=== PATIENT | male | born 1970 | race Caucasian/White ===

== ENCOUNTER → 2020-05-13 07:52 | Outpatient (BNVA) | payer MEDICARE, MEDICAID, SELFPAY | PROVIDERS: PCP Internal Medicine; Visit Provider Orthopaedic Surgery | DX: E66.01 Morbid (severe) obesity due to excess calories (principal); M16.12 Unilateral primary osteoarthritis, left hip | CPT/HCPCS: 99212 ==

== ENCOUNTER → 2020-06-17 13:25 | Outpatient (BNVA) | payer MEDICARE, MEDICAID, SELFPAY | PROVIDERS: PCP Internal Medicine; Visit Provider Nurse Practitioner Family | DX: E66.01 Morbid (severe) obesity due to excess calories (principal); M16.12 Unilateral primary osteoarthritis, left hip | CPT/HCPCS: 99202 ==

== ENCOUNTER → 2020-07-01 10:47 | Outpatient (BNVA) | payer MEDICARE, SELFPAY | PROVIDERS: PCP Internal Medicine; Visit Provider Nurse Practitioner Family | DX: E66.01 Morbid (severe) obesity due to excess calories (principal); M16.12 Unilateral primary osteoarthritis, left hip | CPT/HCPCS: 99212 ==

== ENCOUNTER 2020-08-06 06:55 | Outpatient (REF) | payer OTHER, SELFPAY ==
--- NOTE | ~2020-08-06 | FL_ITS ---
EXAMINATION: XR FLUOROSCOPY WITH IMAGES CLINICAL INFORMATION: Bilateral primary osteoarthritis. COMPARISON: None. TECHNIQUE: Fluoroscopy performed by Curt Lew. Fluoroscopy time: 0.3 minutes DAP: 7.61 Gycm2 Images: 1 FINDINGS: Single right hip image obtained under fluoroscopy reveals contrast positioned lateral to the right femoral neck and head junction. There is severe loss of right hip joint space. The soft tissues are unremarkable. FL/FL guidance in treatment room IMPRESSION: Fluoroscopy was provided to Louann Elias for right hip injection.
== END 2020-08-06 06:56 | disposition home or self-care (01) ==
LOC: HO.RADIR 06:55
PROVIDERS: Visit Provider Anesthesiology
DX: M16.0 Bilateral primary osteoarthritis of hip (principal); E66.01 Morbid (severe) obesity due to excess calories
CPT/HCPCS: 20610; J3300; Q9967

== ENCOUNTER → 2020-08-12 12:50 | Outpatient (BNVA) | payer MEDICARE, MEDICAID, SELFPAY | PROVIDERS: PCP Internal Medicine; Visit Provider Nurse Practitioner Family | DX: E66.01 Morbid (severe) obesity due to excess calories (principal); M16.12 Unilateral primary osteoarthritis, left hip | CPT/HCPCS: Q3014 ==

== ENCOUNTER 2020-10-14 11:54 | Outpatient (REF) | payer MEDICARE, SELFPAY ==
--- NOTE | ~2020-10-14 | XR_ITS ---
EXAMINATION: XR PELVIS CLINICAL INFORMATION: Difficulty turning left leg inward. COMPARISON: AP pelvis 01/27/2018. TECHNIQUE: AP view of the pelvis. FINDINGS: There is severe loss of bilateral hip joint space with periarticular spurring. There is large inferior acetabular spur along the left hip joint. No fracture seen. There are subchondral cystic changes along the femoral head and the acetabulum bilaterally. The SI joints are symmetrical with mild degenerative arthritic changes along the inferior left SI joint. The soft tissues are normal. XR/XR pelvis 1-2V IMPRESSION: Severe arthritic changes left hip joint. There is interval significant progression with severe right hip joint arthritis since 2018.
== END 2020-10-14 11:55 | disposition home or self-care (01) ==
LOC: HO.HOSX 11:54
PROVIDERS: Visit Provider Orthopaedic Surgery
DX: M16.12 Unilateral primary osteoarthritis, left hip (principal); M25.551 Pain in right hip; Z98.84 Bariatric surgery status
CPT/HCPCS: 72170; 99212

== ENCOUNTER → 2020-11-07 10:22 | Outpatient (BNVA) | payer MEDICARE, MEDICAID, SELFPAY | PROVIDERS: Visit Provider Orthopaedic Surgery ==

== ENCOUNTER → 2020-11-21 09:09 | Outpatient (BNVA) | payer MEDICARE, SELFPAY | PROVIDERS: Referring Provider Internal Medicine; Visit Provider Internal Medicine | DX: Z01.810 Encounter for preprocedural cardiovascular examination (principal); I10 Essential (primary) hypertension; E66.01 Morbid (severe) obesity due to excess calories | CPT/HCPCS: 93005; 99202 ==

== ENCOUNTER → 2020-12-05 13:35 | Outpatient (BNVA) | payer MEDICARE, SELFPAY | PROVIDERS: Visit Provider Physician Assistant | DX: M16.12 Unilateral primary osteoarthritis, left hip (principal) | CPT/HCPCS: 99212 ==

== ENCOUNTER 2020-12-11 06:53 | Inpatient (IN) | payer MEDICARE, SELFPAY ==
[2020-11-19 13:58] LABS: MANUAL DIFF FLAG NO
[2020-11-19 14:03] LABS: Basophils Absolute Auto 0.1 X10*3/uL (0.0-0.2); Basophils Percent Auto 0.6 % (0-2); Eosinophils Absolute Auto 0.1 X10*3/uL (0.0-0.4); Eosinophils Percent Auto 0.6 % (0-4); Hematocrit 42.7 % (42-52); Hemoglobin 14.4 g/dl (14.0-18.0); Imm Gran Abs Auto 0.04 X10*3/uL (0.00-0.03); Imm Gran Pct Auto 0.3 % (0.0-0.4); Lymphocytes Absolute Auto 2.3 X10*3/uL (1.2-4.9); Lymphocytes Percent Auto 19.1 % (20-40); Mean Corpuscular HGB Conc 33.7 g/dl (31.0-36.0); Mean Corpuscular Hemoglobin 29.7 pg (27.0-33.0); Mean Platelet Volume 9.6 fL (9.4-12.4); Monocytes Absolute Auto 0.8 X10*3/uL (0.1-1.2); Monocytes Percent Auto 6.6 % (2-11); Neutrophils Absolute Auto 8.8 X10*3/uL (2.0-8.3); Neutrophils Percent Auto 72.8 % (45-73); Platelet Count 386 X10*3/uL (160-400); Red Blood Count 4.85 X10*6/uL (4.60-5.80); Red Cell Distribution Width 13.5 % (11.0-16.0); White Blood Count 12.1 X10*3/uL (4.8-10.8)
[2020-11-19 14:21] LABS: Alanine Aminotransferase 31 U/L (0-40); Albumin Level 4.3 g/dL (3.5-5.0); Alkaline Phosphatase 57 U/L (39-117); Anion Gap 13 (12-20); Aspartate Amino Transferase 28 U/L (5-37); Bilirubin Total 0.7 mg/dL (0.0-1.0); Blood Urea Nitrogen 16 mg/dL (9-16); Calcium 9.9 mg/dL (8.4-10.2); Carbon Dioxide 31 mmol/L (22-29); Chloride 102 mmol/L (96-108); Estimated Glomerular Filt Rate > 60; Glucose Random 80 mg/dL (60-115); Potassium 3.5 mmol/L (3.3-5.1); Sodium 142 mmol/L (135-145); Total Protein 7.1 g/dL (6.5-8.0)
[2020-11-19 14:38] LABS: TSH reflex Free T4 1.27 uIU/mL (0.32-4.0)
--- NOTE | 2020-11-27 10:52 | P.CONAN_ITS ---
Documented by User: Lina Benítez NP 12/10/20 08:57 HPI - Anesthesia Eval Consult details Narrative: 50yo M for Left Hip Total Replacement Cardiac cleared at low risk PCP cleared s/p gastric sleeve 03/2020 with 130lb weight loss PMFSH Active Problems Active Problems: All Active Problems (Updated 11/26/20 @ 09:54 by Yuli Smith, GUMARO) Requires daily assistance for activities of daily living (ADL) and comfort needs (Acute) Obesity (Acute) Arthritis of left hip (Acute) Immunization due (Acute) Lipid disorder (Acute) Chronic GERD (Acute) History of bariatric surgery (Acute) Pre-op evaluation (Acute) Preoperative cardiovascular examination (Acute) Depression, major, recurrent (Acute) Hypertension, essential (Acute) Morbid obesity (Acute) Osteoarthritis, hip, bilateral (Acute) Past Medical History Medical History Arthritis COVID-19 vaccine series completed Depression, major, recurrent Hypertension, essential Morbid obesity Osteoarthritis, hip, bilateral Sleep apnea Family History Family History Father HTN (hypertension) Mother HTN (hypertension) Sister Cancer of thyroid Maternal Grandfather No problems noted. Maternal Grandmother No problems noted. Paternal Grandfather No problems noted. Paternal Grandmother No problems noted. Brother No problems noted. Sister No problems noted. Sister No problems noted. Family history of problems with anesthesia: No Surgical History Surgical History H/O colonoscopy History of ankle surgery History of sleeve gastrectomy History of surgery History of Problems with Anesthesia: No Social History Social History Housing: House Are you a primary respiratory care assistant to a significant other at home: No Do you presently have visiting nurse or other home services: No Alcohol intake: never Patient Tobacco Use Status: Never used Tobacco Narrative Narrative: No recent illness No CP/SOB with very limited activity d/t pain Meds Allergies Allergy/AdvReac Type Severity Reaction Status Date / Time lisinopril [LISINOPRIL] AdvReac Severe COUGH Verified 12/05/20 14:17 Home Medications Medication Instructions Recorded Confirmed Last Taken Type irbesartan 300 mg tablet 300 mg PO QPM 05/22/20 11/27/20 Unknown History amlodipine 10 mg tablet 10 mg PO QPM 11/27/20 11/27/20 Unknown History atorvastatin 20 mg tablet 20 mg PO QPM 11/27/20 11/27/20 Unknown History gabzxik-rex-wun [id number]-[id number] 250 1 tab PO BID 11/27/20 11/27/20 Unknown History mg-40 mg-5 mg-125 unit tablet multivitamin 1 tab PO DAILY 11/27/20 11/27/20 Unknown History omeprazole 20 mg capsule,delayed 20 mg PO QAM 11/27/20 11/27/20 Unknown History release spironolactone 25 1 tab PO QPM 11/27/20 11/27/20 Unknown History mg-hydrochlorothiazide 25 mg tablet Exam Exam Date and Time: November 27, 2020 1052 Height,Weight and Vital Signs: Vital Signs Pulse Rate 72 11/27/20 11:33 Respiratory Rate 20 11/27/20 11:33 Blood Pressure 110/60 11/27/20 11:33 Pulse Oximetry 97 11/27/20 11:33 Pulse Rate 72 11/27/20 11:33 Respiratory Rate 20 11/27/20 11:33 Blood Pressure 110/60 11/27/20 11:33 Pulse Oximetry 97 11/27/20 11:33 Pertinent Lab Results Pertinent Lab Results: Lab Results 11/19/20 11/19/20 11/19/20 Range/Units 12:25 12:25 12:25 WBC Cancelled 12.1 H RBC Cancelled 4.85 Hgb Cancelled 14.4 Hct Cancelled 42.7 MCV Cancelled 88.0 MCH Cancelled 29.7 MCHC Cancelled 33.7 RDW Cancelled 13.5 Plt Count Cancelled 386 MPV Cancelled 9.6 Immature Gran % (Auto) Cancelled 0.3 Neut % (Auto) Cancelled 72.8 Lymph % (Auto) Cancelled 19.1 L [place] % (Auto) Cancelled 6.6 Eos % (Auto) Cancelled 0.6 Baso % (Auto) Cancelled 0.6 Lymph # (Auto) Cancelled 2.3 [place] # (Auto) Cancelled 0.8 Eos # (Auto) Cancelled 0.1 Baso # (Auto) Cancelled 0.1 Abs Immat Gran (auto) Cancelled 0.04 H Absolute Neuts (auto) Cancelled 8.8 H Absolute Nucleated RBC Cancelled 0.000 Nucleated RBC % (auto) Cancelled 0.0 Sodium Cancelled Potassium Cancelled Chloride Cancelled Carbon Dioxide Cancelled Anion Gap Cancelled BUN Cancelled Creatinine Cancelled Estim Creat Clear Calc Cancelled Estimated GFR Cancelled Random Glucose Cancelled Calcium Cancelled Total Bilirubin (0.0-1.0) mg/dL AST (5-37) U/L ALT (0-40) U/L Alkaline Phosphatase (39-117) U/L Total Protein (6.5-8.0) g/dL Albumin (3.5-5.0) g/dL TSH (0.32-4.0) uIU/mL Nasal Screen MRSA (PCR) (Negative) Nasal S. aureus Screen (Negative) Nasal MRSA/S.aureus Interp Blood Type Antibody Screen 11/19/20 11/27/20 11/27/20 Range/Units 12:25 11:50 12:35 WBC RBC Hgb Hct MCV MCH MCHC RDW Plt Count MPV Immature Gran % (Auto) Neut % (Auto) Lymph % (Auto) [place] % (Auto) Eos % (Auto) Baso % (Auto) Lymph # (Auto) [place] # (Auto) Eos # (Auto) Baso # (Auto) Abs Immat Gran (auto) Absolute Neuts (auto) Absolute Nucleated RBC Nucleated RBC % (auto) Sodium 142 Potassium 3.5 Chloride 102 Carbon Dioxide 31 H Anion Gap 13 BUN 16 Creatinine 0.80 Estim Creat Clear Calc TNP Estimated GFR > 60 Random Glucose 80 Calcium 9.9 Total Bilirubin 0.7 (0.0-1.0) mg/dL AST 28 (5-37) U/L ALT 31 (0-40) U/L Alkaline Phosphatase 57 (39-117) U/L Total Protein 7.1 (6.5-8.0) g/dL Albumin 4.3 (3.5-5.0) g/dL TSH 1.27 (0.32-4.0) uIU/mL Nasal Screen MRSA (PCR) NEGATIVE (Negative) Nasal S. aureus Screen NEGATIVE (Negative) Nasal MRSA/S.aureus Interp SEE NOTE Blood Type O Positive Antibody Screen NEGATIVE Narrative Narrative: EKG 11/2020 Sinus rhythm at 67/Min; no significant ST-T changes and otherwise unremarkable. Airway Mallampati Class: II TM Dist: >3cm Neck ROM: Full Heart: RRR Lungs: CTAB Assessment and Plan Assessment Anesthesia Assessment: Anesthesia Plan Discussed and PAT Visit Final Anesthetic Review Family History of Problems with Anesthesia: No History of Problems with Anesthesia: No Documented by User: Santiago Salcido MD 12/11/20 07:01 [facility] Past Medical History Medical History Arthritis COVID-19 vaccine series completed Depression, major, recurrent Hypertension, essential Morbid obesity Osteoarthritis, hip, bilateral Sleep apnea Family History Family History Father HTN (hypertension) Mother HTN (hypertension) Sister Cancer of thyroid Maternal Grandfather No problems noted. Maternal Grandmother No problems noted. Paternal Grandfather No problems noted. Paternal Grandmother No problems noted. Brother No problems noted. Sister No problems noted. Sister No problems noted. Surgical History Surgical History H/O colonoscopy History of ankle surgery History of sleeve gastrectomy History of surgery Social History Social History Housing: House Are you a primary respiratory care assistant to a significant other at home: No Do you presently have visiting nurse or other home services: No Alcohol intake: never Patient Tobacco Use Status: Never used Tobacco Meds Allergies Allergy/AdvReac Type Severity Reaction Status Date / Time lisinopril [LISINOPRIL] AdvReac Severe COUGH Verified 12/05/20 14:17 Home Medications Medication Instructions Recorded Confirmed Last Taken Type irbesartan 300 mg tablet 300 mg PO QPM 05/22/20 11/27/20 Unknown History amlodipine 10 mg tablet 10 mg PO QPM 11/27/20 11/27/20 Unknown History atorvastatin 20 mg tablet 20 mg PO QPM 11/27/20 11/27/20 Unknown History uhvjspc-ctq-[id number] C5-[id number]-[id number] 250 1 tab PO BID 11/27/20 11/27/20 Unknown History mg-40 mg-5 mg-125 unit tablet multivitamin 1 tab PO DAILY 11/27/20 11/27/20 Unknown History omeprazole 20 mg capsule,delayed 20 mg PO QAM 11/27/20 11/27/20 Unknown History release spironolactone 25 1 tab PO QPM 11/27/20 11/27/20 Unknown History mg-hydrochlorothiazide 25 mg tablet Exam Airway Mallampati Class: III Loose/Missing/Broken Teeth: Yes Assessment and Plan Final Anesthetic Review NPO: Yes ASA Class: III Final Preanesthetic Review: No Changes in Pt Med Stat, Meds/Allgs Chart Reviewed and Consent Obtained/Reviewed Patient Risk: Intermediate Procedure Risk: Intermediate Assessment/Block/Sedation in SS: Assess/Block/Sedation-SS Anesthetic Plan Anesthetic Plan: GA and Agree w/ Assess. and Plan Disposition: Standard PACU
[2020-11-27 11:33] VITALS: BP 110/60; PULSE 72; RESP 20; O2SAT 97; BMI 37.0
[2020-11-27 14:22] LABS: MRSA Nasal PCR NEGATIVE (Negative); SA Nasal PCR NEGATIVE (Negative)
[2020-12-11] VITALS (17 sets, daily range): BP systolic 115–147; BP diastolic 66–92; PULSE 71–94; RESP 16–20; TEMP 36.1–37.1; O2SAT 93–98
--- NOTE | ~2020-12-11 | XR_ITS ---
EXAMINATION: XR PELVIS CLINICAL INFORMATION: Post left hip arthroplasty COMPARISON: Previous pelvis x-ray September 2020 TECHNIQUE: AP view of the pelvis. FINDINGS: There is a new left hip replacement and proximal femoral cerclage wire. No fracture or dislocation is seen. There is severe arthritis at the right hip joint. Soft tissues are unremarkable. XR/XR pelvis 1-2V IMPRESSION: Satisfactory appearance of left hip replacement.
--- NOTE | 2020-12-11 07:20 | MHC.SHP ---
Pre-Procedural Eval Section A Date of Service: 12/11/20 The patient is an INPATIENT: No Changes since office visit: Yes Patient answered all questions; No Cold of Flu in the past 2 weeks, No New Medical Problems and No Changes in Medication The History & Physical has been completed within 30 days and I have reviewed it.: Yes Section B Chief Complaint: LT GLENIS Allergies: Allergies Allergy/AdvReac Type Severity Reaction Status Date / Time lisinopril [LISINOPRIL] AdvReac Severe COUGH Verified 12/05/20 14:17 Plan I have reviewed the history and physical and performed a pertinent physical examination on my patient. No changes have occurred unless specified.
[2020-12-11 07:28] LABS: COVID-19 Test Negative (Negative)
[2020-12-11] MEDS: oxyCODONE HCl ER 10 MG TAB.ER.12H PO ×2 (07:32→20:06)
[2020-12-11] MEDS: Lactated Ringers 1,000 ML 100 ML IVCONT (08:06)
--- NOTE | 2020-12-11 11:09 | PM.OP ---
Brief Operative Note Date of Service: 12/11/20 Pre-op diagnosis: left hip OA Post-op diagnosis: same Procedure: Left GLENIS Implants: [place] 58/20deg/#6/+7.5 36 ceramic dalles-miles cerclage cable x1 Surgeon: Bk Nettles MD Anesthesia: GETA and local Was an Product Representative used for this Procedure?: Yes Product Representative: Marie Lombardi Estimated blood loss (mL): 200 IV fluids (mL): 1,200 Pathology: other Condition: stable Disposition: PACU
--- NOTE | 2020-12-11 11:14 | W.PM.OPN ---
Operative Note Operative Note Date of Service: 12/11/20 Narrative: Pre-op diagnosis: left hip OA Post-op diagnosis: same Procedure: Left GLENIS Implants: [place] 58/20deg/#6/+7.5 36 ceramic dalles-miles cerclage cable x1 Surgeon: Bk Nettles MD Anesthesia: GETA and local Was an Transportation Specialist used for this Procedure?: Yes Transportation Specialist: Marie Lombardi Estimated blood loss (mL): 200 IV fluids (mL): 1,200 Pathology: other Condition: stable Disposition: PACU Procedure in detail: Patient was brought into the operating room and placed in the lateral decubitus position. All bony prominences were well padded and the limb was prepped and draped in standard sterile fashion. Time-out was called to identify proper site procedure proper surgeon IV antibiotics and 1 g of transaxemic acid were administered. I began by making a curvilinear incision over the posterolateral aspect of the greater trochanter. Dissection was taken down to the tensor fascia which was incised in line with the incision and a Charnley retractor was placed. Cautery was used to maintain hemostasis in addition to the Werewolf.. The hip was internally rotated and the external rotators were identified. The vessels were cauterized and a full-thickness capsular/external rotator layer was developed starting just proximal to the piriformis. THis layer was tagged and a dull Hohmann retractor was placed underneath the neck in the hip was dislocated. ___The head was deformed and eburnated A neck cut was made 1 cm proximal to the lesser trochanter and the head and neck were removed and measured on the back table. I then placed my anterior-posterior acetabular retractors and performed a labrectomy. The inferior osteophytes were removed.The cup was superior and sclerotic. There was a thin posterosuperior wall and I medialized a small amount but elected to use his false acetabulum as I was worried about his bone quality posteriorly. I then sequentially reamed up to a size 58 and impacted a 58 revision cup at approximately 45 degrees of inclination and 25 degrees of version. I then placed a ___20 post lipped ____ liner and turned my attention to the femur. I identified the piriformis insertion and used this as a starting point for my emmanuel cutter. The medius tendon was protected with a Hibs retractor. I then used a Charnley awl to identify the canal and a curved curette to remove the lateral bone. I then sequentially broached in the patient's natural version to a size __6__ and placed my trial implants. Using a ____+5 I took the hip through range of motion with a I was satisfied with the stability and length. Therefore removed all instrumentation copiously irrigated placed my final femoral implant. After final implantation I noticed a small crack at the calcar that did not appear to propogate distally. I tried to further advance the stem and I was unable to do so. As a precaution I placed a cerclage cable just below the lesser using standard AO technique. I then assessed the stem and it was stable. There was no subsidence even after further impaction. I again took the hip through range of motion and elected to place a + 7.5 as I was satisfied with stability and length and so my final femoral head was impacted in place. I then irrigated for 3 minutes with iodine and placed 1 g of local TXA. I then performed a capsular closure with FiberWire, Judi's fascia with 0 Vicryl, subcuticular with 2-0 vicryl and skin with arpita. Patient was placed into a sterile dressing. Radiographs were obtained at the completion of the case and I was satisfied with the component position. Patient was extubated brought to the recovery room in stable condition.
[2020-12-11] MEDS: fentaNYL citrate/PF 100 MCG/2 ML VIAL 50 MCG IVPUSH ×3 (11:32→11:47)
[2020-12-11] MEDS: oxyCODONE HCl Immed Release 5 MG TABLET 10 MG PO ×2 (12:15→20:05)
[2020-12-11] MEDS: Dextrose 5 % and 0.45 % NaCl 1,000 ML 80 ML IVCONT (13:16)
[2020-12-11] MEDS: Omeprazole 20 MG CAPSULE.DR PO (13:16)
[2020-12-11] MEDS: ceFAZolin Sodium/Dextrose,Iso 2 GM/50 ML PIGGYBACK IV (14:26)
--- NOTE | 2020-12-11 14:32 | P.CONIM_ITS ---
History of Present Illness Data of Consult Service Date: 12/11/20 Primary Care Provider: Renard Benton MD [facility] Reason for consult: Hypertension, obesity 50 years old male admitted to the hospital for scheduled left hip arthroplasty. He feels comfortable overall and his medical problems other under good control including hypertension and GERD. At time of interview physical therapist walked in the room trying tells the patient moved. His pain is under fair control. Hospitalist team asked to evaluate the patient for medical problems. Review of Systems Review of Systems: No fever, chills or weakness No chest pain, palpitation No shortness of breath or coughing No abdominal pain, nausea or vomiting No urinary symptoms Hip pain PMFSH Medical History Arthritis COVID-19 vaccine series completed Depression, major, recurrent Hypertension, essential Morbid obesity Osteoarthritis, hip, bilateral Sleep apnea Family History Father HTN (hypertension) Mother HTN (hypertension) Sister Cancer of thyroid Maternal Grandfather No problems noted. Maternal Grandmother No problems noted. Paternal Grandfather No problems noted. Paternal Grandmother No problems noted. Brother No problems noted. Sister No problems noted. Sister No problems noted. 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 If so, by whom?: No Are you DNR?: No Advance Directives Information Provided: Yes (friend Kacy Herbert [phone]) Advance Directives on File: No Do you have thoughts of harming others: None Do you have a plan to hurt others: No Plan Recently lost weight without trying: No Eating poorly because of decreased appetite: No Nutrition Risks: No Nutritional Risk Poor oral hygiene: No Meds Allergies Allergy/AdvReac Type Severity Reaction Status Date / Time lisinopril [LISINOPRIL] AdvReac Severe COUGH Verified 12/11/20 07:43 Active Medications: Current Medications Acetaminophen (Acetaminophen 325 Mg Tablet) 650 mg PO Q6H PRN PRN Reason: Pain, Mild (Pain Scale 1-3) Atorvastatin Calcium (Atorvastatin Calcium 20 Mg Tablet) 20 mg PO BEDTIME [facility] Bupropion HCl (Bupropion Hcl Xl 300 Mg Tab.Er.24h) 300 mg PO DAILY [facility] Celecoxib (Celecoxib 200 Mg Capsule) 200 mg PO BID [facility] Docusate Sodium (Docusate Sodium 100 Mg Capsule) 100 mg PO BID [facility] Hydrochlorothiazide (Hydrochlorothiazide 25 Mg Tablet) 25 mg PO DAILY@2100 [facility] Hydromorphone HCl (Hydromorphone Hcl 0.5 Mg/0.5 Ml Syringe) 0.25 mg IVPUSH Q4H PRN; Protocol PRN Reason: Pain, Severe (Pain Scale 7-10) Dextrose/Sodium Chloride (D51/2ns) 1,000 mls @ 80 mls/hr IVCONT .[id number] [facility] Last Admin: 12/11/20 13:16 Dose: 80 mls/hr Documented by: Cefazolin Sodium/Dextrose (Ancef) 2 gm in 50 mls @ 100 mls/hr IV POSTOP ONE Stop: 12/11/20 15:29 Last Admin: 12/11/20 14:26 Dose: 100 mls/hr Documented by: Multivitamins/Vitamin C (Multivitamin Tablet) 1 tab PO DAILY [facility] Omeprazole (Omeprazole 20 Mg Capsule.Dr) 20 mg PO DAILY [facility] Last Admin: 12/11/20 13:16 Dose: 20 mg Documented by: Ondansetron HCl (Ondansetron Hcl 4 Mg/2 Ml Vial) 4 mg IVPUSH Q8H PRN PRN Reason: Nausea and Vomiting Oxycodone HCl (Oxycodone Hcl Immed Release 5 Mg Tablet) 10 mg PO Q4H PRN PRN Reason: Pain, Moderate (Pain Scale 4-6 Last Admin: 12/11/20 12:15 Dose: 10 mg Documented by: Oxycodone HCl (Oxycodone Hcl Er 10 Mg Tab.Er.12h) 10 mg PO BID [facility] Sodium Chloride (0.9 % Sodium Chloride Flush 3 Ml Syringe) 3 ml IVFLUSH QSHIFT [facility] Spironolactone (Spironolactone 25 Mg Tablet) 25 mg PO DAILY@2100 [facility] Valsartan (Valsartan 160 Mg Tablet) 160 mg PO DAILY@2100 [facility] Home Medications Medication Instructions Recorded Confirmed Last Taken Type irbesartan 300 mg tablet 300 mg PO QPM 05/22/20 11/27/20 Unknown History amlodipine 10 mg tablet 10 mg PO QPM 11/27/20 11/27/20 Unknown History atorvastatin 20 mg tablet 20 mg PO QPM 11/27/20 11/27/20 Unknown History cbveile-ubr-uyr L1-U3-ejkovjch 250 1 tab PO BID 11/27/20 11/27/20 Unknown Histo ry mg-40 mg-5 mg-125 unit tablet multivitamin 1 tab PO DAILY 11/27/20 11/27/20 Unknown History omeprazole 20 mg capsule,delayed 20 mg PO QAM 11/27/20 11/27/20 12/11/20 06:00 History release spironolactone 25 1 tab PO QPM 11/27/20 11/27/20 Unknown History mg-hydrochlorothiazide 25 mg tablet Physical Exam Vital Signs and Narrative: Vital Signs: Last Vital Signs Temp 97.0 F 12/11/20 11:12 Pulse 79 12/11/20 12:42 Resp 16 12/11/20 12:42 BP 145/87 H 12/11/20 12:42 Pulse Ox 98 12/11/20 12:42 Body Mass Index 37.0 Const: Other: Constitutional : Alert, oriented, not in distress, obese Neck : Normal inspection, Supple Cardiovascular : RRR, S1 S2, no lower extremity edema Respiratory : Good bilateral air entry, no crackles, wheezes or rhonchi Gastrointestinal: soft, lax, Normal bowel sounds, Non tender Skin : Warm, Dry Neurological : Alert & oriented x3, No focal deficit Results Labs CBC and Chem 7: 11/19/20 12:25 11/19/20 12:25 Labs: Laboratory Results - last 24 hr 12/11/20 07:01 COVID-19 ([facility]) Negative COVID-19 Clin Com See Note Imaging Radiologist's Impressions: Impressions Pelvis X-Ray 12/11/20 10:25 IMPRESSION: Satisfactory appearance of left hip replacement. Assessment and Plan (1) Hypertension, essential: Status: Acute 50 years old male admitted to the hospital for scheduled left hip arthroplasty. Hypertension Continue home medications Monitor blood pressure readings Hip arthroplasty Start physical therapy Orthopedic team following GERD Continue omeprazole The computers the [employer] today MRI 3
--- NOTE | 2020-12-11 16:14 | P.CONHOSP_ITS ---
History of Present Illness Data of Consult Service Date: 12/11/20 Requesting physician: Clarke Clark Primary Care Provider: MD PATRICK Nassar Reason for consult: Med management PMFSH Medical History Arthritis COVID-19 vaccine series completed Depression, major, recurrent Hypertension, essential Morbid obesity Osteoarthritis, hip, bilateral Sleep apnea Family History Father HTN (hypertension) Mother HTN (hypertension) Sister Cancer of thyroid Maternal Grandfather No problems noted. Maternal Grandmother No problems noted. Paternal Grandfather No problems noted. Paternal Grandmother No problems noted. Brother No problems noted. Sister No problems noted. Sister No problems noted. 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 If so, by whom?: No Are you DNR?: No Advance Directives Information Provided: Yes (friend Kacy Herbert ) Advance Directives on File: No Do you have thoughts of harming others: None Do you have a plan to hurt others: No Plan Recently lost weight without trying: No Eating poorly because of decreased appetite: No Nutrition Risks: No Nutritional Risk Poor oral hygiene: No Meds Allergies Allergy/AdvReac Type Severity Reaction Status Date / Time lisinopril [LISINOPRIL] AdvReac Severe COUGH Verified 12/11/20 07:43 Active Medications: Current Medications Acetaminophen (Acetaminophen 325 Mg Tablet) 650 mg PO Q6H PRN PRN Reason: Pain, Mild (Pain Scale 1-3) Atorvastatin Calcium (Atorvastatin Calcium 20 Mg Tablet) 20 mg PO BEDTIME [facility] Bupropion HCl (Bupropion Hcl Xl 300 Mg Tab.Er.24h) 300 mg PO DAILY [facility] Celecoxib (Celecoxib 200 Mg Capsule) 200 mg PO BID [facility] Docusate Sodium (Docusate Sodium 100 Mg Capsule) 100 mg PO BID [facility] Hydrochlorothiazide (Hydrochlorothiazide 25 Mg Tablet) 25 mg PO DAILY@2100 [facility] Hydromorphone HCl (Hydromorphone Hcl 0.5 Mg/0.5 Ml Syringe) 0.25 mg IVPUSH Q4H PRN; Protocol PRN Reason: Pain, Severe (Pain Scale 7-10) Dextrose/Sodium Chloride (D51/2ns) 1,000 mls @ 80 mls/hr IVCONT .[id number] [facility] Last Admin: 12/11/20 13:16 Dose: 80 mls/hr Documented by: Multivitamins/Vitamin C (Multivitamin Tablet) 1 tab PO DAILY [facility] Omeprazole (Omeprazole 20 Mg Capsule.Dr) 20 mg PO DAILY [facility] Last Admin: 12/11/20 13:16 Dose: 20 mg Documented by: Ondansetron HCl (Ondansetron Hcl 4 Mg/2 Ml Vial) 4 mg IVPUSH Q8H PRN PRN Reason: Nausea and Vomiting Oxycodone HCl (Oxycodone Hcl Immed Release 5 Mg Tablet) 10 mg PO Q4H PRN PRN Reason: Pain, Moderate (Pain Scale 4-6 Last Admin: 12/11/20 12:15 Dose: 10 mg Documented by: Oxycodone HCl (Oxycodone Hcl Er 10 Mg Tab.Er.12h) 10 mg PO BID [facility] Sodium Chloride (0.9 % Sodium Chloride Flush 3 Ml Syringe) 3 ml IVFLUSH QSHIFT [facility] Last Admin: 12/11/20 14:52 Dose: Not Given Documented by: Spironolactone (Spironolactone 25 Mg Tablet) 25 mg PO DAILY@2100 [facility] Valsartan (Valsartan 160 Mg Tablet) 160 mg PO DAILY@2100 [facility] Home Medications Medication Instructions Recorded Confirmed Last Taken Type irbesartan 300 mg tablet 300 mg PO QPM 05/22/20 11/27/20 Unknown History amlodipine 10 mg tablet 10 mg PO QPM 11/27/20 11/27/20 Unknown History atorvastatin 20 mg tablet 20 mg PO QPM 11/27/20 11/27/20 Unknown History [id number] 250 1 tab PO BID 11/27/20 11/27/20 Unknown History mg-40 mg-5 mg-125 unit tablet multivitamin 1 tab PO DAILY 11/27/20 11/27/20 Unknown History omeprazole 20 mg capsule,delayed 20 mg PO QAM 11/27/20 11/27/20 12/11/20 06:00 History release spironolactone 25 1 tab PO QPM 11/27/20 11/27/20 Unknown History mg-hydrochlorothiazide 25 mg tablet Physical Exam Vital Signs and Narrative: Vital Signs: Last Vital Signs Temp 97.2 F 12/11/20 15:54 Pulse 94 12/11/20 15:54 Resp 19 12/11/20 15:54 BP 140/82 H 12/11/20 15:54 Pulse Ox 94 12/11/20 15:54 Body Mass Index 37.0 Results Labs CBC and Chem 7: 11/19/20 12:25 11/19/20 12:25 Labs: Laboratory Results - last 24 hr 12/11/20 07:01 COVID-19 ([facility]) Negative COVID-19 Clin Com See Note Imaging Radiologist's Impressions: Impressions Pelvis X-Ray 12/11/20 10:25 IMPRESSION: Satisfactory appearance of left hip replacement.
[2020-12-11] MEDS: Spironolactone 25 MG TABLET PO (20:06)
[2020-12-11] MEDS: Atorvastatin Calcium 20 MG TABLET PO (20:06)
[2020-12-11] MEDS: hydroCHLOROthiazide 25 MG TABLET PO (20:06)
[2020-12-11] MEDS: Celecoxib 200 MG CAPSULE PO (20:06)
[2020-12-11] MEDS: Valsartan 160 MG TABLET PO (20:06)
[2020-12-11] MEDS: Docusate Sodium 100 MG CAPSULE PO (20:06)
[2020-12-12] VITALS (11 sets, daily range): BP systolic 118–137; BP diastolic 60–78; PULSE 75–108; RESP 15–19; TEMP 36.1–36.6; O2SAT 95–97
[2020-12-12] MEDS: Dextrose 5 % and 0.45 % NaCl 1,000 ML 80 ML IVCONT ×2 (04:30→22:20)
[2020-12-12 06:08] LABS: Basophils Percent Auto 0.1 % (0-2); Hematocrit 38.8 % (42-52); Hemoglobin 12.8 g/dl (14.0-18.0); Imm Gran Abs Auto 0.08 X10*3/uL (0.00-0.03); Imm Gran Pct Auto 0.5 % (0.0-0.4); Lymphocytes Absolute Auto 1.9 X10*3/uL (1.2-4.9); Lymphocytes Percent Auto 11.6 % (20-40); MANUAL DIFF FLAG NO; Mean Corpuscular Hemoglobin 29.4 pg (27.0-33.0); Mean Platelet Volume 8.9 fL (9.4-12.4); Monocytes Absolute Auto 1.5 X10*3/uL (0.1-1.2); Monocytes Percent Auto 8.8 % (2-11); Neutrophils Absolute Auto 13.2 X10*3/uL (2.0-8.3); Platelet Count 343 X10*3/uL (160-400); Red Blood Count 4.36 X10*6/uL (4.60-5.80); Red Cell Distribution Width 13.4 % (11.0-16.0); White Blood Count 16.7 X10*3/uL (4.8-10.8)
[2020-12-12 07:00] LABS: Anion Gap 12 (12-20); Blood Urea Nitrogen 9 mg/dL (9-16); Calcium 9.2 mg/dL (8.4-10.2); Carbon Dioxide 31 mmol/L (22-29); Chloride 100 mmol/L (96-108); Creatinine Clr Calc Pharmacy 152.6; Estimated Glomerular Filt Rate > 60; Glucose Fasting 128 mg/dL (60-99); Potassium 3.7 mmol/L (3.3-5.1); Sodium 139 mmol/L (135-145)
--- NOTE | 2020-12-12 08:19 | PM.PNORT ---
Subjective Subjective Date of Service: 12/12/20 Interval history: POD1 s/p LTHA. Patient is resting comfortably in bed. No overnight events. Pain is well managed. No additional complaints. Physical Exam Vital Signs: Vital Signs: Last Vital Signs Temp 97.0 F 12/12/20 07:36 Pulse 82 12/12/20 07:36 Resp 15 12/12/20 07:36 BP 137/75 12/12/20 07:36 Pulse Ox 97 12/12/20 07:36 Body Mass Index 37.0 Const: General: cooperative, healthy appearing and no acute distress Resp: Effort & Inspection: normal respiratory effort and able to speak in complete sentences Cardio: Rate: regular rate Peripheral pulses: Peripheral pulses 2+ throughout GI: Palpation (GI): Soft to palpation Skin: Lesions: no lesions Rashes: no rashes Extrem: Other: Left hip no erythema, ecchymosis, or drainage. Aquacel is clean, dry, and intact. NVI Procedures Date of Service Date of Service: 12/12/20 Progress Note: A&P Assessment and plan (1) Status post total replacement of left hip: Status: Acute Assessment and Plan: Continue pain mgmnt Begin ASA for dvt ppx begin PT for LTHA Dispo planning-Pending PT eval, pain mgmnt Fall Risk Details Current Medications: Current Medications Acetaminophen (Acetaminophen 325 Mg Tablet) 650 mg PO Q6H PRN PRN Reason: Pain, Mild (Pain Scale 1-3) Aspirin (Aspirin 325 Mg Tablet) 325 mg PO BID [facility] Aspirin (Aspirin 325 Mg Tablet) 325 mg PO ONCE@1100 [facility] Stop: 12/12/20 11:01 Atorvastatin Calcium (Atorvastatin Calcium 20 Mg Tablet) 20 mg PO BEDTIME [facility] Last Admin: 12/11/20 20:06 Dose: 20 mg Documented by: Bupropion HCl (Bupropion Hcl Xl 300 Mg Tab.Er.24h) 300 mg PO DAILY [facility] Celecoxib (Celecoxib 200 Mg Capsule) 200 mg PO BID [facility] Last Admin: 12/11/20 20:06 Dose: 200 mg Documented by: Docusate Sodium (Docusate Sodium 100 Mg Capsule) 100 mg PO BID [facility] Last Admin: 12/11/20 20:06 Dose: 100 mg Documented by: Hydrochlorothiazide (Hydrochlorothiazide 25 Mg Tablet) 25 mg PO DAILY@2100 [facility] Last Admin: 12/11/20 20:06 Dose: 25 mg Documented by: Hydromorphone HCl (Hydromorphone Hcl 0.5 Mg/0.5 Ml Syringe) 0.25 mg IVPUSH Q4H PRN; Protocol PRN Reason: Pain, Severe (Pain Scale 7-10) Dextrose/Sodium Chloride (D51/2ns) 1,000 mls @ 80 mls/hr IVCONT .[id number] [facility] Last Admin: 12/12/20 04:30 Dose: 80 mls/hr Documented by: Multivitamins/Vitamin C (Multivitamin Tablet) 1 tab PO DAILY [facility] Omeprazole (Omeprazole 20 Mg Capsule.Dr) 20 mg PO DAILY [facility] Last Admin: 12/11/20 13:16 Dose: 20 mg Documented by: Ondansetron HCl (Ondansetron Hcl 4 Mg/2 Ml Vial) 4 mg IVPUSH Q8H PRN PRN Reason: Nausea and Vomiting Oxycodone HCl (Oxycodone Hcl Immed Release 5 Mg Tablet) 10 mg PO Q4H PRN PRN Reason: Pain, Moderate (Pain Scale 4-6 Last Admin: 12/11/20 20:05 Dose: 10 mg Documented by: Oxycodone HCl (Oxycodone Hcl Er 10 Mg Tab.Er.12h) 10 mg PO BID [facility] Last Admin: 12/11/20 20:06 Dose: 10 mg Documented by: Sodium Chloride (0.9 % Sodium Chloride Flush 3 Ml Syringe) 3 ml IVFLUSH QSHIFT [facility] Last Admin: 12/12/20 06:37 Dose: Not Given Documented by: Spironolactone (Spironolactone 25 Mg Tablet) 25 mg PO DAILY@2099 [facility] Last Admin: 12/11/20 20:06 Dose: 25 mg Documented by: Valsartan (Valsartan 160 Mg Tablet) 160 mg PO DAILY@2099 [facility] Last Admin: 12/11/20 20:06 Dose: 160 mg Documented by: Time Spent With Patient Time: Total time spent is greater than 50% in coordination of care (as documented) at patient's floor/unit and/or counseling patient: Time with patient: less than 15 minutes Quality Stroke Does the patient have a stroke diagnosis?: No VTE Prior VTE?: No VTE Risk Level:: Surgical - very high VTE Device Contraindication: N/A - Device Ordered VTE Drug Contraindication: N/A - Med Ordered
[2020-12-12] MEDS: Omeprazole 20 MG CAPSULE.DR PO (08:23)
[2020-12-12] MEDS: buPROPion HCl XL 300 MG TAB.ER.24H PO (08:23)
[2020-12-12] MEDS: Docusate Sodium 100 MG CAPSULE PO ×2 (08:23→20:50)
[2020-12-12] MEDS: Celecoxib 200 MG CAPSULE PO ×2 (08:23→20:44)
[2020-12-12] MEDS: oxyCODONE HCl ER 10 MG TAB.ER.12H PO ×2 (08:23→20:44)
[2020-12-12] MEDS: Multivitamin TABLET 1 TAB PO (08:23)
[2020-12-12] MEDS: Aspirin 325 MG TABLET PO ×2 (11:32→20:44)
--- NOTE | 2020-12-12 13:33 | MHC.CM.PN ---
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 D/C PLAN: HOME W/NEW VNA AND RESUMP OF SIDE DOOR MAN HRS. PCP: BASHIR MYERS HCP: LINDA FOLEY [phone]
--- NOTE | 2020-12-12 15:10 | HO.POSTANES ---
Post Anesthesia Evaluation Post Anesthesia Evaluation Vital Signs: Vital Signs Temp Pulse Resp BP Pulse Ox 12/12/20 14:57 120/78 97 12/12/20 12:00 17 120/78 97 12/12/20 10:25 82 137/75 97 12/12/20 07:36 97.0 F 82 15 137/75 97 12/12/20 04:00 97.7 F 82 19 122/77 96 Anesthesia: General Mental Status: Awake Pain Control: Satisfactory Nausea/Vomiting: None Hydration: Adequate Anesthesia-Related Issues: No Anes. Related Issues
[2020-12-12] MEDS: Valsartan 160 MG TABLET PO (20:43)
[2020-12-12] MEDS: Spironolactone 25 MG TABLET PO (20:44)
[2020-12-12] MEDS: hydroCHLOROthiazide 25 MG TABLET PO (20:44)
[2020-12-12] MEDS: Atorvastatin Calcium 20 MG TABLET PO (20:44)
[2020-12-12] MEDS: oxyCODONE HCl Immed Release 5 MG TABLET 10 MG PO (22:26)
[2020-12-13 03:25] VITALS: BP 118/65; PULSE 82; RESP 16; TEMP 36.2; O2SAT 95
[2020-12-13 06:06] LABS: MANUAL DIFF FLAG NO
[2020-12-13 06:26] LABS: Basophils Percent Auto 0.3 % (0-2); Eosinophils Percent Auto 0.1 % (0-4); Hematocrit 36.1 % (42-52); Hemoglobin 11.9 g/dl (14.0-18.0); Imm Gran Abs Auto 0.05 X10*3/uL (0.00-0.03); Imm Gran Pct Auto 0.3 % (0.0-0.4); Lymphocytes Absolute Auto 2.8 X10*3/uL (1.2-4.9); Lymphocytes Percent Auto 17.9 % (20-40); Mean Corpuscular Hemoglobin 30.1 pg (27.0-33.0); Mean Corpuscular Volume 91.2 fL (80-98); Mean Platelet Volume 9.1 fL (9.4-12.4); Monocytes Absolute Auto 1.5 X10*3/uL (0.1-1.2); Monocytes Percent Auto 9.7 % (2-11); Neutrophils Percent Auto 71.7 % (45-73); Platelet Count 302 X10*3/uL (160-400); Red Blood Count 3.96 X10*6/uL (4.60-5.80); Red Cell Distribution Width 13.8 % (11.0-16.0); White Blood Count 15.3 X10*3/uL (4.8-10.8)
[2020-12-13 06:38] LABS: Anion Gap 11 (12-20); Blood Urea Nitrogen 10 mg/dL (9-16); Calcium 8.9 mg/dL (8.4-10.2); Carbon Dioxide 33 mmol/L (22-29); Chloride 102 mmol/L (96-108); Creatinine Clr Calc Pharmacy 152.6; Estimated Glomerular Filt Rate > 60; Glucose Fasting 106 mg/dL (60-99); Potassium 3.8 mmol/L (3.3-5.1); Sodium 142 mmol/L (135-145)
[2020-12-13] MEDS: 0.9 % Sodium Chloride Flush 3 ML SYRINGE IVFLUSH (07:36)
[2020-12-13] MEDS: Omeprazole 20 MG CAPSULE.DR PO (07:39)
[2020-12-13] MEDS: Docusate Sodium 100 MG CAPSULE PO (07:39)
[2020-12-13] MEDS: buPROPion HCl XL 300 MG TAB.ER.24H PO (07:39)
[2020-12-13] MEDS: oxyCODONE HCl ER 10 MG TAB.ER.12H PO (07:39)
[2020-12-13] MEDS: Aspirin 325 MG TABLET PO (07:39)
[2020-12-13] MEDS: Celecoxib 200 MG CAPSULE PO (07:39)
[2020-12-13] MEDS: Multivitamin TABLET 1 TAB PO (07:39)
[2020-12-13] MEDS: oxyCODONE HCl Immed Release 5 MG TABLET 10 MG PO (07:39)
[2020-12-13 08:00] VITALS: BP 107/55; PULSE 79; RESP 18; TEMP 36.9; O2SAT 94
--- NOTE | 2020-12-13 08:11 | P.DS_ITS ---
DS: Providers Provider Date of Service: 12/13/20 Date of admission: 12/11/20 06:53 Primary care physician: Renard Benton MD Consults: 12/11/20 12:14 Consult to Hospitalist Routine Consulting Provider: Hospitalist Reason For Exam: routine medical management DS: Diagnosis Discharge Diagnosis (1) Status post total replacement of left hip: Status: Acute DS: Summary Hospital Course Hospital Course: The patient underwent a successful left total hip arthroplasty, they were transferred to PACU and then to the floor to recover. During their stay, their vitals were stable, afebrile at 97.1. Labs were unremarkable, H/H 11.9/36.1. POD 1 they were started on Aspirin 325mg po bid for DVT ppx, they also received Physical Therapy services twice a day. Prior to discharge, their dressing was changed, incision clean dry and intact, new Aquacel dressing applied and the plan was to be discharged home with VNA services. Time Spent with Patient Time attestation: Total time spent providing and/or coordinating discharge services: Discharge coordination time: Less than 30 minutes Quality: Stroke Does the patient have a stroke diagnosis?: No Physical Exam Vital Signs: Vital Signs: Last Vital Signs Temp 97.1 F 12/13/20 03:25 Pulse 82 12/13/20 03:25 Resp 16 12/13/20 03:25 BP 118/65 12/13/20 03:25 Pulse Ox 95 12/13/20 03:25 Body Mass Index 37.0 Extrem: Other: Left hip no erythema, ecchymosis, or drainage. Aquacel is clean, dry, and intact. NVI DS: Data Data Completed and Pending Pending studies at discharge: Pending at discharge 12/11/20 10:35 Surgical [PTH] Routine Labs on day of discharge: Laboratory Results - last 24 hr 12/13/20 12/13/20 05:21 05:21 WBC 15.3 H RBC 3.96 L Hgb 11.9 L Hct 36.1 L MCV 91.2 MCH 30.1 MCHC 33.0 RDW 13.8 Plt Count 302 MPV 9.1 L Immature Gran % (Auto) 0.3 Neut % (Auto) 71.7 Lymph % (Auto) 17.9 L [place] % (Auto) 9.7 Eos % (Auto) 0.1 Baso % (Auto) 0.3 Lymph # (Auto) 2.8 [place] # (Auto) 1.5 H Eos # (Auto) 0.0 Baso # (Auto) 0.0 Abs Immat Gran (auto) 0.05 H Absolute Neuts (auto) 11.0 H Absolute Nucleated RBC 0.000 Nucleated RBC % (auto) 0.0 Sodium 142 Potassium 3.8 Chloride 102 Carbon Dioxide 33 H Anion Gap 11 L BUN 10 Creatinine 0.77 Estim Creat Clear Calc 152.6 Estimated GFR > 60 Fasting Glucose 106 H Calcium 8.9 Discharge Plan Discharge Patient Disposition: Home Health Service Discharge Diagnosis: LT GLENIS Referrals: Erin Zhu PA-C [Physician [facility]] - 2 Weeks (12/26/20 09:45 [facility] Surgeons Erin Zhu PA-C) Discharge Medications: New docusate sodium 100 mg Capsule 100 mg PO BID 14 Days Qty: 28 RF: 0 oxycodone 10 mg tablet 10 mg PO Q4H PRN (Reason: Pain, Moderate (Pain Scale 4-6) 7 Days Qty: 42 RF: 0 aspirin 325 mg Tablet 325 mg PO BID 42 Days Qty: 84 RF: 0 acetaminophen 325 mg Tablet 650 mg PO Q6H PRN (Reason: Pain, Mild (Pain Scale 1-3)) 30 Days Qty: 240 RF: 0 Continued (DME) Wheelchair See Rx Instructions .Route .MEDSUPPLY Qty: 1 RF: 0 bupropion HCl [Wellbutrin SR] 150 mg tablet sustained-release 12 hr 150 mg PO BID 30 Days Qty: 60 RF: 0 gabapentin 300 mg capsule 300 mg PO QPM 90 Days Qty: 90 RF: 0 multivitamin Tablet 1 tab PO DAILY RF: 0 atorvastatin 20 mg tablet 20 mg PO QPM RF: 0 spironolacton-hydrochlorothiaz 25-25 mg tablet 1 tab PO QPM RF: 0 amlodipine 10 mg tablet 10 mg PO QPM RF: 0 omeprazole 20 mg capsule,delayed release(DR/EC) 20 mg PO QAM RF: 0 [id number]-[id number] [id number] cy-uj-uh-unit Tablet 1 tab PO BID RF: 0 irbesartan 300 mg tablet 300 mg PO QPM RF: 0 Discharge Orders: Discharge Order (Routine); Ordered 12/13/20 Ordered By: Marie Lombardi Diet: regular diet Activity on Discharge: Use cane or walker Stand Alone Forms: Patient Portal Discharge page Care Plan Goals: Restore function of joint Health Concerns: none Plan of Treatment: Physical Therapy Pain management DVT prophylaxis Assessment: * Physical Therapy for Total hip arthroplasty: posterior precautions, gait training, ROM, strength * Limit stair climbing * No showering, no tub bath-keep dressing clean, dry and intact * No driving x6 weeks * Continue ASA tabs once a day x 4 weeks * Follow up with [facility] Orthopedics in 2 weeks
[2020-12-13 09:15] VITALS: BP 107/55; PULSE 79; O2SAT 94
--- NOTE | 2020-12-13 09:19 | W.MHC.F2F ---
Service Date Service Date: 12/13/20 Reasons for Services Reason for physical therapy: home safety and mobility, therapeutic exercises, restore joint function, gait/transfer training, assess need for DME and ADL training Reason for occupational therapy: home safety and mobility, therapeutic exercises, restore joint function, gait/transfer training, assess need for DME and ADL training Homebound: Leaving the home is medically contraindicated at this time without the asist of a device and/or another person due th the listed conditions above and below. Reason homebound: unsteady gait / fall risk, leg weakness, pain with ambulation, pain with transfers and unable to drive Homebound supporting statement: Pt. is considered homebound due to recent surgery. Unable to drive, poor balance, poor gait mechanics. Certification: Based on the above findings, I certify that this patient is confined to the home and needs intermittent correction care, physical therapy and/or speech therapy, or continues to need occupational therapy. The patient is under my care, and I have initiated the establishment of the plan of care. The patient will be followed by a physician who will periodically review the plan of care.
--- NOTE | 2020-12-13 10:17 | MHC.CM.PN ---
PT DISCHARGING HOME TODAY W/[facility] FOR HOME PT, PT WILL BE ON ASPIRIN FOR AN ANTICOAGULANT, FAMILY FOR TRANSPORT
--- NOTE | 2020-12-13 10:19 | HO.PM.IMPN ---
Subjective Subjective Date of Service: 12/13/20 Interval History: seen in f/u for med consult on ortho consult Review of Systems knee pain no fever Physical Exam Vital Signs: Vital Signs: Last Vital Signs Temp 98.5 F 12/13/20 08:00 Pulse 79 12/13/20 09:15 Resp 18 12/13/20 08:00 BP 107/55 L 12/13/20 09:15 Pulse Ox 94 12/13/20 09:15 Body Mass Index 37.0 General: AO X 3, no acute distress Resp: CTA bilateral CVS: S1,S2,RRR GI: +BS, NT, no distention Skin: No rash, surgical wound d/c/i Neuro: motor grossly intact Psych: appropriate affect Objective Data Active Medications Acetaminophen (Acetaminophen 325 Mg Tablet) 650 mg PO Q6H PRN PRN Reason: Pain, Mild (Pain Scale 1-3) Aspirin (Aspirin 325 Mg Tablet) 325 mg PO BID [facility] Last Admin: 12/13/20 07:39 Dose: 325 mg Documented by: HOANG Atorvastatin Calcium (Atorvastatin Calcium 20 Mg Tablet) 20 mg PO BEDTIME [facility] Last Admin: 12/12/20 20:44 Dose: 20 mg Documented by: AMANDA Bupropion HCl (Bupropion Hcl Xl 300 Mg Tab.Er.24h) 300 mg PO DAILY [facility] Last Admin: 12/13/20 07:39 Dose: 300 mg Documented by: HOANG Celecoxib (Celecoxib 200 Mg Capsule) 200 mg PO BID [facility] Last Admin: 12/13/20 07:39 Dose: 200 mg Documented by: HOANG Docusate Sodium (Docusate Sodium 100 Mg Capsule) 100 mg PO BID [facility] Last Admin: 12/13/20 07:39 Dose: 100 mg Documented by: HOANG Hydrochlorothiazide (Hydrochlorothiazide 25 Mg Tablet) 25 mg PO DAILY@2100 [facility] Last Admin: 12/12/20 20:44 Dose: 25 mg Documented by: AMANDA Hydromorphone HCl (Hydromorphone Hcl 0.5 Mg/0.5 Ml Syringe) 0.25 mg IVPUSH Q4H PRN; Protocol PRN Reason: Pain, Severe (Pain Scale 7-10) Dextrose/Sodium Chloride (D51/2ns) 1,000 mls @ 80 mls/hr IVCONT .[id number] [facility] Last Admin: 12/12/20 22:20 Dose: 80 mls/hr Documented by: AMANDA Multivitamins/Vitamin C (Multivitamin Tablet) 1 tab PO DAILY [facility] Last Admin: 12/13/20 07:39 Dose: 1 tab Documented by: HOANG Omeprazole (Omeprazole 20 Mg Capsule.Dr) 20 mg PO DAILY [facility] Last Admin: 12/13/20 07:39 Dose: 20 mg Documented by: HOANG Ondansetron HCl (Ondansetron Hcl 4 Mg/2 Ml Vial) 4 mg IVPUSH Q8H PRN PRN Reason: Nausea and Vomiting Oxycodone HCl (Oxycodone Hcl Immed Release 5 Mg Tablet) 10 mg PO Q4H PRN PRN Reason: Pain, Moderate (Pain Scale 4-6 Last Admin: 12/13/20 07:39 Dose: 10 mg Documented by: HOANG Oxycodone HCl (Oxycodone Hcl Er 10 Mg Tab.Er.12h) 10 mg PO BID [facility] Last Admin: 12/13/20 07:39 Dose: 10 mg Documented by: HOANG Sodium Chloride (0.9 % Sodium Chloride Flush 3 Ml Syringe) 3 ml IVFLUSH QSHIFT [facility] Last Admin: 12/13/20 07:36 Dose: 3 ml Documented by: HOANG Spironolactone (Spironolactone 25 Mg Tablet) 25 mg PO DAILY@2099 [facility] Last Admin: 12/12/20 20:44 Dose: 25 mg Documented by: AMANDA Valsartan (Valsartan 160 Mg Tablet) 160 mg PO DAILY@2099 [facility] Last Admin: 12/12/20 20:43 Dose: 160 mg Documented by: AMANDA Labs CBC & Chem 7: 12/13/20 05:21 12/13/20 05:21 Labs: Laboratory Results - last 24 hr 12/13/20 12/13/20 05:21 05:21 MCV 91.2 MCH 30.1 MCHC 33.0 RDW 13.8 Plt Count 302 MPV 9.1 L Immature Gran % (Auto) 0.3 Neut % (Auto) 71.7 Lymph % (Auto) 17.9 L [place] % (Auto) 9.7 Eos % (Auto) 0.1 Baso % (Auto) 0.3 Lymph # (Auto) 2.8 [place] # (Auto) 1.5 H Eos # (Auto) 0.0 Baso # (Auto) 0.0 Abs Immat Gran (auto) 0.05 H Absolute Neuts (auto) 11.0 H Absolute Nucleated RBC 0.000 Nucleated RBC % (auto) 0.0 Anion Gap 11 L Estim Creat Clear Calc 152.6 Estimated GFR > 60 Fasting Glucose 106 H Calcium 8.9 Assessment and Plan (1) Hypertension, essential: Status: Acute Assessment and Plan: ?50 years old male admitted to the hospital for scheduled left hip arthroplasty. Hypertension--stable, continue home meds Hip arthroplasty Start physical therapy manament by ortho GERD Continue omeprazole medically ready for discharge and signing off Quality Stroke Does the patient have a stroke diagnosis?: No VTE Prior VTE?: No VTE Risk Level:: Surgical - very high VTE Device Contraindication: N/A - Device Ordered VTE Drug Contraindication: N/A - Med Ordered
[2020-12-13 12:00] VITALS: TEMP 36.1
== END 2020-12-13 14:00 | disposition home health service (06) | DRG 470 ==
LOC: HO.SSSA 07:05 → HO.S3 12:11
PROVIDERS: Physician Assistant; Admitting Provider Orthopaedic Surgery; PCP Internal Medicine; Visit Provider Orthopaedic Surgery
PROC: 0SRB03A Replacement of Left Hip Joint with Ceramic Synthetic Substitute, Uncemented, Open Approach (ICD-10-PCS; CPT 27130; principal; 2020-12-11 08:20)
DX: M16.12 Unilateral primary osteoarthritis, left hip (principal); I10 Essential (primary) hypertension; K21.9 Gastro-esophageal reflux disease without esophagitis; E66.9 Obesity, unspecified; Z68.37 Body mass index [BMI] 37.0-37.9, adult; Z20.822 Contact with and (suspected) exposure to COVID-19; Z98.84 Bariatric surgery status; Z79.82 Long term (current) use of aspirin; Z79.899 Other long term (current) drug therapy
CPT/HCPCS: 36415; 72170; 80048; 80053; 84443; 85025; 86850; 86900; 86901; 87635; 87640; 87641; 88304; 88311; 97110; 97116; 97162; 97166; 97535; C1713; C1776; J0131; J0690; J1100; J2250; J2405; J3010

== ENCOUNTER → 2020-12-20 08:44 | Outpatient (BNVA) | payer MEDICARE, SELFPAY | PROVIDERS: PCP Internal Medicine; Visit Provider Physician Assistant | DX: Z47.1 Aftercare following joint replacement surgery (principal); Z96.642 Presence of left artificial hip joint | CPT/HCPCS: 99212 ==

== ENCOUNTER → 2020-12-26 09:33 | Outpatient (BNVA) | payer MEDICARE, SELFPAY | PROVIDERS: PCP Internal Medicine; Visit Provider Physician Assistant | DX: Z47.1 Aftercare following joint replacement surgery (principal); Z96.642 Presence of left artificial hip joint | CPT/HCPCS: 99212 ==

== ENCOUNTER 2021-01-23 09:25 | Outpatient (REF) | payer MEDICARE, SELFPAY ==
--- NOTE | ~2021-01-23 | XR_ITS ---
EXAMINATION: XR PELVIS CLINICAL INFORMATION: Pain COMPARISON: Previous x-ray November 2020 TECHNIQUE: AP view of the pelvis. FINDINGS: There is a left hip replacement and proximal cerclage wire in satisfactory position. No fracture or dislocation is seen. Orthopedic hardware is intact. There is severe arthritis at the right hip joint. Bones of the pelvis are normal. Soft tissues are normal. XR/XR pelvis 1-2V IMPRESSION: Satisfactory appearance of left hip replacement.
== END 2021-01-23 09:26 | disposition home or self-care (01) ==
LOC: HO.HOSX 09:25
PROVIDERS: Visit Provider Orthopaedic Surgery
DX: Z47.1 Aftercare following joint replacement surgery (principal); Z96.642 Presence of left artificial hip joint; M16.11 Unilateral primary osteoarthritis, right hip
CPT/HCPCS: 72170; 99212

== ENCOUNTER 2021-02-05 08:36 | Outpatient (REF) | payer MEDICARE, SELFPAY ==
[2021-02-05 11:23] LABS: Appearance Urine HAZY; Color Urine YELLOW; Glucose Urine UA NEG (NEG); Leukocyte Esterase Urine 1+ (NEG); Nitrite Urine POS (NEG); Specific Gravity - Urine 1.025 (1.005-1.025); UACC Culture Trigger YES; Urine Blood NEG (NEG); Urine Ketones NEG (NEG); Urine Protein NEG (NEG-TRACE)
[2021-02-05 11:35] LABS: Bacteria Urine 3+ /LPF; Mucus Urine TRACE /LPF; RBC Urine 0 /HPF (0); Squamous Epithelial Cell Urine TRACE /LPF
== END 2021-02-05 08:37 | disposition home or self-care (01) ==
LOC: HO.HMGCLDS 08:36
PROVIDERS: PCP Internal Medicine; Visit Provider Internal Medicine
DX: R30.0 Dysuria (principal)
CPT/HCPCS: 81001; 87086; 87088; 87186

== ENCOUNTER 2021-02-17 13:17 | Outpatient (REF) | payer OTHER, SELFPAY | END 2021-02-17 13:18 | disposition home or self-care (01) | LOC: HO.HMGCLDS 13:17 | PROVIDERS: PCP Internal Medicine; Visit Provider Internal Medicine | DX: Z13.89 Encounter for screening for other disorder (principal) ==

== ENCOUNTER 2021-02-18 14:15 | Outpatient (REF) | payer OTHER, SELFPAY ==
[2021-02-18 14:26] LABS: Appearance Urine CLEAR; Color Urine YELLOW; Glucose Urine UA NEG (NEG); Leukocyte Esterase Urine NEG (NEG); Nitrite Urine NEG (NEG); Specific Gravity - Urine <= 1.005 (1.005-1.025); Urine Blood NEG (NEG); Urine Ketones NEG (NEG); Urine Protein NEG (NEG-TRACE)
== END 2021-02-18 14:16 | disposition home or self-care (01) ==
LOC: HO.LNP 14:15
PROVIDERS: Visit Provider Internal Medicine
DX: N39.0 Urinary tract infection, site not specified (principal)
CPT/HCPCS: 81003

== ENCOUNTER 2021-02-20 14:00 | Outpatient (RCR) | payer MEDICARE, SELFPAY ==
--- NOTE | 2021-01-09 14:52 | MHC.PT.EP ---
[facility] [place] Office [place] Office [place] Office [address] Alka Ulloa [address] [phone] F: [phone] F: [phone] F: [phone] F: [phone] Physical Therapy Plan of Care Date of Evaluation: Date of Surgery: 12/11/20 Diagnosis: left GLENIS on 12/11/20 Assessment: pt presents to skilled physical therapy status post L posterior approach GLENIS on 12/11/20. pt presents to physical therapy with pain, decreased range of motion, decreased strength, impaired functional mobility, impaired postural awareness, and gait deviations. pt is a good candidate for skilled PT due to age, potential remediation of impairments, typical disease/condition progression and prognosis, comorbidities, and motivation. pt would benefit from tailored strengthening and stretching exercise program, functional training, gait training, postural re-training, neuromuscular re-education, modalities as needed for pain, equipment safety demonstration. Frequency and Duration: The patient will be seen 2x/wk for 6 wks Short Term Goals: pt will be I w/ HEP to promote self-management of condition. pt will improve L hip abduction by 1 MMT grade B to improve gait pattern on even ground. Contact Center Team Lead Goals: pt will report a statistically significant improvement in self-reported outcome measure, LEFI, to promote return to PLOF. pt will perform 5x STS transfer w/ no UE assist to promote ease in transferring. Treatment Plan: Modalities to reduce pain, spasms and effusion. Manual therapy to restore motion and function. Therapeutic exercise to improve strength and flexibility. Neuromuscular re-education for posture and balance. Therapeutic activities to return to functional activities of daily living. Electronically signed by: Teodora Benson PT, DPT Please sign and return to therapist. Thank you for your referral.
--- NOTE | 2021-02-20 16:07 | MHC.PT.DC ---
[facility] [place] [facility] [place] [facility] [place] [facility] [address] Alka Ulloa [address] [phone] F: [phone] F: [phone] F: [phone] F: [phone] Physical Therapy Discharge Report Diagnosis: left GLENIS on 12/11/20 Date of Surgery: 12/11/20 Date of Evaluation: 01/09/21 Date of Discharge: 02/20/21 Treatments to Date: 10 Cancellations to Date: 2 No Shows to Date: 0 Discharge Status: Improved Function Independent with HEP Discharge Summary: The patient has plateaued and has not been able to make anymore meaningful progress in physical therapy at this time secondary to moderate-severe right hip pain. His left hip pain has improved significantly and is not limiting his mobility; however, due to hip pain his right side he ambulates only very short distances in his house using a walker with significant upper extremity assistance. He is wheelchair level for community mobility. He performs stand pivot transfers with reliance on his upper extremities. He is independent with his home exercise program including hip and knee strengthening. The patient is discharged from this physical therapy plan of care. His plan is to have a right total hip arthroplasty in March 2021. Electronically signed by: Teodora Benson PT, DPT Please sign and return to therapist. Thank you for your referral.
== END 2021-02-20 16:07 | disposition home or self-care (01) ==
LOC: HO.PT 14:00
PROVIDERS: PCP Internal Medicine; Visit Provider Physician Assistant
DX: Z96.642 Presence of left artificial hip joint (principal)
CPT/HCPCS: 97110; 97112; 97116; 97150; 97162

== ENCOUNTER 2021-03-13 11:13 | Outpatient (REF) | payer OTHER, SELFPAY | END 2021-03-13 11:14 | disposition home or self-care (01) | LOC: HO.LAB 11:13 | PROVIDERS: Visit Provider Internal Medicine | DX: Z20.822 Contact with and (suspected) exposure to COVID-19 (principal) | CPT/HCPCS: C9803; U0003; U0005 ==

== ENCOUNTER 2021-03-19 13:43 | Outpatient (REF) | payer OTHER, SELFPAY ==
[2021-03-19 14:43] LABS: MANUAL DIFF FLAG NO
[2021-03-19 14:46] LABS: Basophils Absolute Auto 0.1 X10*3/uL (0.0-0.2); Basophils Percent Auto 0.7 % (0-2); Eosinophils Absolute Auto 0.1 X10*3/uL (0.0-0.4); Eosinophils Percent Auto 1.1 % (0-4); Hematocrit 47.2 % (42.0-52.0); Hemoglobin 15.2 g/dl (14.0-18.0); Imm Gran Abs Auto 0.03 X10*3/uL (0.00-0.03); Imm Gran Pct Auto 0.3 % (0.0-0.4); Lymphocytes Absolute Auto 2.1 X10*3/uL (1.2-4.9); Lymphocytes Percent Auto 18.6 % (20-40); Mean Corpuscular HGB Conc 32.2 g/dl (31.0-36.0); Mean Corpuscular Hemoglobin 28.7 pg (27.0-33.0); Mean Corpuscular Volume 89.2 fL (80.0-98.0); Mean Platelet Volume 9.1 fL (9.4-12.4); Monocytes Absolute Auto 0.8 X10*3/uL (0.1-1.2); Monocytes Percent Auto 7.1 % (2-11); Neutrophils Absolute Auto 8.2 x10*3/uL (2.0-8.3); Neutrophils Percent Auto 72.2 % (45-73); Platelet Count 389 X10*3/uL (160-400); Red Blood Count 5.29 X10*6/uL (4.60-5.80); Red Cell Distribution Width 13.7 % (11.0-16.0); White Blood Count 11.4 X10*3/uL (4.8-10.8)
[2021-03-19 15:06] LABS: Estimated Average Glucose 100 mg/dL; Hemoglobin A1c % 5.1 %
[2021-03-19 15:21] LABS: Alanine Aminotransferase 16 U/L (0-40); Albumin Level 4.3 g/dL (3.5-5.0); Alkaline Phosphatase 64 U/L (39-117); Anion Gap 12 (12-20); Aspartate Amino Transferase 19 U/L (5-37); Bilirubin Total 0.6 mg/dL (0.0-1.0); Blood Urea Nitrogen 9 mg/dL (9-16); Calcium 10.2 mg/dL (8.4-10.2); Carbon Dioxide 33 mmol/L (22-29); Chloride 101 mmol/L (96-108); Estimated Glomerular Filt Rate > 60; Glucose Random 91 mg/dL (60-115); Potassium 3.7 mmol/L (3.3-5.1); Sodium 142 mmol/L (135-145)
== END 2021-03-19 13:44 | disposition home or self-care (01) ==
LOC: HO.HMGCLDS 13:43
PROVIDERS: PCP Internal Medicine; Visit Provider Internal Medicine
DX: Z01.818 Encounter for other preprocedural examination (principal); E78.9 Disorder of lipoprotein metabolism, unspecified; I10 Essential (primary) hypertension; M16.11 Unilateral primary osteoarthritis, right hip; E66.01 Morbid (severe) obesity due to excess calories; R73.01 Impaired fasting glucose
CPT/HCPCS: 36415; 80053; 83036; 85025

== ENCOUNTER → 2021-04-03 09:21 | Outpatient (BNVA) | payer OTHER, SELFPAY | PROVIDERS: Visit Provider Physician Assistant | DX: M16.12 Unilateral primary osteoarthritis, left hip (principal) | CPT/HCPCS: 99212 ==

== ENCOUNTER 2021-04-10 06:17 | Inpatient (IN) | payer OTHER, SELFPAY ==
[2021-04-04 12:02] VITALS: BP 137/84; PULSE 85; RESP 20; O2SAT 96; BMI 37.7
[2021-04-04 12:44] LABS: MANUAL DIFF FLAG NO
[2021-04-04 12:53] LABS: Basophils Absolute Auto 0.1 X10*3/uL (0.0-0.2); Basophils Percent Auto 0.8 % (0-2); Eosinophils Absolute Auto 0.1 X10*3/uL (0.0-0.4); Eosinophils Percent Auto 0.7 % (0-4); Hematocrit 47.8 % (42.0-52.0); Hemoglobin 15.7 g/dl (14.0-18.0); Imm Gran Abs Auto 0.03 X10*3/uL (0.00-0.03); Imm Gran Pct Auto 0.3 % (0.0-0.4); Lymphocytes Absolute Auto 2.4 X10*3/uL (1.2-4.9); Lymphocytes Percent Auto 22.6 % (20-40); Mean Corpuscular HGB Conc 32.8 g/dl (31.0-36.0); Mean Corpuscular Hemoglobin 28.7 pg (27.0-33.0); Mean Corpuscular Volume 87.4 fL (80.0-98.0); Mean Platelet Volume 8.7 fL (9.4-12.4); Monocytes Absolute Auto 0.8 X10*3/uL (0.1-1.2); Monocytes Percent Auto 7.3 % (2-11); Neutrophils Absolute Auto 7.1 x10*3/uL (2.0-8.3); Neutrophils Percent Auto 68.3 % (45-73); Platelet Count 390 X10*3/uL (160-400); Red Blood Count 5.47 X10*6/uL (4.60-5.80); Red Cell Distribution Width 13.2 % (11.0-16.0); White Blood Count 10.4 X10*3/uL (4.8-10.8)
[2021-04-04 13:22] LABS: COVID-19 Test Negative (Negative); IDNOW Serial# 55D5AD1C
[2021-04-04 13:59] LABS: Anion Gap 13 (12-20); Blood Urea Nitrogen 8 mg/dL (9-16); Calcium 10.2 mg/dL (8.4-10.2); Carbon Dioxide 33 mmol/L (22-29); Chloride 100 mmol/L (96-108); Creatinine Clr Calc Pharmacy 142.8; Estimated Glomerular Filt Rate > 60; Glucose Random 81 mg/dL (60-115); Sodium 142 mmol/L (135-145)
[2021-04-04 14:24] LABS: MRSA Nasal PCR NEGATIVE (Negative); SA Nasal PCR NEGATIVE (Negative)
--- NOTE | 2021-04-09 09:38 | P.CONAN_ITS ---
Documented by User: Lina Benítez NP 04/21/21 13:12 HPI - Anesthesia Eval Consult details Narrative: 50yo M for Right Hip Total Replacement PCP cleared Cardiac cleared at low risk 11/2020 s/p Left Hip Replacement 11/2020 with GA-ETT 7.5 s/p gastric sleeve 03/2020 with 130lb weight loss PMFSH Active Problems Active Problems: All Active Problems (Updated 03/19/21 @ 13:21 by Renard Benton MD) Requires daily assistance for activities of daily living (ADL) and comfort needs (Acute) Obesity (Acute) Arthritis of left hip (Acute) Immunization due (Acute) Lipid disorder (Acute) Chronic GERD (Acute) History of bariatric surgery (Acute) Pre-op evaluation (Acute) Preoperative cardiovascular examination (Acute) Status post total replacement of left hip (Acute) UTI (urinary tract infection) (Acute) Osteoarthritis of right hip (Acute) Impaired fasting blood sugar (Acute) Hypertension, essential (Acute) Depression, major, recurrent (Acute) Morbid obesity (Acute) Osteoarthritis, hip, bilateral (Acute) Past Medical History Medical History Arthritis COVID-19 vaccine series completed Depression, major, recurrent Hypertension, essential Morbid obesity Osteoarthritis, hip, bilateral Sleep apnea Family History Family History Father HTN (hypertension) Mother HTN (hypertension) Sister Cancer of thyroid Maternal Grandfather No problems noted. Maternal Grandmother No problems noted. Paternal Grandfather No problems noted. Paternal Grandmother No problems noted. Brother No problems noted. Sister No problems noted. Sister No problems noted. 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) Alcohol intake: current Alcohol intake frequency: holidays/special occasions only Patient Tobacco Use Status: Never used Tobacco e-Cigarette/Vaping Use: Never Used service: No Current occupational status: disabled Meds Allergies Allergy/AdvReac Type Severity Reaction Status Date / Time lisinopril [LISINOPRIL] AdvReac Severe COUGH Verified 05/22/21 14:53 Home Medications Medication Instructions Recorded Confirmed Last Taken Type irbesartan 300 mg tablet 300 mg PO BEDTIME 05/22/20 06/25/21 Unknown History amlodipine 10 mg tablet 10 mg PO BEDTIME 11/27/20 06/25/21 Unknown History atorvastatin 20 mg tablet 20 mg PO BEDTIME 11/27/20 06/25/21 Unknown History multivitamin 1 tab PO DAILY 11/27/20 06/25/21 06/24/21 History gabapentin 300 mg capsule 1 cap PO BEDTIME 06/25/21 06/25/21 Unknown History omeprazole 20 mg capsule,delayed 1 cap PO DAILY 06/25/21 06/25/21 06/24/21 History release spironolactone 25 1 tab PO BEDTIME 06/25/21 06/25/21 Unknown History mg-hydrochlorothiazide 25 mg tablet Exam Exam Date and Time: April 09, 2021 0938 Height,Weight and Vital Signs: Height 6 ft Weight 126.099 kg Last Vital Signs Pulse 85 04/04/21 12:02 Resp 20 04/04/21 12:02 BP 137/84 04/04/21 12:02 Pulse Ox 96 04/04/21 12:02 Pertinent Lab Results Pertinent Lab Results: Laboratory Tests 04/04/21 04/04/21 04/04/21 12:37 12:40 12:40 WBC 10.4 RBC 5.47 Hgb 15.7 Hct 47.8 MCV 87.4 MCH 28.7 MCHC 32.8 RDW 13.2 Plt Count 390 MPV 8.7 L Immature Gran % (Auto) 0.3 Neut % (Auto) 68.3 Lymph % (Auto) 22.6 [place] % (Auto) 7.3 Eos % (Auto) 0.7 Baso % (Auto) 0.8 Lymph # (Auto) 2.4 [place] # (Auto) 0.8 Eos # (Auto) 0.1 Baso # (Auto) 0.1 Abs Immat Gran (auto) 0.03 Absolute Neuts (auto) 7.1 Absolute Nucleated RBC 0.000 Nucleated RBC % (auto) 0.0 Sodium 142 Potassium 4.0 Chloride 100 Carbon Dioxide 33 H Anion Gap 13 BUN 8 L Creatinine 0.83 Estim Creat Clear Calc 142.8 Estimated GFR > 60 Random Glucose 81 Calcium 10.2 Nasal Screen MRSA (PCR) Nasal S. aureus Screen Nasal MRSA/S.aureus Interp SARS-CoV-2 (PCR) COVID-19 ([facility]) COVID-19 Clin Com Blood Type O Positive Antibody Screen NEGATIVE 04/04/21 04/04/21 04/04/21 12:45 12:45 Unknown WBC RBC Hgb Hct MCV MCH MCHC RDW Plt Count MPV Immature Gran % (Auto) Neut % (Auto) Lymph % (Auto) [place] % (Auto) Eos % (Auto) Baso % (Auto) Lymph # (Auto) [place] # (Auto) Eos # (Auto) Baso # (Auto) Abs Immat Gran (auto) Absolute Neuts (auto) Absolute Nucleated RBC Nucleated RBC % (auto) Sodium Potassium Chloride Carbon Dioxide Anion Gap BUN Creatinine Estim Creat Clear Calc Estimated GFR Random Glucose Calcium Nasal Screen MRSA (PCR) NEGATIVE Nasal S. aureus Screen NEGATIVE Nasal MRSA/S.aureus Interp SEE NOTE SARS-CoV-2 (PCR) Cancelled COVID-19 ([facility]) Negative COVID-19 Clin Com See Note Blood Type Antibody Screen Narrative Narrative: EKG 11/2020 Sinus rhythm at 67/Min; no significant ST-T changes and otherwise unremarkable. Assessment and Plan Assessment Anesthesia Assessment: Chart Reviewed Final Anesthetic Review Family History of Problems with Anesthesia: No History of Problems with Anesthesia: No Documented by User: Chris Monteiro MD 07/02/21 16:28 HPI - Anesthesia Eval Consult details Narrative: 50yo M for Right Hip Total Replacement hung , Bi pap PCP cleared Cardiac cleared at low risk 11/2020 s/p Left Hip Replacement 11/2020 with GA-ETT 7.5 s/p gastric sleeve 03/2020 with 130lb weight loss PMFSH Past Medical History Medical History Arthritis COVID-19 vaccine series completed Depression, major, recurrent Hypertension, essential Morbid obesity Osteoarthritis, hip, bilateral Sleep apnea Family History Family History Father HTN (hypertension) Mother HTN (hypertension) Sister Cancer of thyroid Maternal Grandfather No problems noted. Maternal Grandmother No problems noted. Paternal Grandfather No problems noted. Paternal Grandmother No problems noted. Brother No problems noted. Sister No problems noted. Sister No problems noted. 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) Alcohol intake: current Alcohol intake frequency: holidays/special occasions only Patient Tobacco Use Status: Never used Tobacco e-Cigarette/Vaping Use: Never Used service: No Current occupational status: disabled Meds Allergies Allergy/AdvReac Type Severity Reaction Status Date / Time lisinopril [LISINOPRIL] AdvReac Severe COUGH Verified 05/22/21 14:53 Home Medications Medication Instructions Recorded Confirmed Last Taken Type irbesartan 300 mg tablet 300 mg PO BEDTIME 05/22/20 06/25/21 Unknown History amlodipine 10 mg tablet 10 mg PO BEDTIME 11/27/20 06/25/21 Unknown History atorvastatin 20 mg tablet 20 mg PO BEDTIME 11/27/20 06/25/21 Unknown History multivitamin 1 tab PO DAILY 11/27/20 06/25/21 06/24/21 History gabapentin 300 mg capsule 1 cap PO BEDTIME 06/25/21 06/25/21 Unknown History omeprazole 20 mg capsule,delayed 1 cap PO DAILY 06/25/21 06/25/21 06/24/21 History release spironolactone 25 1 tab PO BEDTIME 06/25/21 06/25/21 Unknown History mg-hydrochlorothiazide 25 mg tablet Exam Airway Mallampati Class: II TM Dist: >3cm Neck ROM: Full Loose/Missing/Broken Teeth: Yes (Chipped ) Heart: S1,S2 Lungs: b/l breath sounds Assessment and Plan Assessment Anesthesia Assessment: Anesthesia Plan Discussed Final Anesthetic Review NPO: Yes ASA Class: III Final Preanesthetic Review: No Changes in Pt Med Stat, Meds/Allgs Chart Reviewed, Consent Obtained/Reviewed and Anes Risks/Benef Reviewed Patient Risk: Intermediate Procedure Risk: Intermediate Anesthetic Plan Anesthetic Plan: GA Disposition: Standard PACU
[2021-04-10] VITALS (15 sets, daily range): BP systolic 120–144; BP diastolic 72–96; PULSE 60–91; RESP 10–20; TEMP 36.2–37.1; O2SAT 93–100; BMI 39.6
--- NOTE | ~2021-04-10 | XR_ITS ---
EXAMINATION: XR PELVIS CLINICAL INFORMATION: Status post right total hip arthroplasty. COMPARISON: 01/23/2021 and studies dating back to 10/14/2020. TECHNIQUE: AP view of the pelvis. FINDINGS: AP film of the pelvis was performed which does not include the iliac crests. No acute fracture or diastases of the pelvis is identified. The sacroiliac joints do not appear to demonstrate widening or fusion. The previously placed left total hip arthroplasty appears unremarkable without acute fracture or dislocation. Patient is now status post right total hip arthroplasty with femoral and acetabular components appearing in position. No acute fractures identified. There is some gas seen within the soft tissues from recent surgery. Staple line is seen. XR/XR pelvis 1-2V IMPRESSION: Status post bilateral total hip arthroplasties with stable appearance of the left and satisfactory appearance of the new right.
[2021-04-10 06:55] LABS: COVID-19 Test Negative (Negative); IDNOW Serial# 9DD0AD1C
[2021-04-10] MEDS: oxyCODONE HCl ER 10 MG TAB.ER.12H PO ×2 (06:59→21:59)
[2021-04-10] MEDS: Lactated Ringers 1,000 ML 100 ML IVCONT (07:06)
--- NOTE | 2021-04-10 07:42 | MHC.SHP ---
Pre-Procedural Eval Section A Date of Service: 04/10/21 The patient is an INPATIENT: No Changes since office visit: Yes Patient answered all questions; No Cold of Flu in the past 2 weeks, No New Medical Problems and No Changes in Medication The History & Physical has been completed within 30 days and I have reviewed it.: Yes Section B Chief Complaint: RTHA Allergies: Allergies Allergy/AdvReac Type Severity Reaction Status Date / Time lisinopril [LISINOPRIL] AdvReac Severe COUGH Verified 04/03/21 09:56 Plan I have reviewed the history and physical and performed a pertinent physical examination on my patient. No changes have occurred unless specified.
--- NOTE | 2021-04-10 10:09 | P.BOP_ITS ---
Brief Operative Note Date of Service: 04/10/21 Pre-op diagnosis: Right hip OA Post-op diagnosis: same Procedure: Right GLENIS Implants: Stewart accolade2 #6 132 deg with +2.5 ceramic 36. Trident2 #56 with 20 deg post lip liner Surgeon: kB Nettles MD Anesthesia: GETA and local Was an Fiberglass Insulation Installer used for this Procedure?: Yes Fiberglass Insulation Installer: Marie Lombardi Estimated blood loss (mL): 200 IV fluids (mL): 1,000 Pathology: other Condition: stable Disposition: PACU
[2021-04-10] MEDS: oxyCODONE HCl Immed Release 5 MG TABLET PO (10:58)
[2021-04-10] MEDS: HYDROmorphone HCl 0.5 MG/0.5 ML SYRINGE 0.25 MG IVPUSH (10:59)
[2021-04-10] MEDS: Acetaminophen 325 MG TABLET 650 MG PO (17:12)
[2021-04-10] MEDS: Valsartan 160 MG TABLET PO (18:50)
[2021-04-10] MEDS: hydroCHLOROthiazide 25 MG TABLET PO (18:50)
[2021-04-10] MEDS: amLODIPine Besylate 10 MG TABLET PO (18:50)
[2021-04-10] MEDS: Spironolactone 25 MG TABLET PO (18:50)
[2021-04-10] MEDS: Gabapentin 300 MG CAPSULE PO (18:51)
[2021-04-10] MEDS: Atorvastatin Calcium 20 MG TABLET PO (18:51)
[2021-04-10] MEDS: Dextrose 5 % and 0.45 % NaCl 1,000 ML 80 ML IVCONT (18:59)
[2021-04-10] MEDS: Celecoxib 200 MG CAPSULE PO (21:59)
[2021-04-10] MEDS: Docusate Sodium 100 MG CAPSULE PO (21:59)
[2021-04-11] VITALS: BP 111/71; PULSE 79; RESP 15; TEMP 37.2; O2SAT 98
[2021-04-11 03:26] VITALS: BP 117/60; PULSE 82; RESP 18; TEMP 37; O2SAT 96
[2021-04-11] MEDS: Dextrose 5 % and 0.45 % NaCl 1,000 ML 80 ML IVCONT (05:14)
[2021-04-11 05:42] LABS: MANUAL DIFF FLAG NO
[2021-04-11 05:48] LABS: Basophils Percent Auto 0.1 % (0-2); Eosinophils Percent Auto 0.1 % (0-4); Hematocrit 39.3 % (42.0-52.0); Hemoglobin 12.9 g/dl (14.0-18.0); Imm Gran Abs Auto 0.08 X10*3/uL (0.00-0.03); Imm Gran Pct Auto 0.6 % (0.0-0.4); Lymphocytes Absolute Auto 2.4 X10*3/uL (1.2-4.9); Lymphocytes Percent Auto 17.2 % (20-40); Mean Corpuscular HGB Conc 32.8 g/dl (31.0-36.0); Mean Corpuscular Hemoglobin 28.6 pg (27.0-33.0); Mean Corpuscular Volume 87.1 fL (80.0-98.0); Mean Platelet Volume 9.1 fL (9.4-12.4); Monocytes Absolute Auto 1.3 X10*3/uL (0.1-1.2); Monocytes Percent Auto 9.5 % (2-11); Neutrophils Absolute Auto 9.9 x10*3/uL (2.0-8.3); Neutrophils Percent Auto 72.5 % (45-73); Platelet Count 303 X10*3/uL (160-400); Red Blood Count 4.51 X10*6/uL (4.60-5.80); Red Cell Distribution Width 13.4 % (11.0-16.0); White Blood Count 13.7 X10*3/uL (4.8-10.8)
[2021-04-11 06:19] LABS: Anion Gap 14 (12-20); Blood Urea Nitrogen 7 mg/dL (9-16); Calcium 9.1 mg/dL (8.4-10.2); Carbon Dioxide 32 mmol/L (22-29); Chloride 97 mmol/L (96-108); Estimated Glomerular Filt Rate > 60; Glucose Fasting 107 mg/dL (60-99); Potassium 3.7 mmol/L (3.3-5.1); Sodium 139 mmol/L (135-145)
[2021-04-11 07:37] VITALS: BP 117/69; PULSE 83; O2SAT 95
--- NOTE | 2021-04-11 07:58 | P.PNOP_ITS ---
Subjective Subjective Date of Service: 04/11/21 Interval history: POD1 status post right total hip arthroplasty. Patient is resting comfortably in bed. No overnight events. Patient states that pain is well managed. No additional complaints. Physical Exam Vital Signs: Vital Signs: Last Vital Signs Temp 98.6 F 04/11/21 03:26 Pulse 82 04/11/21 03:26 Resp 18 04/11/21 03:26 BP 117/60 04/11/21 03:26 Pulse Ox 96 04/11/21 03:26 BMI result Body Mass Index 39.6 Const: General: cooperative, healthy appearing and no acute distress Resp: Effort & Inspection: normal respiratory effort and able to speak in complete sentences Cardio: Rate: regular rate Peripheral pulses: Peripheral pulses 2+ throughout GI: Palpation (GI): Soft to palpation Skin: Lesions: no lesions Rashes: no rashes Extrem: Other: Right hip Aquacel is clean, dry, and intact. Patient is able to dorsiflexc and plantarflex. Sensation intact. Pedal pulse intact. Procedures Date of Service Date of Service: 04/11/21 Progress Note: A&P Assessment and plan (1) S/P total right hip arthroplasty: Status: Acute Assessment and Plan: Continue pain mgmnt Begin ASA for dvt ppx begin PT for RTHA Dispo planning-Pending PT eval, pain mgmnt Fall Risk Details Current Medications: Current Medications Acetaminophen (Acetaminophen 325 Mg Tablet) 650 mg PO Q6H PRN PRN Reason: Pain, Mild (Pain Scale 1-3) Last Admin: 04/10/21 17:12 Dose: 650 mg Documented by: Amlodipine Besylate (Amlodipine Besylate 10 Mg Tablet) 10 mg PO DAILY@1700 TERRA; Protocol Last Admin: 04/10/21 18:50 Dose: 10 mg Documented by: Aspirin (Aspirin 325 Mg Tablet) 325 mg PO BID [facility] Atorvastatin Calcium (Atorvastatin Calcium 20 Mg Tablet) 20 mg PO DAILY@1700 TERRA Last Admin: 04/10/21 18:51 Dose: 20 mg Documented by: Celecoxib (Celecoxib 200 Mg Capsule) 200 mg PO BID [facility] Last Admin: 04/10/21 21:59 Dose: 200 mg Documented by: Docusate Sodium (Docusate Sodium 100 Mg Capsule) 100 mg PO BID [facility] Last Admin: 04/10/21 21:59 Dose: 100 mg Documented by: Gabapentin (Gabapentin 300 Mg Capsule) 300 mg PO DAILY@170 [facility] Last Admin: 04/10/21 18:51 Dose: 300 mg Documented by: Hydrochlorothiazide (Hydrochlorothiazide 25 Mg Tablet) 25 mg PO DAILY@170 [facility] Last Admin: 04/10/21 18:50 Dose: 25 mg Documented by: Hydromorphone HCl (Hydromorphone Hcl 1 Mg/Ml Syringe) 0.25 mg IVPUSH Q4H PRN; Protocol PRN Reason: Pain, Severe (Pain Scale 7-10) Dextrose/Sodium Chloride (D51/2ns) 1,000 mls @ 80 mls/hr IVCONT .[id number] [facility] Last Admin: 04/11/21 05:14 Dose: 80 mls/hr Documented by: Cefazolin Sodium/Dextrose (Ancef) 2 gm in 50 mls @ 100 mls/hr IV POSTOP [facility] Multivitamins/Vitamin C (Multivitamin Tablet) 1 tab PO DAILY [facility] Omeprazole (Omeprazole 20 Mg Capsule.Dr) 20 mg PO DAILY [facility] Ondansetron HCl (Ondansetron Hcl 4 Mg/2 Ml Vial) 4 mg IVPUSH Q8H PRN PRN Reason: Nausea and Vomiting Oxycodone HCl (Oxycodone Hcl Immed Release 5 Mg Tablet) 5 mg PO Q4H PRN PRN Reason: Pain, Moderate (Pain Scale 4-6 Oxycodone HCl (Oxycodone Hcl Er 10 Mg Tab.Er.12h) 10 mg PO BID [facility] Last Admin: 04/10/21 21:59 Dose: 10 mg Documented by: Sodium Chloride (0.9 % Sodium Chloride Flush 3 Ml Syringe) 3 ml IVFLUSH QSHIFT [facility] Last Admin: 04/11/21 07:22 Dose: Not Given Documented by: Spironolactone (Spironolactone 25 Mg Tablet) 25 mg PO DAILY@1699 [facility] Last Admin: 04/10/21 18:50 Dose: 25 mg Documented by: Valsartan (Valsartan 160 Mg Tablet) 160 mg PO DAILY@1700 [facility] Last Admin: 04/10/21 18:50 Dose: 160 mg Documented by: Time Spent With Patient Time: Total time spent is greater than 50% in coordination of care (as documented) at patient's floor/unit and/or counseling patient: Time with patient: less than 15 minutes Quality Stroke Does the patient have a stroke diagnosis?: No VTE Prior VTE?: No VTE Risk Level:: Surgical - very high VTE Device Contraindication: N/A - Device Ordered VTE Drug Contraindication: N/A - Med Ordered
[2021-04-11 08:00] VITALS: BP 117/69; PULSE 83; RESP 18; TEMP 36.8; O2SAT 95
[2021-04-11] MEDS: oxyCODONE HCl Immed Release 5 MG TABLET PO ×2 (08:01→12:26)
[2021-04-11] MEDS: Omeprazole 20 MG CAPSULE.DR PO (08:01)
[2021-04-11] MEDS: Multivitamin TABLET 1 TAB PO (08:01)
[2021-04-11] MEDS: oxyCODONE HCl ER 10 MG TAB.ER.12H PO (08:01)
[2021-04-11] MEDS: Celecoxib 200 MG CAPSULE PO (08:01)
[2021-04-11] MEDS: Acetaminophen 325 MG TABLET 650 MG PO (08:01)
[2021-04-11] MEDS: Docusate Sodium 100 MG CAPSULE PO (08:01)
[2021-04-11] MEDS: Aspirin 325 MG TABLET PO (10:10)
[2021-04-11 12:00] VITALS: BP 106/60; PULSE 85; RESP 18; TEMP 36.4; O2SAT 86
[2021-04-11 13:21] VITALS: BP 106/60; PULSE 85
--- NOTE | 2021-04-11 13:39 | P.DS_ITS ---
DS: Providers Provider Date of Service: 04/11/21 Date of admission: 04/10/21 06:17 Primary care physician: Renard Benton MD Consults: 04/10/21 18:33 Consult to Hospitalist Routine Consulting Provider: Hospitalist Reason For Exam: routine medical management DS: Diagnosis Discharge Diagnosis (1) S/P total right hip arthroplasty: Status: Acute DS: Summary Hospital Course Hospital Course: The patient underwent a successful Right total hip arthroplasty, was transferred to PACU and then to the floor to recover. During their stay, their vitals were stable, afebrile at 97.6. Labs were unremarkable, H/H 12.9/39.3. POD 1 he was started on ASA for DVT ppx, they also received services twice a day. Prior to discharge, their dressing was change, incision clean dry and intact, new Aquacel dressing applied and the plan was to be discharged home with VNA svs Time Spent with Patient Time attestation: Total time spent providing and/or coordinating discharge services: Discharge coordination time: Less than 30 minutes Quality: Stroke Does the patient have a stroke diagnosis?: No Physical Exam Vital Signs: Vital Signs: Last Vital Signs Temp 97.6 F 04/11/21 12:00 Pulse 85 04/11/21 13:21 Resp 18 04/11/21 12:00 BP 106/60 04/11/21 13:21 Pulse Ox 86 L 04/11/21 12:00 BMI result Body Mass Index 39.6 Const: General: cooperative, healthy appearing and no acute distress Resp: Effort & Inspection: normal respiratory effort and able to speak in complete sentences Cardio: Rate: regular rate Peripheral pulses: Peripheral pulses 2+ throughout GI: Palpation (GI): Soft to palpation Skin: General skin exam: no rashes or lesions noted Extrem: Other: incision clean dry and intact. [place] intact. No erythema or effusion. Calf supple nontender. Neurovascularly intact. DS: Data Data Completed and Pending Completed studies during hospitalization [Text1]: Procedures Replacement of Left Hip Joint with Ceramic Synthetic Substitute, Uncemented, Open Approach (12/11/20) Pending studies at discharge: Pending at discharge 04/10/21 09:28 Surgical [PTH] Routine Labs on day of discharge: Laboratory Results - last 24 hr 04/11/21 04/11/21 05:11 05:11 WBC 13.7 H RBC 4.51 L Hgb 12.9 L Hct 39.3 L MCV 87.1 MCH 28.6 MCHC 32.8 RDW 13.4 Plt Count 303 MPV 9.1 L Immature Gran % (Auto) 0.6 H Neut % (Auto) 72.5 Lymph % (Auto) 17.2 L [place] % (Auto) 9.5 Eos % (Auto) 0.1 Baso % (Auto) 0.1 Lymph # (Auto) 2.4 [place] # (Auto) 1.3 H Eos # (Auto) 0.0 Baso # (Auto) 0.0 Abs Immat Gran (auto) 0.08 H Absolute Neuts (auto) 9.9 H Absolute Nucleated RBC 0.000 Nucleated RBC % (auto) 0.0 Sodium 139 Potassium 3.7 Chloride 97 Carbon Dioxide 32 H Anion Gap 14 BUN 7 L Creatinine 0.80 Estim Creat Clear Calc 152.0 Estimated GFR > 60 Fasting Glucose 107 H Calcium 9.1 D Discharge Plan Discharge Patient Disposition: Home Health Service Discharge Diagnosis: rt jessica Referrals: Rosalio CLEMENTS [Outside] - 1 Week Marie Lombardi PA-C [Physician Director Furniture] - 2 Weeks (04/24/21 12:45 [facility] Marie Lombardi PA-C) Renard Benton MD [Primary Care Provider] - 1 Week Discharge Medications: New celecoxib 200 mg Capsule 200 mg PO BID 30 Days Qty: 60 RF: 0 acetaminophen 325 mg Tablet 650 mg PO Q6H PRN (Reason: Pain, Mild (Pain Scale 1-3)) 30 Days Qty: 240 RF: 0 aspirin 325 mg Tablet 325 mg PO BID 42 Days Qty: 84 RF: 0 oxycodone 5 mg Tablet 5 mg PO Q4H PRN (Reason: Pain, Moderate (Pain Scale 4-6) 7 Days Qty: 42 RF: 0 Continued (DME) Wheelchair See Rx Instructions .Route .MEDSUPPLY Qty: 1 RF: 0 gabapentin 300 mg capsule 300 mg PO QPM 90 Days Qty: 90 RF: 0 spironolacton-hydrochlorothiaz 25-25 mg tablet 1 tab PO QPM 90 Days Qty: 90 RF: 0 bupropion HCl [Wellbutrin SR] 150 mg tablet sustained-release 12 hr 150 mg PO BID 30 Days Qty: 60 RF: 0 multivitamin Tablet 1 tab PO DAILY RF: 0 atorvastatin 20 mg tablet 20 mg PO QPM RF: 0 amlodipine 10 mg tablet 10 mg PO QPM RF: 0 [id number]-unit Tablet 1 tab PO BID RF: 0 docusate sodium 100 mg Capsule 100 mg PO BID 14 Days Qty: 28 RF: 0 irbesartan 300 mg tablet 300 mg PO QPM RF: 0 omeprazole 20 mg capsule,delayed release(DR/EC) 20 mg PO QAM 90 Days Qty: 90 RF: 1 Discontinued acetaminophen 325 mg Tablet 650 mg PO Q6H PRN (Reason: Pain, Mild (Pain Scale 1-3)) 30 Days Qty: 240 RF: 0 Discharge Orders: Discharge Order (Routine); Ordered 04/11/21 Ordered By: Erin Zhu Diet: regular diet Activity on Discharge: Use cane or walker Stand Alone Forms: Patient Portal Discharge page Care Plan Goals: Restore function of joint Health Concerns: none Plan of Treatment: Physical Therapy Pain management DVT prophylaxis Assessment: * Physical Therapy for Total hip arthroplasty: posterior precautions, gait training, ROM, strength * Limit stair climbing * No showering, no tub bath-keep dressing clean, dry and intact * No driving x6 weeks * Continue ASA x 6 weeks * Follow up with [facility] [place] 2 weeks Discharge Date/Time: 04/11/21 14:39
--- NOTE | 2021-04-11 13:50 | MHC.CM.PN ---
pt dcd home today with [facility] pt has own transport home
--- NOTE | 2021-04-11 13:56 | MHC.CM.PN ---
met with pt who lives with family pt reports having a early childhood worker referral to [facility] pt has own transport home
--- NOTE | 2021-04-16 07:38 | W.PM.OPN ---
Operative Note Operative Note Date of Service: 04/10/21 Narrative: Date of Service: 04/10/21 Pre-op diagnosis: Right hip OA Post-op diagnosis: same Procedure: Right GLENIS Implants: [place] accolade2 #6 132 deg with +2.5 ceramic 36. Trident2 #56 with 20 deg post lip liner Surgeon: Bk Nettles MD Anesthesia: GETA and local Was an Airplane Navigator used for this Procedure?: Yes Airplane Navigator: Marie Lombardi Estimated blood loss (mL): 200 IV fluids (mL): 1,000 Pathology: other Condition: stable Disposition: PACU Procedure in detail: Patient was brought into the operating room and placed in the left lateral decubitus position. All bony prominences were well padded and the limb was prepped and draped in standard sterile fashion. Time-out was called to identify proper site procedure proper surgeon IV antibiotics and 1 g of transaxemic acid were administered. I began by making a curvilinear incision over the posterolateral aspect of the greater trochanter. Dissection was taken down to the tensor fascia which was incised in line with the incision and a Charnley retractor was placed. Cautery was used to maintain hemostasis. A werewolf device was also used to maintain hemostasis. The hip was internally rotated and the external rotators were identified. The vessels were cauterized and a full-thickness capsular/external rotator layer was developed starting just proximal to the piriformis. This layer was tagged and a dull Hohmann retractor was placed underneath the neck in the hip was dislocated. The head was eburnated. A neck cut was made 1 cm proximal to the lesser trochanter and the head and neck were removed and measured on the back table. A currette was used to debride the fovea and identify the inner table. I started with a 46mm reamer to medialize and sequentially reamed up to a size 56 and impacted a 56mm at approximately 45 degrees of inclination and 25 degrees of version. I then placed a 20 deg posterior lipped liner and turned my attention to the femur. I identified the piriformis insertion and used this as a starting point for my emmanuel cutter. The medius tendon was protected with a Hibs retractor. I then used a Charnley awl to identify the canal and a curved curette to remove the lateral bone. I irrigated copiously. I then sequentially broached in the patient's natural version to a size #6 and placed my trial implants. Using a trail head I took the hip through range of motion. I was very satisfied with the stability and length using a +2.5 36 head. Therefore I removed all instrumentation and copiously irrigated. I placed my final femoral implant and again took the hip through range of motion and was satisfied with the stability and length. My +2.5 36 ceramic femoral head was impacted in place and the hip reduced. I then irrigated for 3 minutes with iodine and placed 1 g of local tranaxemic acid. I then performed a capsular closure with 2.0 fiberwire, Judi's fascia with 0 Vicryl, subcuticular with 2-0 Vicryl and the skin with arpita. Patient was placed into a sterile dressing. Radiographs were obtained at the completion of the case and I was satisfied with the component position. Patient was extubated brought to the recovery room in stable condition.
== END 2021-04-11 14:39 | disposition home health service (06) | DRG 470 ==
LOC: HO.SSSA 06:18 → HO.S3 16:58
PROVIDERS: Nurse Practitioner; Physician Assistant; Admitting Provider Orthopaedic Surgery; PCP Internal Medicine; Visit Provider Orthopaedic Surgery
PROC: 0SR903A Replacement of Right Hip Joint with Ceramic Synthetic Substitute, Uncemented, Open Approach (ICD-10-PCS; CPT 27130; principal; 2021-04-10 07:30)
DX: M16.11 Unilateral primary osteoarthritis, right hip (principal); Z98.84 Bariatric surgery status; Z20.822 Contact with and (suspected) exposure to COVID-19; Z79.899 Other long term (current) drug therapy
CPT/HCPCS: 27130; 36415; 72170; 80048; 85025; 86850; 86900; 86901; 87635; 87640; 87641; 88304; 88311; 97110; 97116; 97162; 97165; C1776; J0131; J0690; J1170; J2250; J2370; J2405; J3010

== ENCOUNTER → 2021-04-24 12:55 | Outpatient (BNVA) | payer OTHER, MEDICAID, MEDICARE, SELFPAY | PROVIDERS: PCP Internal Medicine; Visit Provider Physician Assistant | DX: Z47.1 Aftercare following joint replacement surgery (principal); Z96.641 Presence of right artificial hip joint | CPT/HCPCS: 99212 ==

== ENCOUNTER → 2021-05-22 14:46 | Outpatient (BNVA) | payer OTHER, MEDICAID, MEDICARE, SELFPAY | PROVIDERS: PCP Internal Medicine; Visit Provider Physician Assistant | DX: M25.561 Pain in right knee (principal); E66.01 Morbid (severe) obesity due to excess calories; I10 Essential (primary) hypertension; G47.30 Sleep apnea, unspecified; Z96.641 Presence of right artificial hip joint; Z90.3 Acquired absence of stomach [part of]; Z88.8 Allergy status to other drugs, medicaments and biological substances | CPT/HCPCS: 99212 ==

== ENCOUNTER 2021-06-10 15:00 | Outpatient (RCR) | payer OTHER, SELFPAY ==
--- NOTE | 2021-04-24 14:50 | MHC.PT.EP ---
[facility] [place] Office [place] Office [place] Office [address] Alka Ulloa [address] [phone] F: [phone] F: [phone] F: [phone] F: [phone] Physical Therapy Plan of Care Date of Evaluation: Date of Surgery: 04/10/21 Diagnosis: S/P RIGHT THR 04/10/21 Assessment: 50 YO MALE REF TO PT S/P Rt THR ON 04/10/21, OF IMPORTANCE, ;Pt HAD A LEFT THR IN 11/2020- Pt CURRENTLY AMB W A W/WALKER- HE HAS BEGUN TO USE A CANE FOR SHORT DISTANCES. Pt HAS LOST 130 LBS THRU [facility] Wt MGMT- HE NOTED AT EVAL TODAY HE HAS EXACERB OF Rt LATERAL KNEE SORENESS, PROBABLE PFPS W MILD CREPITUS AND LATERAL RETINACULAR TISSUE RESTRICTION DUE TO OVERALL DECR IN ACTIVITY LEVEL PRECEDING Rt THR. OBJECTIVELY: DECR POSTURE AWARENESS, TIGHT PSOAS AND CALF MM, WEAK DEEPER CORE STABILIZERS/ HIP GIRDLE, COMPENSATORY STATIC STAND AND GAIT MECH, AND PAIN- TODAY MORE NOTICEABLE IN Rt LAT KNEE VS Rt HIP. FUNCTIONAL LIMITATIONS CURRENTLY INCLUDE DECR ALEXANDER TO STAND, WALK, AND INCR STAIR MGMT. Pt WOULD BENEFIT FROM PT TO ADDRESS THE ABOVE FINDINGS, DEV A HEP TO ADDRESS TISSUE RESTRICTION AND LUMBOPELVIC STAB; SELF-SX MGMT STRATEGIES, AND GUIDE Pt ALONG HIS THR POST-OP COURSE. Frequency and Duration: The patient will be seen 2 x WK x 5 WKS Short Term Goals: Pt DEMON PROPER QUAD SET IN 1 WK Pt'S RIGHT HIP PAIN REMAIN 1-2/10 AND Rt LATERAL KNEE PAIN DECREASED TO 2-3/10 ADDRESS RT PFPS IN 2 WKS Pt DEMON WFL AROM HIP EXT AND ANKLE DF/PF IN 3 WKS Pt DEMO IMPROVED GAIT MECH W PROGRESSIVE / LEAST RESTRICTIVE AD ON LEVEL GROUND AND STAIRS IN 3 WKS Casualty Claim Adjuster Goals: Pt INDEP W HEP PROGRESSION AND SELF-SX MGMT STRATEGIES IN 5 WKS Pt RESUME REG ADLs EVIDENT W IMPROVED LEFI SCORE BY 8-10 POINTS (AT EVAL 24/ ) IN 5 WKS Pt INCR CORE STAB AND Rt LE STRENGTH BY 1 GRADE IN 5 WKS Treatment Plan: Modalities to reduce pain, spasms and effusion. Manual therapy to restore motion and function. Therapeutic exercise to improve strength and flexibility. Neuromuscular re-education for posture and balance. Therapeutic activities to return to functional activities of daily living. Electronically signed by: Neelam Ortiz,PT Please sign and return to therapist. Thank you for your referral.
--- NOTE | 2021-06-10 15:45 | MHC.PT.DC ---
[facility] [place] Office [place] Office [place] Office [address] Alka Ulloa [address] [phone] F: [phone] F: [phone] F: [phone] F: [phone] Physical Therapy Discharge Report Diagnosis: S/P RIGHT THR 04/10/21 Date of Surgery: 04/10/21 Date of Evaluation: 04/24/21 Date of Discharge: 06/10/21 Treatments to Date: 13 Cancellations to Date: 0 No Shows to Date: 0 Discharge Status: Achieved Goals Improved Function Discharge Summary: Dillon has completed 13 PT visits. He has improved significantly and is independent with all HEPs. He has achieved all goals set for him. He is therefore being d/c from therapy. Dillon is in agreement with the plan. Electronically signed by: Angeline Ontiveros, PT DPT Please sign and return to therapist. Thank you for your referral.
== END 2021-06-10 15:45 | disposition home or self-care (01) ==
LOC: HO.PT 15:00
PROVIDERS: Visit Provider Physician Assistant
DX: Z96.641 Presence of right artificial hip joint (principal)
CPT/HCPCS: 97110; 97112; 97116; 97140; 97162; 97530

== ENCOUNTER 2021-06-24 22:21 | Inpatient (IN) | payer OTHER, SELFPAY ==
--- NOTE | ~2021-06-24 | CT_ITS ---
EXAMINATION: CT ABDOMEN AND PELVIS WITH CONTRAST CLINICAL INFORMATION: Umbilical pain, rule out angulated hernia COMPARISON: 12/27/2018, 07/10/2018 TECHNIQUE: Multidetector volumetric images were obtained from the superior aspect of the liver through the pubic symphysis following administration 85 mL of Omnipaque 350 intravenous contrast. Sagittal and coronal reformatted images were obtained on the technologist's workstation. Oral contrast: No This CT examination was performed using dose optimization techniques as appropriate, variously including the following: *Automated exposure control *Adjustment of mA and/or kV according to patient size (this includes techniques or standardized protocols for targeted exams where dose is matched to indication/reason for exam; i.e. extremities or head) *Use of iterative reconstruction technique DLP: 1115 mGy-cm FINDINGS: LUNG BASES: The visualized lung bases are unremarkable. LIVER, GALLBLADDER, AND BILIARY TREE: The liver is normal in size, shape, and attenuation. No focal hepatic lesion or biliary ductal dilatation is present. Gallbladder appears partially contracted with cholelithiasis. PANCREAS: Unremarkable. SPLEEN: Unremarkable. ADRENAL GLANDS: Small left adrenal myelolipoma. Right adrenal gland is unremarkable. KIDNEYS AND URETERS: Bilateral nephrograms are symmetric. No hydronephrosis or obstructing calculus identified. Left upper pole renal cyst noted; no follow-up recommended. Subtle hypodensity redemonstrated in the upper right kidney measuring approximately 2 cm, similar to possibly minimally increased from 07/10/2018. BLADDER: Unremarkable. GASTROINTESTINAL TRACT: Suture line is present along the stomach. There is a supraumbilical hernia containing a short segment of fluid-filled small bowel. Small bowel loops leading to this hernia are mildly dilated and fluid-filled, with an appearance consistent with small bowel obstruction. Distalmost small bowel loops are collapsed. The appendix is unremarkable. No free fluid or free air is seen. ABDOMINAL WALL: Supraumbilical hernia containing small bowel as noted above. Small fat-containing umbilical hernia. LYMPH NODES: Normal. VASCULAR: Mild scattered atherosclerotic calcifications are noted. PELVIC VISCERA: Unremarkable. OSSEOUS STRUCTURES: Bilateral total hip arthroplasty noted. There is degenerative disc disease at L4-L5. Mild scattered endplate osteophytes are present in the spine. CT/CT abdomen pelvis w con IMPRESSION: 1. Small bowel obstruction with transition site at a supraumbilical hernia containing a short segment of small bowel. 2. Subtle hypodensity in the upper right kidney measures approximately 2 cm, similar to possibly minimally increased from 07/10/2018. This may be more definitively assessed with renal protocol MRI, as a mass cannot be excluded. Fleischner guidelines were followed.
[2021-06-24 23:23] VITALS: BP 145/91; PULSE 60; RESP 14; TEMP 36.7; O2SAT 97; BMI 37.7
[2021-06-24 23:48] LABS: Hemoglobin 14.4 g/dl (14.0-18.0); Mean Corpuscular HGB Conc 32.7 g/dl (31.0-36.0); Mean Corpuscular Hemoglobin 29.1 pg (27.0-33.0); Mean Corpuscular Volume 88.9 fL (80.0-98.0); Mean Platelet Volume 8.7 fL (9.4-12.4); Platelet Count 373 X10*3/uL (160-400); Red Blood Count 4.95 X10*6/uL (4.60-5.80); Red Cell Distribution Width 13.8 % (11.0-16.0); White Blood Count 11.3 X10*3/uL (4.8-10.8)
[2021-06-25] VITALS (18 sets, daily range): BP systolic 135–177; BP diastolic 68–105; PULSE 59–96; RESP 12–20; TEMP 36.3–37.3; O2SAT 92–127
[2021-06-25 00:14] LABS: Alanine Aminotransferase 18 U/L (0-40); Albumin Level 4.1 g/dL (3.5-5.0); Alkaline Phosphatase 70 U/L (39-117); Anion Gap 11 (12-20); Aspartate Amino Transferase 25 U/L (5-37); Bilirubin Total 0.5 mg/dL (0.0-1.0); Blood Urea Nitrogen 11 mg/dL (9-16); Calcium 9.7 mg/dL (8.4-10.2); Carbon Dioxide 33 mmol/L (22-29); Chloride 103 mmol/L (96-108); Creatinine Clr Calc Pharmacy 131.7; Estimated Glomerular Filt Rate > 60; Glucose Random 98 mg/dL (60-115); Potassium 4.1 mmol/L (3.3-5.1); Sodium 143 mmol/L (135-145); Total Protein 6.9 g/dL (6.5-8.0)
[2021-06-25 00:33] LABS: Lipase 50 U/L (8-78)
--- NOTE | 2021-06-25 01:20 | ED_ITS ---
HPI - Abdominal Pain General Chief Complaint: Abdominal Pain Stated Complaint: stomach pain Time Seen by Provider: 06/25/21 00:16 Source: patient Mode of arrival: ambulatory History of Present Illness HPI narrative: 50-year-old male history of bariatric surgery, diabetes, right hip arthroplasty who presents with a near fall earlier today and then states thereafter that he noticed mid/periumbilical pain and on self palpation states that there is a ball and that is painful to touch. Patient has had associated nausea but denies any fever or chills and is unclear whether not he has obstipation. Patient states he continues to have pain. Related Data Home Medications Medication Instructions Recorded Confirmed irbesartan 300 mg tablet 300 mg PO QPM 05/22/20 04/03/21 amlodipine 10 mg tablet 10 mg PO QPM 11/27/20 04/03/21 atorvastatin 20 mg tablet 20 mg PO QPM 11/27/20 04/03/21 [id number] 250 1 tab PO BID 11/27/20 04/03/21 mg-40 mg-5 mg-125 unit tablet multivitamin 1 tab PO DAILY 11/27/20 04/03/21 Previous Rx's Medication Instructions Recorded Wheelchair #1 ea 10/29/20 gabapentin 300 mg capsule 300 mg PO QPM 90 Days #90 cap 12/06/20 docusate sodium 100 mg capsule 100 mg PO BID 14 Days #28 cap 12/13/20 spironolactone 25 1 tab PO QPM 90 Days #90 tab 12/18/20 mg-hydrochlorothiazide 25 mg tablet omeprazole 20 mg capsule,delayed 20 mg PO QAM 90 Days #90 cap 03/19/21 release acetaminophen 325 mg tablet 650 mg PO Q6H PRN 30 Days #240 tab 04/11/21 aspirin 325 mg tablet 325 mg PO BID 42 Days #84 tab 04/11/21 celecoxib 200 mg capsule 200 mg PO BID 30 Days #60 cap 04/11/21 bupropion HCl 150 mg tablet,12 hr 150 mg PO BID 30 Days #60 tab 05/09/21 sustained-release (Wellbutrin SR) Allergies Allergy/AdvReac Type Severity Reaction Status Date / Time lisinopril [LISINOPRIL] AdvReac Severe COUGH Verified 05/22/21 14:53 Review of Systems Review of Systems Pertinent positives and negatives as stated in HPI 10 point review of systems is otherwise negative. [facility] Past Medical History Source: nursing notes reviewed Medical History Arthritis COVID-19 vaccine series completed Depression, major, recurrent Hypertension, essential Morbid obesity Osteoarthritis, hip, bilateral Sleep apnea Surgical History H/O colonoscopy History of ankle surgery History of sleeve gastrectomy History of surgery History of total left hip replacement Family History Family History Father HTN (hypertension) Mother HTN (hypertension) Sister Cancer of thyroid Maternal Grandfather No problems noted. Maternal Grandmother No problems noted. Paternal Grandfather No problems noted. Paternal Grandmother No problems noted. Brother No problems noted. Sister No problems noted. Sister No problems noted. 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 GENERAL: Elevated BMI, mild distress. HEAD: Normocephalic/atraumatic EYES: PERRLA, EOMI EARS: Ext canals without abnormality OROPHARYNX: no oral lesions noted, posterior pharynx clear LUNGS: Normal breath sounds. No adventitious sounds or accessory muscle use. SpO2<97> CARDIOVASCULAR: Regular rate and rhythm without noted murmurs ABDOMEN: Soft, there is a noted approximate 3 cm firm mass at the superior periumbilical region with gurgling sensations suggestive of hernia but unable to reduce MUSCULOSKELETAL: No tenderness, deformities, or effusions noted on gross inspection. EXTREMITIES: No cyanosis, clubbing or edema. SKIN: Inspection of the skin reveals no rashes NEUROLOGIC: Alert and oriented x 4. Strength and sensation to light touch were grossly intact x 4. Course Course Course Narrative: 50-year-old male with history and clinical presentation consistent with strangulated hernia. Review of all investigations demonstrates mild leukocytosis with CT scan findings of SBO and transition at hernia with small knuckle bowel. Reevaluation(s) Reevaluation #1: I discussed the case with Surgical Services who accepts admission. Time: 02:51 MDM - Abdominal Pain Lab Data Result diagrams: 06/24/21 23:40 06/24/21 23:40 Labs: Lab Results 06/24/21 06/24/21 06/25/21 Range/Units 23:40 23:40 01:28 WBC 11.3 H (4.8-10.8) X10*3/uL RBC 4.95 (4.60-5.80) X10*6/uL Hgb 14.4 (14.0-18.0) g/dl Hct 44.0 (42.0-52.0) % MCV 88.9 (80.0-98.0) fL MCH 29.1 (27.0-33.0) pg MCHC 32.7 (31.0-36.0) g/dl RDW 13.8 (11.0-16.0) % Plt Count 373 (160-400) X10*3/uL MPV 8.7 L (9.4-12.4) fL Absolute Nucleated RBC 0.000 (0.0-0.012) X10*3/uL Nucleated RBC % (auto) 0.0 (0.0-0.2) /100WBC Sodium 143 (135-145) mmol/L Potassium 4.1 (3.3-5.1) mmol/L Chloride 103 (96-108) mmol/L Carbon Dioxide 33 H (22-29) mmol/L Anion Gap 11 L (12-20) BUN 11 D (9-16) mg/dL Creatinine 0.90 (0.5-1.4) mg/dL Estim Creat Clear Calc 131.7 Estimated GFR > 60 Random Glucose 98 (60-115) mg/dL Lactic Acid 0.9 (0.5-2.0) mmol/L Calcium 9.7 D (8.4-10.2) mg/dL Total Bilirubin 0.5 (0.0-1.0) mg/dL AST 25 (5-37) U/L ALT 18 (0-40) U/L Alkaline Phosphatase 70 (39-117) U/L Total Protein 6.9 (6.5-8.0) g/dL Albumin 4.1 (3.5-5.0) g/dL Lipase 50 (8-78) U/L Discharge Plan Discharge Clinical Impression: SBO (small bowel obstruction), Incarcerated hernia Patient Disposition: Admitted As Inpatient Prescriptions: No Action (DME) Wheelchair See Rx Instructions .Route .MEDSUPPLY Qty: 1 0RF Rx Instructions: As directed gabapentin 300 mg capsule 300 mg PO QPM 90 Days Qty: 90 0RF spironolacton-hydrochlorothiaz 25-25 mg tablet 1 tab PO QPM 90 Days Qty: 90 0RF bupropion HCl [Wellbutrin SR] 150 mg tablet sustained-release 12 hr 150 mg PO BID 30 Days Qty: 60 0RF multivitamin Tablet 1 tab PO DAILY 0RF atorvastatin 20 mg tablet 20 mg PO QPM 0RF amlodipine 10 mg tablet 10 mg PO QPM 0RF [id number] Tablet 1 tab PO BID 0RF docusate sodium 100 mg Capsule 100 mg PO BID 14 Days Qty: 28 0RF celecoxib 200 mg Capsule 200 mg PO BID 30 Days Qty: 60 0RF acetaminophen 325 mg Tablet 650 mg PO Q6H PRN (Reason: Pain, Mild (Pain Scale 1-3)) 30 Days Qty: 240 0RF aspirin 325 mg Tablet 325 mg PO BID 42 Days Qty: 84 0RF irbesartan 300 mg tablet 300 mg PO QPM 0RF omeprazole 20 mg capsule,delayed release(DR/EC) 20 mg PO QAM 90 Days Qty: 90 1RF
[2021-06-25 01:48] LABS: Lactic Acid 0.9 mmol/L (0.5-2.0)
[2021-06-25] MEDS: iohexoL 350 MG/ML 100 ML INFUS..BTL 85 ML IV (01:50)
[2021-06-25 04:00] LABS: COVID-19 Test Negative (Negative)
--- NOTE | 2021-06-25 05:21 | PC.NURSE ---
I assumed care of Dillon upon his arrival to bed 2 from the waiting room. The pt presented to the ED for evaluation of severe abdominal pain, states I think I have a hernia. He has remained alert, oriented x 3, makes eye contact with staff and is calm and cooperative he ambulates independently and with steady gait and is able to adequately verbalize his needs. Respirations are spontaneous and non-labored, no cyanosis, he is speaking in full sentences, room air sat's are WNL. He denies nausea, denies vomiting. He denies any change in his bowel or bladder pattern. he has taken PO fluids int he ED without difficulty. The pt is aware that he is to be admitted and verbalizes an understanding of this. We will continue to monitor Dillon and prepare for admission.
[2021-06-25] MEDS: 0.9 % Sodium Chloride 1,000 ML 125 ML IVCONT ×2 (06:43→14:02)
[2021-06-25] MEDS: Morphine Sulfate 4 MG/ML CARTRIDGE IVPUSH (06:47)
[2021-06-25] MEDS: ondansetron HCL 4 MG/2 ML VIAL IVPUSH (06:48)
--- NOTE | 2021-06-25 07:35 | P.HPGS_ITS ---
History of Present Illness History of Present Illness Date of Service: 06/25/21 Chief complaint: Bowel obstruction Narrative: Dillon Cervantes is a 50 year old male who came to the emergency room last night because of pain at the area of the umbilicus. He says this started around 18:00 last night. He denies any association with oral intake. He says that this had persisted throughout the night. He describes having matted maybe once or twice although with minimal thin yellowish liquid he says. He has been passing flatus and had BMs yesterday He denies any similar episodes the past. He had sleeve gastrectomy last 2020. He has had hip replacement on both the left and right side. The 1 on the right was done on the 3 months ago. Review of Systems Constitutional: Constitutional: Denies chills and Denies fever(s) Cardiovascular: Cardiovascular: Denies chest pain, Denies dyspnea and Denies dyspnea on exertion Respiratory: Respiratory: Denies cough, Denies dyspnea and Denies dyspnea on exertion Gastrointestinal: Gastrointestinal: Denies hematochezia and Denies change in bowel habits Genitourinary: Genitourinary: Denies hematuria and Denies difficulty urinating Musculoskeletal: Musculoskeletal: Denies back pain and Denies limited range of motion Neurologic: Denies focal weakness and Denies convulsions Psychiatric: Psychiatric: Denies depression and Denies mood swings PMFSH Past Medical History Medical History Arthritis COVID-19 vaccine series completed Depression, major, recurrent Hypertension, essential Morbid obesity Osteoarthritis, hip, bilateral Sleep apnea Family History Family History Father HTN (hypertension) Mother HTN (hypertension) Sister Cancer of thyroid Maternal Grandfather No problems noted. Maternal Grandmother No problems noted. Paternal Grandfather No problems noted. Paternal Grandmother No problems noted. Brother No problems noted. Sister No problems noted. Sister No problems noted. 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) Alcohol intake: current Alcohol intake frequency: former alcohol drinker Patient Tobacco Use Status: Never used Tobacco e-Cigarette/Vaping Use: Never Used Use of substances other than those prescribed or required for medical reasons: Unknown Advance Directives: No Advance Directives Information Provided: Yes service: No Current occupational status: disabled Meds Allergies Allergy/AdvReac Type Severity Reaction Status Date / Time lisinopril [LISINOPRIL] AdvReac Severe COUGH Verified 05/22/21 14:53 Active Medications: Current Medications Sodium Chloride (Ns) 1,000 mls @ 125 mls/hr IVCONT .Q8H [facility] Last Admin: 06/25/21 06:43 Dose: 125 mls/hr Documented by: Sodium Chloride (Ns) 1,000 mls @ 125 mls/hr IVCONT .Q8H [facility] Last Admin: 06/25/21 06:43 Dose: Not Given Documented by: Morphine Sulfate (Morphine Sulfate 4 Mg/Ml Cartridge) 4 mg IVPUSH Q4H PRN; Protocol PRN Reason: Pain, Severe (Pain Scale 7-10) Last Admin: 06/25/21 06:47 Dose: 4 mg Documented by: Ondansetron HCl (Ondansetron Hcl 4 Mg/2 Ml Vial) 4 mg IVPUSH Q8H PRN PRN Reason: Nausea and Vomiting Last Admin: 06/25/21 06:48 Dose: 4 mg Documented by: Sodium Chloride (0.9 % Sodium Chloride Flush 3 Ml Syringe) 3 ml IVFLUSH [facility] Last Admin: 06/25/21 07:17 Dose: Not Given Documented by: Sodium Chloride (0.9 % Sodium Chloride Flush 3 Ml Syringe) 3 ml IVFLUSH [facility] Last Admin: 06/25/21 07:17 Dose: Not Given Documented by: Home Medications Medication Instructions Recorded Confirmed Last Taken Type irbesartan 300 mg tablet 300 mg PO QPM 05/22/20 04/03/21 Unknown History amlodipine 10 mg tablet 10 mg PO QPM 11/27/20 04/03/21 Unknown History atorvastatin 20 mg tablet 20 mg PO QPM 11/27/20 04/03/21 Unknown History [id number] 250 1 tab PO BID 11/27/20 04/03/21 Unknown History mg-40 mg-5 mg-125 unit tablet multivitamin 1 tab PO DAILY 11/27/20 04/03/21 Unknown History Physical Exam Vital Signs: Vital Signs: Last Vital Signs Temp 98.0 F 06/24/21 23:23 Pulse 59 06/25/21 07:22 Resp 18 06/25/21 07:22 BP 149/91 H 06/25/21 07:22 Pulse Ox 92 06/25/21 07:22 BMI result Body Mass Index 37.7 Const: Other: Appears obese General: comfortable and no acute distress Orientation/consciousness: patient oriented x3 Neck: Neck: Yes no lymphadenopathy Resp: Auscultation: clear to auscultation bilaterally Cardio: Rhythm: regular rhythm GI: Other: Palpable mass just above the umbilicus and to the left, tender, more to the right of the midline, non reducible Palpation (GI): Soft to palpation, Tenderness to palpation present (GI) and no guarding Neuro: General: patient oriented x3 Results Results Labs: Short CBC 06/24/21 Range/Units 23:40 WBC 11.3 H (4.8-10.8) X10*3/uL Hgb 14.4 (14.0-18.0) g/dl Hct 44.0 (42.0-52.0) % Plt Count 373 (160-400) X10*3/uL BMP 06/24/21 23:40 Sodium 143 Potassium 4.1 Chloride 103 Carbon Dioxide 33 H BUN 11 D Creatinine 0.90 Calcium 9.7 D Liver Function 06/24/21 Range/Units 23:40 Total Bilirubin 0.5 (0.0-1.0) mg/dL AST 25 (5-37) U/L ALT 18 (0-40) U/L Alkaline Phosphatase 70 (39-117) U/L Albumin 4.1 (3.5-5.0) g/dL Abdomen CT scan report/results: report reviewed and image reviewed CT scan - pelvis: report reviewed Additional studies: Laboratory Results WBC 11.3 X10*3/uL (4.8-10.8) H 06/24/21 23:40 RBC 4.95 X10*6/uL (4.60-5.80) 06/24/21 23:40 Hgb 14.4 g/dl (14.0-18.0) 06/24/21 23:40 Hct 44.0 % (42.0-52.0) 06/24/21 23:40 MCV 88.9 fL (80.0-98.0) 06/24/21 23:40 MCH 29.1 pg (27.0-33.0) 06/24/21 23:40 MCHC 32.7 g/dl (31.0-36.0) 06/24/21 23:40 RDW 13.8 % (11.0-16.0) 06/24/21 23:40 Plt Count 373 X10*3/uL (160-400) 06/24/21 23:40 MPV 8.7 fL (9.4-12.4) L 06/24/21 23:40 Absolute Nucleated RBC 0.000 X10*3/uL (0.0-0.012) 06/24/21 23:40 Nucleated RBC % (auto) 0.0 /100WBC (0.0-0.2) 06/24/21 23:40 Sodium 143 mmol/L (135-145) 06/24/21 23:40 Potassium 4.1 mmol/L (3.3-5.1) 06/24/21 23:40 Chloride 103 mmol/L (96-108) 06/24/21 23:40 Carbon Dioxide 33 mmol/L (22-29) H 06/24/21 23:40 Anion Gap 11 (12-20) L 06/24/21 23:40 BUN 11 mg/dL (9-16) D 06/24/21 23:40 Creatinine 0.90 mg/dL (0.5-1.4) 06/24/21 23:40 Estim Creat Clear Calc 131.7 06/24/21 23:40 Estimated GFR > 60 06/24/21 23:40 Random Glucose 98 mg/dL (60-115) 06/24/21 23:40 Lactic Acid 0.9 mmol/L (0.5-2.0) 06/25/21 01:28 Calcium 9.7 mg/dL (8.4-10.2) D 06/24/21 23:40 Total Bilirubin 0.5 mg/dL (0.0-1.0) 06/24/21 23:40 AST 25 U/L (5-37) 06/24/21 23:40 ALT 18 U/L (0-40) 06/24/21 23:40 Alkaline Phosphatase 70 U/L (39-117) 06/24/21 23:40 Total Protein 6.9 g/dL (6.5-8.0) 06/24/21 23:40 Albumin 4.1 g/dL (3.5-5.0) 06/24/21 23:40 Lipase 50 U/L (8-78) 06/24/21 23:40 COVID-19 ([facility]) Negative (Negative) 06/25/21 03:35 COVID-19 Clin Com See Note 06/25/21 03:35 Impressions Abdomen/Pelvis CT 06/25/21 01:55 IMPRESSION: 1. Small bowel obstruction with transition site at a supraumbilical hernia containing a short segment of small bowel. 2. Subtle hypodensity in the upper right kidney measures approximately 2 cm, similar to possibly minimally increased from 07/10/2018. This may be more definitively assessed with renal protocol MRI, as a mass cannot be excluded. Fleischner guidelines were followed. Assessment and Plan (1) Incarcerated hernia: Status: Acute He has that incarcerated umbilical hernia with involved small bowel. This seems to be obstructed at this level. I explained to him that we need to proceed with repair of this hernia. I explained to the technique of repair with possible mesh placement. I was within the risks including but not limited to bleeding, infections, bowel injury, possible need for resection, anastomotic leak, inherent risks of anesthesia including MT and was, as well as the benefits and alternatives. He understands and wants to proceed. He has been NPO. Quality Stroke Does the patient have a stroke diagnosis?: No VTE Prior VTE?: No VTE Risk Level:: Surgical - low VTE Device Contraindication: N/A - Device Ordered VTE Drug Contraindication: Treatment Not Indicated Procedures Date of Service Date of Service: 06/25/21
--- NOTE | 2021-06-25 08:04 | P.HPGS_ITS ---
History of Present Illness History of Present Illness Date of Service: 06/25/21 Chief complaint: Bowel obstruction Narrative: Dillon Cervantes is a 50 year old male with history of HTN, GERD, depression, obesity, SCHU[place]ER on CPAP who presented to the ED with c/o abdominal pain. The patient reports he was in his normal state of health until he was at the grocery store yesterday and had a misstep. Following this he developed pain at his umbilicus. He has never had a pain like this before. Shortly after he developed nausea and dry heaving. He has been passing flatus and did have a bowel movement yesterday in an attempt to relieve the pain. The pain progressed and persisted prompting him to seek evaluation in the ED yesterday. Work up included a CT scan abd/pevis which showed a supraumbilical hernia containing a short segment of fluid-filled small bowel with proximal small bowel loops dilated and fluid- filled. No free fluid or free air is seen. He has a mild leukocytosis of 11.3. Lactic acid is normal. Review of Systems Constitutional: Constitutional: Denies chills and Denies fever(s) Eyes: Eyes: Denies blurry vision ENT: Denies dizziness Cardiovascular: Cardiovascular: Denies chest pain, Denies palpitations and Denies dyspnea Respiratory: Respiratory: Denies cough and Denies dyspnea Gastrointestinal: Gastrointestinal: Reports as per HPI, Denies hematochezia, Denies change in bowel habits, Denies diarrhea and Denies hematemesis Genitourinary: Genitourinary: Denies hematuria and Denies dysuria Integumentary/Breasts: Skin/Breast: Denies rash Neurologic: Denies dizziness Endocrine: Endocrine: Denies palpitations [facility] Past Medical History Medical History (Updated 06/25/21 @ 03:42 by Belem Maynard MD) Arthritis COVID-19 vaccine series completed Depression, major, recurrent Hypertension, essential Morbid obesity Osteoarthritis, hip, bilateral Sleep apnea Family History Family History Father HTN (hypertension) Mother HTN (hypertension) Sister Cancer of thyroid Maternal Grandfather No problems noted. Maternal Grandmother No problems noted. Paternal Grandfather No problems noted. Paternal Grandmother No problems noted. Brother No problems noted. Sister No problems noted. Sister No problems noted. 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) Alcohol intake: current Alcohol intake frequency: former alcohol drinker Patient Tobacco Use Status: Never used Tobacco e-Cigarette/Vaping Use: Never Used Use of substances other than those prescribed or required for medical reasons: Unknown Advance Directives: No Advance Directives Information Provided: Yes service: No Current occupational status: disabled Meds Allergies Allergy/AdvReac Type Severity Reaction Status Date / Time lisinopril [LISINOPRIL] AdvReac Severe COUGH Verified 05/22/21 14:53 Active Medications: Current Medications Sodium Chloride (Ns) 1,000 mls @ 125 mls/hr IVCONT .Q8H [facility] Last Admin: 06/25/21 06:43 Dose: 125 mls/hr Documented by: Sodium Chloride (Ns) 1,000 mls @ 125 mls/hr IVCONT .Q8H [facility] Last Admin: 06/25/21 06:43 Dose: Not Given Documented by: Cefazolin Sodium/Dextrose (Ancef) 2 gm in 50 mls @ 100 mls/hr IV PREOP ONE Stop: 06/25/21 08:29 Morphine Sulfate (Morphine Sulfate 4 Mg/Ml Cartridge) 4 mg IVPUSH Q4H PRN; Protocol PRN Reason: Pain, Severe (Pain Scale 7-10) Last Admin: 06/25/21 06:47 Dose: 4 mg Documented by: Ondansetron HCl (Ondansetron Hcl 4 Mg/2 Ml Vial) 4 mg IVPUSH Q8H PRN PRN Reason: Nausea and Vomiting Last Admin: 06/25/21 06:48 Dose: 4 mg Documented by: Sodium Chloride (0.9 % Sodium Chloride Flush 3 Ml Syringe) 3 ml IVFLUSH QSHIFT [facility] Last Admin: 06/25/21 07:17 Dose: Not Given Documented by: Sodium Chloride (0.9 % Sodium Chloride Flush 3 Ml Syringe) 3 ml IVFLUSH QSHIFT [facility] Last Admin: 06/25/21 07:17 Dose: Not Given Documented by: Home Medications Medication Instructions Recorded Confirmed Last Taken Type irbesartan 300 mg tablet 300 mg PO BEDTIME 05/22/20 06/25/21 Unknown History amlodipine 10 mg tablet 10 mg PO BEDTIME 11/27/20 06/25/21 Unknown History atorvastatin 20 mg tablet 20 mg PO BEDTIME 11/27/20 06/25/21 Unknown History multivitamin 1 tab PO DAILY 11/27/20 06/25/21 06/24/21 History gabapentin 300 mg capsule 1 cap PO BEDTIME 06/25/21 06/25/21 Unknown History omeprazole 20 mg capsule,delayed 1 cap PO DAILY 06/25/21 06/25/21 06/24/21 History release spironolactone 25 1 tab PO BEDTIME 06/25/21 06/25/21 Unknown History mg-hydrochlorothiazide 25 mg tablet Physical Exam Vital Signs: Vital Signs: Last Vital Signs Temp 98.0 F 06/24/21 23:23 Pulse 59 06/25/21 07:22 Resp 18 06/25/21 07:22 BP 149/91 H 06/25/21 07:22 Pulse Ox 92 06/25/21 07:22 BMI result Body Mass Index 37.7 Const: General: comfortable, no acute distress and alert Orientation/consciousness: patient oriented x3 Eyes: Sclerae: sclerae normal Resp: Effort & Inspection: normal respiratory effort Cardio: Rate: regular rate GI: Inspection: No distended, Yes obesity and Yes scar (several small 1cm scars in upper abdomen) Palpation (GI): Soft to palpation, Tenderness to palpation present (GI) periumbilically (hernia palpated, tender, no overlying skin changes), no guarding and not rigid Percussion: Yes normal to percussion Skin: General skin exam: no rashes or lesions noted Neuro: General: patient oriented x3 Extrem: General: Yes no clubbing, cyanosis or edema Results Results Labs: Short CBC 06/24/21 Range/Units 23:40 WBC 11.3 H (4.8-10.8) X10*3/uL Hgb 14.4 (14.0-18.0) g/dl Hct 44.0 (42.0-52.0) % Plt Count 373 (160-400) X10*3/uL BMP 06/24/21 23:40 Sodium 143 Potassium 4.1 Chloride 103 Carbon Dioxide 33 H BUN 11 D Creatinine 0.90 Calcium 9.7 D Liver Function 06/24/21 Range/Units 23:40 Total Bilirubin 0.5 (0.0-1.0) mg/dL AST 25 (5-37) U/L ALT 18 (0-40) U/L Alkaline Phosphatase 70 (39-117) U/L Albumin 4.1 (3.5-5.0) g/dL Assessment and Plan (1) Incarcerated hernia: Status: Acute (2) SBO (small bowel obstruction): Status: Acute Plan 50 year old male with multiple medical comorbidities who presented to the ED with abdominal pain found to have supraumbilical hernia on CT scan containing small bowel. This is irreducible by senior grant writer and ED staff. Discussed with him given that it is containing small bowel and he may be partially obstructing it is best to proceed with repair of the supraumbilical hernia with mesh in the OR today. Technique of the procedure, risks and benefits including infection, bleeding, TN, blood clots, injury to bowel, were discussed with the patient. He agrees to proceed. He will be added onto the OR shedule for today. Quality Stroke Does the patient have a stroke diagnosis?: No VTE Prior VTE?: No VTE Risk Level:: Surgical - low VTE Device Contraindication: N/A - Device Ordered VTE Drug Contraindication: Treatment Not Indicated Procedures Date of Service Date of Service: 06/25/21
--- NOTE | 2021-06-25 08:09 | PHA.MEDREC ---
Pharmacy Consult ? Medication Reconciliation Pharmacy has completed the medication reconciliation. Pt was poor historian, knew most of his medications listed but may be non-adherent. Also noted that he takes calcium but was unsure of what strength. Ana Rosa Martin, AshishD
--- NOTE | 2021-06-25 09:21 | PC.NURSE ---
PICKED UP BY OR TECH @ [id number]
--- NOTE | 2021-06-25 09:59 | MHC.CM.PN ---
CM ATTEMPTED TO SEE PT WHO WAS IN DAY STAY. CM WILL RETURN
--- NOTE | 2021-06-25 10:18 | HO.ANESPROP2 ---
[facility] Active Problems Active Problems: All Active Problems (Updated 06/25/21 @ 03:42 by Belem Maynard MD) SBO (small bowel obstruction) (Acute) Incarcerated hernia (Acute) S/P total right hip arthroplasty (Acute) Requires daily assistance for activities of daily living (ADL) and comfort needs (Acute) Obesity (Acute) Arthritis of left hip (Acute) Immunization due (Acute) Lipid disorder (Acute) Chronic GERD (Acute) History of bariatric surgery (Acute) Pre-op evaluation (Acute) Preoperative cardiovascular examination (Acute) Status post total replacement of left hip (Acute) UTI (urinary tract infection) (Acute) Osteoarthritis of right hip (Acute) Impaired fasting blood sugar (Acute) Hypertension, essential (Acute) Depression, major, recurrent (Acute) Morbid obesity (Acute) Osteoarthritis, hip, bilateral (Acute) Past Medical History Medical History Arthritis COVID-19 vaccine series completed Depression, major, recurrent Hypertension, essential Morbid obesity Osteoarthritis, hip, bilateral Sleep apnea Family History Family History Father HTN (hypertension) Mother HTN (hypertension) Sister Cancer of thyroid Maternal Grandfather No problems noted. Maternal Grandmother No problems noted. Paternal Grandfather No problems noted. Paternal Grandmother No problems noted. Brother No problems noted. Sister No problems noted. Sister No problems noted. 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) Alcohol intake: current Alcohol intake frequency: holidays/special occasions only Patient Tobacco Use Status: Never used Tobacco e-Cigarette/Vaping Use: Never Used service: No Current occupational status: disabled Meds Allergies Allergy/AdvReac Type Severity Reaction Status Date / Time lisinopril [LISINOPRIL] AdvReac Severe COUGH Verified 05/22/21 14:53 Active Medications: Current Medications Amlodipine Besylate (Amlodipine Besylate 10 Mg Tablet) 10 mg PO BEDTIME [facility]; Protocol Atorvastatin Calcium (Atorvastatin Calcium 20 Mg Tablet) 20 mg PO BEDTIME [facility] Bupropion HCl (Bupropion Hcl Xl 300 Mg Tab.Er.24h) 300 mg PO DAILY [facility] Gabapentin (Gabapentin 300 Mg Capsule) 300 mg PO BEDTIME [facility] Hydrochlorothiazide (Hydrochlorothiazide 25 Mg Tablet) 25 mg PO BEDTIME [facility] Sodium Chloride (Ns) 1,000 mls @ 125 mls/hr IVCONT .Q8H [facility] Last Admin: 06/25/21 06:43 Dose: 125 mls/hr Documented by: Sodium Chloride (Ns) 1,000 mls @ 125 mls/hr IVCONT .Q8H [facility] Last Admin: 06/25/21 06:43 Dose: Not Given Documented by: Morphine Sulfate (Morphine Sulfate 4 Mg/Ml Cartridge) 4 mg IVPUSH Q4H PRN; Protocol PRN Reason: Pain, Severe (Pain Scale 7-10) Last Admin: 06/25/21 06:47 Dose: 4 mg Documented by: Omeprazole (Omeprazole 20 Mg Capsule.Dr) 20 mg PO DAILY [facility] Ondansetron HCl (Ondansetron Hcl 4 Mg/2 Ml Vial) 4 mg IVPUSH Q8H PRN PRN Reason: Nausea and Vomiting Last Admin: 06/25/21 06:48 Dose: 4 mg Documented by: Pharmacy Consult (Consult Rx Perform Med Rec) 1 each MISCELLANE ONCE PRN PRN Reason: Consult order Sodium Chloride (0.9 % Sodium Chloride Flush 3 Ml Syringe) 3 ml IVFLUSH QSHIFT [facility] Last Admin: 06/25/21 07:17 Dose: Not Given Documented by: Sodium Chloride (0.9 % Sodium Chloride Flush 3 Ml Syringe) 3 ml IVFLUSH QSHIFT [facility] Last Admin: 06/25/21 07:17 Dose: Not Given Documented by: Spironolactone (Spironolactone 25 Mg Tablet) 1 mg PO BEDTIME [facility] Valsartan (Valsartan 160 Mg Tablet) 160 mg PO BEDTIME [facility] Home Medications Medication Instructions Recorded Confirmed Last Taken Type irbesartan 300 mg tablet 300 mg PO BEDTIME 05/22/20 06/25/21 Unknown History amlodipine 10 mg tablet 10 mg PO BEDTIME 11/27/20 06/25/21 Unknown History atorvastatin 20 mg tablet 20 mg PO BEDTIME 11/27/20 06/25/21 Unknown History multivitamin 1 tab PO DAILY 11/27/20 06/25/21 06/24/21 History gabapentin 300 mg capsule 1 cap PO BEDTIME 06/25/21 06/25/21 Unknown History omeprazole 20 mg capsule,delayed 1 cap PO DAILY 06/25/21 06/25/21 06/24/21 History release spironolactone 25 1 tab PO BEDTIME 06/25/21 06/25/21 Unknown History mg-hydrochlorothiazide 25 mg tablet Exam Exam Date and Time: June 25, 2021 1018 Height,Weight and Vital Signs: Height 6 ft Weight 126.099 kg Last Vital Signs Temp 97.5 F 06/25/21 09:35 Pulse 64 06/25/21 09:35 Resp 18 06/25/21 09:35 BP 177/94 H 06/25/21 09:35 Pulse Ox 94 06/25/21 09:35 Pertinent Lab Results Pertinent Lab Results: Laboratory Tests 06/24/21 06/24/21 06/25/21 23:40 23:40 01:28 WBC 11.3 H RBC 4.95 Hgb 14.4 Hct 44.0 MCV 88.9 MCH 29.1 MCHC 32.7 RDW 13.8 Plt Count 373 MPV 8.7 L Absolute Nucleated RBC 0.000 Nucleated RBC % (auto) 0.0 Sodium 143 Potassium 4.1 Chloride 103 Carbon Dioxide 33 H Anion Gap 11 L BUN 11 D Creatinine 0.90 Estim Creat Clear Calc 131.7 Estimated GFR > 60 Random Glucose 98 Lactic Acid 0.9 Calcium 9.7 D Total Bilirubin 0.5 AST 25 ALT 18 Alkaline Phosphatase 70 Total Protein 6.9 Albumin 4.1 Lipase 50 COVID-19 ([facility]) COVID-19 Clin Com 06/25/21 03:35 WBC RBC Hgb Hct MCV MCH MCHC RDW Plt Count MPV Absolute Nucleated RBC Nucleated RBC % (auto) Sodium Potassium Chloride Carbon Dioxide Anion Gap BUN Creatinine Estim Creat Clear Calc Estimated GFR Random Glucose Lactic Acid Calcium Total Bilirubin AST ALT Alkaline Phosphatase Total Protein Albumin Lipase COVID-19 ([facility]) Negative COVID-19 Clin Com See Note Airway Mallampati Class: III TM Dist: >3cm Neck ROM: Full Loose/Missing/Broken Teeth: No Heart: RRR Lungs: CTA Assessment and Plan Assessment Anesthesia Assessment: Anesthesia Plan Discussed and Chart Reviewed Final Anesthetic Review Family History of Problems with Anesthesia: No History of Problems with Anesthesia: No NPO: Yes ASA Class: III Final Preanesthetic Review: Meds/Allgs Chart Reviewed, Consent Obtained/Reviewed and Anes Risks/Benef Reviewed Patient Risk: Intermediate Procedure Risk: Low Anesthetic Plan Anesthetic Plan: GA Disposition: Standard PACU
--- NOTE | 2021-06-25 11:21 | W.PM.OPN ---
Operative Note Operative Note Date of Service: 06/25/21 Narrative: Preop diagnosis: incarcerated umbilical hernia with small bowel Postop diagnosis: the same, with ischemic very short segment of small bowel Procedure: repair of incarcerated umbilical hernia with small bowel resection Surgeon: Kofi Meza MD assistant child care teacher : JENNIFER Francisco The patient is a 50M who came to the ED because of abdominal pain. He was noted to have an incarcerated umbilical hernia with small bowel loop. This was nonreducible so I explained to him that it is best to proceed with repair. He understood the technique of repair with possible mesh and possible resection. He was aware of the risks, benefits and alternatives. He was brought to the OR and palced supine under general anesthesia via ET tube. A surgical timeout was done. The abdomen was prepped and draped in the usual sterile fashion. I infiltrated the planned line of incision at the level of the umbilicus using a blade 15. This was carried down through the fullthickness of the skin and thick subcutaneous fat. It is noted that the patient was morbidly obese and had a pannus. I visualized the hernia and this was sharply dissected from the rest ot the subcutaneous layer down to the fascia. The defect was very narrow so I had to lengthin this by dividing the fasia superiorly and iinferiorly. This allowed me to define the hernia sac. THis was opened and the I excised the sac. The small bowel loop in the hernia appeared ischemic. I therefore decided to resect this short segment. I created a mesenteric defect proximal and distal to this ischemic segment. I divided the bowel on each side with ASTON 60 mm staplers. I transected the attached mesentery by serial clamping ligation, division between clamps with Metzenbaum scissors and ligation with dexon 3-0 ties. This short segment was sent as a specimen. I opened up the apex of each staple line to enter the lumen on both limbs. I positioned each arm of the ASTON 60 mm stapler at the antimesenteric margin. I locked the stapler and made sure there was no bowel loop or mesenery caught between the staplers. The stapler was fired to create our side to side anastomosis. I completed the anastomosis by closing the enterotomy with a TA 60 mm stapler. I applied a seromuscular dexon 3-0 stitch at the crotch of the staple line. I closed the mesenteric defect with a running dexon 3-0 stitch. I irrigated the anastomosis. I examined the staple lines which all appeared intact. I Immersed this in irrigation fluid and there was no bubbling. I replaced this back into the peritoneum once hemostasis was ensured. I closed the fascia with a runningMaxon 1-0 stitch. Skin closure was achieved with arpita. The incision was infltrated with Marcaine .5% for postop analgesia. Dressings were placed and the procedure was completed. The patient tolerated the procedure well. Initial and final counts of sponges and instruments were correct. Estimated blood loss was minimal. The patient was extubated without difficulty and transferred to the with stable vital signs.
--- NOTE | 2021-06-25 11:26 | P.BOP_ITS ---
Brief Operative Note Date of Service: 06/25/21 Pre-op diagnosis: incarcerated supraumbilical hernia, SBO Post-op diagnosis: same (strangulated) Procedure: small bowel resection, repair of strangulated supraumbilical hernia Surgeon: ANTONIETTA SANCHEZ MD Anesthesia: GETA Was an [employer] Hrms Developer used for this Procedure?: Yes [employer] Hr[employer] Developer: Mayela Pruitt Estimated blood loss (mL): 20 Pathology: other (SMALL BOWEL) Condition: stable Disposition: PACU
[2021-06-25] MEDS: oxyCODONE HCl Immed Release 5 MG TABLET 10 MG PO (12:04)
--- NOTE | 2021-06-25 15:42 | PM.EVENT ---
Event Note Date of Service: 06/25/21 Event Note: Underwent repair of an incarcerated umbilical hernia with small-bowel resection earlier today Says he is comfortable Seems to have adequate pain control Looks well stable vital signs Dressings dry Okay to have clear liquids Pain management Await full return of GI function
[2021-06-25] MEDS: Valsartan 160 MG TABLET PO (20:32)
[2021-06-25] MEDS: Atorvastatin Calcium 20 MG TABLET PO (20:32)
[2021-06-25] MEDS: Gabapentin 300 MG CAPSULE PO (20:33)
[2021-06-25] MEDS: hydroCHLOROthiazide 25 MG TABLET PO (20:33)
[2021-06-25] MEDS: amLODIPine Besylate 10 MG TABLET PO (20:33)
[2021-06-25] MEDS: Spironolactone 25 MG TABLET PO (20:41)
[2021-06-26] MEDS: 0.9 % Sodium Chloride 1,000 ML 125 ML IVCONT ×3 (03:05→20:19)
[2021-06-26 03:18] VITALS: BP 136/91; PULSE 93; RESP 18; TEMP 36.7; O2SAT 92
[2021-06-26] MEDS: ondansetron HCL 4 MG/2 ML VIAL IVPUSH (05:11)
[2021-06-26 06:20] LABS: MANUAL DIFF FLAG NO
[2021-06-26 06:32] LABS: Basophils Percent Auto 0.2 % (0-2); Hematocrit 37.2 % (42.0-52.0); Imm Gran Abs Auto 0.09 X10*3/uL (0.00-0.03); Imm Gran Pct Auto 0.5 % (0.0-0.4); Lymphocytes Absolute Auto 1.1 X10*3/uL (1.2-4.9); Lymphocytes Percent Auto 5.7 % (20-40); Mean Corpuscular HGB Conc 32.3 g/dl (31.0-36.0); Mean Corpuscular Hemoglobin 28.8 pg (27.0-33.0); Mean Corpuscular Volume 89.4 fL (80.0-98.0); Mean Platelet Volume 9.1 fL (9.4-12.4); Monocytes Absolute Auto 1.1 X10*3/uL (0.1-1.2); Neutrophils Absolute Auto 16.4 x10*3/uL (2.0-8.3); Neutrophils Percent Auto 87.6 % (45-73); Platelet Count 343 X10*3/uL (160-400); Red Blood Count 4.16 X10*6/uL (4.60-5.80); Red Cell Distribution Width 13.9 % (11.0-16.0); White Blood Count 18.7 X10*3/uL (4.8-10.8)
[2021-06-26 06:37] LABS: Anion Gap 13 (12-20); Blood Urea Nitrogen 13 mg/dL (9-16); Carbon Dioxide 29 mmol/L (22-29); Chloride 102 mmol/L (96-108); Creatinine Clr Calc Pharmacy 151.9; Estimated Glomerular Filt Rate > 60; Glucose Fasting 131 mg/dL (60-99); Sodium 140 mmol/L (135-145)
[2021-06-26 07:49] VITALS: BP 156/88; PULSE 84; RESP 18; TEMP 36.6; O2SAT 93
[2021-06-26] MEDS: Omeprazole 20 MG CAPSULE.DR PO (07:58)
[2021-06-26] MEDS: buPROPion HCl XL 300 MG TAB.ER.24H PO (07:58)
--- NOTE | 2021-06-26 08:47 | P.PNGS_ITS ---
Subjective Subjective Date of Service: 06/26/21 <Mayela Pruitt PA-C - Last Filed: 06/26/21 08:52> 06/26/21 <Kofi Meza MD - Last Filed: 06/26/21 10:00> Interval history: Developed nausea last night and vomited. Feels better this morning. Passing flatus but no BM. Pain is well controlled with IV tylenol- has not taken any other analgesics. Ambulated in halls last night. <Mayela Pruitt PA-C - Last Filed: 06/26/21 08:52> Physical Exam Vital Signs: Vital Signs: Last Vital Signs Temp 97.9 F 06/26/21 07:49 Pulse 84 06/26/21 07:49 Resp 18 06/26/21 07:49 BP 156/88 H 06/26/21 07:49 Pulse Ox 93 06/26/21 07:49 BMI result Body Mass Index 37.7 <ELIE Francisco Last Filed: 06/26/21 08:52> Const: General: comfortable, no acute distress and alert <Mayela Pruitt PA-C - Last Filed: 06/26/21 08:52> Orientation/consciousness: patient oriented x3 <ELIE Francisco Last Filed: 06/26/21 08:52> Resp: Effort & Inspection: normal respiratory effort <ELIE Francisco Last Filed: 06/26/21 08:52> GI: Inspection: No distended and Yes incision (dressing c/d/i) <ELIE Francisco Last Filed: 06/26/21 08:52> Palpation (GI): Soft to palpation, Tenderness to palpation present (GI) (mild, incisional), no guarding and not rigid <ELIE Francisco Last Filed: 06/26/21 08:52> Percussion: Yes normal to percussion <ELIE Francisco Last Filed: 06/26/21 08:52> Skin: General skin exam: no rashes or lesions noted <ELIE Francisco Last Filed: 06/26/21 08:52> Neuro: General: patient oriented x3 <Mayela Pruitt PA-C - Last Filed: 06/26/21 08:52> Objective Data Active Medications Amlodipine Besylate (Amlodipine Besylate 10 Mg Tablet) 10 mg PO BEDTIME TERRA; Protocol Last Admin: 06/25/21 20:33 Dose: 10 mg Documented by: TANNER Atorvastatin Calcium (Atorvastatin Calcium 20 Mg Tablet) 20 mg PO BEDTIME TERRA Last Admin: 06/25/21 20:32 Dose: 20 mg Documented by: TANNER Bupropion HCl (Bupropion Hcl Xl 300 Mg Tab.Er.24h) 300 mg PO DAILY TERRA Last Admin: 06/26/21 07:58 Dose: 300 mg Documented by: OSWALDO Gabapentin (Gabapentin 300 Mg Capsule) 300 mg PO BEDTIME TERRA Last Admin: 06/25/21 20:33 Dose: 300 mg Documented by: TANNER Hydrochlorothiazide (Hydrochlorothiazide 25 Mg Tablet) 25 mg PO BEDTIME TERRA Last Admin: 06/25/21 20:33 Dose: 25 mg Documented by: TANNER Sodium Chloride (Ns) 1,000 mls @ 125 mls/hr IVCONT .Q8H TERRA Last Admin: 06/26/21 07:56 Dose: 125 mls/hr Documented by: OSWALDO Acetaminophen (Ofirmev) 1,000 mg in 100 mls @ 400 mls/hr IV Q6H TERRA Last Infusion: 06/26/21 08:19 Dose: 0 mls/hr Documented by: OSWALDO Morphine Sulfate (Morphine Sulfate 4 Mg/Ml Cartridge) 4 mg IVPUSH Q4H PRN; Protocol PRN Reason: Pain, Severe (Pain Scale 7-10) Last Admin: 06/25/21 06:47 Dose: 4 mg Documented by: JOSAFAT Omeprazole (Omeprazole 20 Mg Capsule.Dr) 20 mg PO DAILY TERRA Last Admin: 06/26/21 07:58 Dose: 20 mg Documented by: OSWALDO Ondansetron HCl (Ondansetron Hcl 4 Mg/2 Ml Vial) 4 mg IVPUSH Q8H PRN PRN Reason: Nausea and Vomiting Last Admin: 06/26/21 05:11 Dose: 4 mg Documented by: TANNER Oxycodone HCl (Oxycodone Hcl Immed Release 5 Mg Tablet) 5 mg PO Q4H PRN PRN Reason: Pain, Moderate (Pain Scale 4-6 Oxycodone HCl (Oxycodone Hcl Immed Release 5 Mg Tablet) 10 mg PO Q4H PRN PRN Reason: Pain, Severe (Pain Scale 7-10) Pharmacy Consult (Consult Rx Perform Med Rec) 1 each MISCELLANE ONCE PRN PRN Reason: Consult order Sodium Chloride (0.9 % Sodium Chloride Flush 3 Ml Syringe) 3 ml IVFLUSH QSHIFT ON LICENSE OF [facility] Last Admin: 06/26/21 07:57 Dose: Not Given Documented by: OSWALDO Non-Admin Reason: IV Running Spironolactone (Spironolactone 25 Mg Tablet) 25 mg PO BEDTIME ON LICENSE OF [facility] Last Admin: 06/25/21 20:41 Dose: 25 mg Documented by: TANNER Valsartan (Valsartan 160 Mg Tablet) 160 mg PO BEDTIME ON LICENSE OF [facility] Last Admin: 06/25/21 20:32 Dose: 160 mg Documented by: TANNER <Mayela Pruitt PA-C - Last Filed: 06/26/21 08:52> Labs CBC & Chem 7: : 06/26/21 05:52 06/26/21 05:52 <Mayela Pruitt PA-C - Last Filed: 06/26/21 08:52> Labs: Laboratory Results - last 24 hr 06/26/21 06/26/21 05:52 05:52 MCV 89.4 MCH 28.8 MCHC 32.3 RDW 13.9 Plt Count 343 MPV 9.1 L Immature Gran % (Auto) 0.5 H Neut % (Auto) 87.6 H Lymph % (Auto) 5.7 L [place] % (Auto) 6.0 Eos % (Auto) 0.0 Baso % (Auto) 0.2 Lymph # (Auto) 1.1 L [place] # (Auto) 1.1 Eos # (Auto) 0.0 Baso # (Auto) 0.0 Abs Immat Gran (auto) 0.09 H Absolute Neuts (auto) 16.4 H Absolute Nucleated RBC 0.000 Nucleated RBC % (auto) 0.0 Anion Gap 13 Estim Creat Clear Calc 151.9 Estimated GFR > 60 Fasting Glucose 131 H Calcium 9.0 D <Mayela Pruitt PA-C - Last Filed: 06/26/21 08:52> Microbiology Microbiology Results: Microbiology 06/25/21 01:28 Blood Culture - Preliminary Blood - Venous No growth after 24 hours. 06/25/21 01:28 Blood Culture - Preliminary Blood - Venous No growth after 24 hours. <Mayela Pruitt PA-C - Last Filed: 06/26/21 08:52> Procedures Date of Service Date of Service: 06/26/21 <Mayela Pruitt PA-C - Last Filed: 06/26/21 08:52> Progress Note: A&P Assessment and plan (1) SBO (small bowel obstruction): Status: Acute <Mayela Pruitt PA-C - Last Filed: 06/26/21 08:52> Assessment and Plan: Says he is doing well with good pain control Does state that he had a small episode of vomiting last night Has started to pass flatus after that Will re-evaluate later today and see if we can advance his diet Looks well otherwise Seen and examined independently - agree with JENNIFER Pruitt <Kofi Meza MD - Last Filed: 06/26/21 10:00> (2) Incarcerated hernia: Status: Acute <Mayela Pruitt PA-C - Last Filed: 06/26/21 08:52> Plan 50 year old male admitted with incarcerated hernia, SBO now POD #1 s/p repair of incarcerated hernia, small bowel resection. Had an episode of vomiting overnight, improved this morning. Pain well controlled and some evidence of GI function. VSS. Abd exam benign with appropriate post op tenderness, dressing intact. Continue clear liquids this morning. If tolerates breakfast without further nausea/vomiting, will advance diet later today. Continue to encourage OOB/ambulation. <Mayela Pruitt PA-C - Last Filed: 06/26/21 08:52> Fall Risk Details Current Medications: Current Medications Amlodipine Besylate (Amlodipine Besylate 10 Mg Tablet) 10 mg PO BEDTIME TERRA; Protocol Last Admin: 06/25/21 20:33 Dose: 10 mg Documented by: Atorvastatin Calcium (Atorvastatin Calcium 20 Mg Tablet) 20 mg PO BEDTIME TERRA Last Admin: 06/25/21 20:32 Dose: 20 mg Documented by: Bupropion HCl (Bupropion Hcl Xl 300 Mg Tab.Er.24h) 300 mg PO DAILY ON LICENSE OF [facility] Last Admin: 06/26/21 07:58 Dose: 300 mg Documented by: Gabapentin (Gabapentin 300 Mg Capsule) 300 mg PO BEDTIME ON LICENSE OF [facility] Last Admin: 06/25/21 20:33 Dose: 300 mg Documented by: Hydrochlorothiazide (Hydrochlorothiazide 25 Mg Tablet) 25 mg PO BEDTIME ON LICENSE OF [facility] Last Admin: 06/25/21 20:33 Dose: 25 mg Documented by: Sodium Chloride (Ns) 1,000 mls @ 125 mls/hr IVCONT .Q8H ON LICENSE OF [facility] Last Admin: 06/26/21 07:56 Dose: 125 mls/hr Documented by: Acetaminophen (Ofirmev) 1,000 mg in 100 mls @ 400 mls/hr IV Q6H ON LICENSE OF [facility] Last Infusion: 06/26/21 08:19 Dose: Infused Documented by: Morphine Sulfate (Morphine Sulfate 4 Mg/Ml Cartridge) 4 mg IVPUSH Q4H PRN; Protocol PRN Reason: Pain, Severe (Pain Scale 7-10) Last Admin: 06/25/21 06:47 Dose: 4 mg Documented by: Omeprazole (Omeprazole 20 Mg Capsule.Dr) 20 mg PO DAILY ON LICENSE OF [facility] Last Admin: 06/26/21 07:58 Dose: 20 mg Documented by: Ondansetron HCl (Ondansetron Hcl 4 Mg/2 Ml Vial) 4 mg IVPUSH Q8H PRN PRN Reason: Nausea and Vomiting Last Admin: 06/26/21 05:11 Dose: 4 mg Documented by: Oxycodone HCl (Oxycodone Hcl Immed Release 5 Mg Tablet) 5 mg PO Q4H PRN PRN Reason: Pain, Moderate (Pain Scale 4-6 Oxycodone HCl (Oxycodone Hcl Immed Release 5 Mg Tablet) 10 mg PO Q4H PRN PRN Reason: Pain, Severe (Pain Scale 7-10) Pharmacy Consult (Consult Rx Perform Med Rec) 1 each MISCELLANE ONCE PRN PRN Reason: Consult order Sodium Chloride (0.9 % Sodium Chloride Flush 3 Ml Syringe) 3 ml IVFLUSH QSHIFT ON LICENSE OF [facility] Last Admin: 06/26/21 07:57 Dose: Not Given Documented by: Spironolactone (Spironolactone 25 Mg Tablet) 25 mg PO BEDTIME ON LICENSE OF [facility] Last Admin: 06/25/21 20:41 Dose: 25 mg Documented by: Valsartan (Valsartan 160 Mg Tablet) 160 mg PO BEDTIME ON LICENSE OF [facility] Last Admin: 06/25/21 20:32 Dose: 160 mg Documented by: <Mayela Pruitt PA-C - Last Filed: 06/26/21 08:52> Time Spent With Patient Time: Total time spent is greater than 50% in coordination of care (as documented) at patient's floor/unit and/or counseling patient: <Mayela Pruitt PA-C - Last Filed: 06/26/21 08:52> Quality Stroke Does the patient have a stroke diagnosis?: No <Mayela Pruitt PA-C - Last Filed: 06/26/21 08:52> VTE Prior VTE?: No <Mayela Pruitt PA-C - Last Filed: 06/26/21 08:52> VTE Risk Level:: Surgical - low <Mayela Pruitt PA-C - Last Filed: 06/26/21 08:52> VTE Device Contraindication: N/A - Device Ordered <Mayela Pruitt PA-C - Last Filed: 06/26/21 08:52> VTE Drug Contraindication: Treatment Not Indicated <Mayela Pruitt PA-C - Last Filed: 06/26/21 08:52>
[2021-06-26 11:43] VITALS: BP 155/87; PULSE 82; RESP 16; TEMP 36.6; O2SAT 94
--- NOTE | 2021-06-26 13:15 | MHC.CM.PN ---
Addendum entered by Ban Duque 06/26/21 13:23: medicare imm explained and left at patient bedside Original Note: nurse disease case manager rn note electronic medical record reviewed along with case discussed with staff nurse , met with patient with [facility] kristina byrne reports he rents a home in a hous with other p[eople. 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 he also has cpap at home . he has no other services in the home admitted with diagnoisis of small bowel obstruction and being treated conservative, he is on clear liquids now.he also reported history of anxiety and depression and is followed by a psychiatrist discharge plan home with no anticipated new services patient to self resu pcp dr robert jovel transportation friends or self to arrangeme his miter sawyer sevices through [employer] via his [employer] insurance.
--- NOTE | 2021-06-26 14:46 | HO.POSTANES ---
Post Anesthesia Evaluation Post Anesthesia Evaluation Vital Signs: Vital Signs Temp Pulse Resp BP Pulse Ox 06/26/21 11:43 97.8 F 82 16 155/87 H 94 06/26/21 07:49 97.9 F 84 18 156/88 H 93 06/26/21 03:18 98.1 F 93 18 136/91 H 92 Anesthesia: General Mental Status: Awake Pain Control: Satisfactory Nausea/Vomiting: None Hydration: Adequate Anesthesia-Related Issues: No Anes. Related Issues
[2021-06-26 15:27] VITALS: BP 124/70; PULSE 84; RESP 18; TEMP 36.7; O2SAT 92
[2021-06-26 19:11] VITALS: BP 155/86; PULSE 85; RESP 17; TEMP 36.7; O2SAT 94
[2021-06-26] MEDS: Gabapentin 300 MG CAPSULE PO (20:18)
[2021-06-26] MEDS: hydroCHLOROthiazide 25 MG TABLET PO (20:19)
[2021-06-26] MEDS: Valsartan 160 MG TABLET PO (20:19)
[2021-06-26] MEDS: Spironolactone 25 MG TABLET PO (20:19)
[2021-06-26] MEDS: Atorvastatin Calcium 20 MG TABLET PO (20:19)
[2021-06-26] MEDS: amLODIPine Besylate 10 MG TABLET PO (20:19)
[2021-06-26 23:42] VITALS: BP 145/87; PULSE 86; RESP 17; TEMP 37.2; O2SAT 94
[2021-06-27 03:28] VITALS: BP 143/72; PULSE 79; RESP 17; TEMP 37.4; O2SAT 93
[2021-06-27] MEDS: 0.9 % Sodium Chloride 1,000 ML 125 ML IVCONT (04:33)
[2021-06-27 07:33] VITALS: BP 137/67; PULSE 78; RESP 18; TEMP 37.1; O2SAT 92
[2021-06-27 07:46] LABS: Glucose, Whole Blood 87 mg/dL (60-115)
--- NOTE | 2021-06-27 07:48 | P.PNGS_ITS ---
Subjective Subjective Date of Service: 06/27/21 <Mayela Pruitt PA-C - Last Filed: 06/27/21 07:51> 06/27/21 <Kofi Meza MD - Last Filed: 06/27/21 11:37> Interval history: Feels much better this morning. No further nausea/vomiting. Passing flatus and had BM. Pain still well controlled with IV tylenol and improved. OOB and ambulating. Wants to go home. <Mayela Pruitt PA-C - Last Filed: 06/27/21 07:51> Physical Exam Vital Signs: Vital Signs: Last Vital Signs Temp 98.7 F 06/27/21 07:33 Pulse 78 06/27/21 07:33 Resp 18 06/27/21 07:33 BP 137/67 06/27/21 07:33 Pulse Ox 92 06/27/21 07:33 BMI result Body Mass Index 37.7 <ELIE Francisco Last Filed: 06/27/21 07:51> Const: General: comfortable, no acute distress and alert <Mayela Pruitt PA-C - Last Filed: 06/27/21 07:51> Orientation/consciousness: patient oriented x3 <ELIE Francisco Last Filed: 06/27/21 07:51> Resp: Effort & Inspection: normal respiratory effort <Mayela Pruitt PA-C - Last Filed: 06/27/21 07:51> GI: Inspection: No distended and Yes incision (clean) <Mayela Pruitt PA-C - Last Filed: 06/27/21 07:51> Palpation (GI): Soft to palpation, Tenderness to palpation present (GI) (very mild, incisional), no guarding and not rigid <ELIE Francisco Last Filed: 06/27/21 07:51> Percussion: Yes normal to percussion <ELIE Francisco Last Filed: 06/27/21 07:51> Skin: General skin exam: no rashes or lesions noted <ELEI Francisco Last Filed: 06/27/21 07:51> Neuro: General: patient oriented x3 <Mayela Pruitt PA-C - Last Filed: 06/27/21 07:51> Extrem: General: Yes no clubbing, cyanosis or edema <Mayela Pruitt PA-C - Last Filed: 06/27/21 07:51> Objective Data Active Medications Amlodipine Besylate (Amlodipine Besylate 10 Mg Tablet) 10 mg PO BEDTIME TERRA; Protocol Last Admin: 06/26/21 20:19 Dose: 10 mg Documented by: RADHA Atorvastatin Calcium (Atorvastatin Calcium 20 Mg Tablet) 20 mg PO BEDTIME TERRA Last Admin: 06/26/21 20:19 Dose: 20 mg Documented by: RADHA Bupropion HCl (Bupropion Hcl Xl 300 Mg Tab.Er.24h) 300 mg PO DAILY TERRA Last Admin: 06/26/21 07:58 Dose: 300 mg Documented by: OSWALDO Gabapentin (Gabapentin 300 Mg Capsule) 300 mg PO BEDTIME TERRA Last Admin: 06/26/21 20:18 Dose: 300 mg Documented by: RADHA Hydrochlorothiazide (Hydrochlorothiazide 25 Mg Tablet) 25 mg PO BEDTIME TERRA Last Admin: 06/26/21 20:19 Dose: 25 mg Documented by: RADHA Sodium Chloride (Ns) 1,000 mls @ 125 mls/hr IVCONT .Q8H TERRA Last Admin: 06/27/21 04:33 Dose: 125 mls/hr Documented by: RADHA Acetaminophen (Ofirmev) 1,000 mg in 100 mls @ 400 mls/hr IV Q6H TERRA Last Infusion: 06/27/21 03:07 Dose: 0 mls/hr Documented by: RADHA Promethazine HCl 12.5 mg/ (Sodium Chloride) 50.5 mls @ 202 mls/hr IV Q6H PRN PRN Reason: Nausea and Vomiting Last Infusion: 06/26/21 13:11 Dose: 0 mls/hr Documented by: OSWALDO Morphine Sulfate (Morphine Sulfate 4 Mg/Ml Cartridge) 4 mg IVPUSH Q4H PRN; Protocol PRN Reason: Pain, Severe (Pain Scale 7-10) Last Admin: 06/25/21 06:47 Dose: 4 mg Documented by: JOSAFAT Omeprazole (Omeprazole 20 Mg Capsule.Dr) 20 mg PO DAILY [facility] Last Admin: 06/26/21 07:58 Dose: 20 mg Documented by: OSWALDO Ondansetron HCl (Ondansetron Hcl 4 Mg/2 Ml Vial) 4 mg IVPUSH Q8H PRN PRN Reason: Nausea and Vomiting Last Admin: 06/26/21 05:11 Dose: 4 mg Documented by: TANNER Oxycodone HCl (Oxycodone Hcl Immed Release 5 Mg Tablet) 5 mg PO Q4H PRN PRN Reason: Pain, Moderate (Pain Scale 4-6 Oxycodone HCl (Oxycodone Hcl Immed Release 5 Mg Tablet) 10 mg PO Q4H PRN PRN Reason: Pain, Severe (Pain Scale 7-10) Pharmacy Consult (Consult Rx Perform Med Rec) 1 each MISCELLANE ONCE PRN PRN Reason: Consult order Sodium Chloride (0.9 % Sodium Chloride Flush 3 Ml Syringe) 3 ml IVFLUSH QSHIFT [facility] Last Admin: 06/27/21 07:13 Dose: Not Given Documented by: SUNIL Non-Admin Reason: IV Running Spironolactone (Spironolactone 25 Mg Tablet) 25 mg PO BEDTIME [facility] Last Admin: 06/26/21 20:19 Dose: 25 mg Documented by: RADHA Valsartan (Valsartan 160 Mg Tablet) 160 mg PO BEDTIME [facility] Last Admin: 06/26/21 20:19 Dose: 160 mg Documented by: RADHA <Mayela Pruitt PA-C - Last Filed: 06/27/21 07:51> Labs CBC & Chem 7: : 06/26/21 05:52 06/26/21 05:52 <Mayela Pruitt PA-C - Last Filed: 06/27/21 07:51> Labs: Laboratory Results - last 24 hr 06/27/21 07:30 POC Glucose 87 <Mayela Pruitt PA-C - Last Filed: 06/27/21 07:51> Microbiology Microbiology Results: Microbiology 06/25/21 01:28 Blood Culture - Preliminary Blood - Venous No growth after 48 hours. 06/25/21 01:28 Blood Culture - Preliminary Blood - Venous No growth after 48 hours. <Mayela Pruitt PA-C - Last Filed: 06/27/21 07:51> Procedures Date of Service Date of Service: 06/27/21 <Mayela Pruitt PA-C - Last Filed: 06/27/21 07:51> Progress Note: A&P Assessment and plan (1) SBO (small bowel obstruction): Status: Acute <Mayela Pruitt PA-C - Last Filed: 06/27/21 07:51> Assessment and Plan: looks well passing flatus tolerating diet abd soft clinically looks great ok to dc home today dc instructions given seen and examined independently - agree with JENNIFER Pruitt <Kofi Meza MD - Last Filed: 06/27/21 11:37> (2) Incarcerated hernia: Status: Acute <Mayela Pruitt PA-C - Last Filed: 06/27/21 07:51> Plan 50 year old male admitted with incarcerated hernia, SBO now POD #2 s/p repair of incarcerated hernia, small bowel resection. Doing well this morning. VSS. Abd exam benign with clean incision. Will advance to solid diet. D/c IV analgesics. Will reassess later today, if tolerating solid diet and comfortable on PO analgesics, stable for dc to home today. Patient comfortable with plan. <Mayela Pruitt PA-C - Last Filed: 06/27/21 07:51> Fall Risk Details Current Medications: Current Medications Amlodipine Besylate (Amlodipine Besylate 10 Mg Tablet) 10 mg PO BEDTIME TERRA; Protocol Last Admin: 06/26/21 20:19 Dose: 10 mg Documented by: Atorvastatin Calcium (Atorvastatin Calcium 20 Mg Tablet) 20 mg PO BEDTIME TERRA Last Admin: 06/26/21 20:19 Dose: 20 mg Documented by: Bupropion HCl (Bupropion Hcl Xl 300 Mg Tab.Er.24h) 300 mg PO DAILY TERRA Last Admin: 06/26/21 07:58 Dose: 300 mg Documented by: Gabapentin (Gabapentin 300 Mg Capsule) 300 mg PO BEDTIME TERRA Last Admin: 06/26/21 20:18 Dose: 300 mg Documented by: Hydrochlorothiazide (Hydrochlorothiazide 25 Mg Tablet) 25 mg PO BEDTIME TERRA Last Admin: 06/26/21 20:19 Dose: 25 mg Documented by: Sodium Chloride (Ns) 1,000 mls @ 125 mls/hr IVCONT .Q8H [facility] Last Admin: 06/27/21 04:33 Dose: 125 mls/hr Documented by: Acetaminophen (Ofirmev) 1,000 mg in 100 mls @ 400 mls/hr IV Q6H [facility] Last Infusion: 06/27/21 03:07 Dose: Infused Documented by: Promethazine HCl 12.5 mg/ (Sodium Chloride) 50.5 mls @ 202 mls/hr IV Q6H PRN PRN Reason: Nausea and Vomiting Last Infusion: 06/26/21 13:11 Dose: Infused Documented by: Morphine Sulfate (Morphine Sulfate 4 Mg/Ml Cartridge) 4 mg IVPUSH Q4H PRN; Protocol PRN Reason: Pain, Severe (Pain Scale 7-10) Last Admin: 06/25/21 06:47 Dose: 4 mg Documented by: Omeprazole (Omeprazole 20 Mg Capsule.Dr) 20 mg PO DAILY [facility] Last Admin: 06/26/21 07:58 Dose: 20 mg Documented by: Ondansetron HCl (Ondansetron Hcl 4 Mg/2 Ml Vial) 4 mg IVPUSH Q8H PRN PRN Reason: Nausea and Vomiting Last Admin: 06/26/21 05:11 Dose: 4 mg Documented by: Oxycodone HCl (Oxycodone Hcl Immed Release 5 Mg Tablet) 5 mg PO Q4H PRN PRN Reason: Pain, Moderate (Pain Scale 4-6 Oxycodone HCl (Oxycodone Hcl Immed Release 5 Mg Tablet) 10 mg PO Q4H PRN PRN Reason: Pain, Severe (Pain Scale 7-10) Pharmacy Consult (Consult Rx Perform Med Rec) 1 each MISCELLANE ONCE PRN PRN Reason: Consult order Sodium Chloride (0.9 % Sodium Chloride Flush 3 Ml Syringe) 3 ml IVFLUSH QSHIFT [facility] Last Admin: 06/27/21 07:13 Dose: Not Given Documented by: Spironolactone (Spironolactone 25 Mg Tablet) 25 mg PO BEDTIME [facility] Last Admin: 06/26/21 20:19 Dose: 25 mg Documented by: Valsartan (Valsartan 160 Mg Tablet) 160 mg PO BEDTIME [facility] Last Admin: 06/26/21 20:19 Dose: 160 mg Documented by: <Mayela Pruitt PA-C - Last Filed: 06/27/21 07:51> Time Spent With Patient Time: Total time spent is greater than 50% in coordination of care (as documented) at patient's floor/unit and/or counseling patient: 30 <Mayela Pruitt PA-C - Last Filed: 06/27/21 07:51> Quality Stroke Does the patient have a stroke diagnosis?: No <Mayela Pruitt PA-C - Last Filed: 06/27/21 07:51> VTE Prior VTE?: No <Mayela Pruitt PA-C - Last Filed: 06/27/21 07:51> VTE Risk Level:: Surgical - low <Mayela Pruitt PA-C - Last Filed: 06/27/21 07:51> VTE Device Contraindication: N/A - Device Ordered <Mayela Pruitt PA-C - Last Filed: 06/27/21 07:51> VTE Drug Contraindication: Treatment Not Indicated <Mayela Pruitt PA-C - Last Filed: 06/27/21 07:51>
[2021-06-27] MEDS: Omeprazole 20 MG CAPSULE.DR PO (08:23)
[2021-06-27] MEDS: buPROPion HCl XL 300 MG TAB.ER.24H PO (08:23)
--- NOTE | 2021-06-27 11:03 | PM.DS ---
DS: Providers Provider Date of Service: 06/27/21 Date of admission: 06/25/21 05:44 Primary care physician: Renard Benton MD Attending physician on admission: Devika Clemens Attending physician on discharge: Kofi Meza DS: Diagnosis Discharge Diagnosis (1) SBO (small bowel obstruction): Status: Acute (2) Incarcerated hernia: Status: Acute DS: Summary Hospital Course Hospital Course: BRIEF HPI: Dillon Cervantes is a 50 year old male with history of HTN, GERD, depression, obesity, [place] on CPAP who presented to the ED with c/o abdominal pain. The patient reports he was in his normal state of health until he was at the grocery store yesterday and had a misstep. Following this he developed pain at his umbilicus. He has never had a pain like this before. Shortly after he developed nausea and dry heaving. He has been passing flatus and did have a bowel movement yesterday in an attempt to relieve the pain. The pain progressed and persisted prompting him to seek evaluation in the ED yesterday. Work up included a CT scan abd/pevis which showed a supraumbilical hernia containing a short segment of fluid-filled small bowel with proximal small bowel loops dilated and fluid-filled. No free fluid or free air is seen. He has a mild leukocytosis of 11.3. Lactic acid is normal. HOSPITAL COURSE: The patient was admitted to the surgical service for further treatment of the hernia and SBO early in the morning by Dr. Clemens. Care was transferred to Dr. Meza at 7am. In view of the incarcerated supraumbilical hernia with involved small bowel and secondary obstruction, the need to proceed with repair of this hernia was discussed with possible bowel resection. He agreed and was added onto the OR schedule for that morning. He was kept NPO, on IVF and PRN analgesics for pain. On 06/24/21, a repair of incarcerated umbilical hernia with small bowel resection was performed by Dr. Meza without complication. A very short segment of ischemic bowel was found and was resected. The patient tolerated the procedure well, completed routine recovery in PACU and was admitted to the medical/surgical floor for observation. He had an uncomplicated recovery course. He did have some nausea and vomiting post operatively but this resolved. He was kept on clear liquids for POD #1. He was ambulated. He was comfortable with IV tylenol for pain control. The following day his nausea had resolved and he felt hungry. He was passing flatus and moving his bowels. His abdomen was benign with a clean incision. He was advanced to a solid diet. His IV analgesics were discontinued in preparation for discharge. He was reassessed later in the day and was tolerating a solid diet without nausea or vomiting and was comfortable from a pain standpoint. he felt ready for discharge. He was discharged to home on 06/27/21 in stable condition. He is to follow up with Dr. Meza in 2 weeks in office. Status at Discharge Functional status at discharge: independent ambulation Overall status at discharge: patient is progressing back to baseline Time Spent with Patient Time attestation: Total time spent providing and/or coordinating discharge services: Discharge coordination time: Greater than 30 minutes Quality: Safe Use of Opioids Does Pt have an Active Cancer Diagnosis on the Problem List?: No Quality: Stroke Does the patient have a stroke diagnosis?: No Physical Exam Vital Signs: Vital Signs: Last Vital Signs Temp 98.7 F 06/27/21 07:33 Pulse 78 06/27/21 07:33 Resp 18 06/27/21 07:33 BP 137/67 06/27/21 07:33 Pulse Ox 92 06/27/21 07:33 BMI result Body Mass Index 37.7 Const: General: comfortable and no acute distress Orientation/consciousness: patient oriented x3 GI: Inspection: No distended and Yes incision (clean) Palpation (GI): Soft to palpation, nontender, no guarding and not rigid Percussion: Yes normal to percussion Skin: General skin exam: no rashes or lesions noted Neuro: General: patient oriented x3 DS: Data Data Completed and Pending Completed studies during hospitalization [Text1]: 06/25/21 10:56 Surgical [PTH] Routine A. Umbilical hernia, herniorrhaphy: - Congested fibrovascular and adipose tissue consistent with hernia sac. - Small detached fragment of small intestinal epithelium within normal limits. B. Small bowel, resection: Ischemic enteritis; viable margins. Procedures Replacement of Left Hip Joint with Ceramic Synthetic Substitute, Uncemented, Open Approach (12/11/20) Replacement of Right Hip Joint with Ceramic Synthetic Substitute, Uncemented, Open Approach (04/10/21) Labs on day of discharge: Laboratory Results - last 24 hr 06/27/21 07:30 POC Glucose 87 Preliminary micro results at discharge 06/25/21 01:28 Blood Culture - Preliminary Blood - Venous No growth after 48 hours. 06/25/21 01:28 Blood Culture - Preliminary Blood - Venous No growth after 48 hours. Discharge Plan Discharge Patient Disposition: Home, Self-Care Discharge Diagnosis: s/p repair of incarcerated hernia, small bowel resection Referrals: Renard Benton MD [Primary Care Provider] - 1 Week Kofi Meza MD [Physician] - 2 Weeks Discharge Medications: New oxycodone-acetaminophen [Percocet] 5-325 mg tablet 1 tab PO Q4-6H PRN (Reason: pain, severe) Qty: 30 0RF docusate sodium [Colace] 100 mg capsule 100 mg PO BID PRN (Reason: constipation) Qty: 30 0RF Continued (DME) Wheelchair See Rx Instructions .Route .MEDSUPPLY Qty: 1 0RF Rx Instructions: As directed bupropion HCl [Wellbutrin SR] 150 mg tablet sustained-release 12 hr 150 mg PO BID 30 Days Qty: 60 0RF multivitamin Tablet 1 tab PO DAILY 0RF atorvastatin 20 mg tablet 20 mg PO BEDTIME 0RF amlodipine 10 mg tablet 10 mg PO BEDTIME 0RF acetaminophen 325 mg Tablet 650 mg PO Q6H PRN (Reason: Pain, Mild (Pain Scale 1-3)) 30 Days Qty: 240 0RF spironolacton-hydrochlorothiaz 25-25 mg tablet 1 tab PO BEDTIME 0RF gabapentin 300 mg capsule 1 cap PO BEDTIME 0RF omeprazole 20 mg capsule,delayed release(DR/EC) 1 cap PO DAILY 0RF irbesartan 300 mg tablet 300 mg PO BEDTIME 0RF Discharge Orders: Discharge Order (Routine); Ordered 06/27/21 Ordered By: Mayela Pruitt Diet: advance to usual diet Activity on Discharge: No heavy lifting Stand Alone Forms: Patient Portal Discharge page Activity Restrictions/Additional Instructions: If the incision area is tender, you may apply an ice pack for short intervals (No more than 20 minutes on, followed by at least 20 minutes off). Do not apply heat. Do not use creams, lotions, or topical antibiotics unless instructed to do so by your surgeon. These can cause infection or allergic reaction. Ok to shower. You have arpita closing your incision and these will be removed approximately 10-14 days after surgery. NO HEAVY LIFTING (>10lbs) or strenuous activity. Follow up in office. ([phone]) Call Your Doctor If: -Your temperature exceeds 101.5? F -You experience excessive pain or swelling -You have an unexpected reaction to medication -You have excessive bleeding -You experience continued vomiting/nausea -Your incision begins to separate -Your incision shows signs of infection such as increased redness, swelling, excessive pain, drainage (light blood or clear fluid is normal) or heat Care Plan Goals: Return to baseline health and gradual return to activity following recovery period. Health Concerns: Hypertension, GERD incarcerated supraumbilical hernia SBO Plan of Treatment: s/p repair of incarcerated supraumbilical hernia, small bowel resection Assessment: Doing well post op Discharge Date/Time: 06/27/21 15:41
[2021-06-27 11:05] VITALS: BP 163/82; PULSE 97; RESP 18; TEMP 37.2; O2SAT 95
[2021-06-27] MEDS: Acetaminophen 325 MG TABLET 650 MG PO (13:30)
--- NOTE | 2021-06-27 13:40 | MHC.CM.PN ---
NURSE CASE MANAGEMENT NOTE DISCHARGED HOME TODAY WITH NO NEW SERVICES SELF RESUMPTION OF HIS LAB [employer]IM[employer]CHN[employer]IST SERVICES THROUGH [facility] SELF RESUMPTION OF HIS MENTAL HEALTH SERVICES TRANSPORTATION FAMILY SELF RESUMPTION OF HIS DME FOR HIS CPAP PCP DR BASHIR AMBROSIO [facility] 06/27/21
== END 2021-06-27 15:41 | disposition home or self-care (01) | DRG 330 ==
LOC: HO.ED 06-25 03:42 → HO.EDOVER 06-25 05:51 → HO.S3 06-25 11:50
PROVIDERS: Physician Assistant Surgical; Surgery; Admitting Provider Surgery; Emergency Provider Student in an Organized Health Care Education/Training Program; PCP Internal Medicine; Visit Provider Surgery
PROC: 0DB80ZZ Excision of Small Intestine, Open Approach (ICD-10-PCS; principal; 2021-06-25 10:00)
DX: K42.0 Umbilical hernia with obstruction, without gangrene (principal); F33.9 Major depressive disorder, recurrent, unspecified; G47.33 Obstructive sleep apnea (adult) (pediatric); E11.9 Type 2 diabetes mellitus without complications; Z96.643 Presence of artificial hip joint, bilateral; Z99.89 Dependence on other enabling machines and devices; Z20.822 Contact with and (suspected) exposure to COVID-19; Z98.84 Bariatric surgery status; Z79.899 Other long term (current) drug therapy
CPT/HCPCS: 36415; 74177; 80048; 80053; 82947; 83605; 83690; 85025; 85027; 87040; 87635; 88302; 88307; 99285; J0131; J0330; J1100; J2250; J2270; J2405; J2550; J3010; Q9967

== ENCOUNTER → 2021-07-03 08:44 | Outpatient (BNVA) | payer OTHER, SELFPAY | PROVIDERS: PCP Internal Medicine; Referring Provider Internal Medicine; Visit Provider Surgery | DX: Z48.815 Encounter for surgical aftercare following surgery on the digestive system (principal); K62.5 Hemorrhage of anus and rectum | CPT/HCPCS: 46600; 99212 ==

== ENCOUNTER 2021-07-04 14:33 | Outpatient (REF) | payer OTHER, SELFPAY ==
--- NOTE | ~2021-07-04 | XR_ITS ---
EXAMINATION: XR KNEE, RIGHT CLINICAL INFORMATION: Pain in the right knee COMPARISON: Bilateral standing views of knees 04/18/2007 TECHNIQUE: Four views of the right knee. FINDINGS: There is marked tricompartment degenerative joint disease of the knee. No severely affected is the lateral femoral tibial joint. There is [id number] contact and large marginal bone spurs as well as subchondral cystic changes of the bones at this joint space. There is significant narrowing of the medial femoral tibial joint with smaller bone spurs and subchondral cystic changes of bone. Joint narrowing and marginal bone spurs of the femur and Pellet the patellofemoral joint. Small suprapatellar joint effusion. There are 2 adjacent ovoid calcifications at the posterior knee. One represents the normal fabella. This was also present on the prior exam of 2007. The other may is likely an intra-articular loose body measuring 0.8 cm in size. This was not present on the prior exam of 2007. The degenerative changes of the knee has substantially worsened since the prior exam of 2007. Vascular calcifications in the distal thigh. XR/XR knee RT 4V IMPRESSION: Marked tricompartment degenerative joint disease. Small joint effusion. Small intra-articular calcified loose body.
== END 2021-07-04 14:34 | disposition home or self-care (01) ==
LOC: HO.HMGCX 14:33
PROVIDERS: PCP Internal Medicine; Visit Provider Internal Medicine
DX: M25.561 Pain in right knee (principal)
CPT/HCPCS: 73564

== ENCOUNTER 2021-07-17 14:03 | Outpatient (REF) | payer OTHER, SELFPAY ==
--- NOTE | ~2021-07-17 | XR_ITS ---
EXAMINATION: XR PELVIS CLINICAL INFORMATION: Pelvic pain. COMPARISON: Pelvis 04/10/2021 TECHNIQUE: AP view of the pelvis. FINDINGS: There are bilateral hip prosthesis with the prosthetic components in satisfactory alignment. No dislocation or periprosthetic loosening seen. The soft tissues are normal. SI joints are normal. No gross bony abnormality seen. XR/XR pelvis 1-2V IMPRESSION: Normal bilateral hip prosthesis without any periprosthetic loosening or fracture. No dislocation seen either.
== END 2021-07-17 14:04 | disposition home or self-care (01) ==
LOC: HO.HOSX 14:03
PROVIDERS: PCP Internal Medicine; Visit Provider Physician Assistant
DX: Z96.641 Presence of right artificial hip joint (principal)
CPT/HCPCS: 72170; 99212

== ENCOUNTER → 2021-08-14 11:53 | Outpatient (BNVA) | payer OTHER, SELFPAY | PROVIDERS: PCP Internal Medicine; Visit Provider Orthopaedic Surgery | DX: M17.11 Unilateral primary osteoarthritis, right knee (principal) | CPT/HCPCS: 20610; 99212; J1100 ==

== ENCOUNTER → 2021-10-20 12:44 | Outpatient (BNVA) | payer OTHER, SELFPAY | PROVIDERS: Visit Provider Orthopaedic Surgery | DX: M17.11 Unilateral primary osteoarthritis, right knee (principal); Z96.643 Presence of artificial hip joint, bilateral | CPT/HCPCS: 99212 ==

== ENCOUNTER 2021-11-19 14:14 | Outpatient (REF) | payer OTHER, SELFPAY ==
[2021-11-19 16:02] LABS: Hematocrit 41.3 % (42.0-52.0); Hemoglobin 13.2 g/dl (14.0-18.0)
[2021-11-19 16:19] LABS: Alanine Aminotransferase 16 U/L (0-40); Albumin Level 4.4 g/dL (3.5-5.0); Alkaline Phosphatase 64 U/L (39-117); Anion Gap 15 (12-20); Aspartate Amino Transferase 22 U/L (5-37); Bilirubin Total 0.4 mg/dL (0.0-1.0); Blood Urea Nitrogen 11 mg/dL (9-16); Calcium 9.6 mg/dL (8.4-10.2); Carbon Dioxide 29 mmol/L (22-29); Chloride 101 mmol/L (96-108); Estimated Glomerular Filt Rate > 60; Glucose Random 77 mg/dL (60-115); Potassium 4.4 mmol/L (3.3-5.1); Sodium 141 mmol/L (135-145); Total Protein 7.4 g/dL (6.5-8.0)
[2021-11-19 16:23] LABS: Estimated Average Glucose 103 mg/dL; Hemoglobin A1c % 5.2 %
== END 2021-11-19 14:15 | disposition home or self-care (01) ==
LOC: HO.HMGCLDS 14:14
PROVIDERS: PCP Internal Medicine; Visit Provider Internal Medicine
DX: E78.9 Disorder of lipoprotein metabolism, unspecified (principal); F33.9 Major depressive disorder, recurrent, unspecified; I10 Essential (primary) hypertension; K21.9 Gastro-esophageal reflux disease without esophagitis; M17.11 Unilateral primary osteoarthritis, right knee; R73.01 Impaired fasting glucose; E66.01 Morbid (severe) obesity due to excess calories
CPT/HCPCS: 36415; 80053; 83036; 85014; 85018

== ENCOUNTER 2022-06-29 11:47 | Outpatient (REF) | payer OTHER, SELFPAY ==
--- NOTE | ~2022-06-29 | XR_ITS ---
EXAMINATION: XR KNEE, RIGHT XR KNEE AP STANDING CLINICAL INFORMATION: Pain. COMPARISON: Radiographs dated 07/04/2021. TECHNIQUE: Lateral and axial views of the right knee were obtained. AP bilateral standing view of the knees was obtained. FINDINGS: There is mild bony demineralization. There is marked asymmetric narrowing of the lateral joint space compartment of the right knee, and mild narrowing is seen of the medial joint space compartment. There is mild narrowing of the patellofemoral compartment, most pronounced laterally. There is tricompartment peripheral osteophyte formation. No fracture, dislocation or significant joint effusion is seen. There are atherosclerotic calcifications. There is moderate asymmetric narrowing of the medial joint space compartment of the left knee, with peripheral osteophyte formation. The lateral joint space compartment is well-maintained. A slight valgus configuration is seen of the right knee, and there is a slight varus configuration of the left knee. XR/XR knee RT 2V IMPRESSION: 1. There is tricompartment osteoarthritic change of the right knee, most pronounced at the lateral joint space compartment, where it is marked. 2. There is a very mild valgus configuration of the right knee. 3. There is moderate osteoarthritic change of the medial joint space compartment of the left knee. 4. There is a mild varus configuration of the left knee.
--- NOTE | ~2022-06-29 | XR_ITS ---
EXAMINATION: XR KNEE, RIGHT XR KNEE AP STANDING CLINICAL INFORMATION: Pain. COMPARISON: Radiographs dated 07/04/2021. TECHNIQUE: Lateral and axial views of the right knee were obtained. AP bilateral standing view of the knees was obtained. FINDINGS: There is mild bony demineralization. There is marked asymmetric narrowing of the lateral joint space compartment of the right knee, and mild narrowing is seen of the medial joint space compartment. There is mild narrowing of the patellofemoral compartment, most pronounced laterally. There is tricompartment peripheral osteophyte formation. No fracture, dislocation or significant joint effusion is seen. There are atherosclerotic calcifications. There is moderate asymmetric narrowing of the medial joint space compartment of the left knee, with peripheral osteophyte formation. The lateral joint space compartment is well-maintained. A slight valgus configuration is seen of the right knee, and there is a slight varus configuration of the left knee. XR/XR knee standing BI IMPRESSION: 1. There is tricompartment osteoarthritic change of the right knee, most pronounced at the lateral joint space compartment, where it is marked. 2. There is a very mild valgus configuration of the right knee. 3. There is moderate osteoarthritic change of the medial joint space compartment of the left knee. 4. There is a mild varus configuration of the left knee.
--- NOTE | ~2022-06-29 | XR_ITS ---
EXAMINATION: XR PELVIS CLINICAL INFORMATION: Pain. COMPARISON: Radiographs dated 07/10/2019. TECHNIQUE: AP view of the pelvis. FINDINGS: Bony alignment and mineralization are normal. There are intact bilateral total hip arthroplasties, and an intact cerclage wire is applied to the proximal left femoral shaft. No periprosthetic fracture is noted. The included portions of the sacroiliac joints and the pubic symphysis are intact. Pelvic herniorrhaphy mesh is noted. No foreign body is seen. XR/XR pelvis 1-2V IMPRESSION: There are intact bilateral total hip arthroplasties.
== END 2022-06-29 11:48 | disposition home or self-care (01) ==
LOC: HO.HOSX 11:47
PROVIDERS: Visit Provider Orthopaedic Surgery
DX: M17.11 Unilateral primary osteoarthritis, right knee (principal); Z96.643 Presence of artificial hip joint, bilateral
CPT/HCPCS: 72170; 73560; 73565; 99212

== ENCOUNTER 2022-08-24 17:00 | Outpatient (RCR) | payer OTHER, SELFPAY ==
--- NOTE | 2022-07-22 15:43 | MHC.PT.EP ---
[facility] [place] Office [place] Office [place] Office [address] [phone] F: [phone] F: [phone] F: [phone] F: [phone] Physical Therapy Plan of Care Date of Evaluation: Date of Surgery: N/A Diagnosis: OA of R knee () Assessment: pt is a 51 y/o male presenting to physical therapy w/ referring diagnosis of M17.11 unilateral primary osteoarthritis, right knee. Impairments include pain, decreased range of motion, decreased strength, impaired functional mobility, impaired postural awareness, and altered ambulation mechanics. pt is a good candidate for skilled PT due to age, potential remediation of impairments, typical disease/condition progression and prognosis, comorbidities, and motivation. pt would benefit from skilled PT intervention to provide a tailored strengthening and stretching exercise program, functional training, gait training, postural re-training, neuromuscular re-education, modalities as needed for pain, equipment safety demonstration. Frequency and Duration: The patient will be seen 2x/wk for 4 wks Short Term Goals: pt will be I w/ HEP to promote self-management of condition. pt will improve L knee extension to 0 degrees to normalize gait on even ground. Dog Raiser Goals: pt will report a statistically significant improvement in self-reported outcome measure, LEFI, to promote return to PLOF. pt will improve B hip ABD strength to at least 4/5 to reduce lateral sway w/ ambulation and reduce fall risk. Treatment Plan: Modalities to reduce pain, spasms and effusion. Manual therapy to restore motion and function. Therapeutic exercise to improve strength and flexibility. Neuromuscular re-education for posture and balance. Therapeutic activities to return to functional activities of daily living. Electronically signed by: Teodora Benson PT, DPT Please sign and return to therapist. Thank you for your referral.
--- NOTE | 2022-09-11 08:59 | MHC.PT.DC ---
[facility] [place] [facility] [place] Office [place] Office [address] [place] [address] [facility] [phone] F: [phone] F: [phone] F: [phone] F: [phone] Physical Therapy Discharge Report Diagnosis: OA of R knee (RC) Date of Surgery: N/A Date of Evaluation: 07/22/22 Date of Discharge: 09/11/22 Treatments to Date: 7 Cancellations to Date: 2 No Shows to Date: 1 Discharge Status: Improved Function Independent with HEP Discharge Summary: The patient overall improved in his tolerance for weightbearing activities as he reported he can ambulate several hundred feet without increase in pain. He does still present with significant lateral trunk lean during his gait which I do not anticipate improving much until the other knee is done. At that time we can see if his knee range of motion is a factor in this gait pattern or not. He is independent with his home exercise program at this time and is discharged. Electronically signed by: Teodora Pennington PT, DPT Please sign and return to therapist. Thank you for your referral.
== END 2022-09-11 08:59 | disposition home or self-care (01) ==
LOC: HO.PT 17:00
PROVIDERS: PCP Internal Medicine; Visit Provider Orthopaedic Surgery
DX: M17.11 Unilateral primary osteoarthritis, right knee (principal); Z96.643 Presence of artificial hip joint, bilateral
CPT/HCPCS: 97110; 97162; 97530

== ENCOUNTER 2022-09-30 12:02 | Outpatient (AMB) | payer OTHER, SELFPAY ==
[2022-09-30 11:17] VITALS: BP 142/90; PULSE 82; O2SAT 96; BMI 40.2
--- NOTE | 2022-09-30 11:17 | A.OFFPC_ITS ---
Vital Signs 09/30/22 11:17 Height 6 ft Weight 296 lb 2 oz BMI 40.2 BP 142/90 H Blood Pressure Location Rt brachial Position Sitting Pulse 82 Pulse Source Pulse Oximeter Pulse Oximetry (%) 96 Oxygen Delivery Method Room Air Intake Visit Reasons: Pre-op visit (Dr. Nettles ) Allergies lisinopril [LISINOPRIL] Adverse Reaction (Severe, Verified 09/30/22 11:17) COUGH Medication List - Last Reconciled 09/30/22 by Renard Benton MD acetaminophen 650 mg (2 x 325 mg) PO Q6H PRN 30 days amlodipine 10 mg PO BEDTIME 90 days atorvastatin 20 mg PO BEDTIME 90 days bupropion HCl (Wellbutrin SR) 150 mg PO BID 30 days vhuecjk-X9-vxyb-copper-kelsi 325 mg-12.5 mcg -2.75 mg (Citracal-D3 Maximum Plus) 1 tab PO DAILY escitalopram oxalate (Lexapro) 10 mg PO DAILY 90 days multivitamin 1 tab PO DAILY omeprazole 20 mg PO DAILY spironolacton-hydrochlorothiaz 25-25 mg 1 tab PO BEDTIME Tobacco use date assessed: 09/30/22 Dental Screening Dental Screen Date: 09/30/22 Did you have a dental visit in the last 12 months?: No Did you have a dental problem in the last 6 months where you did not have access to dental care?: No Was dental information given to patient?: No HPI Pre-op visit (Dr. Nettles ) HPI Details Patient is a 51-year-old gentleman who was last seen in March of this year came in today for follow-up and clearance for Right knee replacement surgery on October 08. Patient is hypertensive and is taking amlodipine 10 mg however he has stop taking spironolactone hydrochlorothiazide. I have sent a refill for him he is to start taking that again, blood pressure is slightly elevated 142/90 Patient is on bupropion 150 mg b.i.d. and Lexapro 10 mg he is feeling much better taking both medications and would like to continue that Continue atorvastatin 20 mg for lipid control.? Impaired fasting sugar, diet controlled Slight anemia:? Need labs Obstructive sleep apnea:? Patient is using CPAP machine regularly at night. Patient has not seen any sleep specialist in over 5 years. I have placed a referral for him BMI is elevated, need to lose weight. ? Labs to be done today Patient is stable for knee replacement surgery Follow-up 3 months PFS Medical History Arthritis COVID-19 vaccine series completed Depression, major, recurrent Hypertension, essential Morbid obesity Osteoarthritis, hip, bilateral Sleep apnea Surgical History H/O colonoscopy History of ankle surgery History of sleeve gastrectomy History of surgery History of total left hip replacement History of umbilical hernia repair Status post total hip replacement, left Family History Father HTN (hypertension) Mother HTN (hypertension) Sister Cancer of thyroid Maternal Grandfather No problems noted. Maternal Grandmother No problems noted. Paternal Grandfather No problems noted. Paternal Grandmother No problems noted. Brother No problems noted. Sister No problems noted. Sister No problems noted. 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 How often do you have a drink containing alcohol?: Never 3. How often do you have six or more drinks on one occasion?: Never Total Score: 0 Score Reviewed/Action Taken: Yes YAMILETH-7 AMB Questionnaire YAMILETH-7 Date YAMILETH - 7 assessed: 03/31/22 Source: Developed by Drs. Uriel Farias, Vida Retana, Junior Whipple and colleagues, with an educational juan carlos from [employer]. Review of Systems Const Denies chills and Denies fever(s) ENT Denies epistaxis and Denies nasal discharge Card Denies chest pain Resp Denies chest congestion, Denies cough and Denies hemoptysis GI Denies diarrhea and Denies nausea Skin/Breast Denies rash Neuro Reports no additional complaints Psych Reports no additional complaints Endo Reports no additional complaints Physical exam (Primary Care) Vital Signs: Last Vital Signs Pulse 82 09/30/22 11:17 BP 142/90 H 09/30/22 11:17 Pulse Ox 96 09/30/22 11:17 Oxygen Delivery Method Room Air 09/30/22 11:17 BMI result Body Mass Index 40.2 Tobacco/Smoking Status: Tobacco use Status Tobacco use date assessed 09/30/22 09/30/22 11:18 Patient Tobacco Use Status Never used Tobacco 09/30/22 11:18 e-Cigarette/Vaping Use Never Used 09/30/22 11:18 Thrive Assessment: Date of Thrive Assessment Date Thrive assessed 03/31/22 09/30/22 11:18 Const General: cooperative, comfortable and no acute distress Orientation/consciousness: patient oriented x3 HENMT Head: Yes normocephalic Eyes General: appearance normal, both eyes and all related structures Neck Neck: Yes supple Resp Effort & Inspection: normal respiratory effort, no cough and no stridor Cardio Other: Rhythm: regular rhythm Heart sounds: S1 normal heart sound present and S2 normal heart sound present Skin General skin exam: turgor normal Neuro General: patient oriented x3, tone normal and moves all extremities Extrem Right lower extremity: no edema Left lower extremity: no edema Assessment and Plan Assessment & Plan (1) Pre-op evaluation: Code(s): Z01.818 - Encounter for other preprocedural examination (2) Morbid obesity: Code(s): E66.01 - Morbid (severe) obesity due to excess calories (3) Depression, major, recurrent: Code(s): F33.9 - Major depressive disorder, recurrent, unspecified (4) Hypertension, essential: Code(s): I10 - Essential (primary) hypertension (5) Impaired fasting blood sugar: Code(s): R73.01 - Impaired fasting glucose (6) History of bariatric surgery: Code(s): Z98.84 - Bariatric surgery status (7) Chronic GERD: Code(s): K21.9 - Gastro-esophageal reflux disease without esophagitis (8) Lipid disorder: Code(s): E78.9 - Disorder of lipoprotein metabolism, unspecified (9) Obstructive sleep apnea on CPAP: Code(s): G47.33 - Obstructive sleep apnea (adult) (pediatric) Plan Patient is a 51-year-old gentleman who was last seen in March of this year ca me in today for follow-up and clearance for Right knee replacement surgery on October 08. Patient is hypertensive and is taking amlodipine 10 mg however he has stop taking spironolactone hydrochlorothiazide. I have sent a refill for him he is to start taking that again, blood pressure is slightly elevated 142/90 Patient is on bupropion 150 mg b.i.d. and Lexapro 10 mg he is feeling much better taking both medications and would like to continue that Continue atorvastatin 20 mg for lipid control.? Impaired fasting sugar, diet controlled Slight anemia:? Need labs Obstructive sleep apnea:? Patient is using CPAP machine regularly at night. Patient has not seen any sleep specialist in over 5 years. I have placed a referral for him BMI is elevated, need to lose weight. ? Labs to be done today Patient is stable for knee replacement surgery Follow-up 3 months Patient is stable for knee replacement surgery. EKG done today shows normal sinus rhythm no acute findings 65 beats per minute Orders: Orders Comprehensive Met. Panel Today E66.01 - Morbid (severe) obesity due to excess calories, F33.9 - Major depressive disorder, recurrent, unspecified, I10 - Essential (primary) hypertension, R73.01 - Impaired fasting glucose, Z01.818 - Encounter for other preprocedural examination Hemoglobin A1c Today E66.01 - Morbid (severe) obesity due to excess calories, F33.9 - Major depressive disorder, recurrent, unspecified, I10 - Essential (p rimary) hypertension, R73.01 - Impaired fasting glucose, Z01.818 - Encounter for other preprocedural examination Complete Blood Count Auto Diff Today E66.01 - Morbid (severe) obesity due to excess calories, F33.9 - Major depressive disorder, recurrent, unspecified, I10 - Essential (primary) hypertension, R73.01 - Impaired fasting glucose, Z01.818 - Encounter for other preprocedural examination Referrals Sleep Medicine Referral G47.33 - Obstructive sleep apnea (adult) (pediatric) Medications: Changed From bupropion HCl (Wellbutrin SR) 150 mg PO BID 30 days 60 tabs 3RF F33.9 - Major depressive disorder, recurrent, unspecified To bupropion HCl (Wellbutrin SR) 150 mg PO BID 180 tabs 0RF 90 days F33.9 - Major depressive disorder, recurrent, unspecified Coding Level of Care Code Est Pt Level 4 (79859) Diagnoses Pre-op evaluation Z01.818 Morbid obesity E66.01 Depression, major, recurrent F33.9 Hypertension, essential I10 Impaired fasting blood sugar R73.01 History of bariatric surgery Z98.84 Chronic GERD K21.9 Lipid disorder E78.9 Obstructive sleep apnea on CPAP G47.33
== END 2022-09-30 12:24 | disposition home or self-care (01) ==
PROVIDERS: PCP Internal Medicine; Visit Provider Internal Medicine
DX: I10 Essential (primary) hypertension (principal); E66.01 Morbid (severe) obesity due to excess calories; Z68.41 Body mass index [BMI] 40.0-44.9, adult; F33.9 Major depressive disorder, recurrent, unspecified; Z98.84 Bariatric surgery status; R73.01 Impaired fasting glucose; Z01.818 Encounter for other preprocedural examination; K21.9 Gastro-esophageal reflux disease without esophagitis; E78.9 Disorder of lipoprotein metabolism, unspecified; G47.33 Obstructive sleep apnea (adult) (pediatric)
CPT/HCPCS: 99214

== ENCOUNTER 2022-09-30 12:25 | Outpatient (REF) | payer OTHER, SELFPAY ==
[2022-09-30 16:11] LABS: MANUAL DIFF FLAG NO
[2022-09-30 16:25] LABS: Basophils Absolute Auto 0.1 X10*3/uL (0.0-0.2); Basophils Percent Auto 1.1 % (0-2); Eosinophils Absolute Auto 0.1 X10*3/uL (0.0-0.4); Eosinophils Percent Auto 1.3 % (0-4); Imm Gran Abs Auto 0.01 X10*3/uL (0.00-0.03); Imm Gran Pct Auto 0.1 % (0.0-0.4); Lymphocytes Absolute Auto 2.2 X10*3/uL (1.2-4.9); Lymphocytes Percent Auto 27.3 % (20-40); Mean Corpuscular HGB Conc 31.1 g/dl (31.0-36.0); Mean Corpuscular Hemoglobin 26.3 pg (27.0-33.0); Mean Corpuscular Volume 84.6 fL (80.0-98.0); Mean Platelet Volume 9.4 fL (9.4-12.4); Monocytes Absolute Auto 0.8 X10*3/uL (0.1-1.2); Monocytes Percent Auto 10.1 % (2-11); Neutrophils Absolute Auto 4.8 x10*3/uL (2.0-8.3); Neutrophils Percent Auto 60.1 % (45-73); Platelet Count 377 X10*3/uL (160-400); Red Blood Count 5.32 X10*6/uL (4.60-5.80); Red Cell Distribution Width 14.6 % (11.0-16.0)
[2022-09-30 16:37] LABS: Estimated Average Glucose 108 mg/dL; Hemoglobin A1c % 5.4 %
[2022-09-30 17:05] LABS: Alanine Aminotransferase 16 U/L (0-40); Albumin Level 4.3 g/dL (3.5-5.0); Alkaline Phosphatase 63 U/L (39-117); Anion Gap 16 (12-20); Aspartate Amino Transferase 24 U/L (5-37); Bilirubin Total 0.9 mg/dL (0.0-1.0); Blood Urea Nitrogen 8 mg/dL (9-16); Calcium 10.1 mg/dL (8.4-10.2); Carbon Dioxide 28 mmol/L (22-29); Chloride 104 mmol/L (96-108); Estimated Glomerular Filt Rate > 60; Glucose Random 84 mg/dL (60-115); Potassium 3.9 mmol/L (3.3-5.1); Sodium 144 mmol/L (135-145); Total Protein 7.3 g/dL (6.5-8.0)
== END 2022-09-30 12:26 | disposition home or self-care (01) ==
LOC: HO.HMGCLDS 12:25
PROVIDERS: PCP Internal Medicine; Visit Provider Internal Medicine
DX: Z01.818 Encounter for other preprocedural examination (principal); E66.01 Morbid (severe) obesity due to excess calories; F33.9 Major depressive disorder, recurrent, unspecified; R73.01 Impaired fasting glucose; I10 Essential (primary) hypertension
CPT/HCPCS: 36415; 80053; 83036; 85025

== ENCOUNTER 2022-10-08 11:20 | Outpatient (AMB) | payer OTHER, SELFPAY ==
--- NOTE | 2022-10-08 11:25 | A.OFFVIS_ITS ---
Intake Vital Signs 10/08/22 11:27 Height 6 ft Weight 296 lb BMI 40.1 Intake Visit Reasons: Preop RT TKA 10/13/22 NE Intake Note: Dillon 52 yr old male presents today for his Pre op visit for his right TKA schedule for 10/13/22. Pain management agreement signed and reviewed. Allergies lisinopril [LISINOPRIL] Adverse Reaction (Severe, Verified 10/08/22 11:40) COUGH Medication List - Last Reconciled 10/08/22 by Erin Zhu PA-C acetaminophen 650 mg (2 x 325 mg) PO Q6H PRN 30 days amlodipine 10 mg PO BEDTIME 90 days atorvastatin 20 mg PO BEDTIME 90 days bupropion HCl (Wellbutrin SR) 150 mg PO BID 90 days ikokqff-N4-kytm-copper-kelsi 325 mg-12.5 mcg -2.75 mg (Citracal-D3 Maximum Plus) 1 tab PO DAILY escitalopram oxalate (Lexapro) 10 mg PO DAILY 90 days multivitamin 1 tab PO DAILY omeprazole 20 mg PO DAILY spironolacton-hydrochlorothiaz 25-25 mg 1 tab PO BEDTIME HPI HPI Comments History of Present Illness Details Mr Cervantes presents to the office today for preop visit. He is scheduled for right total knee arthroplasty with Dr. Nettles. He continues to have ongoing pain and difficulty with ambulation in the right knee, which is affecting his quality of life; therefore, he has elected to move forward with surgery. Previous appt with Dr Nettles on 06/29/22: Dillon is a 51 year old man who presents to discuss treatment for his right knee OA. He is S/P bilateral GLENIS, Left DOS: 12/11/20, right DOS: 04/09/21. He says his hips are doing well but he continues to get knee discomfort and swelling, though he says the custom brace has been helpful. He knee was last injected on 08/14/21. A TKA was discussed at his last appointment, but he wanted to take time and recover from his bilateral GLENIS's before discussing surgery. In regards to his knee, he has pain with daily activity. He says he took a fall ~2 weeks ago which caused increased knee pain.?? [facility] Medical History (Updated 10/08/22 @ 12:16 by Vinita Brooks RN) Arthritis COVID-19 vaccine series completed Depression, major, recurrent Elevated cholesterol Hypertension, essential Morbid obesity Osteoarthritis, hip, bilateral Sleep apnea Surgical History (Updated 10/08/22 @ 12:13 by Vinita Brooks RN) H/O colonoscopy History of ankle surgery History of sleeve gastrectomy History of surgery History of total left hip replacement History of total right hip replacement History of umbilical hernia repair Hx of umbilical hernia repair Status post total hip replacement, left Family History Father HTN (hypertension) Mother HTN (hypertension) Sister Cancer of thyroid Maternal Grandfather No problems noted. Maternal Grandmother No problems noted. Paternal Grandfather No problems noted. Paternal Grandmother No problems noted. Brother No problems noted. Sister No problems noted. Sister No problems noted. 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) Alcohol intake: current Alcohol intake frequency: holidays/special occasions only Patient Tobacco Use Status: Never used Tobacco e-Cigarette/Vaping Use: Never Used service: No Current occupational status: disabled Cognitive needs: No Hearing needs: No Vision needs: No Review of Systems Const All systems reviewed & are unremarkable except as noted in HPI and below Physical Exam Vital Signs: BMI result Body Mass Index 40.1 Const General: cooperative and no acute distress Orientation/consciousness: patient oriented x3 HEENT Head: Yes normal to inspection, Yes normocephalic and Yes atraumatic Eyes General: appearance normal, both eyes and all related structures Neck Neck: Yes normal visual inspection and Yes no lymphadenopathy Resp Effort & Inspection: normal respiratory effort and able to speak in complete sentences Cardio Rate: regular rate Peripheral pulses: Peripheral pulses 2+ throughout GI Inspection: Yes normal to inspection Palpation (GI): Soft to palpation Skin General skin exam: no rashes or lesions noted Neuro General: patient oriented x3 Extrem Other: Right knee: Skin intact. No open wound or laceration. ROM is 0-100 degrees. Calf supple, nontender. NVI. Psych Appearance: grossly normal Mental Status: mental status grossly normal Results Reviewed Results Reviewed: XR knee standing BI 06/29/22 IMPRESSION: ? 1. There is tricompartment osteoarthritic change of the right knee, most pronounced at the lateral joint space compartment, where it is marked. ? 2. There is a very mild valgus configuration of the right knee. ? 3. There is moderate osteoarthritic change of the medial joint space compartment of the left knee. ? 4. There is a mild varus configuration of the left knee. Assessment & Plan Assessment & Plan (1) Osteoarthritis of right knee: Code(s): M17.11 - Unilateral primary osteoarthritis, right knee Plan: I discussed in detail the procedure and what to expect pre and post operatively. We discussed the risks, benefits and alternatives to the surgery as well as the rehabilitation course. The risks; which include, but are not limited to infection, bleeding, nerve injury, ongoing pain, swelling, and stiffness, perioperative risk of injury to bones and soft tissues, and blood clots. I?ve answered all questions and with their understanding they have consented to move forward with Right total knee arthroplasty with Dr. Nettles PCP clearance on 09/30/22: Patient is stable for knee replacement surgery. EKG done today shows normal sinus rhythm no acute findings 65 beats per minute Patient Instructions: Scribed for Erin Zhu PA-C, by Vargas Mooney medical and health services manager, on 10/08/2022 at 11:30 AM Erin SMITH PA-C, have personally reviewed and agree with the information entered by the scribe. Coding Level of Care Code Est Pt Level 3 (13268) Diagnoses Osteoarthritis of right knee M17.11
[2022-10-08 11:27] VITALS: BMI 40.1
== END 2022-10-08 12:16 | disposition home or self-care (01) ==
PROVIDERS: Visit Provider Physician Assistant
DX: M17.11 Unilateral primary osteoarthritis, right knee (principal)
CPT/HCPCS: 99213

== ENCOUNTER → 2022-10-08 11:20 | Outpatient (BNVA) | payer OTHER, SELFPAY | PROVIDERS: Visit Provider Physician Assistant | DX: Z01.818 Encounter for other preprocedural examination (principal); M17.11 Unilateral primary osteoarthritis, right knee | CPT/HCPCS: 99212 ==

== ENCOUNTER 2022-10-13 06:00 | Inpatient (IN) | payer OTHER, SELFPAY ==
[2022-10-08 12:24] VITALS: BP 138/95; PULSE 75; RESP 20; O2SAT 93; BMI 39.9
--- NOTE | 2022-10-08 12:33 | HO.ANESPROP2 ---
Documented by User: Lina Benítez NP 10/08/22 12:40 HPI - Anesthesia Eval Consult details Narrative: 52yo M for Right Knee Replacement Total Medically optimized No recent illness No CP/SOB with > 4 mets PMFSH Active Problems Active Problems: All Active Problems (Updated 10/08/22 @ 12:16 by Vinita Brooks RN) Requires daily assistance for activities of daily living (ADL) and comfort needs (Acute) Obesity (Acute) Arthritis of left hip (Acute) Immunization due (Acute) Lipid disorder (Acute) Chronic GERD (Acute) History of bariatric surgery (Acute) Pre-op evaluation (Acute) Preoperative cardiovascular examination (Acute) Status post total replacement of left hip (Acute) UTI (urinary tract infection) (Acute) Osteoarthritis of right hip (Acute) Impaired fasting blood sugar (Acute) S/P total right hip arthroplasty (Acute) Knee pain, right (Acute) Osteoarthritis of right knee (Acute) Abdominal wall hernia (Acute) History of bilateral hip arthroplasty (Acute) Obstructive sleep apnea on CPAP (Acute) Hypertension, essential (Acute) Depression, major, recurrent (Acute) Morbid obesity (Acute) Osteoarthritis, hip, bilateral (Acute) Past Medical History Medical History (Updated 10/08/22 @ 12:16 by Vinita Brooks RN) Arthritis COVID-19 vaccine series completed Depression, major, recurrent Elevated cholesterol Hypertension, essential Morbid obesity Osteoarthritis, hip, bilateral Sleep apnea Family History Family History Father HTN (hypertension) Mother HTN (hypertension) Sister Cancer of thyroid Maternal Grandfather No problems noted. Maternal Grandmother No problems noted. Paternal Grandfather No problems noted. Paternal Grandmother No problems noted. Brother No problems noted. Sister No problems noted. Sister No problems noted. Family history of problems with anesthesia: No Surgical History Surgical History (Updated 10/08/22 @ 12:13 by Vinita Brooks RN) H/O colonoscopy History of ankle surgery History of sleeve gastrectomy History of surgery History of total left hip replacement History of total right hip replacement History of umbilical hernia repair Hx of umbilical hernia repair Status post total hip replacement, left History of Problems with Anesthesia: No Social History Social History Household Members: Family Housing: House Are you a primary care transition mgr to a significant other at home: No Do you presently have visiting nurse or other home services: No Alcohol intake: current Alcohol intake frequency: does not drink Patient Tobacco Use Status: Never used Tobacco e-Cigarette/Vaping Use: Never Used Use of substances other than those prescribed or required for medical reasons: Yes Substance Use Type Other:: edibles Substance Use Frequency: Occasionally Have you been hit, kicked, punched, or otherwise hurt by someone within the past year? If so, by whom?: No Are you DNR?: No Advance Directives: No Advance Directives Information Provided: No Advance Directives on File: No Recently lost weight without trying: No Eating poorly because of decreased appetite: No Nutrition Risks: No Nutritional Risk Poor oral hygiene: No service: No Current occupational status: disabled Cognitive needs: No Hearing needs: No Vision needs: No Meds Allergies Allergy/AdvReac Type Severity Reaction Status Date / Time lisinopril [LISINOPRIL] AdvReac Severe COUGH Verified 10/08/22 11:40 Home Medications Medication Instructions Recorded Confirmed Last Taken Type calcium 325 mg-vit D3 12.5 1 tab PO BID 11/19/21 10/08/22 Unknown History mcg-zinc 2.75 xp-qqtekr-xeuhtswgt tablet (Citracal-D3 Maximum Plus) Exam Exam Date and Time: October 08, 2022 1233 Height,Weight and Vital Signs: Height 6 ft Weight 133.356 kg Last Vital Signs Pulse 75 10/08/22 12:24 Resp 20 10/08/22 12:24 BP 138/95 H 10/08/22 12:24 Pulse Ox 93 10/08/22 12:24 O2 Del Method Room Air 10/08/22 12:24 Pertinent Lab Results Pertinent Lab Results: Laboratory Tests 09/30/22 09/30/22 12:33 12:33 WBC 8.0 Hgb 14.0 Hct 45.0 Plt Count 377 Sodium 144 Potassium 3.9 Chloride 104 Carbon Dioxide 28 BUN 8 L Creatinine 0.85 Narrative Narrative: EKG 09/2022 NSR @ 65 Airway Mallampati Class: I TM Dist: >3cm Neck ROM: Full Loose/Missing/Broken Teeth: Yes (Molars pulled) Heart: RRR Lungs: CTAB Assessment and Plan Assessment Anesthesia Assessment: Anesthesia Plan Discussed and PAT Visit Final Anesthetic Review Family History of Problems with Anesthesia: No History of Problems with Anesthesia: No Documented by User: Harley Arnold MD 10/13/22 07:42 PMFSH Past Medical History Medical History (Updated 10/08/22 @ 12:16 by Vinita Brooks RN) Arthritis COVID-19 vaccine series completed Depression, major, recurrent Elevated cholesterol Hypertension, essential Morbid obesity Osteoarthritis, hip, bilateral Sleep apnea Family History Family History Father HTN (hypertension) Mother HTN (hypertension) Sister Cancer of thyroid Maternal Grandfather No problems noted. Maternal Grandmother No problems noted. Paternal Grandfather No problems noted. Paternal Grandmother No problems noted. Brother No problems noted. Sister No problems noted. Sister No problems noted. Surgical History Surgical History (Updated 10/08/22 @ 12:13 by Vinita Brooks RN) H/O colonoscopy History of ankle surgery History of sleeve gastrectomy History of surgery History of total left hip replacement History of total right hip replacement History of umbilical hernia repair Hx of umbilical hernia repair Status post total hip replacement, left Social History Social History Household Members: Family Housing: House Are you a primary care transition mgr to a significant other at home: No Do you presently have visiting nurse or other home services: No Alcohol intake: current Alcohol intake frequency: does not drink Patient Tobacco Use Status: Never used Tobacco e-Cigarette/Vaping Use: Never Used Use of substances other than those prescribed or required for medical reasons: Yes Substance Use Type Other:: edibles Substance Use Frequency: Occasionally Have you been hit, kicked, punched, or otherwise hurt by someone within the past year? If so, by whom?: No Are you DNR?: No Advance Directives: No Advance Directives Information Provided: No Advance Directives on File: No Recently lost weight without trying: No Eating poorly because of decreased appetite: No Nutrition Risks: No Nutritional Risk Poor oral hygiene: No service: No Current occupational status: disabled Cognitive needs: No Hearing needs: No Vision needs: No Meds Allergies Allergy/AdvReac Type Severity Reaction Status Date / Time lisinopril [LISINOPRIL] AdvReac Severe COUGH Verified 10/08/22 11:40 Home Medications Medication Instructions Recorded Confirmed Last Taken Type calcium 325 mg-vit D3 12.5 1 tab PO BID 11/19/21 10/08/22 Unknown History mcg-zinc 2.75 qx-sevism-kqzqhrbpn tablet (Citracal-D3 Maximum Plus) Exam Airway Mallampati Class: III Assessment and Plan Final Anesthetic Review NPO: Yes ASA Class: IV Final Preanesthetic Review: No Changes in Pt Med Stat, Meds/Allgs Chart Reviewed, Consent Obtained/Reviewed and Anes Risks/Benef Reviewed Patient Risk: High Procedure Risk: Intermediate Anesthetic Plan Anesthetic Plan: Spinal and Neuraxial Block: Disposition: Standard PACU
[2022-10-08 15:29] LABS: MRSA Nasal PCR NEGATIVE (Negative); SA Nasal PCR POSITIVE (Negative)
[2022-10-13] VITALS (13 sets, daily range): BP systolic 107–143; BP diastolic 70–86; PULSE 51–69; RESP 12–20; TEMP 36.2–36.7; O2SAT 94–99; BMI 39.9
--- NOTE | ~2022-10-13 | XR_ITS ---
EXAMINATION: XR KNEE, RIGHT CLINICAL INFORMATION: Right total knee arthroplasty. COMPARISON: None available. TECHNIQUE: Four views of the right knee. FINDINGS: The patient is status post right total knee arthroplasty showing good anatomic alignment and no evidence for hardware malfunction. There is no acute fracture. Intra-articular and subcutaneous air is seen. Multiple surgical skin arpita are noted anteriorly. XR/XR knee RT 2V IMPRESSION: Postsurgical changes. No hardware abnormality. No acute fracture.
[2022-10-13 06:27] LABS: Hematocrit 43.6 % (42.0-52.0); Hemoglobin 13.9 g/dl (14.0-18.0)
[2022-10-13] MEDS: Lactated Ringers 1,000 ML 100 ML IVCONT ×3 (06:44→22:41)
--- NOTE | 2022-10-13 07:10 | PHA.MEDREC ---
Pharmacy Consult ? Medication Reconciliation Pharmacy has completed the medication reconciliation. Reviewed med rec done by nursing
--- NOTE | 2022-10-13 09:25 | P.BOP_ITS ---
Brief Operative Note Date of Service: 10/13/22 Pre-op diagnosis: Right knee OA Post-op diagnosis: same Procedure: Right TKA Implants: Stewart Triathlon posterior stabilized press fit Surgeon: Bk Nettles MD Anesthesia: regional and spinal Was an Exceptional Student Education Aide used for this Procedure?: Yes Exceptional Student Education Aide: Erin Zhu Estimated blood loss (mL): 25 Tourniquet time (min): 62 IV fluids (mL): 800 Pathology: other Condition: stable Disposition: PACU
--- NOTE | 2022-10-13 09:27 | MHC.SHP ---
Pre-Procedural Eval Section A Date of Service: 10/13/22 The patient is an INPATIENT: No Changes since office visit: No Cold of Flu in the past 2 weeks, No New Medical Problems, No Changes in Medication and No Patient answered all questions The History & Physical has been completed within 30 days and I have reviewed it.: Yes Section B Chief Complaint: RT TKA Allergies: Allergies Allergy/AdvReac Type Severity Reaction Status Date / Time lisinopril [LISINOPRIL] AdvReac Severe COUGH Verified 10/08/22 11:40 Plan I have reviewed the history and physical and performed a pertinent physical examination on my patient. No changes have occurred unless specified. Time Spent With Patient Time: Total time managing care of this patient today ____ minutes.
--- NOTE | 2022-10-13 09:42 | P.OP_ITS ---
Operative Note Operative Note Date of Service: 10/13/22 Narrative: Date of Service: 10/13/22 Pre-op diagnosis: Right knee OA Post-op diagnosis: same Procedure: Right TKA Implants: [place] [employer] posterior stabilized press fit Surgeon: Bk Nettles MD Anesthesia: regional and spinal Was an Reverberatory Furnace Supervisor used for this Procedure?: Yes Reverberatory Furnace Supervisor: Erin Zhu Estimated blood loss (mL): 25 Tourniquet time (min): 62 IV fluids (mL): 800 Pathology: other Condition: stable Disposition: PACU Procedure in detail: The patient was brought to the operating room and prepped and draped in standard sterile fashion. A time-out was called to identify proper site proper procedure proper surgeon and IV antibiotics were administered. 1 g of IV tranexamic acid was administered. He had ~20 deg flexion contreacture. I began by making a midline incision to the retinaculum and performed a medial parapatellar arthrotomy. The patella was translated laterally and the knee was flexed up. He had eburnation of the medial and lateral compartment. I performed a small medial peel and resected the infrapatellar fat pad. Bernie's line was then used to drill my intramedullary femoral guide and my distal femur cut of 14 mm was made in 5 degrees of valgus while protecting the soft tissues. I then measured a # 6 femur and placed my cutting guide and made my anterior posterior and chamfer cuts protecting the soft tissues at all times. I then made my box but removing the PCL. Once I was satisfied with my cuts I turned my attention to the tibia. I removed the meniscus medially and laterally and , using an external cutting guide, in line with the tibial crest and the third ray, I made my distal tibial cut in 0 deg slope of while protecting the posterior soft tissues at all times. An extension block was used to confirm appropriate amount of bony resection. I then sized a #6 tibia and once I was satisfied that there was complete tibial coverage I placed my trial and with the trial femur in place took the knee through range of motion. I was satisfied with the extension and flexion as well as the stability at 0, 30 and 90 degrees. I then turned my attention to the patella where I removed 1 cm from the undersurface of the patella and then trialed a 35a patellar button. Again the knee was taken through range of motion I was satisfied with the tracking and the balance. I then returned to the femur and drilled my femoral lug holes and prepared the tibia. A femoral bone plug was placed and the knee was irrigated copiously. I then press fit the patella, tibia and femur in standard fashion. I trialed different inserts until I selected a #9 insert. The final insert was placed and a 3 minutes iodine soak with local TXA was performed. The knee was then closed with a running Quill suture, a 3 0 Vicryl and arpita on the skin. Patient was then placed in sterile dressing and brought to recovery room in stable condition there were no known complications.
--- NOTE | 2022-10-13 13:01 | HO.PM.IMCN ---
History of Present Illness Data of Consult Service Date: 10/13/22 Requesting physician: Alexei Trevizo Primary Care Provider: Renard Benton MD [facility] Reason for consult: Medicine consult This is a 52 year male with a past medical history significant for policy patient seen on CPAP, hypertension, osteoarthritis, morbid obesity, depression, lipid disorder, gastroesophageal reflux disease amongst others as noted below who presented to the hospital today for a planned right TKA secondary to unilateral right primary osteoarthritis. Patient is pod 0. He has seen in his room postoperatively , patient reports that his pain is relatively controlled and he has already been out of bed and walk to the bathroom. Patient is currently denying chest or abdominal pain, shortness of breath, sick or potential COVID-19 exposure/contacts. Initial laboratory results: Hgb & Hct 13.9/43.6. Right knee x-ray status post right total knee arthroplasty reveals postsurgical changes. No hardware abnormality or acute fracture. Hospitalist consult was placed for comedical management. Review of Systems Review of Systems: A complete 12 point review of systems has been performed and is negative if not noted in HPI [facility] Medical History Arthritis COVID-19 vaccine series completed Depression, major, recurrent Elevated cholesterol Hypertension, essential Morbid obesity Osteoarthritis, hip, bilateral Sleep apnea Family History Father HTN (hypertension) Mother HTN (hypertension) Sister Cancer of thyroid Maternal Grandfather No problems noted. Maternal Grandmother No problems noted. Paternal Grandfather No problems noted. Paternal Grandmother No problems noted. Brother No problems noted. Sister No problems noted. Sister No problems noted. Surgical History H/O colonoscopy History of ankle surgery History of sleeve gastrectomy History of surgery History of total left hip replacement History of total right hip replacement History of umbilical hernia repair Hx of umbilical hernia repair Status post total hip replacement, left Social History Household Members: Friend(s) Housing: Homeless Are you a primary plant care worker to a significant other at home: No Do you presently have visiting nurse or other home services: Yes Alcohol intake: current Alcohol intake frequency: does not drink Patient Tobacco Use Status: Never used Tobacco e-Cigarette/Vaping Use: Never Used Use of substances other than those prescribed or required for medical reasons: Yes Substance Use Type: Marijuana Substance Use Type Other:: edibles Substance Use Frequency: Occasionally Have you been hit, kicked, punched, or otherwise hurt by someone within the past year? If so, by whom?: No Do you feel safe in your current relationship?: No Current Relationship Is there a partner from a previous relationship who is making you feel unsafe now?: No Are you DNR?: No Advance Directives: No Advance Directives Information Provided: No Advance Directives on File: No Do you have thoughts of harming others: None Do you have a plan to hurt others: No Plan Recently lost weight without trying: No Eating poorly because of decreased appetite: No Nutrition Risks: No Nutritional Risk Poor oral hygiene: No service: No Current occupational status: disabled Cognitive needs: No Hearing needs: No Vision needs: No Meds Allergies Allergy/AdvReac Type Severity Reaction Status Date / Time lisinopril [LISINOPRIL] AdvReac Severe COUGH Verified 10/08/22 11:40 Active Medications: Current Medications Acetaminophen (Acetaminophen 325 Mg Tablet) 650 mg PO Q6H PRN PRN Reason: Pain, Mild (Pain Scale 1-3) Aspirin (Aspirin 325 Mg Tablet) 325 mg PO BID [facility] Bupropion HCl (Bupropion Hcl Xl 150 Mg Tab.Er.24h) 150 mg PO DAILY [facility] Calcium Carbonate/Cholecalciferol (Calcium + Vitamin D 250 Mg Tablet) 250 mg PO BID [facility] Celecoxib (Celecoxib 200 Mg Capsule) 200 mg PO BID [facility] Docusate Sodium (Docusate Sodium 100 Mg Capsule) 100 mg PO BID [facility] Escitalopram Oxalate (Escitalopram Oxalate 10 Mg Tablet) 10 mg PO DAILY [facility] Fentanyl (Fentanyl Citrate/Pf 100 Mcg/2 Ml Vial) 50 mcg IVPUSH Q5M PRN; Protocol PRN Reason: Pain, Severe (Pain Scale 7-10) Hydromorphone HCl (Hydromorphone Hcl 0.5 Mg/0.5 Ml Syringe) 0.5 mg IVPUSH Q5M PRN; Protocol PRN Reason: Pain, Severe (Pain Scale 7-10) Hydromorphone HCl (Hydromorphone Hcl 0.5 Mg/0.5 Ml Syringe) 0.25 mg IVPUSH Q4H PRN; Protocol PRN Reason: Pain, Severe (Pain Scale 7-10) Lactated Ringer's (Lr) 1,000 mls @ 100 mls/hr IVCONT .Q10H [facility] Stop: 10/14/22 09:37 Last Admin: 10/13/22 12:53 Dose: 100 mls/hr Cefazolin Sodium/Dextrose (Ancef) 2 gm in 50 mls @ 100 mls/hr IV POSTOP ONE Stop: 10/13/22 13:59 Omeprazole (Omeprazole 20 Mg Capsule.Dr) 20 mg PO DAILY [facility] Ondansetron HCl (Ondansetron Hcl 4 Mg/2 Ml Vial) 4 mg IVPUSH Q8H PRN PRN Reason: Nausea and Vomiting Oxycodone HCl (Oxycodone Hcl Immed Release 5 Mg Tablet) 5 mg PO ONCE PRN PRN Reason: Pain, Severe (Pain Scale 7-10) Oxycodone HCl (Oxycodone Hcl Immed Release 5 Mg Tablet) 5 mg PO Q4H PRN PRN Reason: Pain, Moderate(Pain Scale 4-6) Oxycodone HCl (Oxycodone Hcl Er 10 Mg Tab.Er.12h) 10 mg PO BID [facility] Sodium Chloride (0.9 % Sodium Chloride Flush 3 Ml Syringe) 3 ml IVFLUSH QSHIFT [facility] Home Medications Medication Instructions Recorded Confirmed Last Taken Type calcium 325 mg-vit D3 12.5 1 tab PO BID 11/19/21 10/08/22 Unknown History mcg-zinc 2.75 [id number] tablet (Citracal-D3 Maximum Plus) Physical Exam Vital Signs and Narrative: Vital Signs: Last Vital Signs Temp 97.7 F 10/13/22 11:58 Pulse 59 10/13/22 12:37 Resp 20 10/13/22 11:58 BP 138/86 10/13/22 12:37 Pulse Ox 99 10/13/22 12:37 O2 Del Method Nasal Cannula 10/13/22 11:58 O2 Flow Rate 2 10/13/22 11:58 BMI result Body Mass Index 39.9 Const: Other: General: Appears stated age, in no acute distress, answers questions accurately and appropriately, pleasant. Skin: Warm and well perfused, no obvious bruises noted Respiratory: Lungs CTAB, no rales/rhonchi, no expiratory/inspiratorywheezing, Cardiac: Regular rhythm, no rubs, gallops, murmurs or clicks. No JVD/carotid bruits. Abdomen: Soft, obese abdomen, rounded,non-distended, bowel sounds noted throughout Extremities: no upper or lower extremity edema noted. No erythema or tenderness noted to left lower extremity. Right lower extremity is noted to be covered in Isra wrap with ice pack to right knee, there is no bleeding /oozing noted the bandage. positive dorsal/pedal pulses noted to bilateral lower extremities on assessment. Neuro: Alert and oriented x3 Psych: Mood appropriate, no agitation /restlessness noted. Results Labs 10/13/22 06:15 Imaging Radiologist's Impressions: Impressions Knee X-Ray 10/13/22 10:05 IMPRESSION: Postsurgical changes. No hardware abnormality. No acute fracture. Assessment and Plan (1) Osteoarthritis of right knee: Status: Acute (2) Lipid disorder: Status: Acute (3) Chronic GERD: Status: Acute (4) Obstructive sleep apnea on CPAP: Status: Acute (5) Hypertension, essential: Status: Acute (6) Depression, major, recurrent: Status: Acute Plan Osteoarthritis of right knee treated with total right knee arthroplasty -Patient is pod0 right total knee arthroplasty performed by Dr. Nettles. - patient reports that he has already been out of bed postoperatively, reports pain relatively well managed. - analgesics, antiemetics per primary/ ortho team - PT/OT / mobility per Ortho recommendations Hypertension - Blood pressure stable. Continue amlodipine, spironolactone/hydrochlorothiazide. - Monitor blood pressures. Lipid disorder - maintained on atorvastatin which has been continued. [place] on CPAP -CPAP at bedtime per protocol- -Patient reports that family will bring his in later today Depression -denies SI/HI. Continue chronic escitalopram and bupropion. Chronic gastroesophageal reflux disease -continue home omeprazole. OTHER: DVT prophylaxis - patient has been placed on aspirin 325 mg p.o. b.i.d. per primary/ortho team Patient is a full code, discussed with patient at time of consult Time Spent With Patient Time: Total time managing care of this patient today ____ minutes.
[2022-10-13] MEDS: ceFAZolin Sodium/Dextrose,Iso 2 GM/50 ML PIGGYBACK IV (13:21)
[2022-10-13] MEDS: HYDROmorphone HCl 0.5 MG/0.5 ML SYRINGE 0.25 MG IVPUSH ×2 (14:37→19:33)
[2022-10-13] MEDS: oxyCODONE HCl Immed Release 5 MG TABLET PO (17:57)
[2022-10-13] MEDS: oxyCODONE HCl ER 10 MG TAB.ER.12H PO (19:33)
[2022-10-13] MEDS: Celecoxib 200 MG CAPSULE PO (19:33)
[2022-10-13] MEDS: buPROPion HCl XL 150 MG TAB.ER.24H PO (19:33)
[2022-10-13] MEDS: Docusate Sodium 100 MG CAPSULE PO (19:33)
[2022-10-13] MEDS: Calcium + Vitamin D 250 MG TABLET PO (19:34)
[2022-10-14] VITALS (7 sets, daily range): BP systolic 135–158; BP diastolic 77–87; PULSE 70–76; RESP 16–20; TEMP 36–36.8; O2SAT 94–96
[2022-10-14] MEDS: HYDROmorphone HCl 0.5 MG/0.5 ML SYRINGE 0.25 MG IVPUSH ×2 (01:12→07:48)
[2022-10-14 06:53] LABS: Basophils Percent Auto 0.3 % (0-2); Eosinophils Percent Auto 0.1 % (0-4); Hematocrit 38.4 % (42.0-52.0); Hemoglobin 12.5 g/dl (14.0-18.0); Imm Gran Abs Auto 0.05 X10*3/uL (0.00-0.03); Imm Gran Pct Auto 0.4 % (0.0-0.4); Lymphocytes Absolute Auto 1.4 X10*3/uL (1.2-4.9); Lymphocytes Percent Auto 10.6 % (20-40); MANUAL DIFF FLAG NO; Mean Corpuscular HGB Conc 32.6 g/dl (31.0-36.0); Mean Corpuscular Hemoglobin 26.5 pg (27.0-33.0); Mean Corpuscular Volume 81.5 fL (80.0-98.0); Mean Platelet Volume 9.1 fL (9.4-12.4); Monocytes Absolute Auto 1.2 X10*3/uL (0.1-1.2); Monocytes Percent Auto 8.8 % (2-11); Neutrophils Absolute Auto 10.9 x10*3/uL (2.0-8.3); Neutrophils Percent Auto 79.8 % (45-73); Platelet Count 327 X10*3/uL (160-400); Red Blood Count 4.71 X10*6/uL (4.60-5.80); Red Cell Distribution Width 14.7 % (11.0-16.0); White Blood Count 13.6 X10*3/uL (4.8-10.8)
[2022-10-14 07:18] LABS: Anion Gap 11 (12-20); Blood Urea Nitrogen 8 mg/dL (9-16); Calcium 9.1 mg/dL (8.4-10.2); Carbon Dioxide 31 mmol/L (22-29); Chloride 98 mmol/L (96-108); Creatinine Clr Calc Pharmacy 163.4; Estimated Glomerular Filt Rate > 60; Glucose Fasting 116 mg/dL (60-99); Potassium 3.4 mmol/L (3.3-5.1); Sodium 137 mmol/L (135-145)
--- NOTE | 2022-10-14 07:25 | PM.PNORT ---
Subjective Subjective Date of Service: 10/14/22 Interval history: POD1 s/p RTKA. Pating in laying in bed. No overnight events. No additional complaints. Physical Exam Vital Signs: Vital Signs: Last Vital Signs Temp 96.8 F 10/14/22 03:57 Pulse 71 10/14/22 03:57 Resp 16 10/14/22 03:57 BP 139/77 10/14/22 03:57 Pulse Ox 95 10/14/22 03:57 O2 Del Method CPAP 10/14/22 03:57 O2 Flow Rate 2 10/13/22 11:58 BMI result Body Mass Index 39.9 Const: General: cooperative, healthy appearing and no acute distress Resp: Effort & Inspection: normal respiratory effort and able to speak in complete sentences Cardio: Rate: regular rate Peripheral pulses: Peripheral pulses 2+ throughout GI: Palpation (GI): Soft to palpation Skin: Lesions: no lesions Rashes: no rashes Extrem: Other: Right knee Aquacel is c/d/i. Able to dorsi/plantar flex. NVI. Procedures Date of Service Date of Service: 10/14/22 Progress Note: A&P Assessment and plan (1) Status post total knee replacement, right: Status: Acute Assessment and Plan: Continue pain mgmnt Begin ASA for dvt ppx begin PT for RTKA Dispo planning-Pending PT eval, pain mgmnt Time Spent With Patient Time: Total time managing care of this patient today ____ minutes. Quality Stroke Does the patient have a stroke diagnosis?: No VTE Prior VTE?: No VTE Risk Level:: Medical - moderate - high VTE Device Contraindication: N/A - Device Ordered VTE Drug Contraindication: N/A - Med Ordered
[2022-10-14] MEDS: buPROPion HCl XL 150 MG TAB.ER.24H PO (07:49)
[2022-10-14] MEDS: Escitalopram Oxalate 10 MG TABLET PO (07:49)
[2022-10-14] MEDS: Aspirin 325 MG TABLET PO ×2 (07:49→20:08)
[2022-10-14] MEDS: Celecoxib 200 MG CAPSULE PO ×2 (07:49→20:09)
[2022-10-14] MEDS: Calcium + Vitamin D 250 MG TABLET PO ×2 (07:49→20:08)
[2022-10-14] MEDS: Docusate Sodium 100 MG CAPSULE PO ×2 (07:50→20:07)
[2022-10-14] MEDS: Omeprazole 20 MG CAPSULE.DR PO (07:50)
[2022-10-14] MEDS: oxyCODONE HCl ER 10 MG TAB.ER.12H PO ×2 (07:50→20:08)
[2022-10-14] MEDS: 0.9 % Sodium Chloride Flush 3 ML SYRINGE IVFLUSH ×2 (07:54→20:26)
--- NOTE | 2022-10-14 08:03 | HO.POSTANES ---
Post Anesthesia Evaluation Post Anesthesia Evaluation Date of Service: 10/14/22 Vital Signs: Vital Signs Temp Pulse Resp BP Pulse Ox O2 Del Method 10/14/22 03:57 96.8 F 71 16 139/77 95 CPAP Anesthesia: Spinal Mental Status: Awake Pain Control: Satisfactory Nausea/Vomiting: None Hydration: Adequate Anesthesia-Related Issues: No Anes. Related Issues
[2022-10-14] MEDS: Lactated Ringers 1,000 ML 100 ML IVCONT (10:34)
--- NOTE | 2022-10-14 12:05 | MHC.CM.PN ---
pt lives with has a brick mason pt will arranger his own transportaion
[2022-10-14] MEDS: Acetaminophen 325 MG TABLET 650 MG PO (12:07)
[2022-10-14] MEDS: oxyCODONE HCl Immed Release 5 MG TABLET PO ×2 (12:07→20:02)
[2022-10-15 03:29] VITALS: BP 154/88; PULSE 74; RESP 18; TEMP 36; O2SAT 93
[2022-10-15 06:24] LABS: MANUAL DIFF FLAG NO
[2022-10-15 06:32] LABS: Basophils Percent Auto 0.2 % (0-2); Hemoglobin 11.5 g/dl (14.0-18.0); Imm Gran Abs Auto 0.06 X10*3/uL (0.00-0.03); Imm Gran Pct Auto 0.4 % (0.0-0.4); Lymphocytes Absolute Auto 1.3 X10*3/uL (1.2-4.9); Lymphocytes Percent Auto 9.4 % (20-40); Mean Corpuscular HGB Conc 31.9 g/dl (31.0-36.0); Mean Corpuscular Hemoglobin 26.3 pg (27.0-33.0); Mean Corpuscular Volume 82.4 fL (80.0-98.0); Mean Platelet Volume 9.1 fL (9.4-12.4); Monocytes Absolute Auto 1.4 X10*3/uL (0.1-1.2); Neutrophils Absolute Auto 11.3 x10*3/uL (2.0-8.3); Platelet Count 290 X10*3/uL (160-400); Red Blood Count 4.37 X10*6/uL (4.60-5.80); Red Cell Distribution Width 14.7 % (11.0-16.0); White Blood Count 14.1 X10*3/uL (4.8-10.8)
[2022-10-15 06:41] LABS: Anion Gap 15 (12-20); Blood Urea Nitrogen 7 mg/dL (9-16); Calcium 9.1 mg/dL (8.4-10.2); Carbon Dioxide 26 mmol/L (22-29); Chloride 100 mmol/L (96-108); Creatinine Clr Calc Pharmacy 172.9; Estimated Glomerular Filt Rate > 60; Glucose Fasting 98 mg/dL (60-99); Potassium 3.3 mmol/L (3.3-5.1); Sodium 138 mmol/L (135-145)
[2022-10-15] MEDS: oxyCODONE HCl Immed Release 5 MG TABLET PO (07:19)
[2022-10-15] MEDS: buPROPion HCl XL 150 MG TAB.ER.24H PO (07:20)
[2022-10-15] MEDS: Celecoxib 200 MG CAPSULE PO (07:20)
[2022-10-15] MEDS: Docusate Sodium 100 MG CAPSULE PO (07:20)
[2022-10-15] MEDS: Escitalopram Oxalate 10 MG TABLET PO (07:20)
[2022-10-15] MEDS: Calcium + Vitamin D 250 MG TABLET PO (07:20)
[2022-10-15] MEDS: Aspirin 325 MG TABLET PO (07:20)
[2022-10-15] MEDS: Omeprazole 20 MG CAPSULE.DR PO (07:20)
[2022-10-15] MEDS: oxyCODONE HCl ER 10 MG TAB.ER.12H PO (07:20)
[2022-10-15 07:48] VITALS: BP 141/77; PULSE 80; RESP 20; TEMP 37.2; O2SAT 93
--- NOTE | 2022-10-15 08:35 | PM.DS ---
DS: Providers Provider Date of Service: 10/15/22 Date of admission: 10/13/22 06:00 Primary care physician: Renard Benton MD Consults: 10/13/22 11:55 Consult to Hospitalist Routine Comment: Consulting Provider: Hospitalist Reason For Exam: HTN DS: Diagnosis Discharge Diagnosis (1) Status post total knee replacement, right: Status: Acute DS: Summary Hospital Course Hospital Course: The patient underwent a successful right total knee arthroplasty, they were transferred to PACU and then to the floor to recover. During their stay, their vitals were stable, afebrile at 98.9. Labs were unremarkable, H/H 11.5/36.0. POD 1 they were started on Aspirin 325mg po bid for DVT ppx, they also received Physical Therapy services twice a day. Prior to discharge, their dressing was changed, incision clean dry and intact, new Aquacel dressing applied and the plan was to be discharged home with VNA services. Time Spent with Patient Time attestation: Total time managing care of this patient today ____ minutes. Discharge coordination time: Less than 30 minutes Quality: Safe Use of Opioids Does Pt have an Active Cancer Diagnosis on the Problem List?: No Quality: Stroke Does the patient have a stroke diagnosis?: No Physical Exam Vital Signs: Vital Signs: Last Vital Signs Temp 98.9 F 10/15/22 07:48 Pulse 80 10/15/22 07:48 Resp 20 10/15/22 07:48 BP 141/77 H 10/15/22 07:48 Pulse Ox 93 10/15/22 07:48 O2 Del Method Room Air 10/15/22 07:48 O2 Flow Rate 2 10/13/22 11:58 BMI result Body Mass Index 39.9 Const: General: cooperative, healthy appearing and no acute distress Resp: Effort & Inspection: normal respiratory effort and able to speak in complete sentences Cardio: Rate: regular rate Peripheral pulses: Peripheral pulses 2+ throughout GI: Palpation (GI): Soft to palpation Skin: Lesions: no lesions Rashes: no rashes Extrem: Other: Right knee Aquacel is c/d/i. Able to dorsi/plantar flex. NVI. DS: Data Data Completed and Pending Completed studies during hospitalization [Text1]: Procedures Excision of Small Intestine, Open Approach (06/25/21) Repair Abdominal Wall, Open Approach (06/25/21) Replacement of Left Hip Joint with Ceramic Synthetic Substitute, Uncemented, Open Approach (12/11/20) Replacement of Right Hip Joint with Ceramic Synthetic Substitute, Uncemented, Open Approach (04/10/21) Pending studies at discharge: Pending at discharge 10/13/22 09:10 Surgical [PTH] Routine Labs on day of discharge: Laboratory Results - last 24 hr 10/15/22 10/15/22 05:59 05:59 WBC 14.1 H RBC 4.37 L Hgb 11.5 L Hct 36.0 L MCV 82.4 MCH 26.3 L MCHC 31.9 RDW 14.7 Plt Count 290 MPV 9.1 L Immature Gran % (Auto) 0.4 Neut % (Auto) 80.0 H Lymph % (Auto) 9.4 L [place] % (Auto) 10.0 Eos % (Auto) 0.0 Baso % (Auto) 0.2 Lymph # (Auto) 1.3 [place] # (Auto) 1.4 H Eos # (Auto) 0.0 Baso # (Auto) 0.0 Abs Immat Gran (auto) 0.06 H Absolute Neuts (auto) 11.3 H Absolute Nucleated RBC 0.000 Nucleated RBC % (auto) 0.0 Sodium 138 Potassium 3.3 Chloride 100 Carbon Dioxide 26 Anion Gap 15 BUN 7 L Creatinine 0.69 Estim Creat Clear Calc 172.9 Estimated GFR > 60 Fasting Glucose 98 Calcium 9.1 Discharge Plan Discharge Anticipated Discharge Date/Time: 10/15/22 12:33 Patient Disposition: Home Health Service Discharge Diagnosis: s/p s/p RTKA Referrals: [place] [facility] [place] - 2 Weeks (10/30/22 1:00 Physical Therapy Erin Zhu PA-C) Renard Benton MD [Primary Care Provider] - 1 Week Erin Zhu PA-C [Physician Kitchen Worker] - 2 Weeks (10/29/22 12:30 [facility] [place] [facility] Erin Zhu PA-C) Discharge Medications: New docusate sodium 100 mg Capsule 100 mg PO BID 14 Days Qty: 28 0RF celecoxib 200 mg Capsule 200 mg PO BID 30 Days Qty: 60 0RF aspirin 325 mg Tablet 325 mg PO BID 42 Days Qty: 84 0RF acetaminophen 325 mg Tablet 650 mg PO Q6H PRN (Reason: Pain, Mild (Pain Scale 1-3)) 30 Days Qty: 240 0RF Continued escitalopram oxalate [Lexapro] 10 mg tablet 10 mg PO DAILY 90 Days Qty: 90 1RF omeprazole 20 mg capsule,delayed release(DR/EC) 20 mg PO DAILY Qty: 90 0RF atorvastatin 20 mg tablet 20 mg PO BEDTIME 90 Days Qty: 90 0RF amlodipine 10 mg tablet 10 mg PO BEDTIME 90 Days Qty: 90 0RF spironolacton-hydrochlorothiaz 25-25 mg tablet 1 tab PO BEDTIME Qty: 90 0RF bupropion HCl [Wellbutrin SR] 150 mg tablet sustained-release 12 hr 150 mg PO BID 90 Days Qty: 180 0RF [id number] [Citracal-D3 Maximum Plus] 325 mg-12.5 mcg -2.75 mg tablet 1 tab PO BID Discharge Orders: Discharge Order (Routine); Ordered 10/15/22 Ordered By: Marie Lombardi Diet: Regular diet Activity on Discharge: Use cane or walker Stand Alone Forms: Patient Portal Discharge page Care Plan Goals: Restore function of joint Health Concerns: none Plan of Treatment: Physical Therapy Pain management DVT prophylaxis Assessment: Physical Therapy for Total knee arthroplasty: WBAT, gait training, ROM 0-12, quad strength Limit stair climbing No showering, no tub bath-keep dressing clean, dry and intact No driving x6 weeks Continue Aspirin twice a day x 6 weeks Follow up with [facility] [place] 2 weeks: --you will also have your first out patient PT gaurav on the day of your post op appt-so please plan on being in the office that day for an extended period of time.
--- NOTE | 2022-10-15 08:36 | P.F2F_ITS ---
Service Date Service Date: 10/15/22 Encounter Date of encounter: 10/15/22 Reasons for Services Signs and symptoms assessed: s/p RTKA. Pt. is considered homebound due to recent surgery. Unable to drive, poor balance, poor gait mechanics. Reason for physical therapy: home safety and mobility, therapeutic exercises, restore joint function, gait/transfer training, assess need for DME and ADL training Homebound: Leaving the home is medically contraindicated at this time without the asist of a device and/or another person due th the listed conditions above and below. Reason homebound: unsteady gait / fall risk, leg weakness, pain with ambulation, pain with transfers, poor balance / fall risk and unable to drive Certification: Based on the above findings, I certify that this patient is confined to the home and needs intermittent custodial care, physical therapy and/or speech therapy, or continues to need occupational therapy. The patient is under my care, and I have initiated the establishment of the plan of care. The patient will be followed by a physician who will periodically review the plan of care. Time Spent With Patient Time: Total time managing care of this patient today ____ minutes.
[2022-10-15 09:01] VITALS: BP 141/77; PULSE 80; O2SAT 93
--- NOTE | 2022-10-15 09:22 | MHC.CM.PN ---
DP: PT HAS BEEN MEDICALLY CLEARED FOR DC HOME WITH NEW [facility] FOR P.T. SERVICES. FAMILY WILL TRANSPORT HOME.
== END 2022-10-15 12:12 | disposition home health service (06) | DRG 470 ==
LOC: HO.SSSA 06:18 → HO.S3 11:19
PROVIDERS: Physician Assistant; Admitting Provider Orthopaedic Surgery; PCP Internal Medicine; Visit Provider Orthopaedic Surgery
PROC: 0SRC0JA Replacement of Right Knee Joint with Synthetic Substitute, Uncemented, Open Approach (ICD-10-PCS; CPT 27447; principal; 2022-10-13 07:30)
DX: M17.11 Unilateral primary osteoarthritis, right knee (principal); F33.9 Major depressive disorder, recurrent, unspecified; G89.18 Other acute postprocedural pain; I10 Essential (primary) hypertension; K21.9 Gastro-esophageal reflux disease without esophagitis; E78.00 Pure hypercholesterolemia, unspecified; G47.33 Obstructive sleep apnea (adult) (pediatric); Z79.899 Other long term (current) drug therapy
CPT/HCPCS: 36415; 73560; 80048; 85014; 85018; 85025; 86850; 86900; 86901; 87640; 87641; 88305; 88311; 97110; 97116; 97162; C1776; J0690; J1170; J2795

== ENCOUNTER → 2022-10-13 06:00 | Outpatient (BNV) | payer OTHER, SELFPAY | PROVIDERS: Admitting Provider Orthopaedic Surgery; PCP Internal Medicine; Visit Provider Registered Nurse | DX: M17.11 Unilateral primary osteoarthritis, right knee (principal); I10 Essential (primary) hypertension; F33.9 Major depressive disorder, recurrent, unspecified; K21.9 Gastro-esophageal reflux disease without esophagitis; E78.9 Disorder of lipoprotein metabolism, unspecified; G47.33 Obstructive sleep apnea (adult) (pediatric) | CPT/HCPCS: 99223 ==

== ENCOUNTER → 2022-10-13 06:00 | Outpatient (BNV) | payer OTHER, SELFPAY | PROVIDERS: Admitting Provider Orthopaedic Surgery; PCP Internal Medicine; Visit Provider Orthopaedic Surgery | DX: Z47.1 Aftercare following joint replacement surgery (principal); Z96.651 Presence of right artificial knee joint | CPT/HCPCS: 27447; 99231; 99238; G0180 ==

== ENCOUNTER 2022-10-29 12:07 | Outpatient (AMB) | payer OTHER, SELFPAY ==
--- NOTE | 2022-10-29 12:17 | MHC.OFFVIS ---
Intake Intake Visit Reasons: PO-RT TKA 10/13/22 NE Intake Note: Dillon 52 yr old male presents today for his p/o visit for his Right TKA from 10/13/[address] Nettles. Patient reports he has no pain just a little discomfort. States he is doing well over all. Allergies lisinopril [LISINOPRIL] Adverse Reaction (Severe, Verified 10/29/22 12:20) COUGH HPI PO-RT TKA 10/13/22 NE HPI Details 52-year-old male who returns to the office today for post-op right TKA, 10/13/[address] Nettles. He states he has mild discomfort in his knee but denies having any pain. He is completed with his pain medication. He is doing well otherwise and has no concerns today. [facility] Medical History Arthritis COVID-19 vaccine series completed Depression, major, recurrent Elevated cholesterol Hypertension, essential Morbid obesity Osteoarthritis, hip, bilateral Sleep apnea Surgical History H/O colonoscopy History of ankle surgery History of sleeve gastrectomy History of surgery History of total left hip replacement History of total right hip replacement History of umbilical hernia repair Hx of umbilical hernia repair Status post total hip replacement, left Family History Father HTN (hypertension) Mother HTN (hypertension) Sister Cancer of thyroid Maternal Grandfather No problems noted. Maternal Grandmother No problems noted. Paternal Grandfather No problems noted. Paternal Grandmother No problems noted. Brother No problems noted. Sister No problems noted. Sister No problems noted. Social History Household Members: Friend(s) Housing: Homeless Are you a primary floor care specialist to a significant other at home: No Do you presently have visiting nurse or other home services: Yes Alcohol intake: current Alcohol intake frequency: does not drink Patient Tobacco Use Status: Never used Tobacco e-Cigarette/Vaping Use: Never Used Substance Use Type: Marijuana service: No Current occupational status: disabled Cognitive needs: No Hearing needs: No Vision needs: No Review of Systems Const All systems reviewed & are unremarkable except as noted in HPI and below Physical Exam Extrem Other: Right knee: Incision clean, dry and intact. No vini of joint effusion. ROM is 0-95 degrees. Calf supple, nontender. NVI. Assessment & Plan Assessment & Plan (1) Status post total knee replacement, right: Code(s): Z96.651 - Presence of right artificial knee joint Plan [place] removed, steri strips applied. He will begin to transition to Outpatient PT to continue working on Gait training, ROM and quad strength. No driving for another 4 weeks. He will require ppx abx for dental procedures. He will f/u in 4 weeks, sooner if needed. Patient Instructions: Scribed for Erin Zhu PA-C, by Vargas Mooney medical scheduler, on 10/29/2022 at 12:30 PM EST. I, Erin Zhu PA-C, have personally reviewed and agree with the information entered by the scribe. Coding Level of Care Code Global (87341) Diagnoses Status post total knee replacement, right Z96.651
== END 2022-10-29 12:44 | disposition home or self-care (01) ==
PROVIDERS: Visit Provider Physician Assistant
DX: Z96.651 Presence of right artificial knee joint (principal)
CPT/HCPCS: 99024

== ENCOUNTER → 2022-10-29 12:07 | Outpatient (BNVA) | payer OTHER, SELFPAY | PROVIDERS: Visit Provider Physician Assistant ==

== ENCOUNTER 2022-11-24 14:00 | Outpatient (RCR) | payer OTHER, SELFPAY ==
--- NOTE | 2022-10-30 17:21 | MHC.PT.EP ---
[facility] [place] Office [place] Office [place] Office [address] Alka Ulloa [address] [phone] F: [phone] F: [phone] F: [phone] F: [phone] Physical Therapy Plan of Care Date of Evaluation: Date of Surgery: 10/13/22 Diagnosis: R TKA 10/13/22 Assessment: Frequency and Duration: The patient will be seen Short Term Goals: Snf Goals: Treatment Plan: Modalities to reduce pain, spasms and effusion. Manual therapy to restore motion and function. Therapeutic exercise to improve strength and flexibility. Neuromuscular re-education for posture and balance. Therapeutic activities to return to functional activities of daily living. Electronically signed by: Please sign and return to therapist. Thank you for your referral.
--- NOTE | 2023-04-20 09:19 | MHC.PT.DC ---
[facility] [place] Office [place] Office [place] Office [address] Alka Ulloa [address] [phone] F: [phone] F: [phone] F: [phone] F: [phone] Physical Therapy Discharge Report Diagnosis: R TKA 10/13/22 Date of Surgery: 10/13/22 Date of Evaluation: 10/30/22 Date of Discharge: 12/25/22 Treatments to Date: 7 Cancellations to Date: No Shows to Date: Discharge Status: Improved Function Patient Elected to Stop Discharge Summary: Pt is a 52yo male who underwent R TKA on 10/13/[address] Nettles. Pt participated in home PT, then [place] an [place] [facility] Pt's primary impairment was difficulty sleeping, but demonstrates good ROM and stability of R LE in regards to the knee. Pt was motivated to participate, completed 7 sessions, pain improved from 4/10 to 1/10, functional mobility improved with ability to complete step-over foam roll without difficulty. Pt met all STG's in POC, but did not f/u with additional appointments to fully achieve LTG's at this time. D/C on this date due to loss of contact. Electronically signed by: Jane Johnson PT, DPT Please sign and return to therapist. Thank you for your referral.
== END 2023-04-20 09:20 | disposition home or self-care (01) ==
LOC: HO.PT 14:00
PROVIDERS: PCP Internal Medicine; Visit Provider Physician Assistant
DX: Z96.651 Presence of right artificial knee joint (principal)
CPT/HCPCS: 97110; 97162; 97530

== ENCOUNTER 2022-11-26 14:44 | Outpatient (AMB) | payer OTHER, SELFPAY ==
--- NOTE | 2022-11-26 14:47 | A.OFFVIS_ITS ---
Intake Intake Visit Reasons: PO-Rt TKA 10/13/22 NE Intake Note: Krystina 52 year old male who presents today for a post operative RT TKA on 10/13/22 NE. Patient reports he is doing well, he denies pain. Patient continues to attend PT. Allergies lisinopril [LISINOPRIL] Adverse Reaction (Severe, Verified 11/26/22 14:49) COUGH HPI PO-Rt TKA 10/13/22 NE HPI Details 52-year-old male who returns to the [facility] today for post-op right TKA, 10/13/[address] Nettles. He denies any pain and is doing well overall. He also c/o a cracking sound while ambulating. He continues to attend physical therapy with benefits. He has no other concerns today. [facility] Medical History Elevated cholesterol Obstructive sleep apnea on CPAP Osteoarthritis of right knee Arthritis Sleep apnea COVID-19 vaccine series completed Chronic GERD Lipid disorder Depression, major, recurrent Hypertension, essential Morbid obesity Osteoarthritis, hip, bilateral Surgical History Hx of umbilical hernia repair History of total right hip replacement History of umbilical hernia repair Status post total hip replacement, left History of total left hip replacement History of surgery H/O colonoscopy History of sleeve gastrectomy History of ankle surgery Family History Father HTN (hypertension) Mother HTN (hypertension) Sister Cancer of thyroid Maternal Grandfather No problems noted. Maternal Grandmother No problems noted. Paternal Grandfather No problems noted. Paternal Grandmother No problems noted. Brother No problems noted. Sister No problems noted. Sister No problems noted. Social History Household Members: Friend(s) Housing: Homeless Are you a primary veterinarian laboratory animal care to a significant other at home: No Do you presently have visiting nurse or other home services: Yes Alcohol intake: current Alcohol intake frequency: does not drink Patient Tobacco Use Status: Never used Tobacco e-Cigarette/Vaping Use: Never Used Substance Use Type: Marijuana service: No Current occupational status: disabled Cognitive needs: No Hearing needs: No Vision needs: No Review of Systems Const All systems reviewed & are unremarkable except as noted in HPI and below Physical Exam Extrem Other: Right knee: Incision well healed. No erythema or joint effusion. ROM is 0-115 degrees. Calf supple, nontender. NVI. Assessment & Plan Assessment & Plan (1) Status post total knee replacement, right: Code(s): Z96.651 - Presence of right artificial knee joint Plan He will continue to work with physical therapy to maintain ROM and improve his quad strength. He will increase activity as tolerated and see us back in [address] Nettles and new x-rays, sooner if needed. Patient Instructions: Scribed for Erin Zhu PA-C, by Vargas Mooney medical anthropologist, on 11/26/2022 at 2:45 PM EST. I, Erin Zhu PA-C, have personally reviewed and agree with the information entered by the scribe. Coding Level of Care Code Global (14681) Diagnoses Status post total knee replacement, right Z96.651
== END 2022-11-26 15:05 | disposition home or self-care (01) ==
PROVIDERS: PCP Internal Medicine; Visit Provider Physician Assistant
DX: Z96.651 Presence of right artificial knee joint (principal)
CPT/HCPCS: 99024

== ENCOUNTER → 2022-11-26 14:44 | Outpatient (BNVA) | payer OTHER, SELFPAY | PROVIDERS: PCP Internal Medicine; Visit Provider Physician Assistant ==

== ENCOUNTER 2022-12-15 09:58 | Outpatient (AMB) | payer OTHER, SELFPAY ==
--- NOTE | 2022-12-15 09:58 | MHC.OFFVIS ---
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 Patient states I have sleep apnea and have a machine i lost alot of weight mauybe I need a new sleep study. . Allergies lisinopril [LISINOPRIL] Adverse Reaction (Severe, Verified 12/15/22 10:05) COUGH HPI HPI Comments History of Present Illness Details 52 y/o male patient presents for new in-person visit to manage sleep apnea. Pt reports that he was diagnosed with SCHUYLER more than 10 years ago and has been using CPAP. He has been received a new CPAP around 2019. His home care company is [employer]. His CPAP makes some weird sound, but he uses it nightly. He also gets supplies regularly. The CPAP compliance and therapy response (11/15/22-12/14/22) reviewed. He is on CPAP at [id number]. The usage days 100% and the average usage hours 9 hrs. The AHI was 0.9/hr. Pt reports he sleeps better and having less snoring with CPAP but still tosses and turns a lot, wakes up tired. He uses marijuana gummy for sleep. Sleep hygiene questionnaire: What is your usual sleep routine? Usual bedtime is at 10 pm ; Usual wake up time is at 7 am. Do you take naps? Try not to, but sometimes he takes a nap. Is your sleep environment cool, dark, and quiet? Yes. Do you exercise? No. Do you take caffeine or other stimulants? Yes. Do you use electronics in bed? Yes, watch TV. What is your work schedule? full time. [facility] Medical History (Updated 12/16/22 @ 09:32 by Iraida De León CNP) Elevated cholesterol Obstructive sleep apnea on CPAP Osteoarthritis of right knee Arthritis Sleep apnea COVID-19 vaccine series completed Chronic GERD Lipid disorder Depression, major, recurrent Hypertension, essential Morbid obesity Osteoarthritis, hip, bilateral Surgical History (Updated 12/15/22 @ 10:07 by YE Romero) H/O knee surgery Hx of umbilical hernia repair History of total right hip replacement History of umbilical hernia repair Status post total hip replacement, left History of total left hip replacement History of surgery H/O colonoscopy History of sleeve gastrectomy History of ankle surgery Family History Father HTN (hypertension) Mother HTN (hypertension) Sister Cancer of thyroid Maternal Grandfather No problems noted. Maternal Grandmother No problems noted. Paternal Grandfather No problems noted. Paternal Grandmother No problems noted. Brother No problems noted. Sister No problems noted. Sister No problems noted. Social History (Updated 12/15/22 @ 10:07 by YE Romero) Household Members: Friend(s) Housing: Homeless Are you a primary hearing healthcare practitioner to a significant other at home: No Do you presently have visiting nurse or other home services: Yes Alcohol intake: former Patient Tobacco Use Status: Never used Tobacco e-Cigarette/Vaping Use: Never Used Substance Use Type: Marijuana service: No Current occupational status: disabled Cognitive needs: No Hearing needs: No Vision needs: No Review of Systems Const All systems reviewed & are unremarkable except as noted in HPI and below ENT Reports Normal hearing present Neuro Reports Normal hearing present Physical Exam Vital Signs: Last Vital Signs Pulse 74 12/15/22 10:03 BP 116/72 12/15/22 10:03 Pulse Ox 97 12/15/22 10:03 Oxygen Delivery Method Room Air 12/15/22 10:03 BMI result Body Mass Index 39.7 Const General: cooperative Nutritional Appearance: obese Orientation/consciousness: patient oriented x3 Neck Neck: Yes full ROM and Yes supple Resp Effort & Inspection: normal respiratory effort and able to speak in complete sentences Neuro General: patient oriented x3 Cranial nerves: Yes Bilaterally intact EOM present, Yes Normal facial strength present, Yes Midline tongue present, Yes Symmetric palate elevation present, Yes Normal hearing present, Yes Ability to bilaterally rotate head present and Yes Ability to bilaterally elevate shoulders present Cognition (Neuro): normal cognition Gait exam (Neuro): Antalgic gait present Motor exam (neuro): 5/5 motor strength present throughout, Pronator motor function not present and no tremor noted Psych Appearance: grossly normal Affect: normal affect Attitude: cooperative Assessment & Plan Assessment & Plan (1) Obesity: Code(s): E66.9 - Obesity, unspecified (2) Sleep difficulties: Code(s): G47.9 - Sleep disorder, unspecified Plan Continue to use CPAP at [id number] as patient experiences good clinical effects, less snoring and better sleep quality. Advised patient to try magnesium glycinate 200mg-400mg qHS with vitamin D and calcium supplement. Encouraged patient to read Say Good Night to Insomnia and practice the 6 weeks sleep hygiene. Wt reduction advised, walking 30 min daily. Reduce the marijuana gummy use. Coding Level of Care Code New Pt Level 4 (29958) Diagnoses Obesity E66.9 Sleep difficulties G47.9
[2022-12-15 10:03] VITALS: BP 116/72; PULSE 74; O2SAT 97; BMI 39.7
== END 2022-12-15 10:41 | disposition home or self-care (01) ==
LOC: HO.HSMC 09:58
PROVIDERS: PCP Internal Medicine; Visit Provider Nurse Practitioner Family
DX: E66.9 Obesity, unspecified (principal); G47.9 Sleep disorder, unspecified
CPT/HCPCS: 99204

== ENCOUNTER → 2022-12-15 09:58 | Outpatient (BNVA) | payer OTHER, SELFPAY | PROVIDERS: PCP Internal Medicine; Visit Provider Nurse Practitioner Family ==

== ENCOUNTER 2022-12-24 09:31 | Outpatient (REF) | payer OTHER, SELFPAY | END 2022-12-24 09:32 | disposition home or self-care (01) | LOC: HO.HOSX 09:31 | PROVIDERS: Visit Provider Physical Medicine & Rehabilitation | DX: M54.50 Low back pain, unspecified (principal); M79.18 Myalgia, other site; M53.3 Sacrococcygeal disorders, not elsewhere classified; Z79.899 Other long term (current) drug therapy; Z96.643 Presence of artificial hip joint, bilateral; Z96.651 Presence of right artificial knee joint | CPT/HCPCS: 72100 ==

== ENCOUNTER 2022-12-24 10:58 | Outpatient (AMB) | payer OTHER, SELFPAY ==
[2022-12-24 11:15] VITALS: BMI 39.7
--- NOTE | 2022-12-24 11:15 | MHC.OFFVIS ---
Intake Vital Signs 12/24/22 11:15 Height 6 ft Weight 293 lb BMI 39.7 Intake Visit Reasons: new prob- lower back pain Intake Note: Dillon 52 yr old male presents today for a new problem visit for his lower back pain. States pain started about 2 weeks ago, he experience severe pain in lower back for 3 constant days. He was not able to walk or sit due to increase pain in his tailbone. He has purchased a new bed thinking it would help but it has made no difference. He has soreness and achenes. Denies radiating pain. No injury he can recall. States he has never had back issues. Hx of B/L hip replacement and righ knee replacement done with Dr Nettles. Allergies lisinopril [LISINOPRIL] Adverse Reaction (Severe, Verified 12/24/22 11:20) COUGH Medication List - Last Reconciled 12/24/22 by Triny Pagan MD acetaminophen 650 mg (2 x 325 mg) PO Q6H PRN 30 days amlodipine 10 mg PO BEDTIME 90 days aspirin 325 mg PO BID 42 days atorvastatin 20 mg PO BEDTIME 90 days bupropion HCl (Wellbutrin SR) 150 mg PO BID 90 days [id number]-gftd-copper-kelsi 325 mg-12.5 mcg -2.75 mg (Citracal-D3 Maximum Plus) 1 tab PO BID celecoxib 200 mg PO BID 30 days docusate sodium 100 mg PO BID 14 days escitalopram oxalate (Lexapro) 10 mg PO DAILY 90 days omeprazole 20 mg PO DAILY oxycodone 5 mg PO Q4H PRN 7 days spironolacton-hydrochlorothiaz 25-25 mg 1 tab PO BEDTIME HPI HPI Comments History of Present Illness Details New issue, acute onset, lower back pain, 2 weeks ago. Denies inciting injuries. No falls. Lower back, went to tail bone, non radicular. Could not get up or sit for prolonged time. Bought new bed which has helped. Better now, just sore. Non radicular. Sore when he wakes up in the morning. No numbness. Treatment done so far: cannabis [facility] Medical History (Updated 12/24/22 @ 11:39 by Triny Pagan MD) Myofascial pain Elevated cholesterol Obstructive sleep apnea on CPAP Osteoarthritis of right knee Arthritis Sleep apnea COVID-19 vaccine series completed Chronic GERD Lipid disorder Depression, major, recurrent Hypertension, essential Morbid obesity Osteoarthritis, hip, bilateral Surgical History (Updated 12/15/22 @ 10:07 by Phyllis Artis Sage) H/O knee surgery Hx of umbilical hernia repair History of total right hip replacement History of umbilical hernia repair Status post total hip replacement, left History of total left hip replacement History of surgery H/O colonoscopy History of sleeve gastrectomy History of ankle surgery Family History Father HTN (hypertension) Mother HTN (hypertension) Sister Cancer of thyroid Maternal Grandfather No problems noted. Maternal Grandmother No problems noted. Paternal Grandfather No problems noted. Paternal Grandmother No problems noted. Brother No problems noted. Sister No problems noted. Sister No problems noted. Social History Household Members: Friend(s) Housing: Homeless Are you a primary health care recruiter to a significant other at home: No Do you presently have visiting nurse or other home services: Yes Alcohol intake: former Patient Tobacco Use Status: Never used Tobacco e-Cigarette/Vaping Use: Never Used Substance Use Type: Marijuana service: No Current occupational status: disabled Cognitive needs: No Hearing needs: No Vision needs: No Review of Systems Const All systems reviewed & are unremarkable except as noted in HPI and below Physical Exam Vital Signs: BMI result Body Mass Index 39.7 Constitutional: Patient appears to be in no acute distress, well nourished and well developed. Patient was appropriately conversant and oriented. Good historian. MSK: Inspection reveals appropriate head and neck positioning. No specific abnormalities found on inspection of the spine and all extremities. Mild tenderness bilateral lumbar paraspinals. Mild tenderness left SI joint Lumbar ROM was full. Bilateral hip, knee and ankle ROM WNL. No ligamentous laxity or crepitance. No increased effusion. Straight-leg raising test negative. FABERE test negative. Strength is 5/5 in all muscle groups tested. No increased tone noted. Neurological: Mood appears normal, good affect, and appropriate for the circumstances. Neurologic examination of the upper and lower extremities was nonfocal with intact sensation, muscle stretch reflexes and without focal motor deficits. Eagle?s negative bilaterally. Babinski was down going bilaterally. Clonus was negative. Gait not symmetric but not antalgic. Possibly from past hip replacement. Results Reviewed Results Reviewed: I independently reviewed the results of the following: Lumbar x-rays done today showed endplate spurs, possible disc space narrowing L4-5. I reviewed records from the following: Orthopedic Assessment & Plan Assessment & Plan (1) Myofascial pain: Code(s): M79.18 - Myalgia, other site (2) Sacroiliac joint dysfunction of left side: Code(s): M53.3 - Sacrococcygeal disorders, not elsewhere classified Plan He probably had lumbar spasms/strain which is now much better. He can continue to exercise at the gym but advised to use a heating pad after. If paraspinal tenderness gets worse, we could trial trigger point injections. After SI joint pain gets worse, we can send him to pain management for injection. Assessment and plan discussed with patient, and patient was agreeable. All questions were answered thoroughly. Triny Pagan MD, DENNIS Board Certified, [place] [employer] and Rehabilitation (ABPMR) Board Certified, [place] [employer] Electrodiagnostic [employer] (ABEM) Orders: Orders XR lumbar spine 2-3V Today M54.9 - Dorsalgia, unspecified Medications: Discontinued docusate sodium Discontinued Reason: Patient Completed Course 100 mg PO BID 14 days 28 caps 0RF aspirin Discontinued Reason: Patient Completed Course 325 mg PO BID 42 days 84 tabs 0RF celecoxib Discontinued Reason: Patient Completed Course 200 mg PO BID 30 days 60 caps 0RF oxycodone Partial Fill upon patient request. Discontinued Reason: Patient Completed Course 5 mg PO Q4H 7 days PRN 42 tabs 0RF Pain, Moderate(Pain Scale 4-6) Coding Level of Care Code New Pt Level 4 (07869) Diagnoses Myofascial pain M79.18 Sacroiliac joint dysfunction of left side M53.3
== END 2022-12-24 11:43 | disposition home or self-care (01) ==
PROVIDERS: PCP Internal Medicine; Visit Provider Physical Medicine & Rehabilitation
DX: M79.18 Myalgia, other site (principal); M53.3 Sacrococcygeal disorders, not elsewhere classified
CPT/HCPCS: 99204

== ENCOUNTER 2022-12-29 10:45 | Outpatient (AMB) | payer OTHER, SELFPAY ==
[2022-12-29 10:50] VITALS: BP 118/66; PULSE 80; O2SAT 98; BMI 40.2
--- NOTE | 2022-12-29 10:50 | MHC.PC.OV ---
Vital Signs 12/29/22 10:50 Height 6 ft Weight 296 lb 2 oz BMI 40.2 BP 118/66 Blood Pressure Location Rt brachial Position Sitting Pulse 80 Pulse Source Pulse Oximeter Pulse Oximetry (%) 98 Oxygen Delivery Method Room Air Intake Visit Reasons: 3m follow up Allergies lisinopril [LISINOPRIL] Adverse Reaction (Severe, Verified 12/29/22 10:50) COUGH Medication List - Last Reconciled 12/29/22 by Renard Benton MD acetaminophen 650 mg (2 x 325 mg) PO Q6H PRN 30 days amlodipine 10 mg PO BEDTIME 90 days atorvastatin 20 mg PO BEDTIME 90 days bupropion HCl (Wellbutrin SR) 150 mg PO BID 90 days [id number]-copper-kelsi 325 mg-12.5 mcg -2.75 mg (Citracal-D3 Maximum Plus) 1 tab PO BID escitalopram oxalate (Lexapro) 10 mg PO DAILY 90 days omeprazole 20 mg PO DAILY spironolacton-hydrochlorothiaz 25-25 mg 1 tab PO BEDTIME Tobacco use date assessed: 12/29/22 Dental Screening Dental Screen Date: 12/29/22 Did you have a dental visit in the last 12 months?: No Did you have a dental problem in the last 6 months where you did not have access to dental care?: No Was dental information given to patient?: Patient has dentist HPI 3m follow up HPI Details Patient is a 52-year-old gentleman this is a follow-up appointment Patient had Right knee replacement surgery on October 08. And has orthopedic follow-up appointment coming up Patient is hypertensive and is taking amlodipine 10 mg however he has stop taking spironolactone hydrochlorothiazide. Patient is tolerating medications no side effects Patient is on bupropion 150 mg b.i.d. and Lexapro 10 mg he is feeling much better taking both medications and would like to continue that He is seeing therapist 2 times a week as well Patient is slightly anemic his last hemoglobin was 11.5 in September we will continue to monitor Continue atorvastatin 20 mg for lipid control.? Impaired fasting sugar, diet controlled Obstructive sleep apnea:? Patient is using CPAP machine regularly at night. I did place a referral for him to see sleep specialist last visit BMI is elevated, need to lose weight. ? Flu vaccine was given today [facility] Medical History Hypertension, essential Myofascial pain Elevated cholesterol Obstructive sleep apnea on CPAP Osteoarthritis of right knee Arthritis Sleep apnea COVID-19 vaccine series completed Chronic GERD Lipid disorder Depression, major, recurrent Morbid obesity Osteoarthritis, hip, bilateral Surgical History H/O knee surgery Hx of umbilical hernia repair History of total right hip replacement History of umbilical hernia repair Status post total hip replacement, left History of total left hip replacement History of surgery H/O colonoscopy History of sleeve gastrectomy History of ankle surgery Family History Father HTN (hypertension) Mother HTN (hypertension) Sister Cancer of thyroid Maternal Grandfather No problems noted. Maternal Grandmother No problems noted. Paternal Grandfather No problems noted. Paternal Grandmother No problems noted. Brother No problems noted. Sister No problems noted. Sister No problems noted. Social History Household Members: Friend(s) Housing: Homeless Are you a primary nurse behavioral health care to a significant other at home: No Do you presently have visiting nurse or other home services: Yes Alcohol intake: former Patient Tobacco Use Status: Never used Tobacco e-Cigarette/Vaping Use: Never Used Substance Use Type: Marijuana service: No Current occupational status: disabled Cognitive needs: No Hearing needs: No Vision needs: No Questionnaire PHQ-9 Over the last 2 weeks, how often have you been bothered by any of the following problems? 1. Little interest or pleasure in doing things: several days 2. Feeling down, depressed, or hopeless: more than half the days 3. Trouble falling or staying asleep, or sleeping too much: nearly every day 4. Feeling tired or having little energy: nearly every day 5. Poor appetite or overeating: more than half the days 6. Feeling bad about yourself - or that you are a failure or have let yourself or your family down: several days 7. Trouble concentrating on things, such as reading the newspaper or watching television: more than half the days 8. Moving or speaking so slowly that other people could have noticed. Or the opposite - being so fidgety or restless that you have been moving around a lot more than usual: not at all 9. Thoughts that you would be better off or of hurting yourself in some way: not at all Total score: 14 Depression Screening Interpretation: Positive Depression Screening Follow-up: Existing condition and In treatment Depression Screening Done: Yes 12163 - PHQ-9 Billing: Yes Source: Developed by Drs. Uriel Farias, Vida Retana, Junior Whipple and colleagues, with an educational juan carlos from [employer]. Thrive Questionnaire Date Thrive assessed: 10/14/22 AUDIT C Alcohol Use Questionnaire (AUDIT-C) 1. How often do you have a drink containing alcohol?: Never 3. How often do you have six or more drinks on one occasion?: Never Total Score: 0 Score Reviewed/Action Taken: Yes YAMILETH-7 AMB Questionnaire YAMILETH-7 Date YAMILETH - 7 assessed: 03/31/22 Source: Developed by Drs. Uriel Farias, Vida Retana, Junior Whipple and colleagues, with an educational juan carlos from [employer]. Review of Systems Const Denies chills and Denies fever(s) ENT Denies epistaxis and Denies nasal discharge Card Denies chest pain Resp Denies chest congestion, Denies cough and Denies hemoptysis GI Denies diarrhea and Denies nausea Skin/Breast Denies rash Neuro Reports no additional complaints Psych Reports no additional complaints Endo Reports no additional complaints Physical exam (Primary Care) Vital Signs: Last Vital Signs Pulse 80 12/29/22 10:50 BP 118/66 12/29/22 10:50 Pulse Ox 98 12/29/22 10:50 Oxygen Delivery Method Room Air 12/29/22 10:50 BMI result Body Mass Index 40.2 Tobacco/Smoking Status: Tobacco use Status Tobacco use date assessed 12/29/22 12/29/22 10:51 Patient Tobacco Use Status Never used Tobacco 12/29/22 10:51 e-Cigarette/Vaping Use Never Used 12/29/22 10:51 PHQ-9: PHQ-9 Score PHQ-9: Total score 14 12/29/22 11:22 Depression Screening Interpretation: Positive Depression Screening Follow-up: Existing condition and In treatment Thrive Assessment: Date of Thrive Assessment Date Thrive assessed 10/14/22 12/29/22 10:51 Const General: cooperative, comfortable and no acute distress Orientation/consciousness: patient oriented x3 HENMT Head: Yes normocephalic Eyes General: appearance normal, both eyes and all related structures Neck Neck: Yes supple Resp Effort & Inspection: normal respiratory effort, no cough and no stridor Cardio Rhythm: regular rhythm Heart sounds: S1 normal heart sound present and S2 normal heart sound present Skin General skin exam: turgor normal Neuro General: patient oriented x3, tone normal and moves all extremities Extrem Right lower extremity: no edema Left lower extremity: no edema Office Procedures Flu Questionnaire Does the patient have a severe egg allergy?: No Does the patient have severe life threatening allergies?: No Does the patient have a fever or illness today?: No Has the patient ever had Guillain-[place] Syndrome?: No Has the patient ever had any past reaction to a flu shot?: No Immunizations flu vacc [id number] 6mos up(PF) 60 mcg(15 mcgx4)/0.5 mL IM syringe Performing Provider: Renard Benton MD [facility] Administered by: Rita Flores RN on 12/29/22 11:23 Dose Route Admin Location Dispensed Lot Number Expiration Date NDC Accounting Generalist 0.5 mL IM Right Deltoid 0.5 mL [id number] 09/19/23 [id number] [place] VIS Given Date VIS Provided VIS Publication Date 12/29/22 Single Vaccine 20 Eligibility Eligibility Date Funding Source Not [facility] Eligible 12/29/22 Private Assessment and Plan Assessment & Plan (1) Hypertension, essential: Code(s): I10 - Essential (primary) hypertension (2) Impaired fasting blood sugar: Code(s): R73.01 - Impaired fasting glucose (3) Morbid obesity: Code(s): E66.01 - Morbid (severe) obesity due to excess calories (4) Sleep difficulties: Code(s): G47.9 - Sleep disorder, unspecified (5) Prediabetes: Code(s): R73.03 - Prediabetes (6) Depression, major, recurrent: Code(s): F33.9 - Major depressive disorder, recurrent, unspecified Qualifiers: Active/Remission status: in partial remission Qualified Code(s): F33.41 - Major depressive disorder, recurrent, in partial remission (7) History of bariatric surgery: Code(s): Z98.84 - Bariatric surgery status (8) Chronic GERD: Code(s): K21.9 - Gastro-esophageal reflux disease without esophagitis (9) Lipid disorder: Code(s): E78.9 - Disorder of lipoprotein metabolism, unspecified (10) Obstructive sleep apnea on CPAP: Code(s): G47.33 - Obstructive sleep apnea (adult) (pediatric) Plan Patient is a 52-year-old gentleman this is a follow-up appointment Patient had Right knee replacement surgery on October 08. And has orthopedic follow-up appointment coming up Patient is hypertensive and is taking amlodipine 10 mg however he has stop taking spironolactone hydrochlorothiazide. Patient is tolerating medications no side effects Patient is on bupropion 150 mg b.i.d. and Lexapro 10 mg he is feeling much better taking both medications and would like to continue that He is seeing therapist 2 times a week as well Patient is slightly anemic his last hemoglobin was 11.5 in September we will continue to monitor Continue atorvastatin 20 mg for lipid control.? Impaired fasting sugar, diet controlled Obstructive sleep apnea:? Patient is using CPAP machine regularly at night. I did place a referral for him to see sleep specialist last visit BMI is elevated, need to lose weight. ? Flu vaccine was given today Orders: Orders Comprehensive Met. Panel Today E66.01 - Morbid (severe) obesity due to excess calories, G47.9 - Sleep disorder, unspecified, I10 - Essential (primary) hypertension, R73.01 - Impaired fasting glucose Hemoglobin A1c Today R73.03 - Prediabetes Complete Blood Count Auto Diff Today D64.9 - Anemia, unspecified, E66.01 - Morbid (severe) obesity due to excess calories, G47.9 - Sleep disorder, unspecified, I10 - Essential (primary) hypertension, R73.01 - Impaired fasting glucose Influenza [id number] Immunization Today Z23 - Encounter for immunization Coding Level of Care Code Est Pt Level 4 (80701) Diagnoses Hypertension, essential I10 Impaired fasting blood sugar R73.01 Morbid obesity E66.01 Sleep difficulties G47.9 Prediabetes R73.03 Recurrent major depressive disorder, in partial remission F33.41 Active/Remission status: in partial remission History of bariatric surgery Z98.84 Chronic GERD K21.9 Lipid disorder E78.9 Obstructive sleep apnea on CPAP G47.33
== END 2022-12-29 14:59 | disposition home or self-care (01) ==
PROVIDERS: PCP Internal Medicine; Visit Provider Internal Medicine
DX: I10 Essential (primary) hypertension (principal); F33.41 Major depressive disorder, recurrent, in partial remission; E66.01 Morbid (severe) obesity due to excess calories; Z68.41 Body mass index [BMI] 40.0-44.9, adult; Z23 Encounter for immunization; R73.01 Impaired fasting glucose; G47.9 Sleep disorder, unspecified; R73.03 Prediabetes; Z98.84 Bariatric surgery status; K21.9 Gastro-esophageal reflux disease without esophagitis; E78.9 Disorder of lipoprotein metabolism, unspecified; G47.33 Obstructive sleep apnea (adult) (pediatric)
CPT/HCPCS: 90471; 90686; 99214

== ENCOUNTER 2022-12-29 11:23 | Outpatient (REF) | payer OTHER, SELFPAY | END 2022-12-29 11:24 | disposition home or self-care (01) | LOC: HO.HMGCLDS 11:23 | PROVIDERS: PCP Internal Medicine; Visit Provider Internal Medicine | DX: R73.03 Prediabetes (principal); E66.01 Morbid (severe) obesity due to excess calories; G47.9 Sleep disorder, unspecified; D64.9 Anemia, unspecified; F33.9 Major depressive disorder, recurrent, unspecified; K21.9 Gastro-esophageal reflux disease without esophagitis; E78.9 Disorder of lipoprotein metabolism, unspecified; I10 Essential (primary) hypertension; Z98.84 Bariatric surgery status | CPT/HCPCS: 36415; 80053; 83036; 85025 ==

== ENCOUNTER 2023-06-29 11:08 | Outpatient (AMB) | payer OTHER, SELFPAY ==
[2023-06-29 11:12] VITALS: BP 132/96; PULSE 71; O2SAT 95; BMI 42.0
--- NOTE | 2023-06-29 11:12 | MHC.PC.OV ---
Vital Signs 06/29/23 11:12 Height 6 ft Weight 310 lb BMI 42.0 BP 132/96 H Blood Pressure Location Lt brachial Position Sitting Pulse 71 Pulse Source Pulse Oximeter Pulse Oximetry (%) 95 Oxygen Delivery Method Room Air Intake Visit Reasons: 9m follow up Allergies lisinopril [LISINOPRIL] Adverse Reaction (Severe, Verified 06/29/23 11:15) COUGH Medication List - Last Reconciled 06/29/23 by Renard Benton MD acetaminophen 650 mg (2 x 325 mg) PO Q6H PRN 30 days amlodipine 10 mg PO BEDTIME 90 days atorvastatin 20 mg PO BEDTIME 90 days bupropion HCl SR (Wellbutrin SR) 150 mg PO BID 90 days sgywvuh-[id number]-copper-kelsi 325 mg-12.5 mcg -2.75 mg (Citracal-D3 Maximum Plus) 1 tab PO BID escitalopram oxalate (Lexapro) 10 mg PO DAILY 90 days omeprazole 20 mg PO DAILY spironolacton-hydrochlorothiaz 25-25 mg 1 tab PO BEDTIME Tobacco use date assessed: 06/29/23 Dental Screening Dental Screen Date: 06/29/23 Did you have a dental visit in the last 12 months?: No Did you have a dental problem in the last 6 months where you did not have access to dental care?: No Was dental information given to patient?: No HPI 9m follow up HPI Details Patient is a 52-year-old gentleman this is a follow-up appointment Patient missed his follow-up appointment in March as he went to [place] Due for labs last set of lab was December of last year Patient have history of bilateral hip replacement and right knee replacement Patient is hypertensive and is taking amlodipine 10 mg however he has stop taking spironolactone hydrochlorothiazide. Patient is tolerating medications no side effects, blood pressure is running in 130s systolic at home Patient is on bupropion 150 mg b.i.d. and Lexapro 10 mg he is feeling much better taking both medications and would like to continue that He is seeing therapist 2 times a week as well Patient is slightly anemic we will continue to monitor Continue atorvastatin 20 mg for lipid control.? Impaired fasting sugar, diet controlled Obstructive sleep apnea:? Patient is using CPAP machine regularly at night. Managed by specialist BMI is elevated, need to lose weight. ? Follow-up end of September [facility] Medical History Hypertension, essential Myofascial pain Elevated cholesterol Obstructive sleep apnea on CPAP Osteoarthritis of right knee Arthritis Sleep apnea COVID-19 vaccine series completed Chronic GERD Lipid disorder Depression, major, recurrent Morbid obesity Osteoarthritis, hip, bilateral Surgical History H/O knee surgery Hx of umbilical hernia repair History of total right hip replacement History of umbilical hernia repair Status post total hip replacement, left History of total left hip replacement History of surgery H/O colonoscopy History of sleeve gastrectomy History of ankle surgery Family History Father HTN (hypertension) Mother HTN (hypertension) Sister Cancer of thyroid Maternal Grandfather No problems noted. Maternal Grandmother No problems noted. Paternal Grandfather No problems noted. Paternal Grandmother No problems noted. Brother No problems noted. Sister No problems noted. Sister No problems noted. Social History Household Members: Friend(s) Housing: Homeless Are you a primary healthcare applications analyst to a significant other at home: No Do you presently have visiting nurse or other home services: Yes Alcohol intake: former Patient Tobacco Use Status: Never used Tobacco e-Cigarette/Vaping Use: Never Used Substance Use Type: Marijuana service: No Current occupational status: disabled Cognitive needs: No Hearing needs: No Vision needs: No Questionnaire PHQ-9 Over the last 2 weeks, how often have you been bothered by any of the following problems? 1. Little interest or pleasure in doing things: several days 2. Feeling down, depressed, or hopeless: several days 3. Trouble falling or staying asleep, or sleeping too much: not at all 4. Feeling tired or having little energy: several days 5. Poor appetite or overeating: several days 6. Feeling bad about yourself - or that you are a failure or have let yourself or your family down: several days 7. Trouble concentrating on things, such as reading the newspaper or watching television: several days 8. Moving or speaking so slowly that other people could have noticed. Or the opposite - being so fidgety or restless that you have been moving around a lot more than usual: not at all 9. Thoughts that you would be better off or of hurting yourself in some way: not at all Total score: 6 Depression Screening Interpretation: Negative Depression Screening Done: Yes 20302 - PHQ-9 Billing: Yes Source: Developed by Drs. Uriel Farias, Vida Retana, Junior Whipple and colleagues, with an educational juan carlos from [employer]. Thrive Questionnaire Date Thrive assessed: 06/29/23 I am a: Patient What is your living situation today?: I have a steady place to live Within the past 12 months, did the food you bought not last and you didn't have the money to get more?: Never true Within the past 12 months, did you worry whether your food would run out before you got money to buy more?: Never true Do you have trouble paying for medicines?: No Do you have trouble getting transportation to medical appointments?: No Do you have trouble paying your heating and electricity bill?: No Do you have trouble taking care of your child, family member or friend?: No Do you have trouble with day-to-day activities such as bathing, preparing meals, shopping, managing finances, etc.?: Yes Are you currently unemployed and looking for a job?: Yes Are you interested in more education?: No Please select the resources that you would like help with: Job search/training Currently or been in a relationship where the following occur: no concerns reported THRIVE Score: 0 AUDIT C Alcohol Use Questionnaire (AUDIT-C) 1. How often do you have a drink containing alcohol?: Never 3. How often do you have six or more drinks on one occasion?: Never Total Score: 0 Score Reviewed/Action Taken: Yes YAMILETH-7 AMB Questionnaire YAMILETH-7 Date YAMILETH - 7 assessed: 06/29/23 Feeling nervous, anxious, or on edge: 1 = Several days Not being able to stop or control worryin = Several days Worrying too much about different things: 1 = Several days Trouble relaxin = Several days Being so restless that it is hard to sit still: 0 = Not at all Becoming easily annoyed or irritable: 1 = Several days Feeling afraid as if something awful might happen: 1 = Several days Total YAMILETH-7 score (0-4 normal; 5-9 mild; 10-14 moderate; 15-21 severe): 6 Source: Developed by Drs. Uriel Farias, Vida Retana, Junior Whipple and colleagues, with an educational juan carlos from [employer]. YAMILETH-7 Assessment Billing YAMILETH-7 Assessment Tool: YAMILETH-7 Assessment 59524 Review of Systems Const Denies chills and Denies fever(s) ENT Denies epistaxis and Denies nasal discharge Card Denies chest pain Resp Denies chest congestion, Denies cough and Denies hemoptysis GI Denies diarrhea and Denies nausea Skin/Breast Denies rash Neuro Reports no additional complaints Psych Reports no additional complaints Endo Reports no additional complaints Physical exam (Primary Care) Vital Signs: Last Vital Signs Pulse 71 06/29/23 11:12 BP 132/96 H 06/29/23 11:12 Pulse Ox 95 06/29/23 11:12 Oxygen Delivery Method Room Air 06/29/23 11:12 BMI result Body Mass Index 42.0 Tobacco/Smoking Status: Tobacco use Status Tobacco use date assessed 06/29/23 06/29/23 11:15 Patient Tobacco Use Status Never used Tobacco 06/29/23 11:15 e-Cigarette/Vaping Use Never Used 06/29/23 11:15 PHQ-9: PHQ-9 Score PHQ-9: Total score 6 06/29/23 11:33 Depression Screening Interpretation: Negative Thrive Assessment: Date of Thrive Assessment Date Thrive assessed 06/29/23 06/29/23 11:33 Currently or been in a relationship where the following occur: no concerns reported Const General: cooperative, comfortable and no acute distress Orientation/consciousness: patient oriented x3 HENIA Head: Yes normocephalic Eyes General: appearance normal, both eyes and all related structures Neck Neck: Yes supple Resp Effort & Inspection: normal respiratory effort, no cough and no stridor Cardio Rhythm: regular rhythm Heart sounds: S1 normal heart sound present and S2 normal heart sound present Skin General skin exam: turgor normal Neuro General: patient oriented x3, tone normal and moves all extremities Extrem Right lower extremity: no edema Left lower extremity: no edema Assessment and Plan Assessment & Plan (1) Hypertension, essential: Code(s): I10 - Essential (primary) hypertension (2) Anemia: Code(s): D64.9 - Anemia, unspecified Qualifiers: Anemia type: other cause Other causes of anemia: chronic disease, other Qualified Code(s): D63.8 - Anemia in other chronic diseases classified elsewhere (3) Prediabetes: Code(s): R73.03 - Prediabetes (4) Morbid obesity: Code(s): E66.01 - Morbid (severe) obesity due to excess calories (5) Depression, major, recurrent: Code(s): F33.9 - Major depressive disorder, recurrent, unspecified Qualifiers: Active/Remission status: in partial remission Qualified Code(s): F33.41 - Major depressive disorder, recurrent, in partial remission (6) History of bariatric surgery: Code(s): Z98.84 - Bariatric surgery status (7) Chronic GERD: Code(s): K21.9 - Gastro-esophageal reflux disease without esophagitis (8) Lipid disorder: Code(s): E78.9 - Disorder of lipoprotein metabolism, unspecified (9) Obstructive sleep apnea on CPAP: Code(s): G47.33 - Obstructive sleep apnea (adult) (pediatric) Plan Patient is a 52-year-old gentleman this is a follow-up appointment Patient missed his follow-up appointment in March as he went to [place] Due for labs last set of lab was December of last year Patient have history of bilateral hip replacement and right knee replacement Patient is hypertensive and is taking amlodipine 10 mg however he has stop taking spironolactone hydrochlorothiazide. Patient is tolerating medications no side effects, blood pressure is running in 130s systolic at home Patient is on bupropion 150 mg b.i.d. and Lexapro 10 mg he is feeling much better taking both medications and would like to continue that He is seeing therapist 2 times a week as well Patient is slightly anemic we will continue to monitor Continue atorvastatin 20 mg for lipid control.? Impaired fasting sugar, diet controlled Obstructive sleep apnea:? Patient is using CPAP machine regularly at night. Managed by specialist BMI is elevated, need to lose weight. ? Follow-up end of September Orders: Orders LDL Cholesterol Direct Today D64.9 - Anemia, unspecified, E66.01 - Morbid (severe) obesity due to excess calories, I10 - Essential (primary) hypertension, R73.03 - Prediabetes Hemoglobin A1c Today D64.9 - Anemia, unspecified, E66.01 - Morbid (severe) obesity due to excess calories, I10 - Essential (primary) hypertension, R73.03 - Prediabetes Complete Blood Count Auto Diff Today D64.9 - Anemia, unspecified, E66.01 - Morbid (severe) obesity due to excess calories, I10 - Essential (primary) hypertension, R73.03 - Prediabetes Comprehensive Met. Panel Today D64.9 - Anemia, unspecified, E66.01 - Morbid (severe) obesity due to excess calories, I10 - Essential (primary) hypertension, R73.03 - Prediabetes Coding Level of Care Code Est Pt Level 4 (19139) Diagnoses Hypertension, essential I10 Anemia in other chronic diseases classified elsewhere D63.8 Anemia type: other cause Other causes of anemia: chronic disease, other Prediabetes R73.03 Morbid obesity E66.01 Recurrent major depressive disorder, in partial remission F33.41 Active/Remission status: in partial remission History of bariatric surgery Z98.84 Chronic GERD K21.9 Lipid disorder E78.9 Obstructive sleep apnea on CPAP G47.33 Additional Codes YAMILETH-7 Assessment Billing - YAMILETH-7 Assessment Tool: YAMILETH-7 Assessment [id number] ([id number])
== END 2023-06-29 11:30 | disposition home or self-care (01) ==
PROVIDERS: PCP Internal Medicine; Visit Provider Internal Medicine
DX: I10 Essential (primary) hypertension (principal); E66.01 Morbid (severe) obesity due to excess calories; F33.41 Major depressive disorder, recurrent, in partial remission; Z68.41 Body mass index [BMI] 40.0-44.9, adult; D63.8 Anemia in other chronic diseases classified elsewhere; R73.03 Prediabetes; Z98.84 Bariatric surgery status; K21.9 Gastro-esophageal reflux disease without esophagitis; E78.9 Disorder of lipoprotein metabolism, unspecified; G47.33 Obstructive sleep apnea (adult) (pediatric)
CPT/HCPCS: 99214

== ENCOUNTER 2023-06-29 11:31 | Outpatient (REF) | payer OTHER, SELFPAY ==
[2023-06-29 13:31] LABS: MANUAL DIFF FLAG NO
[2023-06-29 13:37] LABS: Basophils Absolute Auto 0.1 X10*3/uL (0.0-0.2); Basophils Percent Auto 0.8 % (0-2); Eosinophils Absolute Auto 0.1 X10*3/uL (0.0-0.4); Eosinophils Percent Auto 1.4 % (0-4); Hematocrit 46.5 % (42.0-52.0); Hemoglobin 15.3 g/dl (14.0-18.0); Imm Gran Abs Auto 0.03 X10*3/uL (0.00-0.03); Imm Gran Pct Auto 0.3 % (0.0-0.4); Lymphocytes Absolute Auto 3.1 X10*3/uL (1.2-4.9); Lymphocytes Percent Auto 30.4 % (20-40); Mean Corpuscular HGB Conc 32.9 g/dl (31.0-36.0); Mean Corpuscular Hemoglobin 28.4 pg (27.0-33.0); Mean Corpuscular Volume 86.4 fL (80.0-98.0); Mean Platelet Volume 8.8 fL (9.4-12.4); Monocytes Absolute Auto 0.8 X10*3/uL (0.1-1.2); Monocytes Percent Auto 7.9 % (2-11); Neutrophils Percent Auto 59.2 % (45-73); Platelet Count 360 X10*3/uL (160-400); Red Blood Count 5.38 X10*6/uL (4.60-5.80); White Blood Count 10.1 X10*3/uL (4.8-10.8)
[2023-06-29 13:51] LABS: Estimated Average Glucose 111 mg/dL; Hemoglobin A1c % 5.5 % (<6.0)
[2023-06-29 13:56] LABS: Alanine Aminotransferase 24 U/L (0-40); Albumin Level 4.3 g/dL (3.5-5.0); Alkaline Phosphatase 63 U/L (39-117); Anion Gap 12 (12-20); Aspartate Amino Transferase 27 U/L (5-37); Bilirubin Total 0.6 mg/dL (0.0-1.0); Blood Urea Nitrogen 10 mg/dL (9-16); Calcium 10.9 mg/dL (8.4-10.2); Carbon Dioxide 32 mmol/L (22-29); Chloride 102 mmol/L (96-108); Estimated Glomerular Filt Rate > 60; Glucose Random 87 mg/dL (60-115); Potassium 3.6 mmol/L (3.3-5.1); Sodium 142 mmol/L (135-145); Total Protein 7.7 g/dL (6.5-8.0)
[2023-06-30 06:28] LABS: LDL Cholesterol Direct 127 mg/dL (<100)
== END 2023-06-29 11:32 | disposition home or self-care (01) ==
LOC: HO.HMGCLDS 11:31
PROVIDERS: PCP Internal Medicine; Visit Provider Internal Medicine
DX: I10 Essential (primary) hypertension (principal); D64.9 Anemia, unspecified; R73.03 Prediabetes; E66.01 Morbid (severe) obesity due to excess calories
CPT/HCPCS: 36415; 80053; 83036; 83721; 85025

== ENCOUNTER 2023-09-07 13:48 | Outpatient (AMB) | payer OTHER, SELFPAY ==
--- NOTE | 2023-09-07 13:58 | A.OFFVIS_ITS ---
Vital Signs 09/07/23 13:59 Height 6 ft Weight 309 lb BMI 41.9 BP 138/100 H Blood Pressure Location Rt brachial Pulse 73 Pulse Source Pulse Oximeter Pulse Oximetry (%) 98 Oxygen Delivery Method Room Air Intake Visit Reasons: 6 mnts f/u for sleep - CONF Intake Note: Patient presents for 6 month follow up sleep. Patient has been taking iron and states he's sleeping better. Allergies lisinopril [LISINOPRIL] Adverse Reaction (Severe, Verified 09/07/23 14:01) COUGH Medication List - Last Reconciled 09/07/23 by YONNY Masters acetaminophen 650 mg (2 x 325 mg) PO Q6H PRN 30 days amlodipine 10 mg PO BEDTIME 90 days atorvastatin 20 mg PO BEDTIME 90 days bupropion HCl SR (Wellbutrin SR) 150 mg PO BID 90 days bzakump-A0-mraz-copper-kelsi 325 mg-12.5 mcg -2.75 mg (Citracal-D3 Maximum Plus) 1 tab PO BID escitalopram oxalate (Lexapro) 10 mg PO DAILY 90 days omeprazole 20 mg PO DAILY spironolacton-hydrochlorothiaz 25-25 mg 1 tab PO BEDTIME HPI Comments Details: 52-yr-old male presents for follow-up visit of sleep apnea. Pt was previously f/b [employer]. Pt denies any significant interval medical history changes. He sleeps around 9 hrs per night. Can be sleepy during the day- will doze off if inactive. Denies dozing while driving. Occasionally has a poor night of sleep. However, has started OTC Magnesium, which is helping him to sleep better. He takes his Bupropion in the am. He has ah/o anemia- states is taking iron supplement. He is complaint w/ his CPAP. Uses nightly. Compliance report shows CPAP 12 cmH2O, w/ 100% use, residual AHI < 1 /hr. [facility] Medical History Hypertension, essential Myofascial pain Elevated cholesterol Obstructive sleep apnea on CPAP Osteoarthritis of right knee Arthritis Sleep apnea COVID-19 vaccine series completed Chronic GERD Lipid disorder Depression, major, recurrent Morbid obesity Osteoarthritis, hip, bilateral Surgical History H/O knee surgery Hx of umbilical hernia repair History of total right hip replacement History of umbilical hernia repair Status post total hip replacement, left History of total left hip replacement History of surgery H/O colonoscopy History of sleeve gastrectomy History of ankle surgery Family History Father HTN (hypertension) Mother HTN (hypertension) Sister Cancer of thyroid Maternal Grandfather No problems noted. Maternal Grandmother No problems noted. Paternal Grandfather No problems noted. Paternal Grandmother No problems noted. Brother No problems noted. Sister No problems noted. Sister No problems noted. Social History Household Members: Friend(s) Housing: Homeless Are you a primary child care centre manager to a significant other at home: No Do you presently have visiting nurse or other home services: Yes Alcohol intake: former Patient Tobacco Use Status: Never used Tobacco e-Cigarette/Vaping Use: Never Used Substance Use Type: Marijuana service: No Current occupational status: disabled Cognitive needs: No Hearing needs: No Vision needs: No Review of Systems Const All systems reviewed & are unremarkable except as noted in HPI and below Physical Exam Vital Signs: Last Vital Signs Pulse 73 09/07/23 13:59 BP 138/100 H 09/07/23 13:59 Pulse Ox 98 09/07/23 13:59 Oxygen Delivery Method Room Air 09/07/23 13:59 BMI result Body Mass Index 41.9 Const General: no acute distress Orientation/consciousness: patient oriented x3 HEENT Other: Mallampati stage Resp Effort & Inspection: normal respiratory effort and able to speak in complete sentences Auscultation: clear to auscultation bilaterally Cardio Rate: regular rate Rhythm: regular rhythm Neuro General: patient oriented x3 Gait exam (Neuro): Antalgic gait present Psych Mental Status: mental status grossly normal Speech and movement: Clear speech present Attitude: cooperative Results Reviewed Results Reviewed: PAP compliance report- see HPI Assessment & Plan Assessment & Plan (1) Sleep apnea: Comment: uses CPAP [facility] Code(s): G47.30 - Sleep apnea, unspecified Category: Medical (2) Anemia: Code(s): D64.9 - Anemia, unspecified Category: Medical Qualifiers: Anemia type: other cause Other causes of anemia: chronic disease, other Qualified Code(s): D63.8 - Anemia in other chronic diseases classified elsewhere (3) Excessive daytime sleepiness: Code(s): G47.19 - Other hypersomnia Category: Medical Plan Continue CPAP 12 cmH2O nightly > 4 hours, as pt continues to have good clinical effect from use.. Clean CPAP machine and supplies routinely. Change CPAP supplies routinely. Pt to contact us or respiratory company with any questions or concerns. For daytime sleepiness despite optimal CPAP use: Check labs for common etiologies. Continue Magnesium 250-500mg qhs. Continue taking Bupropion in am. f/u in 6 months or sooner prn. Orders: Orders Complete Blood Count Auto Diff Today D63.8 - Anemia in other chronic diseases classified elsewhere, G47.19 - Other hypersomnia Methylmalonic Acid Today D63.8 - Anemia in other chronic diseases classified elsewhere, G47.19 - Other hypersomnia Vitamin D 25-OH (D2 and D3) Today D63.8 - Anemia in other chronic diseases classified elsewhere, G47.19 - Other hypersomnia Vitamin B12 and Folate Today D63.8 - Anemia in other chronic diseases classified elsewhere, G47.19 - Other hypersomnia TSH reflex Free T4 Today D63.8 - Anemia in other chronic diseases classified elsewhere, G47.19 - Other hypersomnia IRON PROFILE Today D63.8 - Anemia in other chronic diseases classified elsewhere, G47.19 - Other hypersomnia Ferritin Today D63.8 - Anemia in other chronic diseases classified elsewhere, G47.19 - Other hypersomnia Homocysteine Today D63.8 - Anemia in other chronic diseases classified elsewhere, G47.19 - Other hypersomnia Coding Level of Care Code Est Pt Level 4 (32982) Diagnoses Sleep apnea G47.30 Anemia in other chronic diseases classified elsewhere D63.8 Anemia type: other cause Other causes of anemia: chronic disease, other Excessive daytime sleepiness G47.19
[2023-09-07 13:59] VITALS: BP 138/100; PULSE 73; O2SAT 98; BMI 41.9
== END 2023-09-07 14:28 | disposition home or self-care (01) ==
PROVIDERS: Absent Provider Nurse Practitioner Family; PCP Internal Medicine; Visit Provider Nurse Practitioner Family
DX: G47.30 Sleep apnea, unspecified (principal); D63.8 Anemia in other chronic diseases classified elsewhere; G47.19 Other hypersomnia
CPT/HCPCS: 99214

== ENCOUNTER → 2023-09-07 13:48 | Outpatient (BNVA) | payer OTHER, SELFPAY | PROVIDERS: Absent Provider Nurse Practitioner Family; PCP Internal Medicine; Visit Provider Nurse Practitioner Family | DX: G47.30 Sleep apnea, unspecified (principal); G47.19 Other hypersomnia; D63.8 Anemia in other chronic diseases classified elsewhere; Z79.899 Other long term (current) drug therapy | CPT/HCPCS: 99212 ==

== ENCOUNTER 2023-10-12 13:03 | Outpatient (AMB) | payer OTHER, SELFPAY ==
[2023-10-12 13:05] VITALS: BP 126/88; PULSE 62; O2SAT 96; BMI 42.1
--- NOTE | 2023-10-12 13:05 | MHC.PC.OV ---
Vital Signs 10/12/23 13:05 Height 6 ft Weight 310 lb 2 oz BMI 42.1 BP 126/88 Blood Pressure Location Rt brachial Position Sitting Pulse 62 Pulse Source Pulse Oximeter Pulse Oximetry (%) 96 Oxygen Delivery Method Room Air Intake Visit Reasons: 3M F/U Allergies lisinopril [LISINOPRIL] Adverse Reaction (Severe, Verified 10/12/23 13:10) COUGH Medication List - Last Reconciled 10/12/23 by Renard Benton MD acetaminophen 650 mg (2 x 325 mg) PO Q6H PRN 30 days amlodipine 10 mg PO BEDTIME 90 days atorvastatin 20 mg PO BEDTIME 90 days bupropion HCl SR (Wellbutrin SR) 150 mg PO BID 90 days zzgdfws-L2-poeq-copper-kelsi 325 mg-12.5 mcg -2.75 mg (Citracal-D3 Maximum Plus) 1 tab PO BID omeprazole 20 mg PO DAILY spironolacton-hydrochlorothiaz 25-25 mg 1 tab PO BEDTIME Tobacco use date assessed: 10/12/23 Dental Screening Dental Screen Date: 10/12/23 Did you have a dental visit in the last 12 months?: No Did you have a dental problem in the last 6 months where you did not have access to dental care?: No Was dental information given to patient?: Patient has dentist HPI 3M F/U HPI Details Patient is a 53-year-old gentleman this is a follow-up appointment Patient have history of bilateral hip replacement and right knee replacement His gait is still wobbly as it was before the hip replacement, we talked about learning to walk straight again Hypertension: Patient is taking amlodipine 10 mg and spironolactone hydrochlorothiazide, blood pressure is well-controlled Patient is tolerating medications Patient is on bupropion 150 mg b.i.d. , and also getting therapy He has stopped taking Lexapro, does admit to feeling sad at times but does not want to take another medication other than Wellbutrin Patient is no longer anemic last set of lab was June New set of lab order placed to be done next month Continue atorvastatin 20 mg for lipid control.? Impaired fasting sugar, diet controlled Obstructive sleep apnea:? Patient is using CPAP machine regularly at night. Managed by specialist BMI is elevated, need to lose weight. ? Follow-up early January [facility] Medical History Hypertension, essential Myofascial pain Elevated cholesterol Obstructive sleep apnea on CPAP Osteoarthritis of right knee Arthritis Sleep apnea COVID-19 vaccine series completed Chronic GERD Lipid disorder Depression, major, recurrent Morbid obesity Osteoarthritis, hip, bilateral Surgical History H/O knee surgery Hx of umbilical hernia repair History of total right hip replacement History of umbilical hernia repair Status post total hip replacement, left History of total left hip replacement History of surgery H/O colonoscopy History of sleeve gastrectomy History of ankle surgery Family History Father HTN (hypertension) Mother HTN (hypertension) Sister Cancer of thyroid Maternal Grandfather No problems noted. Maternal Grandmother No problems noted. Paternal Grandfather No problems noted. Paternal Grandmother No problems noted. Brother No problems noted. Sister No problems noted. Sister No problems noted. Social History Household Members: Friend(s) Housing: Homeless Are you a primary specialist wound care to a significant other at home: No Do you presently have visiting nurse or other home services: Yes Alcohol intake: former Patient Tobacco Use Status: Never used Tobacco e-Cigarette/Vaping Use: Never Used Substance Use Type: Marijuana service: No Current occupational status: disabled Cognitive needs: No Hearing needs: No Vision needs: No Questionnaire PHQ-9 Over the last 2 weeks, how often have you been bothered by any of the following problems? 1. Little interest or pleasure in doing things: several days 2. Feeling down, depressed, or hopeless: more than half the days 3. Trouble falling or staying asleep, or sleeping too much: more than half the days 4. Feeling tired or having little energy: several days 5. Poor appetite or overeating: several days 6. Feeling bad about yourself - or that you are a failure or have let yourself or your family down: several days 7. Trouble concentrating on things, such as reading the newspaper or watching television: several days 8. Moving or speaking so slowly that other people could have noticed. Or the opposite - being so fidgety or restless that you have been moving around a lot more than usual: not at all 9. Thoughts that you would be better off or of hurting yourself in some way: not at all Total score: 9 Depression Screening Interpretation: Negative Depression Screening Done: Yes 37442 - PHQ-9 Billing: Yes Source: Developed by Drs. Uriel Farias, Vida Retana, Junior Whipple and colleagues, with an educational juan carlos from [employer]. Thrive Questionnaire Date Thrive assessed: 10/12/23 I am a: Patient What is your living situation today?: I have a steady place to live Within the past 12 months, did the food you bought not last and you didn't have the money to get more?: Never true Within the past 12 months, did you worry whether your food would run out before you got money to buy more?: Never true Do you have trouble paying for medicines?: No Do you have trouble getting transportation to medical appointments?: No Do you have trouble paying your heating and electricity bill?: No Do you have trouble taking care of your child, family member or friend?: No Do you have trouble with day-to-day activities such as bathing, preparing meals, shopping, managing finances, etc.?: Yes Are you currently unemployed and looking for a job?: Yes Are you interested in more education?: Yes Please select the resources that you would like help with: Housing/Half-Way Currently or been in a relationship where the following occur: No concerns reported THRIVE Score: 0 AUDIT C Alcohol Use Questionnaire (AUDIT-C) 1. How often do you have a drink containing alcohol?: Monthly or less 2. How many drinks containing alcohol do you have on a typical day when you are drinking?: 3 or 4 3. How often do you have six or more drinks on one occasion?: Never Total Score: 2 Score Reviewed/Action Taken: Yes YAMILETH-7 AMB Questionnaire YAMILETH-7 Date YAMILETH - 7 assessed: 10/12/23 Feeling nervous, anxious, or on edge: 2 = More than half the days Not being able to stop or control worryin = Several days Worrying too much about different things: 1 = Several days Trouble relaxin = Several days Being so restless that it is hard to sit still: 0 = Not at all Becoming easily annoyed or irritable: 2 = More than half the days Feeling afraid as if something awful might happen: 1 = Several days Total YAMILETH-7 score (0-4 normal; 5-9 mild; 10-14 moderate; 15-21 severe): 8 Source: Developed by Drs. Uriel Farias, Vida Retana, Junior Whipple and colleagues, with an educational juan carlos from [employer]. YAMILETH-7 Assessment Billing YAMILETH-7 Assessment Tool: YAMILETH-7 Assessment 19424 Review of Systems Const Denies chills and Denies fever(s) ENT Denies epistaxis and Denies nasal discharge Card Denies chest pain Resp Denies chest congestion, Denies cough and Denies hemoptysis GI Denies diarrhea and Denies nausea Skin/Breast Denies rash Neuro Reports no additional complaints Psych Reports no additional complaints Endo Reports no additional complaints Physical exam (Primary Care) Vital Signs: Last Vital Signs Pulse 62 10/12/23 13:05 BP 126/88 10/12/23 13:05 Pulse Ox 96 10/12/23 13:05 Oxygen Delivery Method Room Air 10/12/23 13:05 BMI result Body Mass Index 42.1 Tobacco/Smoking Status: Tobacco use Status Tobacco use date assessed 10/12/23 10/12/23 13:11 Patient Tobacco Use Status Never used Tobacco 10/12/23 13:06 e-Cigarette/Vaping Use Never Used 10/12/23 13:06 PHQ-9: PHQ-9 Score PHQ-9: Total score 9 10/12/23 13:11 Depression Screening Interpretation: Negative Thrive Assessment: Date of Thrive Assessment Date Thrive assessed 10/12/23 10/12/23 13:11 Currently or been in a relationship where the following occur: No concerns reported Const General: cooperative, comfortable and no acute distress Orientation/consciousness: patient oriented x3 HENMT Head: Yes normocephalic Eyes General: appearance normal, both eyes and all related structures Neck Neck: Yes supple Resp Effort & Inspection: normal respiratory effort, no cough and no stridor Cardio Rhythm: regular rhythm Heart sounds: S1 normal heart sound present and S2 normal heart sound present Skin General skin exam: turgor normal Neuro General: patient oriented x3, tone normal and moves all extremities Extrem Right lower extremity: no edema Left lower extremity: no edema Assessment and Plan Assessment & Plan (1) Hypertension, essential: Code(s): I10 - Essential (primary) hypertension (2) Prediabetes: Code(s): R73.03 - Prediabetes (3) Lipid disorder: Code(s): E78.9 - Disorder of lipoprotein metabolism, unspecified (4) Morbid obesity: Code(s): E66.01 - Morbid (severe) obesity due to excess calories (5) Depression, major, recurrent: Code(s): F33.9 - Major depressive disorder, recurrent, unspecified Qualifiers: Active/Remission status: in partial remission Qualified Code(s): F33.41 - Major depressive disorder, recurrent, in partial remission (6) Chronic GERD: Code(s): K21.9 - Gastro-esophageal reflux disease without esophagitis (7) Obstructive sleep apnea on CPAP: Code(s): G47.33 - Obstructive sleep apnea (adult) (pediatric) (8) History of bariatric surgery: Code(s): Z98.84 - Bariatric surgery status (9) Sleep apnea: Comment: uses CPAP [facility] Code(s): G47.30 - Sleep apnea, unspecified Plan Patient is a 53-year-old gentleman this is a follow-up appointment Patient have history of bilateral hip replacement and right knee replacement His gait is still wobbly as it was before the hip replacement, we talked about learning to walk straight again Hypertension: Patient is taking amlodipine 10 mg and spironolactone hydrochlorothiazide, blood pressure is well-controlled Patient is tolerating medications Patient is on bupropion 150 mg b.i.d. , and also getting therapy He has stopped taking Lexapro, does admit to feeling sad at times but does not want to take another medication other than Wellbutrin Patient is no longer anemic last set of lab was June New set of lab order placed to be done next month Continue atorvastatin 20 mg for lipid control.? Impaired fasting sugar, diet controlled Obstructive sleep apnea:? Patient is using CPAP machine regularly at night. Managed by specialist BMI is elevated, need to lose weight. ? Follow-up early January Orders: Orders Complete Blood Count Auto Diff Today E66.01 - Morbid (severe) obesity due to excess calories, E78.9 - Disorder of lipoprotein metabolism, unspecified, F33.41 - Major depressive disorder, recurrent, in partial remission, G47.30 - Sleep apnea, unspecified, I10 - Essential (primary) hypertension, R73.03 - Prediabetes, Z98.84 - Bariatric surgery status Hemoglobin A1c Today E66.01 - Morbid (severe) obesity due to excess calories, E78.9 - Disorder of lipoprotein metabolism, unspecified, F33.41 - Major depressive disorder, recurrent, in partial remission, G47.30 - Sleep apnea, unspecified, I10 - Essential (primary) hypertension, R73.03 - Prediabetes, Z98.84 - Bariatric surgery status Comprehensive Met. Panel Today E66.01 - Morbid (severe) obesity due to excess calories, E78.9 - Disorder of lipoprotein metabolism, unspecified, F33.41 - Major depressive disorder, recurrent, in partial remission, G47.30 - Sleep apnea, unspecified, I10 - Essential (primary) hypertension, R73.03 - Prediabetes, Z98.84 - Bariatric surgery status LDL Cholesterol Direct Today E66.01 - Morbid (severe) obesity due to excess calories, E78.9 - Disorder of lipoprotein metabolism, unspecified, F33.41 - Major depressive disorder, recurrent, in partial remission, G47.30 - Sleep apnea, unspecified, I10 - Essential (primary) hypertension, R73.03 - Prediabetes, Z98.84 - Bariatric surgery status Coding Level of Care Code Est Pt Level 4 (15274) Complex EM visit Add On G2211 Diagnoses Hypertension, essential I10 Prediabetes R73.03 Lipid disorder E78.9 Morbid obesity E66.01 Recurrent major depressive disorder, in partial remission F33.41 Active/Remission status: in partial remission Chronic GERD K21.9 Obstructive sleep apnea on CPAP G47.33 History of bariatric surgery Z98.84 Sleep apnea G47.30 Additional Codes YAMILETH-7 Assessment Billing - YAMILETH-7 Assessment Tool: YAMILETH-7 Assessment 46900 ([id number])
== END 2023-10-12 13:26 | disposition home or self-care (01) ==
PROVIDERS: PCP Internal Medicine; Visit Provider Internal Medicine
DX: I10 Essential (primary) hypertension (principal); E66.01 Morbid (severe) obesity due to excess calories; F33.41 Major depressive disorder, recurrent, in partial remission; Z68.41 Body mass index [BMI] 40.0-44.9, adult; R73.03 Prediabetes; E78.9 Disorder of lipoprotein metabolism, unspecified; K21.9 Gastro-esophageal reflux disease without esophagitis; G47.33 Obstructive sleep apnea (adult) (pediatric); Z98.84 Bariatric surgery status; G47.30 Sleep apnea, unspecified
CPT/HCPCS: 99214; G2211

== ENCOUNTER 2024-01-25 12:08 | Outpatient (AMB) | payer OTHER, SELFPAY ==
[2024-01-25 12:15] VITALS: BP 130/84; PULSE 70; O2SAT 94; BMI 44.3
--- NOTE | 2024-01-25 12:15 | A.OFFPC_ITS ---
Vital Signs 01/25/24 12:15 Height 6 ft Weight 327 lb BMI 44.3 BP 130/84 Blood Pressure Location Rt brachial Position Sitting Pulse 70 Pulse Source Pulse Oximeter Pulse Oximetry (%) 94 Oxygen Delivery Method Room Air Intake Visit Reasons: 3M F/U Allergies lisinopril [LISINOPRIL] Adverse Reaction (Severe, Verified 01/25/24 12:17) COUGH Medication List - Last Reconciled 01/25/24 by Renard Benton MD amlodipine 10 mg PO BEDTIME 90 days atorvastatin 20 mg PO BEDTIME 90 days bupropion HCl SR (Wellbutrin SR) 150 mg PO BID 90 days [id number]-bcps-copper-kelsi 325 mg-12.5 mcg -2.75 mg (Citracal-D3 Maximum Plus) 1 tab PO BID omeprazole 20 mg PO DAILY spironolacton-hydrochlorothiaz 25-25 mg 1 tab PO BEDTIME Tobacco use date assessed: 01/25/24 Dental Screening Dental Screen Date: 01/25/24 Did you have a dental visit in the last 12 months?: Yes Did you have a dental problem in the last 6 months where you did not have access to dental care?: No Was dental information given to patient?: Patient has dentist HPI 3M F/U HPI Details Patient is a 53-year-old gentleman this is a follow-up appointment Complaining of added depression, 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 Impaired fasting sugar, diet controlled Obstructive sleep apnea:? Patient is using CPAP machine regularly at night since 2019. Managed by specialist BMI is elevated, need to lose weight. ? Follow-up 4 months [facility] Medical History (Updated 01/25/24 @ 12:42 by Renard Benton MD) Obstructive sleep apnea on CPAP Chronic GERD Lipid disorder Depression, major, recurrent Hypertension, essential Myofascial pain Elevated cholesterol Osteoarthritis of right knee Arthritis Sleep apnea COVID-19 vaccine series completed Morbid obesity Osteoarthritis, hip, bilateral Surgical History H/O knee surgery Hx of umbilical hernia repair History of total right hip replacement History of umbilical hernia repair Status post total hip replacement, left History of total left hip replacement History of surgery H/O colonoscopy History of sleeve gastrectomy History of ankle surgery Family History Father HTN (hypertension) Mother HTN (hypertension) Sister Cancer of thyroid Maternal Grandfather No problems noted. Maternal Grandmother No problems noted. Paternal Grandfather No problems noted. Paternal Grandmother No problems noted. Brother No problems noted. Sister No problems noted. Sister No problems noted. Social History Household Members: Friend(s) Housing: Homeless Are you a primary resident care manager to a significant other at home: No Do you presently have visiting nurse or other home services: Yes Alcohol intake: former Patient Tobacco Use Status: Never used Tobacco e-Cigarette/Vaping Use: Never Used Substance Use Type: Marijuana service: No Current occupational status: disabled Cognitive needs: No Hearing needs: No Vision needs: No Questionnaire Thrive Questionnaire Date Thrive assessed: 01/25/24 I am a: Patient What is your living situation today?: I have a steady place to live Within the past 12 months, did the food you bought not last and you didn't have the money to get more?: Never true Within the past 12 months, did you worry whether your food would run out before you got money to buy more?: Never true Do you have trouble paying for medicines?: No Do you have trouble getting transportation to medical appointments?: No Do you have trouble paying your heating and electricity bill?: No Do you have trouble taking care of your child, family member or friend?: No Do you have trouble with day-to-day activities such as bathing, preparing meals, shopping, managing finances, etc.?: Yes Are you currently unemployed and looking for a job?: Yes Are you interested in more education?: Yes Please select the resources that you would like help with: None Currently or been in a relationship where the following occur: No concerns reported THRIVE Score: 0 AUDIT C Alcohol Use Questionnaire (AUDIT-C) 1. How often do you have a drink containing alcohol?: Monthly or less 2. How many drinks containing alcohol do you have on a typical day when you are drinking?: 3 or 4 3. How often do you have six or more drinks on one occasion?: Never Total Score: 2 Score Reviewed/Action Taken: Yes YAMILETH-7 AMB Questionnaire YAMILETH-7 Date YAMILETH - 7 assessed: 10/12/23 Source: Developed by Drs. Uriel Farias, Vida Retana, Junior Whipple and colleagues, with an educational juan carlos from [employer]. Review of Systems Const Denies chills and Denies fever(s) ENT Denies epistaxis and Denies nasal discharge Card Denies chest pain Resp Denies chest congestion, Denies cough and Denies hemoptysis GI Denies diarrhea and Denies nausea Skin/Breast Denies rash Neuro Reports no additional complaints Psych Reports no additional complaints Endo Reports no additional complaints Physical exam (Primary Care) Vital Signs: Last Vital Signs Pulse 70 01/25/24 12:15 BP 130/84 01/25/24 12:15 Pulse Ox 94 01/25/24 12:15 Oxygen Delivery Method Room Air 01/25/24 12:15 BMI result Body Mass Index 44.3 Tobacco/Smoking Status: Tobacco use Status Tobacco use date assessed 01/25/24 01/25/24 12:19 Patient Tobacco Use Status Never used Tobacco 01/25/24 12:16 e-Cigarette/Vaping Use Never Used 01/25/24 12:16 Thrive Assessment: Date of Thrive Assessment Date Thrive assessed 01/25/24 01/25/24 12:19 Currently or been in a relationship where the following occur: No concerns reported Const General: cooperative, comfortable and no acute distress Orientation/consciousness: patient oriented x3 HENMT Head: Yes normocephalic Eyes General: appearance normal, both eyes and all related structures Neck Neck: Yes supple Resp Effort & Inspection: normal respiratory effort, no cough and no stridor Cardio Rhythm: regular rhythm Heart sounds: S1 normal heart sound present and S2 normal heart sound present Skin General skin exam: turgor normal Neuro General: patient oriented x3, tone normal and moves all extremities Extrem Right lower extremity: no edema Left lower extremity: no edema Office Procedures Flu Questionnaire Does the patient have a severe egg allergy?: No Does the patient have severe life threatening allergies?: No Does the patient have a fever or illness today?: No Has the patient ever had Guillain-Ridgeway Syndrome?: No Has the patient ever had any past reaction to a flu shot?: No Immunizations Fluarix Triv [id number] (PF) 45 mcg (15 mcg x 3)/0.5 mL IM syringe Performing Provider: Renard Benton MD Performing Location: [facility] [place] [facility] Administered by: Debby Moses CMA on 01/25/24 12:49 Dose Route Admin Location Dispensed Lot Number Expiration Date [facility] Fur Repairer 0.5 mL IM Left Deltoid 0.5 mL [id number] 09/18/24 [id number] Extended Care Information Network VIS Given Date VIS Provided VIS Publication Date 01/25/24 Single Vaccine 20 Eligibility Eligibility Date Funding Source Not [facility] Eligible 01/25/24 Private Coding Level of Care Code Est Pt Level 4 (75660) Complex EM visit Add On G2211 Diagnoses Hypertension, essential I10 Prediabetes R73.03 Lipid disorder E78.9 Recurrent major depressive disorder, in partial remission F33.41 Active/Remission status: in partial remission Morbid obesity E66.01 Obstructive sleep apnea on CPAP G47.33 Chronic GERD K21.9 Assessment & Plan Assessment & Plan (1) Hypertension, essential: Code(s): I10 - Essential (primary) hypertension Category: Medical (2) Prediabetes: Code(s): R73.03 - Prediabetes Category: Medical (3) Lipid disorder: Code(s): E78.9 - Disorder of lipoprotein metabolism, unspecified Category: Medical (4) Depression, major, recurrent: Code(s): F33.9 - Major depressive disorder, recurrent, unspecified Category: Medical Qualifiers: Active/Remission status: in partial remission Qualified Code(s): F33.41 - Major depressive disorder, recurrent, in partial remission (5) Morbid obesity: Code(s): E66.01 - Morbid (severe) obesity due to excess calories Category: Medical (6) Obstructive sleep apnea on CPAP: Code(s): G47.33 - Obstructive sleep apnea (adult) (pediatric) Category: Medical (7) Chronic GERD: Code(s): K21.9 - Gastro-esophageal reflux disease without esophagitis Category: Medical Plan Patient is a 53-year-old gentleman this is a follow-up appointment Complaining of added depression, 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 Impaired fasting sugar, diet controlled GERD is stable with omeprazole Obstructive sleep apnea:? Patient is using CPAP machine regularly at night since 2019. Managed by specialist BMI is elevated, need to lose weight. ? Follow-up 4 months Orders: Orders Influenza [id number] Immunization Today Z23 - Encounter for immunization Medications: New sertraline 50 mg PO DAILY 90 tabs 0RF Refilled amlodipine 10 mg PO BEDTIME 90 tabs 1RF 90 days atorvastatin 20 mg PO BEDTIME 90 tabs 1RF 90 days omeprazole 20 mg PO DAILY 90 caps 1RF spironolacton-hydrochlorothiaz 25-25 mg 1 tab PO BEDTIME 90 tabs 1RF bupropion HCl SR (Wellbutrin SR) 150 mg PO BID 180 tabs 1RF 90 days F33.9 - Major depressive disorder, recurrent, unspecified
== END 2024-01-25 13:17 | disposition home or self-care (01) ==
LOC: HO.HMCC 12:09
PROVIDERS: PCP Internal Medicine; Visit Provider Internal Medicine
DX: I10 Essential (primary) hypertension (principal); F33.41 Major depressive disorder, recurrent, in partial remission; E66.01 Morbid (severe) obesity due to excess calories; Z68.41 Body mass index [BMI] 40.0-44.9, adult; Z23 Encounter for immunization; R73.03 Prediabetes; E78.9 Disorder of lipoprotein metabolism, unspecified; G47.33 Obstructive sleep apnea (adult) (pediatric); K21.9 Gastro-esophageal reflux disease without esophagitis

== ENCOUNTER 2024-01-25 12:08 | Outpatient (REF) | payer OTHER, SELFPAY ==
[2024-01-25 16:16] LABS: MANUAL DIFF FLAG NO
[2024-01-25 16:19] LABS: Basophils Absolute Auto 0.1 X10*3/uL (0.0-0.2); Basophils Percent Auto 0.9 % (0-2); Eosinophils Absolute Auto 0.1 X10*3/uL (0.0-0.4); Eosinophils Percent Auto 0.9 % (0-4); Hematocrit 44.2 % (42.0-52.0); Hemoglobin 14.6 g/dl (14.0-18.0); Imm Gran Abs Auto 0.03 X10*3/uL (0.00-0.03); Imm Gran Pct Auto 0.3 % (0.0-0.4); Lymphocytes Absolute Auto 2.9 X10*3/uL (1.2-4.9); Lymphocytes Percent Auto 28.5 % (20-40); Mean Corpuscular Hemoglobin 29.1 pg (27.0-33.0); Monocytes Absolute Auto 0.6 X10*3/uL (0.1-1.2); Monocytes Percent Auto 6.2 % (2-11); Neutrophils Absolute Auto 6.4 x10*3/uL (2.0-8.3); Neutrophils Percent Auto 63.2 % (45-73); Platelet Count 342 X10*3/uL (160-400); Red Blood Count 5.02 X10*6/uL (4.60-5.80); Red Cell Distribution Width 13.9 % (11.0-16.0)
[2024-01-25 16:31] LABS: Estimated Average Glucose 114 mg/dL; Hemoglobin A1C 148.6931 umol/L; Hemoglobin A1c % 5.6 % (<6.0); Total Hemoglobin (HGBA1C) 3891.3481 umol/L
[2024-01-25 16:38] LABS: Alanine Aminotransferase 28 U/L (0-40); Albumin Level 4.2 g/dL (3.5-5.0); Alkaline Phosphatase 60 U/L (39-117); Anion Gap 14 (12-20); Aspartate Amino Transferase 36 U/L (5-37); Bilirubin Total 0.5 mg/dL (0.0-1.0); Blood Urea Nitrogen 12 mg/dL (9-16); Calcium 9.5 mg/dL (8.4-10.2); Carbon Dioxide 28 mmol/L (22-29); Chloride 104 mmol/L (96-108); Estimated Glomerular Filt Rate > 60; Glucose Random 92 mg/dL (60-115); Potassium 3.7 mmol/L (3.3-5.1); Sodium 142 mmol/L (135-145); Total Protein 7.2 g/dL (6.5-8.0)
[2024-01-27 10:43] LABS: LDL Cholesterol Direct 78 mg/dL (<100)
== END 2024-01-25 12:09 | disposition home or self-care (01) ==
LOC: HO.HMGCLDS 12:08
PROVIDERS: PCP Internal Medicine; Visit Provider Internal Medicine
DX: I10 Essential (primary) hypertension (principal); R73.03 Prediabetes; E78.9 Disorder of lipoprotein metabolism, unspecified; Z23 Encounter for immunization; F33.41 Major depressive disorder, recurrent, in partial remission; E66.01 Morbid (severe) obesity due to excess calories; G47.33 Obstructive sleep apnea (adult) (pediatric); K21.9 Gastro-esophageal reflux disease without esophagitis; Z79.899 Other long term (current) drug therapy; Z98.84 Bariatric surgery status; Z99.89 Dependence on other enabling machines and devices
CPT/HCPCS: 36415; 80053; 83036; 83721; 85025; 90471; 90656; 99212

== ENCOUNTER 2024-02-24 08:50 | Outpatient (AMB) | payer OTHER, SELFPAY ==
--- NOTE | 2024-02-24 09:52 | A.OFFPC_ITS ---
Intake Visit Reasons: 3 week follow up Allergies lisinopril [LISINOPRIL] Adverse Reaction (Severe, Verified 02/24/24 09:54) COUGH sertraline Adverse Reaction (Verified 02/25/24 10:13) Dream like state Medication List - Last Reconciled 02/24/24 by Renard Benton MD amlodipine 10 mg PO BEDTIME 90 days atorvastatin 20 mg PO BEDTIME 90 days bupropion HCl XL 450 mg PO QAM [id number]-copper-kelsi 325 mg-12.5 mcg -2.75 mg (Citracal-D3 Maximum Plus) 1 tab PO BID omeprazole 20 mg PO DAILY sertraline 50 mg PO DAILY spironolacton-hydrochlorothiaz 25-25 mg 1 tab PO BEDTIME Tobacco use date assessed: 02/24/24 Dental Screening Dental Screen Date: 02/24/24 Did you have a dental visit in the last 12 months?: Yes Did you have a dental problem in the last 6 months where you did not have access to dental care?: No Was dental information given to patient?: Patient has dentist HPI 3 week follow up HPI Details Chief Complaint The patient is experiencing adverse effects related to sertraline and seeking a medication adjustment. Assessment and Plan 53-year-old male with a history of anxie ty disorder and depression presents with concerns regarding the adverse effects associated with sertraline. The patient reports feeling as though he was in an altered state of consciousness and experiencing a sense of unreality during night-time activities, particularly when driving. Symptoms were prominent around 1:00 a.m. suggesting pronounced fatigue or possible medication side effects. The patient is currently taking bupropion at a dose of 150 mg twice daily, with a suggestion by his psychologist to potentially increase this dose. Based on the symptoms described, it appears that the sertraline may not be suitable for this patient. An adjustment of medication was discussed during the visit, with discontinuation of sertraline and an increase in bupropion dosage discussed and agreed upon. 1. Depression The patient is currently on bupropion 150 mg twice daily. The psychologist suggested a dose increase. After evaluating potential benefits and insurance coverage, an increase to 450 mg once daily was deemed appropriate. The prescription dosage has been adjusted to reflect this change. The patient was advised to monitor for any side effects such as increased anxiety, insomnia, or gastrointestinal disturbances and report them promptly. 2. Anxiety Disorder The patient is currently on sertraline 50 mg and has reported adverse effects suggestive of derealization and possible increased anxiety, especially at night. The decision was made to discontinue sertraline. The patient should be monitored for any withdrawal symptoms, and non-pharmacologic interventions such as counseling should be continued as advised by his psychologist. Problem List - Anxiety Disorder - Depression Patient Instructions - Discontinue use of sertraline as it is causing undesirable side effects. - Begin taking the newly prescribed bupr opion 450 mg once daily instead of the previous 300 mg twice daily. - Be vigilant for any new or worsening s ymptoms and report them immediately. - Continue with regular visits to the ychologist for counseling and mental health support. - Avoid night-time driving until feeling s of fatigue or unreality have been resolved. - Ensure regular follow-up appointments for monitoring the effects of medication adjustment. FORMERLY [facility], [facility] Medical History Obstructive sleep apnea on CPAP Chronic GERD Lipid disorder Depression, major, recurrent Hypertension, essential Myofascial pain Elevated cholesterol Osteoarthritis of right knee Arthritis Sleep apnea COVID-19 vaccine series completed Morbid obesity Osteoarthritis, hip, bilateral Surgical History H/O knee surgery Hx of umbilical hernia repair History of total right hip replacement History of umbilical hernia repair Status post total hip replacement, left History of total left hip replacement History of surgery H/O colonoscopy History of sleeve gastrectomy History of ankle surgery Family History Father HTN (hypertension) Mother HTN (hypertension) Sister Cancer of thyroid Maternal Grandfather No problems noted. Maternal Grandmother No problems noted. Paternal Grandfather No problems noted. Paternal Grandmother No problems noted. Brother No problems noted. Sister No problems noted. Sister No problems noted. Social History Household Members: Friend(s) Housing: Homeless Are you a primary resident care aid to a significant other at home: No Do you presently have visiting nurse or other home services: Yes Alcohol intake: former Patient Tobacco Use Status: Never used Tobacco e-Cigarette/Vaping Use: Never Used Substance Use Type: Marijuana service: No Current occupational status: disabled Cognitive needs: No Hearing needs: No Vision needs: No Questionnaire Thrive Questionnaire Date Thrive assessed: 01/25/24 AUDIT C Alcohol Use Questionnaire (AUDIT-C) 1. How often do you have a drink containing alcohol?: Monthly or less 2. How many drinks containing alcohol do you have on a typical day when you are drinking?: 3 or 4 3. How often do you have six or more drinks on one occasion?: Never Total Score: 2 Score Reviewed/Action Taken: Yes YAMILETH-7 AMB Questionnaire YAMILETH-7 Date YAMILETH - 7 assessed: 10/12/23 Source: Developed by Drs. Uriel Farias, Vida Retana, Junior Whipple and colleagues, with an educational juan carlos from [employer]. Review of Systems Const Denies chills and Denies fever(s) ENT Denies epistaxis and Denies nasal discharge Card Denies chest pain Resp Denies chest congestion, Denies cough and Denies hemoptysis GI Denies diarrhea and Denies nausea Skin/Breast Denies rash Neuro Reports no additional complaints Psych Reports no additional complaints Endo Reports no additional complaints Physical exam (Primary Care) Tobacco/Smoking Status: Tobacco use Status Tobacco use date assessed 02/24/24 02/24/24 09:55 Patient Tobacco Use Status Never used Tobacco 02/24/24 09:53 e-Cigarette/Vaping Use Never Used 02/24/24 09:53 Thrive Assessment: Date of Thrive Assessment Date Thrive assessed 01/25/24 02/24/24 09:53 Telehealth Telehealth Telehealth Platform: [facility] Location of provider rendering services: practice address Location of patient: address on file Patient Identification confirmed using: Name, : Yes Telehealth method: voice only Patient verbally consented to treatment: Yes Patient verbally consented to billing insurance company: Yes Patient informed of any privacy concerns related to visit: Yes Coding Level of Care Code Tele Est Pt Level 3 (11576) Diagnoses Recurrent major depressive disorder, in partial remission F33.41 Active/Remission status: in partial remission Assessment & Plan Assessment & Plan (1) Depression, major, recurrent: Code(s): F33.9 - Major depressive disorder, recurrent, unspecified Category: Medical Qualifiers: Active/Remission status: in partial remission Qualified Code(s): F33.41 - Major depressive disorder, recurrent, in partial remission Plan Chief Complaint The patient is experiencing adverse effects related to sertraline and seeking a medication adjustment. Assessment and Plan 53-year-old male with a history of anxiety disorder and depression presents with concerns regarding the adverse effects associated with sertraline. The patient reports feeling as though he was in an altered state of consciousness and experiencing a sense of unreality during night-time activities, particularly when driving. Symptoms were prominent around 1:00 a.m. suggesting pronounced fatigue or possible medication side effects. The patient is currently taking bupropion at a dose of 150 mg twice daily, with a suggestion by his psychologist to potentially increase this dose. Based on the symptoms described, it appears that the sertraline may not be suitable for this patient. An adjustment of medication was discussed during the visit, with discontinuation of sertraline and an increase in bupropion dosage discussed and agreed upon. 1. Depression The patient is currently on bupropion 150 mg twice daily. The psychologist suggested a dose increase. After evaluating potential benefits and insurance coverage, an increase to 450 mg once daily was deemed appropriate. The prescription dosage has been adjusted to reflect this change. The patient was advised to monitor for any side effects such as increased anxiety, insomnia, or gastrointestinal disturbances and report them promptly. 2. Anxiety Disorder The patient is currently on sertraline 50 mg and has reported adverse effects suggestive of derealization and possible increased anxiety, especially at night. The decision was made to discontinue sertraline. The patient should be monitored for any withdrawal symptoms, and non-pharmacologic interventions such as counseling should be continued as advised by his psychologist. Problem List - Anxiety Disorder - Depression Patient Instructions - Discontinue use of sertraline as it is causing undesirable side effects. - Begin taking the newly prescribed bupropion 450 mg once daily instead of the previous 300 mg twice daily. - Be vigilant for any new or worsening symptoms and report them immediately. - Continue with regular visits to the psychologist for counseling and mental health support. - Avoid night-time driving until feelings of fatigue or unreality have been resolved. - Ensure regular follow-up appointments for monitoring the effects of medication adjustment. Medications: New bupropion HCl XL 450 mg PO QAM 90 tabs 0RF
== END 2024-02-24 11:27 | disposition home or self-care (01) ==
LOC: HO.HMCC 08:50
PROVIDERS: PCP Internal Medicine; Visit Provider Internal Medicine
DX: F33.41 Major depressive disorder, recurrent, in partial remission (principal)

== ENCOUNTER → 2024-02-24 08:50 | Outpatient (BNVA) | payer OTHER, SELFPAY | PROVIDERS: PCP Internal Medicine; Visit Provider Internal Medicine ==

== ENCOUNTER 2024-03-09 08:34 | Outpatient (AMB) | payer OTHER, SELFPAY ==
--- NOTE | 2024-03-09 08:35 | A.OFFPC_ITS ---
Intake Visit Reasons: Jury Duty Letter Allergies lisinopril [LISINOPRIL] Adverse Reaction (Severe, Verified 03/09/24 08:35) COUGH sertraline Adverse Reaction (Verified 03/09/24 08:35) Dream like state Medication List - Last Reconciled 03/09/24 by Renard Benton MD amlodipine 10 mg PO BEDTIME 90 days atorvastatin 20 mg PO BEDTIME 90 days bupropion HCl XL 450 mg PO QAM [id number] 325 mg-12.5 mcg -2.75 mg (Citracal-D3 Maximum Plus) 1 tab PO BID omeprazole 20 mg PO DAILY sertraline 50 mg PO DAILY spironolacton-hydrochlorothiaz 25-25 mg 1 tab PO BEDTIME Tobacco use date assessed: 03/09/24 Dental Screening Dental Screen Date: 03/09/24 Did you have a dental visit in the last 12 months?: Yes Did you have a dental problem in the last 6 months where you did not have access to dental care?: No Was dental information given to patient?: Patient has dentist HPI Jury Duty Letter HPI Details Chief Complaint The patient requested an excuse from jury duty citing knee arthritis and transportation difficulties. Also suffers from depression History of Present Illness The patient is a 53-year-old male presenting with the need for documentation to be excused from jury duty. He reports having longstanding issues with knee osteoarthritis, which hinders his ability to sit or stand for prolonged periods, impacting his capacity to fulfill jury duty responsibilities. Additionally, the patient lacks personal transportation, necessitating reliance on public transit, which would require prolonged travel time. He specifically mentioned the location of jury duty being inconvenient due to the absence of a personal vehicle. No prior specialist consultations or treatments for these conditions were documented. Patient also suffers from depression Review of Systems - Musculoskeletal: Reports knee pain con sistent with osteoarthritis, particularly affecting long periods of sitting or standing. - General: Reports lack of personal cabello sportation due to not owning a car. Constitutional: No fever no chills Respiratory: no Cough, no shortness a breath Cardiovascular: no palpitations, no chest pains gastrointestinal: No nausea no vomiting no diarrhea CLINIC PHYSICIAN DIRECTOR: No headache no blurring of vision skin: No rash extremities: As per history Plan - Document the patient's knee osteoarthr itis and lack of personal transportation as reasons for being excused from jury duty in the necessary letter. - Advise the patient to submit the [facility] jury duty card details for formal documentation completion. - The patient will collect the letter ne xt week to proceed with the jury duty excuse process. [facility] Medical History Obstructive sleep apnea on CPAP Chronic GERD Lipid disorder Depression, major, recurrent Hypertension, essential Myofascial pain Elevated cholesterol Osteoarthritis of right knee Arthritis Sleep apnea COVID-19 vaccine series completed Morbid obesity Osteoarthritis, hip, bilateral Surgical History H/O knee surgery Hx of umbilical hernia repair History of total right hip replacement History of umbilical hernia repair Status post total hip replacement, left History of total left hip replacement History of surgery H/O colonoscopy History of sleeve gastrectomy History of ankle surgery Family History Father HTN (hypertension) Mother HTN (hypertension) Sister Cancer of thyroid Maternal Grandfather No problems noted. Maternal Grandmother No problems noted. Paternal Grandfather No problems noted. Paternal Grandmother No problems noted. Brother No problems noted. Sister No problems noted. Sister No problems noted. Social History Household Members: Friend(s) Housing: Homeless Are you a primary personal care home administrator to a significant other at home: No Do you presently have visiting nurse or other home services: Yes Alcohol intake: former Patient Tobacco Use Status: Never used Tobacco e-Cigarette/Vaping Use: Never Used Substance Use Type: Marijuana service: No Current occupational status: disabled Cognitive needs: No Hearing needs: No Vision needs: No Questionnaire Thrive Questionnaire Date Thrive assessed: 03/09/24 I am a: Patient What is your living situation today?: I have a steady place to live Within the past 12 months, did the food you bought not last and you didn't have the money to get more?: Never true Within the past 12 months, did you worry whether your food would run out before you got money to buy more?: Never true Do you have trouble paying for medicines?: No Do you have trouble getting transportation to medical appointments?: No Do you have trouble paying your heating and electricity bill?: No Do you have trouble taking care of your child, family member or friend?: No Do you have trouble with day-to-day activities such as bathing, preparing meals, shopping, managing finances, etc.?: Yes Are you currently unemployed and looking for a job?: Yes Are you interested in more education?: Yes Please select the resources that you would like help with: None Currently or been in a relationship where the following occur: No concerns reported THRIVE Score: 0 AUDIT C Alcohol Use Questionnaire (AUDIT-C) 1. How often do you have a drink containing alcohol?: Monthly or less 2. How many drinks containing alcohol do you have on a typical day when you are drinking?: 3 or 4 3. How often do you have six or more drinks on one occasion?: Never Total Score: 2 Score Reviewed/Action Taken: Yes YAMILETH-7 AMB Questionnaire YAMILETH-7 Date YAMILETH - 7 assessed: 10/12/23 Source: Developed by Drs. Uriel Farias, Vida Rteana, Junior Whipple and colleagues, with an educational juan carlos from [employer]. Review of Systems Const Denies chills and Denies fever(s) ENT Denies epistaxis and Denies nasal discharge Card Denies chest pain Resp Denies chest congestion, Denies cough and Denies hemoptysis GI Denies diarrhea and Denies nausea Skin/Breast Denies rash Neuro Reports no additional complaints Psych Reports no additional complaints Endo Reports no additional complaints Physical exam (Primary Care) Tobacco/Smoking Status: Tobacco use Status Tobacco use date assessed 03/09/24 03/09/24 08:36 Patient Tobacco Use Status Never used Tobacco 03/09/24 08:36 e-Cigarette/Vaping Use Never Used 03/09/24 08:36 Thrive Assessment: Date of Thrive Assessment Date Thrive assessed 03/09/24 03/09/24 08:36 Currently or been in a relationship where the following occur: No concerns reported Telehealth Telehealth Telehealth Platform: [facility] Location of provider rendering services: practice address Location of patient: address on file Patient Identification confirmed using: Name, : Yes Telehealth method: voice only Patient verbally consented to treatment: Yes Patient verbally consented to billing insurance company: Yes Patient informed of any privacy concerns related to visit: Yes Minutes spent on Phone/Video with Pt.: 13 Coding Level of Care Code Tele Est Pt Level 3 (38932) Diagnoses Osteoarthritis involving multiple joints on both sides of body M15.9 Morbid obesity E66.01 Recurrent major depressive disorder, in partial remission F33.41 Active/Remission status: in partial remission Assessment & Plan Assessment & Plan (1) Osteoarthritis involving multiple joints on both sides of body: Code(s): M15.9 - Polyosteoarthritis, unspecified Category: Medical (2) Morbid obesity: Code(s): E66.01 - Morbid (severe) obesity due to excess calories Category: Medical (3) Depression, major, recurrent: Code(s): F33.9 - Major depressive disorder, recurrent, unspecified Category: Medical Qualifiers: Active/Remission status: in partial remission Qualified Code(s): F33.41 - Major depressive disorder, recurrent, in partial remission Plan Chief Complaint The patient requested an excuse from jury duty citing knee arthritis and transportation difficulties. Also suffers from depression History of Present Illness The patient is a 53-year-old male presenting with the need for documentation to be excused from jury duty. He reports having longstanding issues with knee osteoarthritis, which hinders his ability to sit or stand for prolonged periods, impacting his capacity to fulfill jury duty responsibilities. Additionally, the patient lacks personal transportation, necessitating reliance on public transit, which would require prolonged travel time. He specifically mentioned the location of jury duty being inconvenient due to the absence of a personal vehicle. No prior specialist consultations or treatments for these conditions were documented. Patient also suffers from depression Review of Systems - Musculoskeletal: Reports knee pain consistent with osteoarthritis, particularly affecting long periods of sitting or standing. - General: Reports lack of personal transportation due to not owning a car. Constitutional: No fever no chills Respiratory: no Cough, no shortness a breath Cardiovascular: no palpitations, no chest pains gastrointestinal: No nausea no vomiting no diarrhea CLINIC PHYSICIAN DIRECTOR: No headache no blurring of vision skin: No rash extremities: As per history Plan - Document the patient's knee osteoarthritis and lack of personal transportation as reasons for being excused from jury duty in the necessary letter. - Advise the patient to submit the official jury duty card details for formal documentation completion. - The patient will collect the letter next week to proceed with the jury duty excuse process.
== END 2024-03-09 08:47 | disposition home or self-care (01) ==
LOC: HO.HMCC 08:34
PROVIDERS: PCP Internal Medicine; Visit Provider Internal Medicine
DX: M15.9 Polyosteoarthritis, unspecified (principal); E66.01 Morbid (severe) obesity due to excess calories; F33.41 Major depressive disorder, recurrent, in partial remission

== ENCOUNTER 2024-04-06 13:07 | Outpatient (AMB) | payer OTHER, SELFPAY ==
--- NOTE | 2024-04-06 13:05 | A.OFFVIS_ITS ---
Intake Visit Reasons: 6 month F/U Intake Note: Patient presents for a 6 mo fu telehealth appointment for [facility]. 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 Accompanied by: Self / Same As Patient Allergies lisinopril [LISINOPRIL] Adverse Reaction (Severe, Verified 04/06/24 13:06) COUGH sertraline Adverse Reaction (Verified 04/06/24 13:06) Dream like state Medication List - Last Reconciled 04/06/24 by Justo Caceres PA-C amlodipine 10 mg PO BEDTIME 90 days atorvastatin 20 mg PO BEDTIME 90 days bupropion HCl XL 450 mg PO QAM [id number]-copper-kelsi 325 mg-12.5 mcg -2.75 mg (Citracal-D3 Maximum Plus) 1 tab PO BID omeprazole 20 mg PO DAILY sertraline 50 mg PO DAILY spironolacton-hydrochlorothiaz 25-25 mg 1 tab PO BEDTIME HPI Comments Details: 53 year old male f/u for sleep apnea,via tele-health appt today. He struggles to sleep, only when he is overwhelmed with daily activities and life He has fear and anxiety based on unreal overactive bias thoughts playing in his mind. ex: When he was a kid his parents passed in his dreams and he became an orphan, in reality his father did pass away 2 years. He does recognize this to be a natural progression of life. ex: Daughter, she is 20 goes out and hangs out, he fears she may get hurt. His fears are not substantiated or rooted in past trauma he says. He knows he has to stop taking the MJ edible gummies, they lead him to delusional thoughts. He is working with a therapist to change his thought process. He is managing his BP with meds. 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 He sleeps well with the CPAP machine, denies headaches, currently has a cold and sinuses are congested. He changes mask and filters, cleans his tubing and fills water in his machine as needed. [facility] compliance report: 12/2023- 03/2024 >4 hours 100% 90/90 days Avg use total 9hours and 47min Press [id number] Leaks min 0- max 43.3 AHI is 0.8 PFSH Medical History Obstructive sleep apnea on CPAP Chronic GERD Lipid disorder Depression, major, recurrent Hypertension, essential Myofascial pain Elevated cholesterol Osteoarthritis of right knee Arthritis Sleep apnea COVID-19 vaccine series completed Morbid obesity Osteoarthritis, hip, bilateral Surgical History H/O knee surgery Hx of umbilical hernia repair History of total right hip replacement History of umbilical hernia repair Status post total hip replacement, left History of total left hip replacement History of surgery H/O colonoscopy History of sleeve gastrectomy History of ankle surgery Family History Father HTN (hypertension) Mother HTN (hypertension) Sister Cancer of thyroid Maternal Grandfather No problems noted. Maternal Grandmother No problems noted. Paternal Grandfather No problems noted. Paternal Grandmother No problems noted. Brother No problems noted. Sister No problems noted. Sister No problems noted. Social History Household Members: Friend(s) Housing: Homeless Are you a primary continuum of care manager to a significant other at home: No Do you presently have visiting nurse or other home services: Yes Alcohol intake: former Patient Tobacco Use Status: Never used Tobacco e-Cigarette/Vaping Use: Never Used Substance Use Type: Marijuana service: No Current occupational status: disabled Cognitive needs: No Hearing needs: No Vision needs: No Review of Systems Const All systems reviewed & are unremarkable except as noted in HPI and below Telehealth Telehealth Telehealth Platform: Telephone Location of provider rendering services: practice address Location of patient: address on file Patient Identification confirmed using: Name, : Yes Telehealth method: voice only Patient verbally consented to treatment: Yes Patient verbally consented to billing insurance company: Yes Patient informed of any privacy concerns related to visit: Yes Minutes spent on Phone/Video with Pt.: 20 Results Reviewed Results Reviewed: [facility] compliance report: 12/2023- 03/2024 >4 hours 100% 90/90 days Avg use total 9hours and 47min Press [id number] Leaks min 0- max 43.3 AHI is 0.8 Assessment & Plan Assessment & Plan (1) Obstructive sleep apnea on CPAP: Code(s): G47.33 - Obstructive sleep apnea (adult) (pediatric) Category: Medical (2) Depression, major, recurrent: Code(s): F33.9 - Major depressive disorder, recurrent, unspecified Category: Medical Qualifiers: Active/Remission status: in partial remission Qualified Code(s): F33.41 - Major depressive disorder, recurrent, in partial remission (3) Hypertension, essential: Code(s): I10 - Essential (primary) hypertension Category: Medical Plan Obstructed Sleep Apnea Continue CPAP therapy as patient experiences good clinical effects. Patient Education: #1 modifiable risk factor for CV events is Hypertension, good BP control, diet and exercise as tolerable. BMI is elavated BMI is 44.9 recommend, meal prepping and reducing caloric intake. URI - Edwige pot and or Sudafed/ Muccinex as needed for Rhinorrhea. Follow up in 6 months. Coding Level of Care Code Tele New Pt Level 3 (81506) Diagnoses Obstructive sleep apnea on CPAP G47.33 Recurrent major depressive disorder, in partial remission F33.41 Active/Remission status: in partial remission Hypertension, essential I10 Time Spent (min) 20 Comment Improving
== END 2024-04-06 14:08 | disposition home or self-care (01) ==
PROVIDERS: PCP Internal Medicine; Visit Provider Physician Assistant Medical
DX: G47.33 Obstructive sleep apnea (adult) (pediatric) (principal); F33.41 Major depressive disorder, recurrent, in partial remission; I10 Essential (primary) hypertension
CPT/HCPCS: 98016

== ENCOUNTER → 2024-04-06 13:07 | Outpatient (BNVA) | payer OTHER, SELFPAY | PROVIDERS: PCP Internal Medicine; Visit Provider Physician Assistant Medical | DX: G47.33 Obstructive sleep apnea (adult) (pediatric) (principal); F33.41 Major depressive disorder, recurrent, in partial remission; I10 Essential (primary) hypertension | CPT/HCPCS: 99212 ==

== ENCOUNTER 2024-05-24 14:52 | Outpatient (AMB) | payer OTHER, SELFPAY ==
--- NOTE | 2024-05-24 14:56 | A.OFFPC_ITS ---
Vital Signs 05/24/24 14:57 Height 6 ft Weight 338 lb BMI 45.8 BP 118/76 Blood Pressure Location Rt brachial Position Sitting Respiration 20 Pulse 82 Pulse Source Pulse Oximeter Temp 99.1 F Temp Source Oral Pulse Oximetry (%) 97 Oxygen Delivery Method Room Air Intake Visit Reasons: 4m follow up Allergies lisinopril [LISINOPRIL] Adverse Reaction (Severe, Verified 05/24/24 14:59) COUGH sertraline Adverse Reaction (Verified 05/24/24 14:59) Dream like state Medication List - Last Reconciled 05/24/24 by Renard Benton MD amlodipine 10 mg PO BEDTIME 90 days atorvastatin 20 mg PO BEDTIME 90 days bupropion HCl XL 450 mg PO QAM [id number]-maqt-copper-kelsi 325 mg-12.5 mcg -2.75 mg (Citracal-D3 Maximum Plus) 1 tab PO BID omeprazole 20 mg PO DAILY sertraline 50 mg PO DAILY spironolacton-hydrochlorothiaz 25-25 mg 1 tab PO BEDTIME Tobacco use date assessed: 05/24/24 Dental Screening Dental Screen Date: 05/24/24 Did you have a dental visit in the last 12 months?: Yes Did you have a dental problem in the last 6 months where you did not have access to dental care?: No Was dental information given to patient?: Patient has dentist HPI 4m follow up HPI Details History - The patient is a 53-year-old male pres enting for a four-month follow-up appointment primarily to address current medications and mental health concerns. - The patient reports exacerbation of [place] Depressive Disorder, worsened post- discontinuation of sertraline due to adverse effects. Currently on Bupropion with symptoms reported as worse. Patient is established with psychiatrist and has appointment coming up in 2 days - Hypertension appears well managed with current medications (amlodipine and spironolactone hydrochlorothiazide), substantiated by stable blood pressure readings (118/76 mmHg). - Continues to manage GERD with omeprazo le, effective when doses are not missed. - Most recent laboratory investigations are due; prior tests in January indicated a schedule for monitoring kidney function and electrolytes. Problem List - Major Depressive Disorder - Essential Hypertension - Gastroesophageal Reflux Disease (GERD) - lipid disorder - morbid obesity Patient Instructions - Continue taking prescribed medications as advised. - Attend scheduled psychiatric consultat ion on Wednesday. - Consider maintaining a more detailed m edication log to assist in communication with healthcare providers. - Proceed with laboratory tests at next convenient opportunity. Review of Systems - General: No fever no chills - Neurological: No headaches no dizziness - Ear nose throat: No sore throat no hearing difficulty no ear pain - Cardiovascular: No syncope, no chest pain, no palpitations - Gastrointestinal: No nausea vomiting or diarrhea - Endocrine: No polyuria polydipsia no heat intolerance - Genitourinary: No dysuria , no blood in urine Physical Exam General: No acute distress HEENT: No acute findings Neck: Supple Respiratory system: Able to talk in full sentences, no audible wheeze cardiovascular: S1-S2 regular in rate and rhythm Gastrointestinal: Stomach is narrow Extremities: No new findings 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: Alert awake oriented x3 motor sensory intact Skin: Normal turgor PFSH Medical History Obstructive sleep apnea on CPAP Chronic GERD Lipid disorder Depression, major, recurrent Hypertension, essential Myofascial pain Elevated cholesterol Osteoarthritis of right knee Arthritis Sleep apnea COVID-19 vaccine series completed Morbid obesity Osteoarthritis, hip, bilateral Surgical History H/O knee surgery Hx of umbilical hernia repair History of total right hip replacement History of umbilical hernia repair Status post total hip replacement, left History of total left hip replacement History of surgery H/O colonoscopy History of sleeve gastrectomy History of ankle surgery Family History Father HTN (hypertension) Mother HTN (hypertension) Sister Cancer of thyroid Maternal Grandfather No problems noted. Maternal Grandmother No problems noted. Paternal Grandfather No problems noted. Paternal Grandmother No problems noted. Brother No problems noted. Sister No problems noted. Sister No problems noted. Social History Household Members: Friend(s) Housing: Homeless Are you a primary childcare center administrator to a significant other at home: No Do you presently have visiting nurse or other home services: Yes Alcohol intake: former Patient Tobacco Use Status: Never used Tobacco e-Cigarette/Vaping Use: Never Used Substance Use Type: Marijuana service: No Current occupational status: disabled Cognitive needs: No Hearing needs: No Vision needs: Yes Questionnaire PHQ-9 Over the last 2 weeks, how often have you been bothered by any of the following problems? 1. Little interest or pleasure in doing things: several days 2. Feeling down, depressed, or hopeless: more than half the days 3. Trouble falling or staying asleep, or sleeping too much: more than half the days 4. Feeling tired or having little energy: several days 5. Poor appetite or overeating: several days 6. Feeling bad about yourself - or that you are a failure or have let yourself or your family down: several days 7. Trouble concentrating on things, such as reading the newspaper or watching television: several days 8. Moving or speaking so slowly that other people could have noticed. Or the opposite - being so fidgety or restless that you have been moving around a lot more than usual: not at all 9. Thoughts that you would be better off or of hurting yourself in some way: not at all Total score: 9 Depression Screening Interpretation: Positive Depression Screening Follow-up: Existing condition and In treatment Depression Screening Done: Yes 99226 - PHQ-9 Billing: Yes Source: Developed by Drs. Uriel Farias, Vida Retana, Junior Whipple and colleagues, with an educational juan carlos from [employer]. Thrive Questionnaire Date Thrive assessed: 05/24/24 I am a: Patient What is your living situation today?: I have a steady place to live Within the past 12 months, did the food you bought not last and you didn't have the money to get more?: Never true Within the past 12 months, did you worry whether your food would run out before you got money to buy more?: Never true Do you have trouble paying for medicines?: No Do you have trouble getting transportation to medical appointments?: No Do you have trouble paying your heating and electricity bill?: No Do you have trouble taking care of your child, family member or friend?: No Do you have trouble with day-to-day activities such as bathing, preparing meals, shopping, managing finances, etc.?: Yes Are you currently unemployed and looking for a job?: Yes Are you interested in more education?: Yes Currently or been in a relationship where the following occur: No concerns reported THRIVE Score: 0 AUDIT C Alcohol Use Questionnaire (AUDIT-C) 1. How often do you have a drink containing alcohol?: Monthly or less 2. How many drinks containing alcohol do you have on a typical day when you are drinking?: 10 or more 3. How often do you have six or more drinks on one occasion?: Less than monthly Total Score: 6 YAMILETH-7 AMB Questionnaire YAMILETH-7 Date YAMILETH - 7 assessed: 05/24/24 Feeling nervous, anxious, or on edge: 3 = Nearly every day Not being able to stop or control worryin = Nearly every day Worrying too much about different things: 3 = Nearly every day Trouble relaxin = Nearly every day Being so restless that it is hard to sit still: 3 = Nearly every day Becoming easily annoyed or irritable: 3 = Nearly every day Feeling afraid as if something awful might happen: 3 = Nearly every day Total YAMILETH-7 score (0-4 normal; 5-9 mild; 10-14 moderate; 15-21 severe): 21 Source: Developed by Drs. Uriel Farias, Vida Retana, Junior Whipple and colleagues, with an educational juan carlos from [employer]. YAMILETH-7 Assessment Billing YAMILETH-7 Assessment Tool: YAMILETH-7 Assessment 87084 Physical exam (Primary Care) Vital Signs: Last Vital Signs Temp 99.1 F 05/24/24 14:57 Pulse 82 05/24/24 14:57 Resp 20 05/24/24 14:57 BP 118/76 05/24/24 14:57 Pulse Ox 97 05/24/24 14:57 Oxygen Delivery Method Room Air 05/24/24 14:57 BMI result Body Mass Index 45.8 Tobacco/Smoking Status: Tobacco use Status Tobacco use date assessed 05/24/24 05/24/24 15:02 Patient Tobacco Use Status Never used Tobacco 05/24/24 14:59 e-Cigarette/Vaping Use Never Used 05/24/24 14:59 PHQ-9: PHQ-9 Score PHQ-9: Total score 9 05/24/24 15:18 Depression Screening Interpretation: Positive Depression Screening Follow-up: Existing condition and In treatment Thrive Assessment: Date of Thrive Assessment Date Thrive assessed 05/24/24 05/24/24 15:02 Currently or been in a relationship where the following occur: No concerns reported Coding Level of Care Code Est Pt Level 4 (92599) Complex EM visit Add On G2211 Diagnoses Hypertension, essential I10 Recurrent major depressive disorder, in partial remission F33.41 Active/Remission status: in partial remission Morbid obesity E66.01 Lipid disorder E78.9 Chronic GERD K21.9 Prediabetes R73.03 Additional Codes YAMILETH-7 Assessment Billing - YAMILETH-7 Assessment Tool: YAMILETH-7 Assessment 55614 ([id number]) PHQ-9 - 23339 - PHQ-9 Billing: Yes ([id number]) Assessment & Plan Assessment & Plan (1) Hypertension, essential: Code(s): I10 - Essential (primary) hypertension Category: Medical (2) Depression, major, recurrent: Code(s): F33.9 - Major depressive disorder, recurrent, unspecified Category: Medical Qualifiers: Active/Remission status: in partial remission Qualified Code(s): F33.41 - Major depressive disorder, recurrent, in partial remission (3) Morbid obesity: Code(s): E66.01 - Morbid (severe) obesity due to excess calories Category: Medical (4) Lipid disorder: Code(s): E78.9 - Disorder of lipoprotein metabolism, unspecified Category: Medical (5) Chronic GERD: Code(s): K21.9 - Gastro-esophageal reflux disease without esophagitis Category: Medical (6) Prediabetes: Code(s): R73.03 - Prediabetes Category: Medical Plan History - The patient is a 53-year-old male presenting for a four-month follow-up appoi ntment primarily to address current medications and mental health concerns. - The patient reports exacerbation of Major Depressive Disorder, worsened post- discontinuation of sertraline due to adverse effects. Currently on Bupropion with symptoms reported as worse. Patient is established with psychiatrist and has appointment coming up in 2 days - Hypertension appears well managed with current medications (amlodipine and spironolactone hydrochlorothiazide), substantiated by stable blood pressure readings (118/76 mmHg). - Continues to manage GERD with omeprazole, effective when doses are not missed. - Most recent laboratory investigations are due; prior tests in January indicated a schedule for monitoring kidney function and electrolytes. Problem List - Major Depressive Disorder - Essential Hypertension - Gastroesophageal Reflux Disease (GERD) - lipid disorder - morbid obesity - prediabetes, encouraged diet-controlled Patient Instructions - Continue taking prescribed medications as advised. - Attend scheduled psychiatric consultation on Wednesday. - Consider maintaining a more detailed medication log to assist in communication with healthcare providers. - Proceed with laboratory tests at next convenient opportunity. Orders: Orders Comprehensive Met. Panel Today E66.01 - Morbid (severe) obesity due to excess calories, E78.9 - Disorder of lipoprotein metabolism, unspecified, F33.41 - Major depressive disorder, recurrent, in partial remission, I10 - Essential (pr imary) hypertension, K21.9 - Gastro-esophageal reflux disease without esophagitis, R73.03 - Prediabetes
[2024-05-24 14:57] VITALS: BP 118/76; PULSE 82; RESP 20; TEMP 37.3; O2SAT 97; BMI 45.8
== END 2024-05-24 15:19 | disposition home or self-care (01) ==
PROVIDERS: PCP Internal Medicine; Visit Provider Internal Medicine
DX: I10 Essential (primary) hypertension (principal); F33.41 Major depressive disorder, recurrent, in partial remission; E66.01 Morbid (severe) obesity due to excess calories; Z68.42 Body mass index [BMI] 45.0-49.9, adult; E78.9 Disorder of lipoprotein metabolism, unspecified; K21.9 Gastro-esophageal reflux disease without esophagitis; R73.03 Prediabetes

== ENCOUNTER → 2024-05-24 14:52 | Outpatient (BNVA) | payer OTHER, SELFPAY | PROVIDERS: PCP Internal Medicine; Visit Provider Internal Medicine | DX: I10 Essential (primary) hypertension (principal); F33.41 Major depressive disorder, recurrent, in partial remission; E66.01 Morbid (severe) obesity due to excess calories; E78.9 Disorder of lipoprotein metabolism, unspecified; K21.9 Gastro-esophageal reflux disease without esophagitis; R73.03 Prediabetes | CPT/HCPCS: 96127; 99212 ==

== ENCOUNTER 2024-06-14 12:53 | Outpatient (AMB) | payer OTHER, SELFPAY ==
[2024-06-14 12:58] VITALS: BP 128/90; PULSE 75; O2SAT 95; BMI 46.0
--- NOTE | 2024-06-14 12:58 | A.OFFPC_ITS ---
Vital Signs 06/14/24 12:58 Height 6 ft Weight 339 lb 6 oz BMI 46.0 BP 128/90 H Blood Pressure Location Lt brachial Position Sitting Pulse 75 Pulse Source Pulse Oximeter Pulse Oximetry (%) 95 Oxygen Delivery Method Room Air Intake Visit Reasons: Med Concerns Allergies lisinopril [LISINOPRIL] Adverse Reaction (Severe, Verified 06/14/24 12:58) COUGH sertraline Adverse Reaction (Verified 06/14/24 12:58) Dream like state Medication List - Last Reconciled 06/14/24 by Renard Benton MD amlodipine 10 mg PO BEDTIME 90 days atorvastatin 20 mg PO BEDTIME 90 days bupropion HCl XL 450 mg PO QAM [id number]-lqvm-copper-kelsi 325 mg-12.5 mcg -2.75 mg (Citracal-D3 Maximum Plus) 1 tab PO BID omeprazole 20 mg PO DAILY sertraline 50 mg PO DAILY spironolacton-hydrochlorothiaz 25-25 mg 1 tab PO BEDTIME Tobacco use date assessed: 06/14/24 Dental Screening Dental Screen Date: 06/14/24 Did you have a dental visit in the last 12 months?: Yes Did you have a dental problem in the last 6 months where you did not have access to dental care?: No Was dental information given to patient?: Patient has dentist HPI Med Concerns HPI Details History - The patient is a 53-year-old male pres enting with anxiety and depression. - Began experiencing anxiousness and dep ression in March, noting inefficacy of past medications including high-dose bupropion and recently ceased low-dose sertraline due to side effects. - Reports confusion episodes while on se rtraline, including a concerning event while driving. - The cessation of sertraline did not al leviate depressive symptoms which persist with increased intensity. - Nearly simultaneous onset of tinnitus reported, an aggravating factor contribu ting to distress. - Recent emotional stress noted, includi ng father's anniversary and academic pressures, although these are typically manageable. - Chronic eczema acknowledged, intermitt ently better, but requires prescription refills for topical treatment. - Non-use of substances except minimal a nd infrequent alcohol consumption, avoided in times of heightened anxiety. - Long-term support through counseling s marty 2007 with an inquiry about its continued necessity. Medications - Bupropion: 450 mg daily for depression and anxiety - Previously took sertraline 50 mg, ceas ed due to adverse effects - Amlodipine for hypertension - Atorvastatin for hyperlipidemia - Omeprazole - Spironolactone - Mentioned not recalling exact quantity for ceased medication (teleplan) Problem List - Major Depressive Disorder - Anxiety Disorder - Eczema - Tinnitus - Essential Hypertension - Hyperlipidemia [place] [facility] Psychological counseling since 2007; potential referral to a psychiatrist discussed. Patient Instructions - Start fluoxetine at 10 mg, increasing to 20 mg after one week. - Return for follow-up in two to three w eeks. - Engage in sunlight exposure as weather allows. - referral for outpatient psychiatric ev aluation placed Review of Systems General: No fever no chills neurological: No headaches no dizziness ear nose throat: No sore throat no hearing difficulty no ear pain cardiovascular: No syncope, no chest pain, no palpitations gastrointestinal: No nausea vomiting or diarrhea endocrine: No polyuria polydipsia no heat intolerance genitourinary: No dysuria skin: No new complaints Physical Exam general: No acute distress HEENT: Tinnitus noted neck: Supple respiratory system: Able to talk in full sentences, no audible wheeze no stridor cardiovascular: S1-S2 gastrointestinal: No pain extremities: No new findings 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 awake oriented x3 motor sensory intact skin: Eczema noted right palm, normal turgor PFSH Medical History Obstructive sleep apnea on CPAP Chronic GERD Lipid disorder Depression, major, recurrent Hypertension, essential Myofascial pain Elevated cholesterol Osteoarthritis of right knee Arthritis Sleep apnea COVID-19 vaccine series completed Morbid obesity Osteoarthritis, hip, bilateral Surgical History H/O knee surgery Hx of umbilical hernia repair History of total right hip replacement History of umbilical hernia repair Status post total hip replacement, left History of total left hip replacement History of surgery H/O colonoscopy History of sleeve gastrectomy History of ankle surgery Family History Father HTN (hypertension) Mother HTN (hypertension) Sister Cancer of thyroid Maternal Grandfather No problems noted. Maternal Grandmother No problems noted. Paternal Grandfather No problems noted. Paternal Grandmother No problems noted. Brother No problems noted. Sister No problems noted. Sister No problems noted. Social History Household Members: Friend(s) Housing: Homeless Are you a primary health care analyst to a significant other at home: No Do you presently have visiting nurse or other home services: Yes Alcohol intake: former Patient Tobacco Use Status: Never used Tobacco e-Cigarette/Vaping Use: Never Used Substance Use Type: Marijuana service: No Current occupational status: disabled Cognitive needs: No Hearing needs: No Vision needs: Yes Questionnaire PHQ-9 Over the last 2 weeks, how often have you been bothered by any of the following problems? 1. Little interest or pleasure in doing things: nearly every day 2. Feeling down, depressed, or hopeless: nearly every day 3. Trouble falling or staying asleep, or sleeping too much: nearly every day 4. Feeling tired or having little energy: more than half the days 5. Poor appetite or overeating: nearly every day 6. Feeling bad about yourself - or that you are a failure or have let yourself or your family down: nearly every day 7. Trouble concentrating on things, such as reading the newspaper or watching television: nearly every day 8. Moving or speaking so slowly that other people could have noticed. Or the opposite - being so fidgety or restless that you have been moving around a lot more than usual: more than half the days 9. Thoughts that you would be better off or of hurting yourself in some way: several days Total score: 23 Depression Screening Interpretation: Positive Depression Screening Follow-up: Existing condition and In treatment Depression Screening Done: Yes 91272 - PHQ-9 Billing: Yes Source: Developed by Drs. Uriel Farias, Vida Retana, Junior Whipple and colleagues, with an educational juan carlos from [employer]. Thrive Questionnaire Date Thrive assessed: 06/14/24 I am a: Patient What is your living situation today?: I have a steady place to live Within the past 12 months, did the food you bought not last and you didn't have the money to get more?: Never true Within the past 12 months, did you worry whether your food would run out before you got money to buy more?: Never true Do you have trouble paying for medicines?: No Do you have trouble getting transportation to medical appointments?: No Do you have trouble paying your heating and electricity bill?: No Do you have trouble taking care of your child, family member or friend?: No Do you have trouble with day-to-day activities such as bathing, preparing meals, shopping, managing finances, etc.?: Yes Are you currently unemployed and looking for a job?: Yes Are you interested in more education?: Yes Currently or been in a relationship where the following occur: No concerns reported THRIVE Score: 0 AUDIT C Alcohol Use Questionnaire (AUDIT-C) 1. How often do you have a drink containing alcohol?: Monthly or less 2. How many drinks containing alcohol do you have on a typical day when you are drinking?: 10 or more 3. How often do you have six or more drinks on one occasion?: Less than monthly Total Score: 6 Score Reviewed/Action Taken: Yes YAMILETH-7 AMB Questionnaire YAMILETH-7 Date YAMILETH - 7 assessed: 05/24/24 Source: Developed by Drs. Uriel Farias, Vida Retana, Junior Whipple and colleagues, with an educational juan carlos from [employer]. Physical exam (Primary Care) Vital Signs: Last Vital Signs Pulse 75 06/14/24 12:58 BP 128/90 H 06/14/24 12:58 Pulse Ox 95 06/14/24 12:58 Oxygen Delivery Method Room Air 06/14/24 12:58 BMI result Body Mass Index 46.0 Tobacco/Smoking Status: Tobacco use Status Tobacco use date assessed 06/14/24 06/14/24 13:00 Patient Tobacco Use Status Never used Tobacco 06/14/24 13:00 e-Cigarette/Vaping Use Never Used 06/14/24 13:00 PHQ-9: PHQ-9 Score PHQ-9: Total score 23 06/14/24 13:33 Depression Screening Interpretation: Positive Depression Screening Follow-up: Existing condition and In treatment Thrive Assessment: Date of Thrive Assessment Date Thrive assessed 06/14/24 06/14/24 13:00 Currently or been in a relationship where the following occur: No concerns reported Coding Level of Care Code Est Pt Level 4 (74917) Diagnoses Severe depression F32.2 Hypertension, essential I10 Morbid obesity E66.01 Lipid disorder E78.9 Chronic GERD K21.9 Prediabetes R73.03 Additional Codes PHQ-9 - 87987 - PHQ-9 Billing: Yes ([id number]) Assessment & Plan Assessment & Plan (1) Severe depression: Code(s): F32.2 - Major depressive disorder, single episode, severe without psychotic features Category: Medical (2) Hypertension, essential: Code(s): I10 - Essential (primary) hypertension Category: Medical (3) Morbid obesity: Code(s): E66.01 - Morbid (severe) obesity due to excess calories Category: Medical (4) Lipid disorder: Code(s): E78.9 - Disorder of lipoprotein metabolism, unspecified Category: Medical (5) Chronic GERD: Code(s): K21.9 - Gastro-esophageal reflux disease without esophagitis Category: Medical (6) Prediabetes: Code(s): R73.03 - Prediabetes Category: Medical Plan History - The patient is a 53-year-old male presenting with anxiety and depression. - Began experiencing anxiousness and depression in March, noting inefficacy of past medications including high-dose bupropion and recently ceased low-dose sertraline due to side effects. - Reports confusion episodes while on sertraline, including a concerning event while driving. - The cessation of sertraline did not alleviate depressive symptoms which persist with increased intensity. - Nearly simultaneous onset of tinnitus reported, an aggravating factor contributing to distress. - Recent emotional stress noted, including father's anniversary and academic pressures, although these are typically manageable. - Chronic eczema acknowledged, intermittently better, but requires prescription refills for topical treatment. - Non-use of substances except minimal and infrequent alcohol consumption, avoided in times of heightened anxiety. - Long-term support through counseling since 2007 with an inquiry about its continued necessity. Medications - Bupropion: 450 mg daily for depression and anxiety - Previously took sertraline 50 mg, ceased due to adverse effects - Amlodipine for hypertension - Atorvastatin for hyperlipidemia - Omeprazole - Spironolactone - Mentioned not recalling exact quantity for ceased medication (teleplan) Problem List - Major Depressive Disorder - Anxiety Disorder - Eczema - Tinnitus - Essential Hypertension - Hyperlipidemia [place] [facility] Psychological counseling since 2007; potential referral to a psychiatrist discussed. Patient Instructions - Start fluoxetine at 10 mg, increasing to 20 mg after one week. - Return for follow-up in two to three weeks. - Engage in sunlight exposure as weather allows. - referral for outpatient psychiatric evaluation placed Orders: Referrals Psychiatry Referral F32.2 - Major depressive disorder, single episode, severe without psychotic features Medications: New clotrimazole-betamethasone 1-0.05 % 1 appl topical ONCE 30 days 45 grams 0RF fluoxetine 10 mg PO DAILY 30 caps 0RF Refilled omeprazole 20 mg PO DAILY 90 caps 1RF amlodipine 10 mg PO BEDTIME 90 days 90 tabs 1RF atorvastatin 20 mg PO BEDTIME 90 days 90 tabs 1RF bupropion HCl XL 450 mg PO QAM 90 tabs 0RF spironolacton-hydrochlorothiaz 25-25 mg 1 tab PO BEDTIME 90 tabs 1RF Discontinued sertraline Discontinued Reason: Doctor's Order 50 mg PO DAILY 90 tabs 0RF
== END 2024-06-14 13:32 | disposition home or self-care (01) ==
LOC: HO.HMCC 12:53
PROVIDERS: PCP Internal Medicine; Visit Provider Internal Medicine
DX: F32.2 Major depressive disorder, single episode, severe without psychotic features (principal); I10 Essential (primary) hypertension; E66.01 Morbid (severe) obesity due to excess calories; Z68.42 Body mass index [BMI] 45.0-49.9, adult; E78.9 Disorder of lipoprotein metabolism, unspecified; K21.9 Gastro-esophageal reflux disease without esophagitis; R73.03 Prediabetes

== ENCOUNTER 2024-06-14 12:53 | Outpatient (REF) | payer OTHER, SELFPAY ==
[2024-06-14 16:41] LABS: Albumin Level 4.2 g/dL (3.5-5.0); Alkaline Phosphatase 59 U/L (39-117); Anion Gap 11 (12-20); Aspartate Amino Transferase 33 U/L (5-37); Bilirubin Total 0.4 mg/dL (0.0-1.0); Blood Urea Nitrogen 13 mg/dL (9-16); Calcium 9.5 mg/dL (8.4-10.2); Carbon Dioxide 30 mmol/L (22-29); Chloride 104 mmol/L (96-108); Estimated Glomerular Filt Rate > 60; Glucose Random 89 mg/dL (60-115); Potassium 3.5 mmol/L (3.3-5.1); Sodium 141 mmol/L (135-145); Total Protein 7.3 g/dL (6.5-8.0)
[2024-06-14 17:48] LABS: Alanine Aminotransferase 29 U/L (0-40)
== END 2024-06-14 12:54 | disposition home or self-care (01) ==
LOC: HO.HMGCLDS 12:53
PROVIDERS: PCP Internal Medicine; Visit Provider Internal Medicine
DX: F32.2 Major depressive disorder, single episode, severe without psychotic features (principal); I10 Essential (primary) hypertension; E66.01 Morbid (severe) obesity due to excess calories; Z68.42 Body mass index [BMI] 45.0-49.9, adult; E78.9 Disorder of lipoprotein metabolism, unspecified; K21.9 Gastro-esophageal reflux disease without esophagitis; R73.03 Prediabetes; Z79.899 Other long term (current) drug therapy
CPT/HCPCS: 36415; 80053; 96127; 99212

== ENCOUNTER 2024-06-28 13:34 | Outpatient (AMB) | payer OTHER, SELFPAY ==
--- NOTE | 2024-06-28 13:36 | MHC.PC.OV ---
Vital Signs 06/28/24 13:37 Height 6 ft Weight 336 lb 6 oz BMI 45.6 BP 136/88 Blood Pressure Location Lt brachial Position Sitting Pulse 80 Pulse Source Pulse Oximeter Pulse Oximetry (%) 97 Oxygen Delivery Method Room Air Intake Visit Reasons: 2 week follow up Allergies lisinopril [LISINOPRIL] Adverse Reaction (Severe, Verified 06/28/24 13:42) COUGH sertraline Adverse Reaction (Verified 06/28/24 13:42) Dream like state Medication List - Last Reconciled 06/28/24 by Renard Benton MD amlodipine 10 mg PO BEDTIME 90 days atorvastatin 20 mg PO BEDTIME 90 days bupropion HCl XL 450 mg PO QAM enxiwjr-D3-gpux-copper-kelsi 325 mg-12.5 mcg -2.75 mg (Citracal-D3 Maximum Plus) 1 tab PO BID clotrimazole-betamethasone 1-0.05 % 1 appl topical ONCE 30 days fluoxetine 10 mg PO DAILY omeprazole 20 mg PO DAILY sertraline 50 mg PO DAILY spironolacton-hydrochlorothiaz 25-25 mg 1 tab PO BEDTIME Tobacco use date assessed: 06/28/24 Dental Screening Dental Screen Date: 06/28/24 Did you have a dental visit in the last 12 months?: Yes Did you have a dental problem in the last 6 months where you did not have access to dental care?: No Was dental information given to patient?: Patient has dentist HPI 2 week follow up HPI Details History - The patient is a 53-year-old male came in for follow-up on depression He was started on fluoxetine 10 mg last visit and was told to increase the dose to 20 mg after a week Currently he is on 20 mg fluoxetine, patient is stable but not feeling much improved Sertraline stopped - Reports no adverse effects with fluoxetine and feels pretty good currently. - Contact dermatitis is managed effectively with topical cream; no itching reported on the hands. Problem List - Major Depressive Disorder - Contact Dermatitis Patient Instructions - Continue taking fluoxetine 20 mg daily for a total of two weeks. - After finishing the current bottle, increase the dosage to 40 mg as discussed. - Utilize prescribed topical cream for dermatitis as needed. - Engage in more outdoor activities as the weather improves. - If experiencing depressive symptoms or if fluoxetine is ineffective, visit the outpatient clinic. Review of Systems - General: No fever no chills - Neurological: No headaches no dizziness - Ear nose throat: No sore throat no hearing difficulty no ear pain - Cardiovascular: No syncope, no chest pain, no palpitations - Gastrointestinal: No nausea vomiting or diarrhea - Endocrine: No polyuria polydipsia no heat intolerance - Genitourinary: No dysuria , no blood in urine Physical Exam General: No acute distress HEENT: No acute findings Neck: Supple Respiratory system: Able to talk in full sentences, no audible wheeze Cardiovascular: S1-S2 regular in rate and rhythm Gastrointestinal: No pain Extremities: No new findings TRIM MOUNTER: Alert awake oriented x3 motor sensory intact Skin: Normal turgor, no itch on hand PFSH Medical History Obstructive sleep apnea on CPAP Chronic GERD Lipid disorder Depression, major, recurrent Hypertension, essential Myofascial pain Elevated cholesterol Osteoarthritis of right knee Arthritis Sleep apnea COVID-19 vaccine series completed Morbid obesity Osteoarthritis, hip, bilateral Surgical History H/O knee surgery Hx of umbilical hernia repair History of total right hip replacement History of umbilical hernia repair Status post total hip replacement, left History of total left hip replacement History of surgery H/O colonoscopy History of sleeve gastrectomy History of ankle surgery Family History Father HTN (hypertension) Mother HTN (hypertension) Sister Cancer of thyroid Maternal Grandfather No problems noted. Maternal Grandmother No problems noted. Paternal Grandfather No problems noted. Paternal Grandmother No problems noted. Brother No problems noted. Sister No problems noted. Sister No problems noted. Social History Household Members: Friend(s) Housing: Homeless Are you a primary inpatient care manager rn to a significant other at home: No Do you presently have visiting nurse or other home services: Yes Alcohol intake: former Patient Tobacco Use Status: Never used Tobacco e-Cigarette/Vaping Use: Never Used Substance Use Type: Marijuana service: No Current occupational status: disabled Cognitive needs: No Hearing needs: No Vision needs: Yes Questionnaire PHQ-9 Over the last 2 weeks, how often have you been bothered by any of the following problems? [id number] - PHQ-9 Billing: Patient declined-do not bill Source: Developed by Drs. Uriel Farias, Vida Retana, Junior Whipple and colleagues, with an educational juan carlos from [employer]. Thrive Questionnaire Date Thrive assessed: 06/28/24 AUDIT C Alcohol Use Questionnaire (AUDIT-C) 1. How often do you have a drink containing alcohol?: Monthly or less 2. How many drinks containing alcohol do you have on a typical day when you are drinking?: 10 or more 3. How often do you have six or more drinks on one occasion?: Less than monthly Total Score: 6 Score Reviewed/Action Taken: Yes YAMILETH-7 AMB Questionnaire YAMILETH-7 Date YAMILETH - 7 assessed: 05/24/24 Source: Developed by Drs. Uriel Farias, Vida Retana, Junior Whipple and colleagues, with an educational juan carlos from [employer]. Physical exam (Primary Care) Vital Signs: Last Vital Signs Pulse 80 06/28/24 13:37 BP 136/88 06/28/24 13:37 Pulse Ox 97 06/28/24 13:37 Oxygen Delivery Method Room Air 06/28/24 13:37 BMI result Body Mass Index 45.6 Tobacco/Smoking Status: Tobacco use Status Tobacco use date assessed 06/28/24 06/28/24 13:43 Patient Tobacco Use Status Never used Tobacco 06/28/24 13:39 e-Cigarette/Vaping Use Never Used 06/28/24 13:39 Thrive Assessment: Date of Thrive Assessment Date Thrive assessed 05/17/24 06/28/24 13:45 Coding Level of Care Code Est Pt Level 3 (31739) Diagnoses Severe depression F32.2 Eczema of hand L30.9 Assessment & Plan Assessment & Plan (1) Severe depression: Code(s): F32.2 - Major depressive disorder, single episode, severe without psychotic features Category: Medical (2) Eczema of hand: Code(s): L30.9 - Dermatitis, unspecified Category: Medical Plan History - The patient is a 53-year-old male came in for follow-up on depression He was started on fluoxetine 10 mg last visit and was told to increase the dose to 20 mg after a week Currently he is on 20 mg fluoxetine, patient is stable but not feeling much improved Sertraline stopped - Reports no adverse effects with fluoxetine and feels pretty good currently. - Contact dermatitis is managed effectively with topical cream; no itching reported on the hands. Problem List - Major Depressive Disorder - Contact Dermatitis Patient Instructions - Continue taking fluoxetine 20 mg daily for a total of two weeks. - After finishing the current bottle, increase the dosage to 40 mg as discussed. - Utilize prescribed topical cream for dermatitis as needed. - Engage in more outdoor activities as the weather improves. - If experiencing depressive symptoms or if fluoxetine is ineffective, visit the outpatient clinic. Medications: Changed From fluoxetine 10 mg PO DAILY 30 caps 0RF To fluoxetine 40 mg (2 x 20 mg) PO DAILY 90 days 180 caps 0RF
[2024-06-28 13:37] VITALS: BP 136/88; PULSE 80; O2SAT 97; BMI 45.6
== END 2024-06-28 13:57 | disposition home or self-care (01) ==
PROVIDERS: PCP Internal Medicine; Visit Provider Internal Medicine
DX: F32.2 Major depressive disorder, single episode, severe without psychotic features (principal); L30.9 Dermatitis, unspecified

== ENCOUNTER → 2024-06-28 13:34 | Outpatient (BNVA) | payer OTHER, SELFPAY | PROVIDERS: PCP Internal Medicine; Visit Provider Internal Medicine | DX: F32.2 Major depressive disorder, single episode, severe without psychotic features (principal); L30.9 Dermatitis, unspecified | CPT/HCPCS: 99212 ==

== ENCOUNTER 2024-09-28 10:08 | Outpatient (AMB) | payer OTHER, SELFPAY ==
--- NOTE | 2024-09-28 10:14 | A.OFFPSYCH_ITS ---
Intake Intake Visit Reasons: consultation Hebrew Teacher Required: No Allergies lisinopril (LISINOPRIL) Adverse Reaction (Severe, Verified 06/28/24 13:42) COUGH sertraline Adverse Reaction (Verified 06/28/24 13:42) Dream like state Medication List - Last Reconciled 09/28/24 by Alexia Mabry APRN amlodipine 10 mg PO BEDTIME 90 days atorvastatin 20 mg PO BEDTIME 90 days bupropion HCl XL 450 mg PO QAM aekiwob-C5-imrc-copper-kelsi 325 mg-12.5 mcg -2.75 mg (Citracal-D3 Maximum Plus) 1 tab PO BID clotrimazole-betamethasone 1-0.05 % 1 appl topical ONCE 30 days fluoxetine 40 mg (2 x 20 mg) PO DAILY 90 days omeprazole 20 mg PO DAILY spironolacton-hydrochlorothiaz 25-25 mg 1 tab PO BEDTIME HPI- Psychiatric Chief Complaint: consultation HPI Narrative: Pt referred Pt with significant depression, previously on high dose of bupropion (450mg) but noted inefficacy. Previously prescribed sertraline but noted several negative side effects. Recently started prozac and on 40mg daily with wellbutrin XL 450mg daily. He feels the prozac helped his mood without side effects; He reports he felt much better on lower dose of wellbutrin and would like to go back to 150mg QAM. Pt reports history of severe anxiety and depression since childhood; he recalls being up all night worrying about a known serial killer near where he lived and worrying about people breaking into home; he worried about his family. He never told anyone how anxious and worried he was until 2007 when the depression and worry became severe and he reached out to a therapist; he tried a few therapists but no meds until 2018. He has had the same therapist for past 17 years and feels very good about the therapy. He is future oriented. He denies SI or HI. He reports good support from family and friends. He deos report grief due to anniversary of father and school stress. He also reports the loss of several friends recently 2 who of natural causes in their 80s and one who suicided. Past Psychiatric History: therapy with [facility] [place] x17 yrs. meds from PCP since 2018. No IPLOC No PHP no past suicide attempts Subjective Subjective Subjective Medication Compliance: Yes Side effects from medications: No Review of Systems Medical Review of Systems: unchanged Mental Status Exam Mental Status Exam Patient Appearance: Well Grooomed Patient Orientation: Person, Place, Time and Situation Level of Consciousness: Awake and Appropriate Patient Behavior: Appropriate, Cooperative and Anxious Mood Description: Depressed and Anxious Affect Description: Depressed and Anxious Patient Cognition Impaired: No Ability to Follow Directions: Good Speech Pattern: Clear, Appropriate and Coherent Memory Description: Intact Hallucinations: None Delusions: Not Present Thought Process: Intact and Goal Oriented Thought Content: positive for Intact and positive for Goal Oriented Judgement: Good Assessment and Plan Assessment & Plan (1) Depression, major, recurrent: Status: Acute Qualifiers: Active/Remission status: in partial remission Qualified Code(s): F33.41 - Major depressive disorder, recurrent, in partial remission Code(s): F33.9 - Major depressive disorder, recurrent, unspecified Plan continue prozac 40mg daily reduce wellbutrin xl to 150 mg one daily in morning follow up with PCP continue therapy Medications: New bupropion HCl XL (Wellbutrin XL) 150 mg PO QAM 90 tabs 1RF Refilled fluoxetine 40 mg (2 x 20 mg) PO DAILY 180 caps 1RF 90 days Discontinued bupropion HCl XL Discontinued Reason: Doctor's Order 450 mg PO QAM 90 tabs 0RF Orders: Orders TSH reflex Free T4 Today F33.41 - Major depressive disorder, recurrent, in partial remission Vitamin B12 and Folate Today F33.41 - Major depressive disorder, recurrent, in partial remission IRON PROFILE Today F33.41 - Major depressive disorder, recurrent, in partial remission Counseling and coordination of Care Pt. Self Management counseling: Maintenance-social rhythm, Mod caffeine/ETOH intake, Sleep hygiene, Behavior activation and General coping skills Medication management counseling: Effectiveness, Side effects, Dosing range, Duration, Drug interaction and Adherence Diagnosis and Prognosis Counseling: Accuracy of diagnosis, Prognosis over time, Impact of diagnosis on life functions, Impact of family relationship, Problematic behaviors secondary to diagnosis and Adequacy of current interventions Details: I spent 75 minutes reviewing the record, seeing the patient and documenting in the medical record. Counseling provided to the patient/caregiver as outlined below. Addressed patient/caregiver concerns regarding current medication regime including effective adherence. Addressed patient/caregiver concerns regarding diagnosis and prognosis including accuracy of diagnosis, prognosis over time, impact of diagnosis. Addressed patient/caregiver concerns regarding impact of recent stressors. [facility] Medical History Obstructive sleep apnea on CPAP Chronic GERD Lipid disorder Depression, major, recurrent Hypertension, essential Myofascial pain Elevated cholesterol Osteoarthritis of right knee Arthritis Sleep apnea COVID-19 vaccine series completed Morbid obesity Osteoarthritis, hip, bilateral Surgical History H/O knee surgery Hx of umbilical hernia repair History of total right hip replacement History of umbilical hernia repair Status post total hip replacement, left History of total left hip replacement History of surgery H/O colonoscopy History of sleeve gastrectomy History of ankle surgery Family History Father HTN (hypertension) Mother HTN (hypertension) Sister Cancer of thyroid Maternal Grandfather No problems noted. Maternal Grandmother No problems noted. Paternal Grandfather No problems noted. Paternal Grandmother No problems noted. Brother No problems noted. Sister No problems noted. Sister No problems noted. Social History Household Members: Friend(s) Housing: Homeless Are you a primary animal care attendant to a significant other at home: No Do you presently have visiting nurse or other home services: Yes Alcohol intake: former Patient Tobacco Use Status: Never used Tobacco e-Cigarette/Vaping Use: Never Used Substance Use Type: Marijuana service: No Current occupational status: disabled Cognitive needs: No Hearing needs: No Vision needs: Yes Social History: lives with friends who are very supportive; but heather COLLINS they are currently ; has one step daughter Coding Level of Care Code Psych Diag Eval w/Med (59088) Diagnoses Recurrent major depressive disorder, in partial remission F33.41 Active/Remission status: in partial remission
== END 2024-09-28 10:50 | disposition home or self-care (01) ==
LOC: HO.HOP 10:08
PROVIDERS: PCP Internal Medicine; Visit Provider Clinical Nurse Specialist Psychiatric/Mental Health
DX: F33.41 Major depressive disorder, recurrent, in partial remission (principal)
CPT/HCPCS: 90792

== ENCOUNTER 2024-09-28 10:08 | Outpatient (REF) | payer OTHER, SELFPAY ==
[2024-09-28 12:24] LABS: Iron 103 mcg/dL (45-160); Percent Iron Saturation 31 % (15-50); Total Iron Binding Capacity 327 mcg/dL (228-428); Unsaturated Iron Binding 224 ug/dL
[2024-09-28 12:39] LABS: Folate 12.5 ng/mL (> or = 4.0); Vitamin B12 647 pg/mL (200-900)
== END 2024-09-28 10:09 | disposition home or self-care (01) ==
LOC: HO.LAB 10:08
PROVIDERS: PCP Internal Medicine; Visit Provider Clinical Nurse Specialist Psychiatric/Mental Health
DX: F33.41 Major depressive disorder, recurrent, in partial remission (principal)
CPT/HCPCS: 36415; 82607; 82746; 83540; 84443; 90792

== ENCOUNTER 2024-10-24 15:07 | Outpatient (AMB) | payer OTHER, SELFPAY ==
[2024-10-24 15:10] VITALS: BP 130/80; PULSE 86; O2SAT 97; BMI 43.7
--- NOTE | 2024-10-24 15:10 | A.OFFPC_ITS ---
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 Required: No Accompanied by: Self / Same As Patient Allergies lisinopril (LISINOPRIL) Adverse Reaction (Severe, Verified 10/24/24 15:10) COUGH sertraline Adverse Reaction (Verified 10/24/24 15:10) Dream like state Medication List - Last Reconciled 10/24/24 by Renard Benton MD amlodipine 10 mg PO BEDTIME 90 days atorvastatin 20 mg PO BEDTIME 90 days bupropion HCl XL (Wellbutrin XL) 150 mg PO QAM [id number] 325 mg-12.5 mcg -2.75 mg (Citracal-D3 Maximum Plus) 1 tab PO BID clotrimazole-betamethasone 1-0.05 % 1 appl topical ONCE 30 days fluoxetine 40 mg (2 x 20 mg) PO DAILY 90 days omeprazole 20 mg PO DAILY spironolacton-hydrochlorothiaz 25-25 mg 1 tab PO BEDTIME Tobacco use date assessed: 10/24/24 Dental Screening Dental Screen Date: 06/28/24 HPI 4m follow up HPI Details History - The patient is a 54-year-old male pres enting for regular follow-up appointment Complaining of with excessive sleepiness. - The patient reports feeling excessivel y sleepy since starting to take two tablets of fluoxetine 20 mg in the morning. - Despite adjustments, including switchi ng to a night-time dose, the drowsiness persisted. - Sleepiness has intensified, with the p atient sleeping for extended hours during the day, such as from 1:00 PM to 4:00 PM, in addition to overnight rest from 10:00 PM through the night. - This excessive drowsiness has been rel ated to the initiation of fluoxetine, impacting daily routines and alertness. - No other associated symptoms such as s welling or additional side effects with other medications were reported. Medical History: - Hypertension managed with amlodipine. - Hyperlipidemia managed with atorvastat in. - Depression managed with fluoxetine and Wellbutrin. - Gastroesophageal reflux disease manage d symptomatically with omeprazole. - Chronic management with spironolactone and hydrochlorothiazide for blood pres sure control. Social History: - The patient recently went on a cruise, minimizing caloric intake and increasing physical activity, reporting 10,000 steps daily, which led to weight loss. - Current weight management efforts are ongoing, with a noted weight loss from 336 pounds in June to 322 pounds recently. Medications - Amlodipine 10 mg for hypertension. - Atorvastatin 20 mg for hyperlipidemia. - Wellbutrin (prescribed by Alexia brandon) for depression. - Fluoxetine 40 mg (two tablets of 20 mg ) for depression. - Omeprazole as needed for gastroesophag eal reflux symptoms. - Spironolactone and hydrochlorothiazide for hypertension. Problem List - Essential Hypertension - Hyperlipidemia - Major Depressive Disorder - Gastroesophageal Reflux Disease - morbid obesity - excessive sleepiness with 40 mg of flu oxetine Diagnostic results - Labs in January: CBC - Normal - Labs in May: Specifics not detailed - Recent CBC by psychiatrist: Iron level s checked due to fatigue; results normal. Electrolytes not tested. [place] [facility] - Psychiatrist/Psychologist: Was Karl Mcclure managing depression-related medications. Transitioned over to PCP now - Neurology appointment upcoming on the . Patient Instructions - Attempt to taper fluoxetine to 20 mg b y taking only one tablet to evaluate drowsiness. - Implement dietary changes to manage ga stroesophageal reflux, such as avoiding certain foods and not eating close to bedtime. - Plan for January blood work before next follow-up visit. - Schedule a follow-up visit in four wed. - Continue taking Wellbutrin if depressi on symptoms start start taking 1 in the morning and 1 at night - follow-up 4 months Review of Systems General: No fever no chills neurological: No headaches no dizziness ear nose throat: No sore throat no hearing difficulty no ear pain cardiovascular: No syncope, no chest pain, no palpitations gastrointestinal: No nausea vomiting or diarrhea endocrine: No polyuria polydipsia no heat intolerance genitourinary: No dysuria skin: No new complaints Physical Exam general: No acute distress HEENT: No acute findings neck: Supple respiratory system: Able to talk in full sentences, no audible wheeze no stridor cardiovascular: S1-S2 RRR, blood pressure is 130/80 gastrointestinal: No pain extremities: No swelling of ankles EAR NOSE 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: Alert awake oriented x3 motor sensory intact skin: Normal turgor [facility] Medical History Obstructive sleep apnea on CPAP Chronic GERD Lipid disorder Depression, major, recurrent Hypertension, essential Myofascial pain Elevated cholesterol Osteoarthritis of right knee Arthritis Sleep apnea COVID-19 vaccine series completed Morbid obesity Osteoarthritis, hip, bilateral Surgical History H/O knee surgery Hx of umbilical hernia repair History of total right hip replacement History of umbilical hernia repair Status post total hip replacement, left History of total left hip replacement History of surgery H/O colonoscopy History of sleeve gastrectomy History of ankle surgery Family History Father HTN (hypertension) Mother HTN (hypertension) Sister Cancer of thyroid Maternal Grandfather No problems noted. Maternal Grandmother No problems noted. Paternal Grandfather No problems noted. Paternal Grandmother No problems noted. Brother No problems noted. Sister No problems noted. Sister No problems noted. Social History Household Members: Friend(s) Housing: Homeless Are you a primary health care manager to a significant other at home: No Do you presently have visiting nurse or other home services: Yes Alcohol intake: former Patient Tobacco Use Status: Never used Tobacco e-Cigarette/Vaping Use: Never Used Substance Use Type: Marijuana service: No Current occupational status: disabled Cognitive needs: No Hearing needs: No Vision needs: Yes Questionnaire PHQ-9 Over the last 2 weeks, how often have you been bothered by any of the following problems? 1. Little interest or pleasure in doing things: several days 2. Feeling down, depressed, or hopeless: not at all 3. Trouble falling or staying asleep, or sleeping too much: nearly every day 4. Feeling tired or having little energy: nearly every day 5. Poor appetite or overeating: more than half the days 6. Feeling bad about yourself - or that you are a failure or have let yourself or your family down: not at all 7. Trouble concentrating on things, such as reading the newspaper or watching television: more than half the days 8. Moving or speaking so slowly that other people could have noticed. Or the opposite - being so fidgety or restless that you have been moving around a lot more than usual: not at all 9. Thoughts that you would be better off or of hurting yourself in some way: not at all Total score: 11 Depression Screening Interpretation: Positive Depression Screening Follow-up: Existing condition and In treatment Depression Screening Done: Yes 31655 - PHQ-9 Billing: Yes Source: Developed by Drs. Uriel Farias, Junior Gary and colleagues, with an educational juan carlos from [employer]. Thrive Questionnaire Date Thrive assessed: 05/17/24 I am a: Patient What is your living situation today?: I have a steady place to live Within the past 12 months, did the food you bought not last and you didn't have the money to get more?: Never true Within the past 12 months, did you worry whether your food would run out before you got money to buy more?: Never true Do you have trouble paying for medicines?: No Do you have trouble getting transportation to medical appointments?: No Do you have trouble paying your heating and electricity bill?: No Do you have trouble taking care of your child, family member or friend?: No Do you have trouble with day-to-day activities such as bathing, preparing meals, shopping, managing finances, etc.?: Yes Are you currently unemployed and looking for a job?: Yes Are you interested in more education?: Yes Currently or been in a relationship where the following occur: No concerns reported THRIVE Score: 0 YAMILETH-7 AMB Questionnaire YAMILETH-7 Date YAMILETH - 7 assessed: 10/24/24 Feeling nervous, anxious, or on edge: 1 = Several days Not being able to stop or control worryin = Several days Worrying too much about different things: 1 = Several days Trouble relaxin = Several days Being so restless that it is hard to sit still: 0 = Not at all Becoming easily annoyed or irritable: 0 = Not at all Feeling afraid as if something awful might happen: 1 = Several days Total YAMILETH-7 score (0-4 normal; 5-9 mild; 10-14 moderate; 15-21 severe): 5 Source: Developed by Vida Ocampo Kurt Kroenke and colleagues, with an educational juan carlos from [employer]. YAMILETH-7 Assessment Billing YAMILETH-7 Assessment Tool: YAMILETH-7 Assessment 11931 Physical exam (Primary Care) Vital Signs: Last Vital Signs Pulse 86 10/24/24 15:10 BP 130/80 10/24/24 15:10 Pulse Ox 97 10/24/24 15:10 BMI result Body Mass Index 43.7 Tobacco/Smoking Status: Tobacco use Status Tobacco use date assessed 10/24/24 10/24/24 15:13 Patient Tobacco Use Status Never used Tobacco 10/24/24 15:13 e-Cigarette/Vaping Use Never Used 10/24/24 15:13 PHQ-9: PHQ-9 Score PHQ-9: Total score 11 10/24/24 15:16 Depression Screening Interpretation: Positive Depression Screening Follow-up: Existing condition and In treatment Thrive Assessment: Date of Thrive Assessment Date Thrive assessed 05/17/24 10/24/24 15:13 Currently or been in a relationship where the following occur: No concerns reported Coding Level of Care Code Est Pt Level 4 (81048) Complex EM visit Add On G2211 Diagnoses Hypertension, essential I10 Recurrent major depressive disorder, in partial remission F33.41 Active/Remission status: in partial remission Lipid disorder E78.9 Morbid obesity E66.01 Chronic GERD K21.9 Impaired fasting blood sugar R73.01 Additional Codes YAMILETH-7 Assessment Billing - YAMILETH-7 Assessment Tool: YAMILETH-7 Assessment 80302 ([id number]) PHQ-9 - 11138 - PHQ-9 Billing: Yes ([id number]) Assessment & Plan Assessment & Plan (1) Hypertension, essential: Code(s): I10 - Essential (primary) hypertension Category: Medical (2) Depression, major, recurrent: Code(s): F33.9 - Major depressive disorder, recurrent, unspecified Category: Medical Qualifiers: Active/Remission status: in partial remission Qualified Code(s): F33.41 - Major depressive disorder, recurrent, in partial remission (3) Lipid disorder: Code(s): E78.9 - Disorder of lipoprotein metabolism, unspecified Category: Medical (4) Morbid obesity: Code(s): E66.01 - Morbid (severe) obesity due to excess calories Category: Medical (5) Chronic GERD: Code(s): K21.9 - Gastro-esophageal reflux disease without esophagitis Category: Medical (6) Impaired fasting blood sugar: Code(s): R73.01 - Impaired fasting glucose Category: Medical Plan History - The patient is a 54-year-old male presenting for regular follow-up appointment Complaining of with excessive sleepiness. - The patient reports feeling excessively sleepy since starting to take two tablets of fluoxetine 20 mg in the morning. - Despite adjustments, including switching to a night-time dose, the drowsiness persisted. - Sleepiness has intensified, with the patient sleeping for extended hours during the day, such as from 1:00 PM to 4:00 PM, in addition to overnight rest from 10:00 PM through the night. - This excessive drowsiness has been related to the initiation of fluoxetine, impacting daily routines and alertness. - No other associated symptoms such as swelling or additional side effects with other medications were reported. Medical History: - Hypertension managed with amlodipine. - Hyperlipidemia managed with atorvastatin. - Depression managed with fluoxetine and Wellbutrin. - Gastroesophageal reflux disease managed symptomatically with omeprazole. - Chronic management with spironolactone and hydrochlorothiazide for blood pressure control. Social History: - The patient recently went on a cruise, minimizing caloric intake and increasing physical activity, reporting 10,000 steps daily, which led to weight loss. - Current weight management efforts are ongoing, with a noted weight loss from 336 pounds in June to 322 pounds recently. Medications - Amlodipine 10 mg for hypertension. - Atorvastatin 20 mg for hyperlipidemia. - Wellbutrin (prescribed by Alexia Mcclure) for depression. - Fluoxetine 40 mg (two tablets of 20 mg) for depression. - Omeprazole as needed for gastroesophageal reflux symptoms. - Spironolactone and hydrochlorothiazide for hypertension. Problem List - Essential Hypertension - Hyperlipidemia - Major Depressive Disorder - Gastroesophageal Reflux Disease - morbid obesity - excessive sleepiness with 40 mg of fluoxetine Diagnostic results - Labs in January: CBC - Normal - Labs in May: Specifics not detailed - Recent CBC by psychiatrist: Iron levels checked due to fatigue; results normal. Electrolytes not tested. [place] [facility] - Psychiatrist/Psychologist: Was Alexia Mcclure managing depression-related medications. Transitioned over to PCP now - Neurology appointment upcoming on the . Patient Instructions - Attempt to taper fluoxetine to 20 mg by taking only one tablet to evaluate drowsiness. - Implement dietary changes to manage gastroesophageal reflux, such as avoiding certain foods and not eating close to bedtime. - Plan for November blood work before the next follow-up visit. - Schedule a follow-up visit in four months. - Continue taking Wellbutrin if depression symptoms start start taking 1 in the morning and 1 at night - follow-up 4 months Orders: Orders Comprehensive Met. Panel Today E66.01 - Morbid (severe) obesity due to excess calories, E78.9 - Disorder of lipoprotein metabolism, unspecified, F33.41 - Major depressive disorder, recurrent, in partial remission, I10 - Essential (primary) hypertension, K21.9 - Gastro-esophageal reflux disease without esophagitis, R73.01 - Impaired fasting glucose Vitamin D 25-OH (D2 and D3) Today E66.01 - Morbid (severe) obesity due to excess calories, E78.9 - Disorder of lipoprotein metabolism, unspecified, F33.41 - Major depressive disorder, recurrent, in partial remission, I10 - Essential (primary) hypertension, K21.9 - Gastro-esophageal reflux disease without esophagitis, R73.01 - Impaired fasting glucose Complete Blood Count Auto Diff Today E66.01 - Morbid (severe) obesity due to excess calories, E78.9 - Disorder of lipoprotein metabolism, unspecified, F33.41 - Major depressive disorder, recurrent, in partial remission, I10 - Essential (primary) hypertension, K21.9 - Gastro-esophageal reflux disease without esophagitis, R73.01 - Impaired fasting glucose LDL Cholesterol Direct Today E66.01 - Morbid (severe) obesity due to excess calories, E78.9 - Disorder of lipoprotein metabolism, unspecified, F33.41 - Major depressive disorder, recurrent, in partial remission, I10 - Essential (primary) hypertension, K21.9 - Gastro-esophageal reflux disease without esophagitis, R73.01 - Impaired fasting glucose Hemoglobin A1c Today R73.01 - Impaired fasting glucose
== END 2024-10-24 15:35 | disposition home or self-care (01) ==
LOC: HO.HMCC 15:08
PROVIDERS: PCP Internal Medicine; Visit Provider Internal Medicine
DX: I10 Essential (primary) hypertension (principal); F33.41 Major depressive disorder, recurrent, in partial remission; E66.01 Morbid (severe) obesity due to excess calories; Z68.41 Body mass index [BMI] 40.0-44.9, adult; E78.9 Disorder of lipoprotein metabolism, unspecified; K21.9 Gastro-esophageal reflux disease without esophagitis; R73.01 Impaired fasting glucose

== ENCOUNTER → 2024-10-24 15:07 | Outpatient (BNVA) | payer OTHER, SELFPAY | PROVIDERS: PCP Internal Medicine; Visit Provider Internal Medicine | DX: I10 Essential (primary) hypertension (principal); F33.41 Major depressive disorder, recurrent, in partial remission; E78.9 Disorder of lipoprotein metabolism, unspecified; K21.9 Gastro-esophageal reflux disease without esophagitis; R73.01 Impaired fasting glucose; E66.01 Morbid (severe) obesity due to excess calories | CPT/HCPCS: 96127; 99212 ==

== ENCOUNTER 2024-11-08 12:56 | Outpatient (AMB) | payer OTHER, SELFPAY ==
[2024-11-08 13:04] VITALS: BP 138/100; PULSE 72; O2SAT 94; BMI 44.4
--- NOTE | 2024-11-08 13:04 | MHC.OFFVIS ---
Vital Signs 11/08/24 13:04 Height 6 ft Weight 327 lb 2 oz BMI 44.4 BP 138/100 H Blood Pressure Location Rt brachial Position Sitting Pulse 72 Pulse Source Pulse Oximeter Pulse Oximetry (%) 94 Oxygen Delivery Method Room Air Intake Visit Reasons: Follow Up 6mo Intake Note: Patient presents follow up [facility]. Compliance in chart(/days, >=4hrs-99%, Average usage- 9hr 38min, Pressure-12cm, Med Leaks-0.3, AHI-0.6). Accompanied by: Self / Same As Patient Allergies lisinopril (LISINOPRIL) Adverse Reaction (Severe, Verified 11/08/24 13:07) COUGH sertraline Adverse Reaction (Verified 11/08/24 13:07) Dream like state HPI Comments Details: 54 year old male presents for a f/u appt of sleep apnea. [facility] compliance report 08/2024- 10/2024 reviewed today. Total avg use >4 hours 99% 90/90 days avg us 9hrs 38min Press [id number] Leaks min 0- max 43.3 AHI is 0.8 He sleeps well with his CPAP machine, feels more refreshed. His morning headaches have decreased since using his cpap. His energy levels are improved. Mood is managed with Fluoxetine is reduced to 20mg po per PCP, Alexia Mcclure since he was sleeping all day long and loss of focus.His uncle passed 2 weeks ago, friend passed in MVA, he has not been sleeping well and sees his therapist 2x a month which is helpful. He is working with a therapist. His mind continues to be active. 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 He has paranoia due to recent tragedies and gets anxious. He prays and it improves, then goes for a walk, however has a r. foot bunion which hurts. His dreams have been repetitive, situation is always same however in different settings. He fears his 21 year old daughter will get hurt if she goes out. He is worried about Social Security not paying his disability due to their mistakes of overpayment. He is managing BP with 2 meds, it is elevated today 138/100, due to stress and lack of sleep. He washes his mask, and rinses the hoses, changes filters, cleans his tubing and fills the reservoir as needed. [facility] Medical History Obstructive sleep apnea on CPAP Chronic GERD Lipid disorder Depression, major, recurrent Hypertension, essential Myofascial pain Elevated cholesterol Osteoarthritis of right knee Arthritis Sleep apnea COVID-19 vaccine series completed Morbid obesity Osteoarthritis, hip, bilateral Surgical History H/O knee surgery Hx of umbilical hernia repair History of total right hip replacement History of umbilical hernia repair Status post total hip replacement, left History of total left hip replacement History of surgery H/O colonoscopy History of sleeve gastrectomy History of ankle surgery Family History Father HTN (hypertension) Mother HTN (hypertension) Sister Cancer of thyroid Maternal Grandfather No problems noted. Maternal Grandmother No problems noted. Paternal Grandfather No problems noted. Paternal Grandmother No problems noted. Brother No problems noted. Sister No problems noted. Sister No problems noted. Social History Household Members: Friend(s) Housing: Homeless Are you a primary child care attendant school to a significant other at home: No Do you presently have visiting nurse or other home services: Yes Alcohol intake: former Patient Tobacco Use Status: Never used Tobacco e-Cigarette/Vaping Use: Never Used Substance Use Type: Marijuana service: No Current occupational status: disabled Cognitive needs: No Hearing needs: No Vision needs: Yes Physical Exam Vital Signs: Last Vital Signs Pulse 72 11/08/24 13:04 BP 138/100 H 11/08/24 13:04 Pulse Ox 94 11/08/24 13:04 Oxygen Delivery Method Room Air 11/08/24 13:04 BMI result Body Mass Index 44.4 Const General: no acute distress Orientation/consciousness: patient oriented x3 HEENT Other: Mallampati stage Eyes Pupils: Equal, round and reactive pupils present Resp Effort & Inspection: normal respiratory effort and able to speak in complete sentences Auscultation: clear to auscultation bilaterally Cardio Rate: regular rate Rhythm: regular rhythm Neuro General: patient oriented x3 and moves all extremities Cranial nerves: Yes Equal, round and reactive pupils present, Yes Normal accommodation reflex present, Yes Normal facial strength present, Yes Midline tongue present, Yes Ability to bilaterally rotate head present and Yes Ability to bilaterally elevate shoulders present Cognition (Neuro): normal cognition Gait exam (Neuro): Antalgic gait present Motor exam (neuro): 5/5 motor strength present throughout and Normal motor muscle tone present throughout Psych Speech and movement: Clear speech present Thought process: Perseverating thought process present Thought content: Depressive thoughts present Insight: Fair insight present (Psych) Assessment & Plan Assessment & Plan (1) Obstructive sleep apnea on CPAP: Code(s): G47.33 - Obstructive sleep apnea (adult) (pediatric) Category: Medical (2) Depression, major, recurrent: Code(s): F33.9 - Major depressive disorder, recurrent, unspecified Category: Medical Qualifiers: Active/Remission status: in partial remission Qualified Code(s): F33.41 - Major depressive disorder, recurrent, in partial remission (3) Anxiety and depression: Code(s): F41.9 - Anxiety disorder, unspecified; F32.A - Depression, unspecified Category: Medical (4) YAMILETH (generalized anxiety disorder): Comment: CBTI maxi download on phone/ meds dosign AM vs. PM Code(s): F41.1 - Generalized anxiety disorder Category: Medical Plan Obstructed Sleep Apnea on cpap continue use and for >4 hours nightly as patient experiences refreshed sleep. Depression and anxiety continue Wellbutrin 150mg po daily and Fluoxetine 20mg po daily, discussed taking these meds in the AM versus PM as they can be stimulating and keep him up at night. Continue seeing therapist, download CBTI maxi for YAMILETH. Weight/ BMI is elevated 44.4, he is walking as tolerable due to pain, will f/u with podiatry for Bunion surgery. Patient Education: #1 modifiable risk factor for CV events is Hypertension, good BP control, diet and exercise as tolerable. BMI is elavated BMI is 44.9 recommend, meal prepping and reducing caloric intake. Follow up in 6 months. Patient Instructions: Sleep Hygiene provided: set a scheduled bedtime and wake time to help regulate the circadian rhythm and balance the release of pituitary hormones. Sleep in a dark room, temperatures below 68 degrees, and no devices n bed. Limit caffeinated products 6 hours prior to bed, and limit fluids 2-4 hours prior to bed. Gentle night yoga, diffusing essential oils, and playing soft music can be relaxing. Coding Level of Care Code Est Pt Level 4 (78605) Diagnoses Obstructive sleep apnea on CPAP G47.33 Recurrent major depressive disorder, in partial remission F33.41 Active/Remission status: in partial remission Anxiety and depression F41.9; F32.A YAMILETH (generalized anxiety disorder) F41.1
== END 2024-11-08 13:51 | disposition home or self-care (01) ==
LOC: HO.HSMS 12:57
PROVIDERS: PCP Internal Medicine; Visit Provider Physician Assistant Medical
DX: G47.33 Obstructive sleep apnea (adult) (pediatric) (principal); F33.41 Major depressive disorder, recurrent, in partial remission; F41.1 Generalized anxiety disorder
CPT/HCPCS: 99214

== ENCOUNTER → 2024-11-08 12:56 | Outpatient (BNVA) | payer OTHER, SELFPAY | PROVIDERS: PCP Internal Medicine; Visit Provider Physician Assistant Medical | DX: G47.33 Obstructive sleep apnea (adult) (pediatric) (principal); F33.41 Major depressive disorder, recurrent, in partial remission; F41.1 Generalized anxiety disorder; Z99.89 Dependence on other enabling machines and devices | CPT/HCPCS: 99212 ==

== ENCOUNTER 2024-11-18 18:10 | Emergency (ER) | payer OTHER, SELFPAY ==
--- NOTE | ~2024-11-18 | XR_ITS ---
CLINICAL HISTORY: trauma 3 view left ankle Comparison: None provided Findings: No acute fractures. Ankle mortise intact. No significant loss of joint space, osteophytes, or erosions. No ankle effusion. No radiopaque foreign body. IMPRESSION: 1. No acute findings. This document has been electronically signed by: Daniel Salter MD on 11/18/2024 18:59:27
[2024-11-18 18:32] VITALS: RESP 16; BMI 39.5
--- NOTE | 2024-11-18 18:35 | ED.GENADULT ---
HPI - General Adult General Chief complaint: Wound/Laceration Stated complaint: left foot laceration Time Seen by Provider: 11/18/24 18:46 Source: patient Mode of arrival: ambulatory Limitations: no limitations History of Present Illness ED Provider: Dr. Srivastava HPI narrative: 54-year-old male presented hospital today for a laceration of his left lower extremity. Patient stated that he struck it against a screen door. Unsure of his tetanus status. Bleeding is controlled. Related Data Home Medications ?Medication ?Instructions ?Recorded ?Confirmed calcium 325 mg-vit D3 12.5 1 tab PO BID 11/19/21 10/24/24 mcg-zinc 2.75 [id number] tablet (Citracal-D3 Maximum Plus) Previous Rx's ?Medication ?Instructions ?Recorded amlodipine 10 mg tablet 10 mg PO BEDTIME 90 days #90 tabs 06/14/24 atorvastatin 20 mg tablet 20 mg PO BEDTIME 90 days #90 tabs 06/14/24 clotrimazole-betamethasone 1 1 appl topical ONCE 30 days #45 06/14/24 %-0.05 % topical cream grams omeprazole 20 mg capsule,delayed 20 mg PO DAILY #90 caps 06/14/24 release spironolactone 25 1 tab PO BEDTIME #90 tabs 06/14/24 mg-hydrochlorothiazide 25 mg tablet bupropion HCl 150 mg 24 hr tablet, 150 mg PO QAM #90 tabs 09/28/24 extended release (Wellbutrin XL) fluoxetine 20 mg capsule 40 mg (2 x 20 mg) PO DAILY 90 days 09/28/24 #180 caps Allergies Allergy/AdvReac Type Severity Reaction Status Date / Time lisinopril (LISINOPRIL) AdvReac Severe COUGH Verified 11/18/24 18:33 sertraline AdvReac Dream like Verified 11/18/24 18:33 state Review of Systems Review of Systems: Pertinent review of systems as mentioned in HPI. All other system otherwise negative. [facility] Past Medical History [facility] Narrative: Medical history as mentioned in HPI Medical History Obstructive sleep apnea on CPAP Chronic GERD Lipid disorder Depression, major, recurrent Hypertension, essential Myofascial pain Elevated cholesterol Osteoarthritis of right knee Arthritis Sleep apnea COVID-19 vaccine series completed Morbid obesity Osteoarthritis, hip, bilateral Surgical History H/O knee surgery Hx of umbilical hernia repair History of total right hip replacement History of umbilical hernia repair Status post total hip replacement, left History of total left hip replacement History of surgery H/O colonoscopy History of sleeve gastrectomy History of ankle surgery Family History Family History Father HTN (hypertension) Mother HTN (hypertension) Sister Cancer of thyroid Maternal Grandfather No problems noted. Maternal Grandmother No problems noted. Paternal Grandfather No problems noted. Paternal Grandmother No problems noted. Brother No problems noted. Sister No problems noted. Sister No problems noted. Social History Social History Household Members: Friend(s) Housing: Homeless Are you a primary resident care coordinator to a significant other at home: No Do you presently have visiting nurse or other home services: Yes Alcohol intake: former Patient Tobacco Use Status: Never used Tobacco e-Cigarette/Vaping Use: Never Used Substance Use Type: Marijuana Advance Directives: No Advance Directives Information Provided: No service: No Current occupational status: disabled Cognitive needs: No Hearing needs: No Vision needs: Yes Physical Exam ED Exam Exam: General: Pleasant, no distress, interacting appropriately Head: Normacephalic, atraumatic ENT: oral mucosa moist, neck supple, no tracheal deviation Extremities: Large laceration to patient's left medial ankle, BP pulse intact range of motion intact. No concern of of tendon injury. This is approximately 6 cm in length. Vital Signs: Vital Signs - 24 hr 11/18/24 18:32 Respiratory Rate 16 BMI result Body Mass Index 39.5 Course Course Course Narrative: RME, this is a rapid medical exam performed by Bharathi Cervantes please refer to primary provider for complete H&P- 54-year-old male presents for evaluation of a laceration to his left heel. He reports the screen door slammed on his foot causing a laceration Medications Administered Discontinued Medications Generic Name Dose Route Start Last Admin Trade Name Freq PRN Reason Stop Dose Admin Diphtheria/Tetanus/Acell Pertussis 0.5 ml 11/18/24 18:35 11/18/24 18:57 Diphth,Pertus(Acell),Tet Adult 0.5 Ml Syringe IM 11/18/24 18:36 0.5 ml .ONCE ONE Administration Lidocaine/Epinephrine 10 ml 11/18/24 19:05 11/18/24 19:42 Lidocaine Hcl 1%/Epi 1:100,000 10 Ml Vial INFILTRATI 11/18/24 19:06 10 ml ONCE ONE Administration Procedures Laceration Laceration 1: Site: lower extremity Side (If applicable): left Size (cm): 6 Description: linear Depth: simple, single layer Local Anesthetic: lidocaine 1% and with epi Amount of anesthesia used (mL): 10 Pre-repair: irrigated extensively Skin layer closed with: nylon Size (cm): 4-0 Number of sutures: 10 Technique: simple, interrupted Medical Decision Making Medical Decision Making MDM Narrative: This is a 54-year-old male presented hospital today for left ankle laceration. Tetanus shot is updated. I repaired the patient's laceration. This wound was extensively washed out. A total of 10 simple interrupted stitches was placed. Patient will be discharged. Differential Diagnosis Differential Diagnoses: The differential diagnosis associated with the presentation includes Left foot laceration, tendon injury Discharge Plan Discharge Clinical Impression: Laceration of foot not toes Qualifiers: Encounter type: initial encounter Laterality: left Qualified Code(s): S91.312A - Laceration without foreign body, left foot, initial encounter Patient Disposition: Home, Self-Care Instructions: Care For Your Stitches (ED) Additional Instructions: 10 stitches placed. remove in 10-14 days. Keep it clean Prescriptions: No Action [id number]-kelsi [Citracal-D3 Maximum Plus] 325 mg-12.5 mcg -2.75 mg tablet 1 tab PO BID clotrimazole-betamethasone 1-0.05 % cream 1 appl topical ONCE 30 Days Qty: 45 0RF amlodipine 10 mg tablet 10 mg PO BEDTIME 90 Days Qty: 90 1RF atorvastatin 20 mg tablet 20 mg PO BEDTIME 90 Days Qty: 90 1RF omeprazole 20 mg capsule,delayed release(DR/EC) 20 mg PO DAILY Qty: 90 1RF spironolacton-hydrochlorothiaz 25-25 mg tablet 1 tab PO BEDTIME Qty: 90 1RF bupropion HCl [Wellbutrin XL] 150 mg tablet extended release 24 hr 150 mg PO QAM Qty: 90 1RF fluoxetine 20 mg capsule 40 mg PO DAILY 90 Days Qty: 180 1RF Print Language: Pashto
[2024-11-18] MEDS: Diphth,Pertus(ACell),Tet Adult 0.5 ML SYRINGE IM (18:57)
[2024-11-18] MEDS: Lidocaine HCl 1%/Epi 1:100,000 10 ML VIAL INFILTRATI (19:42)
[2024-11-18 20:28] VITALS: BP 142/92; PULSE 66; RESP 16; TEMP 36.8; O2SAT 94
[2024-11-18 20:53] VITALS: BP 142/92; PULSE 66; RESP 16; TEMP 36.8; O2SAT 94
== END 2024-11-18 20:35 | disposition home or self-care (01) ==
PROVIDERS: Emergency Provider Student in an Organized Health Care Education/Training Program; PCP Internal Medicine
DX: S81.812A Laceration without foreign body, left lower leg, initial encounter (principal); S91.312A Laceration without foreign body, left foot, initial encounter; M79.672 Pain in left foot; W26.9XXA Contact with unspecified sharp object(s), initial encounter; Y93.9 Activity, unspecified; Y92.9 Unspecified place or not applicable; Y99.8 Other external cause status; Z23 Encounter for immunization
CPT/HCPCS: 12002; 73610; 90471; 90715; 99282; 99284; J2004

== ENCOUNTER → 2024-11-18 18:35 | Outpatient (BNV) | payer OTHER, SELFPAY | PROVIDERS: Emergency Provider Student in an Organized Health Care Education/Training Program; PCP Internal Medicine; Visit Provider Radiology Diagnostic Radiology | DX: S91.312A Laceration without foreign body, left foot, initial encounter (principal); W23.1XXA Caught, crushed, jammed, or pinched between stationary objects, initial encounter | CPT/HCPCS: 73610 ==

== ENCOUNTER → 2024-12-01 08:50 | Outpatient (BNVA) | payer MEDICARE, MEDICAID, SELFPAY | PROVIDERS: PCP Internal Medicine | DX: Z48.02 Encounter for removal of sutures (principal); L08.9 Local infection of the skin and subcutaneous tissue, unspecified; S99.812A Other specified injuries of left ankle, initial encounter; I10 Essential (primary) hypertension | CPT/HCPCS: 99211; 99212 ==

== ENCOUNTER 2024-12-01 09:02 | Outpatient (AMB) | payer OTHER, SELFPAY ==
[2024-12-01 09:07] VITALS: BP 122/88; PULSE 72; TEMP 36.9; O2SAT 95; BMI 47.3
--- NOTE | 2024-12-01 09:07 | AM.OFFWIN_ITS ---
Intake Vital Signs 12/01/24 09:07 Height 5 ft 10 in Weight 330 lb BMI 47.3 BP 122/88 Blood Pressure Location Lt brachial Position Sitting Pulse 72 Pulse Source Pulse Oximeter Temp 98.4 F Temp Source Oral Pulse Oximetry (%) 95 Oxygen Delivery Method Room Air Intake Visit Reasons: EP Stitch removal Intake Note: Pt presents for need of SR- sutures placed 13 days ago Patient Tobacco Use Status: Never used Tobacco Allergies lisinopril (LISINOPRIL) Adverse Reaction (Severe, Verified 12/01/24 09:09) COUGH sertraline Adverse Reaction (Verified 12/01/24 09:09) Dream like state Do you need a note to return to daycare/school/sports/work: No HPI EP Stitch removal HPI Details 54 year old male patient presents today for removal of stitches. He had 10 sutures placed in left ankle on 11/18 at [facility] [place] a laceration when his foot struck a screen door. Tetanus is up to date. He denies any pain. He has been applying triple abx ointment to area at home. PENDING SALE TO [facility] Medical History Obstructive sleep apnea on CPAP Chronic GERD Lipid disorder Depression, major, recurrent Hypertension, essential Myofascial pain Elevated cholesterol Osteoarthritis of right knee Arthritis Sleep apnea COVID-19 vaccine series completed Morbid obesity Osteoarthritis, hip, bilateral Surgical History H/O knee surgery Hx of umbilical hernia repair History of total right hip replacement History of umbilical hernia repair Status post total hip replacement, left History of total left hip replacement History of surgery H/O colonoscopy History of sleeve gastrectomy History of ankle surgery Family History Father HTN (hypertension) Mother HTN (hypertension) Sister Cancer of thyroid Maternal Grandfather No problems noted. Maternal Grandmother No problems noted. Paternal Grandfather No problems noted. Paternal Grandmother No problems noted. Brother No problems noted. Sister No problems noted. Sister No problems noted. Social History Household Members: Friend(s) Housing: Homeless Are you a primary home health caregiver to a significant other at home: No Do you presently have visiting nurse or other home services: Yes Alcohol intake: former Patient Tobacco Use Status: Never used Tobacco e-Cigarette/Vaping Use: Never Used Substance Use Type: Marijuana service: No Current occupational status: disabled Cognitive needs: No Hearing needs: No Vision needs: Yes Review of Systems Const All systems reviewed & are unremarkable except as noted in HPI and below Physical Exam Vital Signs: Last Vital Signs Temp 98.4 F 12/01/24 09:07 Pulse 72 12/01/24 09:07 BP 122/88 12/01/24 09:07 Pulse Ox 95 12/01/24 09:07 Oxygen Delivery Method Room Air 12/01/24 09:07 BMI result Body Mass Index 47.3 Const General: cooperative, healthy appearing, comfortable and no acute distress Resp Effort & Inspection: normal respiratory effort Cardio Rate: regular rate Rhythm: regular rhythm Skin Other: 10 sutures present left medial ankle. Well-approximated aside from posterior area of laceration noted to have slight dehiscence with some purulent discharge. Mild surrounding erythema. Extrem General: Yes capillary refill normal and Yes no clubbing, cyanosis or edema Psych Appearance: grossly normal Mental Status: mental status grossly normal Speech and movement: Normal speech and movement present Assessment & Plan Assessment & Plan (1) Visit for suture removal: Code(s): Z48.02 - Encounter for removal of sutures Plan: 10 sutures removed from left medial ankle. I am going to start him on Cephalexin due to concern for infection at laceration site. We reviewed indications, use, possible side effects of medication. We discussed monitoring area and returning for evaluation to [place] clinic or ED if he develops any worsening pain, redness, drainage from site, dehiscence of laceration or fevers/chills/malaise. Patient verbalizes understanding and agrees to plan. (2) Infected laceration: Code(s): T14.8XXA - Other injury of unspecified body region, initial encounter; L08.9 - Local infection of the skin and subcutaneous tissue, unspecified Plan: Abx as above. Medications: New cephalexin 500 mg PO BID 14 caps 0RF 7 days L08.9 - Local infection of the skin and subcutaneous tissue, unspecified, T14.8XXA - Other injury of unspecified body region, initial encounter Coding Level of Care Code Est Pt Level 4 (22084) Diagnoses Visit for suture removal Z48.02 Infected laceration T14.8XXA; L08.9
== END 2024-12-01 09:25 | disposition home or self-care (01) ==
PROVIDERS: PCP Internal Medicine; Visit Provider Nurse Practitioner Family
DX: Z48.02 Encounter for removal of sutures (principal); T14.8XXA Other injury of unspecified body region, initial encounter; L08.9 Local infection of the skin and subcutaneous tissue, unspecified

== ENCOUNTER 2024-12-18 09:55 | Outpatient (AMB) | payer MEDICARE, MEDICAID, SELFPAY ==
[2024-12-18 10:00] VITALS: BP 120/84; PULSE 86; TEMP 37; O2SAT 95; BMI 46.5
--- NOTE | 2024-12-18 10:00 | MHC.OFFWIV ---
Intake Vital Signs 12/18/24 10:00 Height 5 ft 10 in Weight 324 lb BMI 46.5 BP 120/84 Blood Pressure Location Lt brachial Position Sitting Pulse 86 Pulse Source Pulse Oximeter Temp 98.6 F Temp Source Oral Pulse Oximetry (%) 95 Oxygen Delivery Method Room Air Intake Visit Reasons: EP-rt leg infection, fever & headaches Intake Note: pt presents with right lower leg redness, swelling and pain for 3 days Patient Tobacco Use Status: Never used Tobacco Allergies lisinopril (LISINOPRIL) Adverse Reaction (Severe, Verified 12/18/24 10:06) COUGH sertraline Adverse Reaction (Verified 12/18/24 10:06) Dream like state Do you need a note to return to daycare/school/sports/work: No HPI HPI Comments History of Present Illness Details History of Present Illness - The patient is a 54-year-old male presenting with redness to the right lower leg. - The condition began on Wednesday with discomfort and erythema on the leg, accompanied by a fever, although the temperature was not recorded. - Pain was noted when standing, and physical activity increased discomfort. - A mosquito bite was noted on the leg, which the patient initially associated with the symptoms. - The patient has no history of diabetes, chest pain, shortness of breath, or neurological symptoms. - He denies fever, chills, joint pain, or calf pain. Physical Exam General: Cooperative, healthy appearing, comfortable, no acute distress and well developed Orientation: Patient oriented x3 Limitations: No limitations Head: Normal to inspection Respiratory: Normal respiratory effort and able to speak in complete sentences. Clear to auscultation bilaterally. No w/r/r noted. Cardiovascular: Regular rate and rhythm. Normal S1 and S2. No m/r/g noted. Skin: Erythema noted on the right lower anterior leg, dry and warm to the touch. Neuro: Sensation is intact. Extremities: Pain in the leg when standing, no numbness or tingling. No edema noted. Patient was informed and verbally consented to the use of an ambient scribe for clinic note documentation during this visit. [facility] Medical History Obstructive sleep apnea on CPAP Chronic GERD Lipid disorder Depression, major, recurrent Hypertension, essential Myofascial pain Elevated cholesterol Osteoarthritis of right knee Arthritis Sleep apnea COVID-19 vaccine series completed Morbid obesity Osteoarthritis, hip, bilateral Surgical History H/O knee surgery Hx of umbilical hernia repair History of total right hip replacement History of umbilical hernia repair Status post total hip replacement, left History of total left hip replacement History of surgery H/O colonoscopy History of sleeve gastrectomy History of ankle surgery Family History Father HTN (hypertension) Mother HTN (hypertension) Sister Cancer of thyroid Maternal Grandfather No problems noted. Maternal Grandmother No problems noted. Paternal Grandfather No problems noted. Paternal Grandmother No problems noted. Brother No problems noted. Sister No problems noted. Sister No problems noted. Social History Household Members: Friend(s) Housing: Homeless Are you a primary anesthesiologist and critical care to a significant other at home: No Do you presently have visiting nurse or other home services: Yes Alcohol intake: former Patient Tobacco Use Status: Never used Tobacco e-Cigarette/Vaping Use: Never Used Substance Use Type: Marijuana service: No Current occupational status: disabled Cognitive needs: No Hearing needs: No Vision needs: Yes Review of Systems Const All systems reviewed & are unremarkable except as noted in HPI and below Physical Exam Vital Signs: Last Vital Signs Temp 98.6 F 12/18/24 10:00 Pulse 86 12/18/24 10:00 BP 120/84 12/18/24 10:00 Pulse Ox 95 12/18/24 10:00 Oxygen Delivery Method Room Air 12/18/24 10:00 BMI result Body Mass Index 46.5 Assessment & Plan Assessment & Plan (1) Cellulitis of right leg: Code(s): L03.115 - Cellulitis of right lower limb Plan Most likely cellulitis plan - tylenol or motrin as needed - Initiate antibiotic therapy for 10 days as prescribed. - Advise the patient to keep the leg elevated and monitor for fever or worsening symptoms. - Instruct the patient to return if symptoms worsen or if there is increased redness or swelling. Medications: New doxycycline hyclate 100 mg PO BID 20 tabs 0RF 10 days Coding Level of Care Code Est Pt Level 3 (85935) Diagnoses Cellulitis of right leg L03.115
== END 2024-12-18 10:46 | disposition home or self-care (01) ==
PROVIDERS: PCP Internal Medicine; Visit Provider Physician Assistant Medical
DX: L03.115 Cellulitis of right lower limb (principal)

== ENCOUNTER → 2024-12-18 09:55 | Outpatient (BNVA) | payer MEDICARE, MEDICAID, SELFPAY | PROVIDERS: PCP Internal Medicine; Visit Provider Physician Assistant Medical | DX: L03.115 Cellulitis of right lower limb (principal) | CPT/HCPCS: 99212 ==

== ENCOUNTER 2025-02-21 13:37 | Outpatient (REF) | payer MEDICARE, SELFPAY ==
[2025-02-21 16:10] LABS: MANUAL DIFF FLAG NO
[2025-02-21 16:20] LABS: Hematocrit 45.2 % (42.0-52.0); Hemoglobin 14.8 g/dl (14.0-18.0); Imm Gran Abs Auto 0.03 X10*3/uL (0.00-0.03); Imm Gran Pct Auto 0.3 % (0.0-0.4); Lymphocytes Absolute Auto 2.3 X10*3/uL (1.2-4.9); Mean Corpuscular HGB Conc 32.7 g/dl (31.0-36.0); Mean Corpuscular Hemoglobin 28.2 pg (27.0-33.0); Mean Corpuscular Volume 86.3 fL (80.0-98.0); NRBC Abs Auto 0.000 X10*3/uL (0.0-0.012); NRBC Pct Auto 0.0 /100WBC (0.0-0.2); Platelet Count 352 X10*3/uL (160-400); Red Blood Count 5.24 X10*6/uL (4.60-5.80); White Blood Count 10.6 X10*3/uL (4.8-10.8)
[2025-02-21 16:33] LABS: Alanine Aminotransferase 33 U/L (0-40); Albumin Level 4.5 g/dL (3.5-5.0); Alkaline Phosphatase 63 U/L (39-117); Anion Gap 14 (12-20); Aspartate Amino Transferase 35 U/L (5-37); Blood Urea Nitrogen 12 mg/dL (9-16); Calcium 9.4 mg/dL (8.4-10.2); Carbon Dioxide 27 mmol/L (22-29); Chloride 104 mmol/L (96-108); Estimated Glomerular Filt Rate > 60; Potassium 3.5 mmol/L (3.3-5.1); Sodium 141 mmol/L (135-145); Total Protein 7.2 g/dL (6.5-8.0)
[2025-02-26 06:28] LABS: Vitamin D 25-OH, D2 <4 ng/mL; Vitamin D 25-OH, D3 32 ng/mL; Vitamin D 25-OH, Total 32 ng/mL (30-100)
== END 2025-02-21 13:38 | disposition home or self-care (01) ==
LOC: HO.HMGCLDS 13:37
PROVIDERS: PCP Internal Medicine; Visit Provider Internal Medicine
DX: Z23 Encounter for immunization (principal); F33.41 Major depressive disorder, recurrent, in partial remission; I10 Essential (primary) hypertension; E78.9 Disorder of lipoprotein metabolism, unspecified; R73.01 Impaired fasting glucose; E66.01 Morbid (severe) obesity due to excess calories; K21.9 Gastro-esophageal reflux disease without esophagitis; F41.1 Generalized anxiety disorder; Z79.2 Long term (current) use of antibiotics; Z79.899 Other long term (current) drug therapy
CPT/HCPCS: 36415; 80053; 82306; 83036; 83721; 85025; 90471; 90656; 99212

== ENCOUNTER 2025-02-21 13:37 | Outpatient (AMB) | payer MEDICARE, MEDICAID, SELFPAY ==
[2025-02-21 13:45] VITALS: BP 128/80; PULSE 83; O2SAT 96; BMI 47.9
--- NOTE | 2025-02-21 13:45 | A.OFFPC_ITS ---
Vital Signs 02/21/25 13:45 Height 5 ft 10 in Weight 334 lb BMI 47.9 BP 128/80 Blood Pressure Location Lt brachial Position Sitting Pulse 83 Pulse Source Pulse Oximeter Pulse Oximetry (%) 96 Oxygen Delivery Method Room Air Intake Visit Reasons: follow up, med refill Allergies lisinopril (LISINOPRIL) Adverse Reaction (Severe, Verified 02/21/25 13:47) COUGH sertraline Adverse Reaction (Verified 02/21/25 13:47) Dream like state Medication List - Last Reconciled 02/21/25 by Renard Benton MD amlodipine 10 mg PO BEDTIME 90 days atorvastatin 20 mg PO BEDTIME 90 days bupropion HCl XL (Wellbutrin XL) 150 mg PO QAM yrgnwii-[id number]-copper-kelsi 325 mg-12.5 mcg -2.75 mg (Citracal-D3 Maximum Plus) 1 tab PO BID clotrimazole-betamethasone 1-0.05 % 1 appl topical ONCE 30 days doxycycline hyclate 100 mg PO BID 10 days fluoxetine 40 mg (2 x 20 mg) PO DAILY 90 days omeprazole 20 mg PO DAILY spironolacton-hydrochlorothiaz 25-25 mg 1 tab PO BEDTIME Tobacco use date assessed: 10/24/24 Dental Screening Dental Screen Date: 06/28/24 HPI HPI Comments History of Present Illness Details History of Present Illness The patient is a 54 year old individual presenting for medication management for depression and anxiety, a flu shot, and lab work. Depression and Anxiety: - The patient is currently taking buprop ion 150 mg and fluoxetine 40 mg for depression and anxiety. - Fluoxetine causes significant sleepine ss. - A prior trial of sertraline was not to lerated, causing a dreamlike state. 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 - The patient expresses significant stre ss and anxiety regarding the possibility of finding a job and then losing Social Security benefits or having inadequate medical insurance coverage. - The patient reports experiencing inter nal agitation, with a sensation of needing to scream and take off running, despite being consciously aware of being in a safe environment. - Sleep is affected by racing thoughts, and the patient has experienced recent episodes of crying for no apparent reason. Hypertension: - The patient is managed on amlodipine 1 0 mg and spironolactone-h ydrochlorothiazide for hypertension. - Blood pressure was 128/80 mmHg at toda y's visit. Chronic GERD: - The patient takes omeprazole for chron ic GERD. Hyperlipidemia: - The patient takes atorvastatin 20 mg f or a lipid disorder. Morbid Obesity: - The patient is morbidly obese and repo rts difficulty losing weight. Medical History: - Depression - Anxiety - Hypertension - Chronic gastroesophageal reflux diseas e (GERD) - Hyperlipidemia - Morbid obesity - Medication intolerance: Sertraline (ca used a dreamlike state) Medications: - Bupropion 150 mg for depression and an xiety - Fluoxetine 40 mg for depression and an xiety - Amlodipine 10 mg for hypertension - Spironolactone-hydrochlorothiazide for hypertension - Omeprazole for chronic GERD - Atorvastatin 20 mg for a lipid disorde r Social History: - Employment: The patient is currently u nemployed and reports significant stress related to the job search process. - Education: The patient has an associat e's degree in [employer] science and certifications in [employer] and [employer]. - Financial: The patient receives Social Security benefits and expresses anxiety about the potential loss of these benefits and medical insurance upon gaining employment. [facility] Medical History Obstructive sleep apnea on CPAP Chronic GERD Lipid disorder Depression, major, recurrent Hypertension, essential Myofascial pain Elevated cholesterol Osteoarthritis of right knee Arthritis Sleep apnea COVID-19 vaccine series completed Morbid obesity Osteoarthritis, hip, bilateral Surgical History H/O knee surgery Hx of umbilical hernia repair History of total right hip replacement History of umbilical hernia repair Status post total hip replacement, left History of total left hip replacement History of surgery H/O colonoscopy History of sleeve gastrectomy History of ankle surgery Family History Father HTN (hypertension) Mother HTN (hypertension) Sister Cancer of thyroid Maternal Grandfather No problems noted. Maternal Grandmother No problems noted. Paternal Grandfather No problems noted. Paternal Grandmother No problems noted. Brother No problems noted. Sister No problems noted. Sister No problems noted. Social History Household Members: Friend(s) Housing: Homeless Are you a primary critical care physician to a significant other at home: No Do you presently have visiting nurse or other home services: Yes Alcohol intake: former Patient Tobacco Use Status: Never used Tobacco e-Cigarette/Vaping Use: Never Used Substance Use Type: Marijuana service: No Current occupational status: disabled Cognitive needs: No Hearing needs: No Vision needs: Yes Questionnaire Thrive Questionnaire Date Thrive assessed: 05/17/24 I am a: Patient What is your living situation today?: I have a steady place to live Within the past 12 months, did the food you bought not last and you didn't have the money to get more?: Never true Within the past 12 months, did you worry whether your food would run out before you got money to buy more?: Never true Do you have trouble paying for medicines?: No Do you have trouble getting transportation to medical appointments?: No Do you have trouble paying your heating and electricity bill?: No Do you have trouble taking care of your child, family member or friend?: No Do you have trouble with day-to-day activities such as bathing, preparing meals, shopping, managing finances, etc.?: Yes Are you currently unemployed and looking for a job?: Yes Are you interested in more education?: Yes Currently or been in a relationship where the following occur: No concerns reported THRIVE Score: 0 YAMILETH-7 AMB Questionnaire YAMILETH-7 Date YAMILETH - 7 assessed: 10/24/24 Source: Developed by Drs. Uriel Farias, Vida Retana, Junior Whipple and colleagues, with an educational juan carlos from [employer]. Review of Systems Narrative Review of Systems - Neurological: No headaches no dizziness - Ear nose throat: No sore throat no hearing difficulty no ear pain - Cardiovascular: No syncope, no chest pain, no palpitations - Gastrointestinal: No nausea vomiting or diarrhea - Endocrine: No polyuria polydipsia no heat intolerance - Genitourinary: No dysuria , no blood in urine Physical exam (Primary Care) Vital Signs: Last Vital Signs Pulse 83 02/21/25 13:45 BP 128/80 02/21/25 13:45 Pulse Ox 96 02/21/25 13:45 Oxygen Delivery Method Room Air 02/21/25 13:45 BMI result Body Mass Index 47.9 Tobacco/Smoking Status: Tobacco use Status Tobacco use date assessed 10/24/24 02/21/25 13:47 Patient Tobacco Use Status Never used Tobacco 02/21/25 13:47 e-Cigarette/Vaping Use Never Used 02/21/25 13:47 Thrive Assessment: Date of Thrive Assessment Date Thrive assessed 05/17/24 02/21/25 13:47 Currently or been in a relationship where the following occur: No concerns reported Narrative Physical Exam General: No acute distress HEENT: No acute findings Neck: Supple Respiratory system: Able to talk in full sentences, no audible wheeze, lungs are clear Cardiovascular: S1-S2 regular in rate and rhythm, Gastrointestinal: No pain Extremities: No new findings, patient reports joint pain 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 Administered by: Rico Woo CMA on 02/21/25 14:05 Dose Route Admin Location Dispensed Lot Number Expiration Date [facility] Customer Relations Assistant 0.5 mL IM Right Deltoid 0.5 mL [id number] 09/18/25 [id number] [employer] VIS Given Date VIS Provided VIS Publication Date 02/21/25 Single Vaccine 24 Eligibility Eligibility Date Funding Source Not [facility] Eligible 02/21/25 Private Coding Level of Care Code Complex visit Add On G2211 Diagnoses Hypertension, essential I10 Recurrent major depressive disorder, in partial remission F33.41 Active/Remission status: in partial remission Lipid disorder E78.9 Morbid obesity E66.01 Chronic GERD K21.9 Impaired fasting blood sugar R73.01 YAMILETH (generalized anxiety disorder) F41.1 Assessment & Plan Assessment & Plan (1) Hypertension, essential: Code(s): I10 - Essential (primary) hypertension Category: Medical (2) Depression, major, recurrent: Code(s): F33.9 - Major depressive disorder, recurrent, unspecified Category: Medical Qualifiers: Active/Remission status: in partial remission Qualified Code(s): F33.41 - Major depressive disorder, recurrent, in partial remission (3) Lipid disorder: Code(s): E78.9 - Disorder of lipoprotein metabolism, unspecified Category: Medical (4) Morbid obesity: Code(s): E66.01 - Morbid (severe) obesity due to excess calories Category: Medical (5) Chronic GERD: Code(s): K21.9 - Gastro-esophageal reflux disease without esophagitis Category: Medical (6) Impaired fasting blood sugar: Code(s): R73.01 - Impaired fasting glucose Category: Medical (7) YAMILETH (generalized anxiety disorder): Comment: [employer] maxi download on phone/ [employer] dosign AM vs. PM Code(s): F41.1 - Generalized anxiety disorder Category: Medical Plan Problem List - Depression - Anxiety - Hypertension - Chronic gastroesophageal reflux disease (GERD) - Hyperlipidemia - Morbid obesity - Preventative care: Influenza vaccination - Preventative care: Laboratory testing - prediabetes Plan - A flu shot will be administered during today's visit. - Continue fluoxetine at the current dose. - Increase bupropion from 150 mg to 300 mg daily to be taken in the morning to help with energy and mood. - The patient will go for blood work today; fasting is not required. - A follow-up appointment is scheduled for March 23 to assess the effectiveness of the medication adjustment. - diet control for prediabetes and Obesity Orders: Orders Influenza [id number] Immunization Today Z23 - Encounter for immunization Medications: Changed From bupropion HCl XL (Wellbutrin XL) 150 mg PO QAM 90 tabs 0RF To bupropion HCl XL 300 mg PO QAM 90 tabs 0RF
== END 2025-02-21 14:20 | disposition home or self-care (01) ==
LOC: HO.HMCC 13:38
PROVIDERS: PCP Internal Medicine; Visit Provider Internal Medicine
DX: I10 Essential (primary) hypertension (principal); F33.41 Major depressive disorder, recurrent, in partial remission; E66.01 Morbid (severe) obesity due to excess calories; Z68.42 Body mass index [BMI] 45.0-49.9, adult; E78.9 Disorder of lipoprotein metabolism, unspecified; K21.9 Gastro-esophageal reflux disease without esophagitis; R73.01 Impaired fasting glucose; F41.1 Generalized anxiety disorder; Z23 Encounter for immunization